=== PATIENT | female | born 1945 | race Caucasian/White ===

== ENCOUNTER → 2016-08-05 | Day surgery (SDC) | payer OTHER ==
[~2016-08-05] MED LIST: IOPAMIDOL (ISOVUE-M 300) 15 ML VIAL IV ONE; TRIAMCINOLONE ACETONIDE 200 MG/5 ML MDV IM ONE
--- NOTE | 2016-08-05 14:57 | IR ---
Lumbar Epidural Steroid Injection History: Back pain, sacral pain, two previous lumbar surgical fusions. Only 3 days of pain relief fro m previous CT-guided injection of sacroiliac joints of June 27, 2016. Consent: Risks and benefits of the procedure were discussed in detail. Informed consent was obtained. Patient accepted risks of lack of therapeutic benefit, internal bleeding, infection, and accidental dural puncture. Medications: Local anesthetic, only, at the preference of the patient. Technique: With the patient prone, the back was prepped and draped in sterile fashion. 1% Xylocaine w as used for local anesthetic. Using multiplanar fluoroscopic guidance, a long 18-gauge Tuohy needle w as inserted into the interlaminar space at L2-L3. Epidural position of the tip of the needle was conf irmed with 2.5 mL of Isovue-M 300. Spot images were obtained before and following injection of 2 mL o f Kenalog (80 mg) and 3 mL of preservative-free 1% Xylocaine. The patient tolerated the procedure wel l and was allowed to leave the hospital after brief observation. Epidurogram: Epidural contrast extends from T12 through L3. Segmental instrumentation and fusion incl udes interbody fusion grafts at L3-L4, L4-L5, and L5-S1, and bipedicular screws at L3, L4, and L5. Mu ltiple coils overlying the lumbar spine are compatible with surgical treatment of hernia. Surgical cl ips in the right upper quadrant suggest cholecystectomy. Impression: 1. Lumbar epidural injection of long-acting steroid and rapid-acting anesthetic via L2-L3. 2. Fusions of L3 through sacrum. - - - - - - - - - - - - - - - - - - - - - - - - - - - - - - - - - - - - - - - - - - - - (PQRS Measures: Current medications were listed in the medical record, including all known prescript ions, [id number] medications, herbal medications, and nutritional supplements. Tobacco Use: Non e. Prophylactic antibiotic: Unnecessary. VTE prophylaxis: Unnecessary.)
== END | disposition home or self-care (01) ==
LOC: FIMAGING 12:58
PROVIDERS: ATTEND Radiology Diagnostic Radiology
DX: M54.5 Low back pain (principal); M51.37 Other intervertebral disc degeneration, lumbosacral region; Z98.1 Arthrodesis status
CPT/HCPCS: J3301; Q9967

== ENCOUNTER 2016-09-11 14:04 | Emergency (ER) | payer OTHER ==
[~2016-09-11 14:04] MED LIST changes: +ACETAMINOPHEN/CODEINE 300/30MG TAB PO SCH; -IOPAMIDOL (ISOVUE-M 300) 15 ML VIAL IV ONE; -TRIAMCINOLONE ACETONIDE 200 MG/5 ML MDV IM ONE
[2016-09-11 14:14] VITALS: TEMP 98.1
[2016-09-11] MEDS ORDERED: ACETAMINOPHEN 325 MG TAB PO ONE (14:33)
[2016-09-11] MEDS ORDERED: KETOROLAC 30 MG/1 ML SDV IVP ONE (15:09)
[2016-09-11] MEDS ORDERED: DIAZEPAM 10 MG/2 ML SYR IVP ONE (15:10)
--- NOTE | 2016-09-11 15:24 | EDPHY ---
H & P Stated Complaint: R hip/back pain radiating down leg Time Seen by Provider: 09/11/16 14:19 HPI/ROS: CHIEF COMPLAINT: Back and leg pain HISTORY OF PRESENT ILLNESS: This is a 71-year-old female with multiple medical problems including severe coronary artery disease and insulin-dependent diabetes who is status post lumbar fusion x2. Her 1st fusion was at L4-5 L5-S1 in 2011. The 2nd fusion involved the level above and was performed by Dr. Sánchez in July of 2015. She had been relatively well since then but developed acute gout this past fall and ended up in a wheelchair for a few months as result. Following that she began physical therapy, which she has continued. Over the past 5 days she has had right buttock pain that extends around into her right anterolateral thigh to the knee. Initially this was thought dora piriformis syndrome by her physical therapist. The patient now says that this feels like sciatica to her. She is not aware of any new weakness but has been in so much pain that she has not been up and about much. She is not aware of new numbness. She did have 1 episode of urinary leakage, a very small amount, 3 days ago. This has not recurred. She has been able to control her bowels and her bladder. She is intolerant of opiate pain medications. She has been taking ibuprofen 600 mg twice daily without relief. REVIEW OF SYSTEMS: A ten point review of systems was performed and is negative with the exception of the items mentioned in the HPI. Source: Patient, Family Exam Limitations: No limitations - Personal History Current Tetanus/Diphtheria Vaccine: Yes Current Tetanus Diphtheria and Acellular Pertussis (TDAP): Yes Tetanus Vaccine Date: unknown - Medical/Surgical History Hx Asthma: No Hx Chronic Respiratory Disease: No Hx Diabetes: Yes Hx Cardiac Disease: Yes Hx Renal Disease: No Hx Cirrhosis: No Hx Alcoholism: No Hx HIV/AIDS: No Hx Splenectomy or Spleen Trauma: No Other PMH: 1. Sleep apnea, O2 at night. 2. CAD. 3. s/p CABG. 4. Obesity, morbid. 5. HTN. 6. CABG. 7.Stents. 8.CA, 2009. 9.Hyperlipidemia. 10. Hernia repair and 2012 11.laminectomy 2004, renetta 2004, lumbar fusion 2011, R TKA 2009. 11. CHF - Social History Smoking Status: Never smoked Alcohol Use: None Additional Social History: She lives with her . - Physical Exam Exam: General Appearance: Alert. Vital signs reviewed. Lying on her side with her right leg pulled up toward her chest. She appears uncomfortable. Eyes: Pupils equal and round, no conjunctival injection, no discharge. Anicteric. ENT, Mouth: Mucous membranes are moist, no oropharyngeal erythema or edema. Neck: Nontender over the cervical spine. Respiratory: Lungs are clear to auscultation; no wheezes, rales, or rhonchi. Cardiovascular: Regular rate and rhythm; no murmur, rub, or gallop. Gastrointestinal: Abdomen is obese, soft and nontender. Skin: Warm and dry, no rashes on exposed skin, normal color. Back: Nontender to palpation over the thoracolumbar spine. Well-healed surgical incisions. Extremities: No lower extremity edema, no calf tenderness or swelling. Neurological: Alert and oriented. Moving all four extremities spontaneously. Sensation is intact to light touch over her lower extremities. Motor testing is difficult due to her pain. She appears to have equal 4+ over 5 strength in both lower extremities with testing of hip flexors, hip extensors, knee flexion , knee extension, plantar flexion, dorsiflexion and EHL. Psychiatric: Normal affect. Constitutional: Initial Vital Signs Temperature (C) 36.7 C 09/11/16 14:12 Heart Rate 71 09/11/16 14:12 Respiratory Rate 15 09/11/16 14:12 Blood Pressure 109/74 09/11/16 14:12 O2 Sat (%) 96 09/11/16 14:12 O2 Delivery Mode Room Air O2 (L/minute) 2 Allergies/Adverse Reactions: lorazepam [Lorazepam] Allergy (Intermediate, Verified 09/11/16 14:10) Other-Enter Comments metoprolol Allergy (Intermediate, Verified 09/11/16 14:10) Other-Enter Comments Opioids - Morphine Analogues [Opioids-Morphine & Related] Allergy (Intermediate , Verified 09/11/16 14:10) Other-Enter Comments Sulfa (Sulfonamide Antibiotics) Allergy (Intermediate, Verified 09/11/16 14:10) Hives Home Medications: Medication Instructions Recorded Insulin Aspart [Novolog Flexpen] 40 - 60 unit SQ TIDMEAL PRN 12/01/14 Insulin Glargine [Lantus 100 70 unit SC BID 05/04/15 UNITS/ML (*)] Albuterol Sulfate [Albuterol 2 puffs IH DAILY PRN 01/06/15 Inhaler Hfa] Cholecalciferol Vit D3 [Vitamin D3 5,000 units PO DAILY@08 01/06/15 (*)] Nitroglycerin [Nitrostat 0.4 mg 0.4 mg SL AD PRN 01/06/15 (*)] Docusate Sodium [Colace 100 MG (*)] 100 mg PO DAILY 07/30/15 Losartan Potassium [Cozaar 50 mg 50 mg PO HS 04/14/16 (*)] hydrALAZINE [Apresoline 50 mg (*)] 100 mg PO BID 04/14/16 Calcium Carbonate [Tums 500MG (*)] 500 mg PO DAILY PRN 04/26/16 Isosorbide Mononitrate [Isosorbide 120 mg PO BID 04/26/16 Mononitrate ER] Ondansetron Odt [Zofran Odt 4 mg 4 mg PO DAILY PRN 04/26/16 (*)] Pantoprazole Sodium [Protonix 40mg 40 mg PO BID 04/26/16 (*)] clonIDINE [Catapres (*)] 0.1 mg PO DAILY PRN 04/26/16 Allopurinol [Allopurinol 100 MG 100 mg PO BID 06/15/16 (*)] Torsemide [Demadex] 20 mg PO DAILY10 06/15/16 Acetaminophen/Codeine 300/30Mg 1 - 2 each PO Q6 #14 tab 09/11/16 [Tylenol #3 (*)] Medical Decision Making ED Course/Re-evaluation: She is unable to take opiate pain medication. She has received epidural steroid injections by Dr. Alexander of Interventional Radiology. Her last such injection was 08/05/2016. She was given Tylenol on arrival to the emergency department. An IV was placed and she was given Toradol 15 mg and Valium 2.5 mg IV. She had some relief with the above medications but continued to be in significant discomfort. She feels that Toradol irritates her stomach. She has multiple medication allergies and adverse reactions. After some discussion it was determined that she has not had an adverse reaction of fentanyl. She was given fentanyl 100 mcg with significant pain relief. She recalls that she has taken Tylenol with codeine successfully in the past. She is not interested in hospitalization and is hoping to return home. I am providing a prescription for Tylenol with codeine. She plans to contact her neurosurgeon in the morning and discuss the advisability of an MRI scan. She understands the danger signs that should prompt her to return and be re- evaluated in the emergency department. Differential Diagnosis: Back pain including but not limited to muscular pain, herniated disc, spine fracture, intra-abdominal causes and urinary tract infection. She has not had recent trauma and I do not think that fractures likely. Her pain seems radicular. There is nothing to suggest infection such as pyelonephritis, urinary tract infection, or epidural abscess. - Data Points Medications Given: Discontinued Medications Acetaminophen (Tylenol) 650 mg PO EDNOW ONE Stop: 09/11/16 14:34 Last Admin: 09/11/16 14:37 Dose: 650 mg Diazepam (Valium Injection) 2.5 mg IVP EDNOW ONE Stop: 09/11/16 15:11 Last Admin: 09/11/16 15:20 Dose: 2.5 mg Fentanyl (Sublimaze) 100 mcg IVP EDNOW ONE Stop: 09/11/16 16:05 Last Admin: 09/11/16 16:16 Dose: 100 mcg Ketorolac Tromethamine (Toradol) 15 mg IVP EDNOW ONE Stop: 09/11/16 15:10 Last Admin: 09/11/16 15:20 Dose: 15 mg Ondansetron HCl (Zofran) 4 mg IVP EDNOW ONE Stop: 09/11/16 16:06 Last Admin: 09/11/16 16:16 Dose: 4 mg Departure - Departure Disposition: Home, Routine, Self-Care Clinical Impression: Back pain of lumbar region with sciatica Condition: Good Instructions: Lumbar Radiculopathy (ED) Additional Instructions: Call Dr. Sánchez's office in the morning to arrange an appointment and imaging if needed. Use the Tylenol 3 as prescribed if needed for pain. If you have intractable severe pain or if anything changes for the worse--new numbness or trouble controlling your bowels or your bladder--you should return to the emergency department immediately. Referrals: Raheem Seth MD [Primary Care Provider] - As per Instructions Lucia Sánchez MD [Medical Doctor] - As per Instructions Prescriptions: Acetaminophen/Codeine 300/30Mg [Tylenol #3 (*)] 1 - 2 each PO Q6 #14 tab
[2016-09-11] MEDS ORDERED: fentaNYL 100 MCG/2 ML INJ IVP ONE (16:04)
[2016-09-11] MEDS ORDERED: ONDANSETRON 4 MG/2 ML VIAL IVP ONE (16:05)
[2016-09-11 18:17] VITALS: BP 118/78; PULSE 72; RESP 16; O2SAT 96
== END 2016-09-11 18:16 | disposition home or self-care (01) ==
DX: M54.40 Lumbago with sciatica, unspecified side (principal); E11.9 Type 2 diabetes mellitus without complications; I25.810 Atherosclerosis of coronary artery bypass graft(s) without angina pectoris; I10 Essential (primary) hypertension; I50.9 Heart failure, unspecified; I25.2 Old myocardial infarction; Z95.5 Presence of coronary angioplasty implant and graft; Z79.4 Long term (current) use of insulin
CPT/HCPCS: 96374; 96375; 99284; J1885; J2405; J3010

== ENCOUNTER 2016-09-16 10:05 | Inpatient (IN) | payer OTHER ==
[2016-09-16] MEDS ORDERED: ONDANSETRON 4 MG/2 ML VIAL IVP ONE (11:26)
[2016-09-16] MEDS ORDERED: HYDROmorphONE/DILAUDID 1 MG/ML SYR IVP ONE (11:26)
--- NOTE | 2016-09-16 11:34 | EDPHY ---
H & P Smoking Status: Never smoked Time Seen by Provider: 09/16/16 10:41 HPI/ROS: CHIEF COMPLAINT: Back pain HISTORY OF PRESENT ILLNESS: 71-year-old female presents to the emergency department by private vehicle with her complaining of severe low back pain. Patient has a history of lumbar fusion from L3-S1. The patient had an injection in her back 2 months ago and then had an injection in her SI joint 1 month ago. She states 10 days ago she was using a pilates reformer and injured her low back. She is complaining of severe pain in her lower back. She is unable to sleep. She denies feeling weakness in her lower legs. Denies bowel or bladder incontinence. Denies foot drop. She uses a cane for assistance with walking. She denies chest pain or difficulty breathing. Denies any other reported trauma. Denies numbness or tingling in her lower legs. REVIEW OF SYSTEMS: Constitutional: No fever, no chills. Eyes: No double or blurry vision. ENT: No sore throat. Respiratory: No cough, no shortness of breath. Cardiac: No chest pain. Gastrointestinal: No abdominal pain, vomiting or diarrhea. Genitourinary: No dysuria. Musculoskeletal: Back pain as above. No neck pain. Skin: No rashes. Neurological: No headache. (Amina Acuna) Past Medical/Surgical History: Type 2 diabetic on insulin, myocardial infarction with stents, CABG, hypertension, coronary artery disease, dyslipidemia, hernia repair in 2004 and 2012, cholecystectomy, congestive heart failure, lumbar fusion (Amina Acuna) Social History: (Amina Acuna) Physical Exam: General Appearance: Alert, obvious distress. Patient is lying in her left lateral decubitus position for comfort. She is morbidly obese. Eyes: Pupils equal and round. Extraocular motions are all intact. ENT: Mouth: Mucous membranes moist. Respiratory: No wheezing, rhonchi, or rales, lungs are clear to auscultation. Cardiovascular: Regular rate and rhythm. Gastrointestinal: Abdomen is soft and nontender, no masses, no rebound or guarding, bowel sounds normal. Neurological: Alert and oriented x 3, cranial nerves II through XII grossly intact Skin: Warm and dry, no rashes. Rectal exam: Deferred Musculoskeletal: Nontender to palpate along the cervical, thoracic or lumbar spine. Neck is supple. Extremities: Full range of motion and no peripheral edema. Normal and equal strength for the lower extremities bilaterally. Unable to lift her left or right leg secondary sit to severe pain. Psychiatric: Patient is oriented X 3, there is no agitation. (Amina Acuna) Constitutional: Initial Vital Signs Temperature (C) 36.7 C 09/16/16 10:09 Heart Rate 94 09/16/16 10:09 Respiratory Rate 18 09/16/16 10:09 Blood Pressure 149/78 H 09/16/16 10:09 O2 Sat (%) 91 L 09/16/16 10:09 O2 Delivery Mode Room Air Allergies/Adverse Reactions: lorazepam [Lorazepam] Allergy (Intermediate, Verified 09/11/16 14:10) Other-Enter Comments metoprolol Allergy (Intermediate, Verified 09/11/16 14:10) Other-Enter Comments Opioids - Morphine Analogues [Opioids-Morphine & Related] Allergy (Intermediate , Verified 09/11/16 14:10) Other-Enter Comments Sulfa (Sulfonamide Antibiotics) Allergy (Intermediate, Verified 09/11/16 14:10) Hives Home Medications: Medication Instructions Recorded Insulin Aspart [Novolog Flexpen] 10 - 20 unit SQ TIDMEAL PRN 12/01/14 Insulin Glargine [Lantus 100 40 - 70 unit SC BID 12/01/14 UNITS/ML (*)] Albuterol Sulfate [Albuterol 2 puffs IH DAILY PRN 01/06/15 Inhaler Hfa] Cholecalciferol Vit D3 [Vitamin D3 5,000 units PO DAILY@08 01/06/15 (*)] Nitroglycerin [Nitrostat 0.4 mg 0.4 mg SL AD PRN 01/06/15 (*)] Docusate Sodium [Colace 100 MG (*)] 100 mg PO HS 07/30/15 Losartan Potassium [Cozaar 50 mg 50 mg PO HS 04/14/16 (*)] hydrALAZINE [Apresoline 50 mg (*)] 100 mg PO BID 04/14/16 Calcium Carbonate [Tums 500MG (*)] 500 mg PO DAILY PRN 04/26/16 Isosorbide Mononitrate [Isosorbide 120 mg PO BID 04/26/16 Mononitrate ER] Ondansetron Odt [Zofran Odt 4 mg 4 mg PO DAILY PRN 04/26/16 (*)] Pantoprazole Sodium [Protonix 40mg 40 mg PO BID 04/26/16 (*)] clonIDINE [Catapres (*)] 0.1 mg PO DAILY PRN 04/26/16 Allopurinol [Allopurinol 100 MG 100 mg PO BID 06/15/16 (*)] Torsemide [Demadex] 20 mg PO DAILY10 06/15/16 Empagliflozin [Jardiance] 10 mg PO DAILY 09/16/16 Medical Decision Making ED Course/Re-evaluation: 71-year-old female presents to the emergency department by private vehicle complaining of severe low back pain. Patient had an outpatient MRI 2 days ago which revealed nerve impingement at L2, just above her fusion site. I spoke with Dr. Bebeto Sánchez performed fusion on the patient previously. He did agree with admitting the patient to the hospitalist for pain control and then when she is cleared medically by Cardiology, they will consider surgical intervention for her back pain. No history of bowel or bladder incontinence or foot drop. I do not think repeat emergent MRI is necessary or lumbar spine. Patient was given 0.5 mg of IV Dilaudid and 4 mg of IV Zofran with relief. ( Amina Acuna) I did not see this patient while she was in the emergency department. However her care was discussed with the PA and with Dr. Sánchez while the patient was in the department. I agree with treatment plan and management (Walter Amaya) Differential Diagnosis: Back pain including but not limited to muscular pain, herniated disc, spine fracture, intra-abdominal causes and urinary tract infection. (Amina Acuna) - Data Points Medications Given: Discontinued Medications Hydromorphone HCl (Dilaudid) 0.5 mg IVP EDNOW ONE Stop: 09/16/16 11:27 Last Admin: 09/16/16 11:45 Dose: 0.5 mg Ondansetron HCl (Zofran) 4 mg IVP EDNOW ONE Stop: 09/16/16 11:27 Last Admin: 09/16/16 11:45 Dose: 4 mg Departure - Departure Disposition: [facility] Inpatient Acute Clinical Impression: Lumbar stenosis Back pain Qualifiers: Back pain location: low back pain Chronicity: chronic Back pain laterality: midline Sciatica presence: without sciatica Qualified Code(s): M54.5 - Low back pain Condition: Good
[2016-09-16 12:03] LABS: % IMMATURE GRANULYOCYTES 0.5 % (0.0-1.1); ABSOLUTE IMMATURE GRANULOCYTES 0.02 10^3/uL (0.00-0.10); ADD DIFF? NO; ADD MORPH? NO; ADD SCAN? NO; ATYPICAL LYMPHOCYTE FLAG 20 (0-99); FRAGMENT RBC FLAG 0 (0-99); HEMATOCRIT 35.9 % (38.0-47.0); HEMOGLOBIN 12.1 g/dL (12.6-16.3); LEFT SHIFT FLG 10 (0-99); LIPEMIA HEMOLYSIS FLAG 80 (0-99); MEAN CELL HEMOGLOBIN 31.8 pg (27.9-34.1); MEAN CELL HEMOGLOBIN CONCENTR. 33.7 g/dL (32.4-36.7); MEAN CELL VOLUME 94.5 fL (81.5-99.8); MEAN PLATELET VOLUME 9.3 fL (8.7-11.7); PLATELET CLUMPS FLAG 0 (0-99); PLATELET COUNT 228 10^3/uL (150-400); RED CELL DISTRIBUTION WIDTH 14.5 % (11.5-15.2)
[2016-09-16 12:13] LABS: ANION GAP 6 mEq/L (8-16); CALCIUM 9.9 mg/dL (8.5-10.4); CARBON DIOXIDE 28 mEq/l (22-31); CHLORIDE 105 mEq/L (97-110); CREATININE 0.9 mg/dL (0.6-1.0); GLOMERULAR FILTRATION RATE > 60; GLUCOSE 141 mg/dL (70-100); POTASSIUM 4.6 mEq/L (3.5-5.2); SODIUM 139 mEq/L (134-144)
--- NOTE | 2016-09-16 13:50 | PDGENHP ---
History and Physical - Chief Complaint back pain - History of Present Illness 71 y/o female with history chronic low back pain with 2 previous lumbar fusions and CAD who presents to the ED today with severe uncontrolled low back pain. The pain began 10 days ago after doing Pilates. She awoke the next day with severe pain that is described as constant 4-5/10 dull and sometimes sharp pain that begins in the right buttock and radiated to the anterior right knee. She denies any alleviating factors. She denies any new problems with urination or bowel incontinence. She denies any saddle anesthesia. She was seen in the ED on 09/12 for the back pain where she was seen by Dr. Sánchez and was found to have "pinched nerve" at L2-L3 on MRI that will require surgery. She was hospitalized in May of 2016 after an episode of chest discomfort and was seen by Dr. Gauthier who recommended out patient stress testing that was not ever done. She denies any exertional chest pain. History Information - Allergies/Home Medication List Allergies/Adverse Reactions: lorazepam [Lorazepam] Allergy (Intermediate, Verified 09/11/16 14:10) Other-Enter Comments metoprolol Allergy (Intermediate, Verified 09/11/16 14:10) Other-Enter Comments Opioids - Morphine Analogues [Opioids-Morphine & Related] Allergy (Intermediate , Verified 09/11/16 14:10) Other-Enter Comments Sulfa (Sulfonamide Antibiotics) Allergy (Intermediate, Verified 09/11/16 14:10) Hives Home Medications: Insulin Aspart [Novolog Flexpen] 10 - 20 unit SQ TIDMEAL PRN 12/01/14 [Last Taken 09/15/16] Insulin Glargine [Lantus 100 UNITS/ML (*)] 40 - 70 unit SC BID 12/01/14 [Last Taken 09/16/16 60 UNITS] Albuterol Sulfate [Albuterol Inhaler Hfa] 2 puffs IH DAILY PRN 01/06/15 [Last Taken 06/15/16] Cholecalciferol Vit D3 [Vitamin D3 (*)] 5,000 units PO DAILY@08 01/06/15 [Last Taken 09/16/16] Nitroglycerin [Nitrostat 0.4 mg (*)] 0.4 mg SL AD PRN 01/06/15 [Last Taken 09/16] Docusate Sodium [Colace 100 MG (*)] 100 mg PO HS 07/30/15 [Last Taken 09/15/16] Losartan Potassium [Cozaar 50 mg (*)] 50 mg PO HS 04/14/16 [Last Taken 09/15/16] hydrALAZINE [Apresoline 50 mg (*)] 100 mg PO BID 04/14/16 [Last Taken 09/16/16] Calcium Carbonate [Tums 500MG (*)] 500 mg PO DAILY PRN 04/26/16 [Last Taken Unknown] Isosorbide Mononitrate [Isosorbide Mononitrate ER] 120 mg PO BID 04/26/16 [Last Taken 09/16/16] Ondansetron Odt [Zofran Odt 4 mg (*)] 4 mg PO DAILY PRN 04/26/16 [Last Taken ] Pantoprazole Sodium [Protonix 40mg (*)] 40 mg PO BID 04/26/16 [Last Taken ] clonIDINE [Catapres (*)] 0.1 mg PO DAILY PRN 04/26/16 [Last Taken 09/15/16] Allopurinol [Allopurinol 100 MG (*)] 100 mg PO BID 06/15/16 [Last Taken 09/16/16 ] Torsemide [Demadex] 20 mg PO DAILY10 06/15/16 [Last Taken 09/15/16] Empagliflozin [Jardiance] 10 mg PO DAILY 09/16/16 [Last Taken 09/16/16] I have personally reviewed and updated: family history, medical history, social history, surgical history - Past Medical History atrial fibrillation (questionable (not on anticoagulation)), coronary artery disease, CHF (ef of 55%, DD, mod ), degenerative disc disease, diabetes type 2, GERD, glaucoma, hypertension, hyperlipidemia Additional medical history: spinal stenosis. obesity. juan. hypothyroid. gout - Surgical History Reports: bronchoscopy, coronary bypass surgery (x4 in 1998), cholecystectomy, hernia repair, spinal surgery (multiple), coronary stent (1998) Additional surgical history: RTKA, lumbar fusion x 2 - Family History Positive for: CAD - Social History Smoking Status: Never smoked Review of Systems ROS: 10pt was reviewed & negative except for what was stated in HPI & below Cardiac: Reports: no symptoms. Denies: chest pain, palpitations, syncope Respiratory: Reports: no symptoms. Denies: shortness of breath Physical Exam Temp Pulse Resp BP Pulse Ox 36.7 C 52 L 14 149/78 H 99 09/16/16 10:09 09/16/16 12:00 09/16/16 12:00 09/16/16 10:09 09/16/16 12:00 O2 (L/minute) 2 Constitutional: no apparent distress, appears nourished, not in pain Eyes: PERRL, anicteric sclera, EOMI Ears, Nose, Mouth, Throat: moist mucous membranes, hearing normal, ears appear normal, no oral mucosal ulcers Cardiovascular: regular rate and rhythym, no murmur, rub, or gallop, No edema Respiratory: no respiratory distress, no rales or rhonchi, clear to auscultation , No expiratory wheeze, No inspiratory crackles Gastrointestinal: normoactive bowel sounds, soft, non-tender abdomen, no palpable masses, No guarding, No rebound Genitourinary: no bladder fullness, no bladder tenderness Skin: warm, normal color, no rashes or abrasions, no fluctuance, no induration, No mottled Musculoskeletal: full muscle strength, no muscle tenderness, normal joint ROM, no joint effusions, other (tenderness to palpation right buttock) Neurologic: AAOx3, CN II-XII Intact, other (no saddle anesthesia), No facial droop Psychiatric: interacting appropriately, not anxious, not encephalopathic, thought process linear Lymph, Heme, Immunologic: no cervical LAD, no supraclavicular LAD Lab Data & Imaging Review 09/16/16 11:53 09/16/16 11:53 WBC 4.35 10^3/uL (3.80-9.50) 09/16/16 11:53 RBC 3.80 10^6/uL (4.18-5.33) L 09/16/16 11:53 Hgb 12.1 g/dL (12.6-16.3) L 09/16/16 11:53 Hct 35.9 % (38.0-47.0) L 09/16/16 11:53 MCV 94.5 fL (81.5-99.8) 09/16/16 11:53 MCH 31.8 pg (27.9-34.1) 09/16/16 11:53 MCHC 33.7 g/dL (32.4-36.7) 09/16/16 11:53 RDW 14.5 % (11.5-15.2) 09/16/16 11:53 Plt Count 228 10^3/uL (150-400) 09/16/16 11:53 MPV 9.3 fL (8.7-11.7) 09/16/16 11:53 Neut % (Auto) 53.1 % (39.3-74.2) 09/16/16 11:53 Lymph % (Auto) 33.3 % (15.0-45.0) 09/16/16 11:53 [place] % (Auto) 12.2 % (4.5-13.0) 09/16/16 11:53 Eos % (Auto) 0.7 % (0.6-7.6) 09/16/16 11:53 Baso % (Auto) 0.2 % (0.3-1.7) L 09/16/16 11:53 Nucleat RBC Rel Count 0.0 % (0.0-0.2) 09/16/16 11:53 Absolute Neuts (auto) 2.31 10^3/uL (1.70-6.50) 09/16/16 11:53 Absolute Lymphs (auto) 1.45 10^3/uL (1.00-3.00) 09/16/16 11:53 Absolute Monos (auto) 0.53 10^3/uL (0.30-0.80) 09/16/16 11:53 Absolute Eos (auto) 0.03 10^3/uL (0.03-0.40) 09/16/16 11:53 Absolute Basos (auto) 0.01 10^3/uL (0.02-0.10) L 09/16/16 11:53 Absolute Nucleated RBC 0.00 10^3/uL (0-0.01) 09/16/16 11:53 Immature Gran % 0.5 % (0.0-1.1) 09/16/16 11:53 Immature Gran # 0.02 10^3/uL (0.00-0.10) 09/16/16 11:53 Sodium 139 mEq/L (134-144) 09/16/16 11:53 Potassium 4.6 mEq/L (3.5-5.2) 09/16/16 11:53 Chloride 105 mEq/L (97-110) 09/16/16 11:53 Carbon Dioxide 28 mEq/l (22-31) 09/16/16 11:53 Anion Gap 6 mEq/L (8-16) L 09/16/16 11:53 BUN 18 mg/dL (7-23) 09/16/16 11:53 Creatinine 0.9 mg/dL (0.6-1.0) 09/16/16 11:53 Estimated GFR > 60 09/16/16 11:53 Glucose 141 mg/dL (70-100) H 09/16/16 11:53 Calcium 9.9 mg/dL (8.5-10.4) 09/16/16 11:53 Assessment & Plan Assessment: 71 y/o female with history CAD s/p CABG x 4 presents with # Acute chronic low back pain with 2 previous lumbar fusions and reported nerve impingement at L2-L3 by recent MRI -I discussed the case with Dr. Sánchez. Will start neurontin, oral dilaudid, and medrol dose pack -consider ALPHONSE vs fusion pending medical management # H/O CAD with recent admission for chest discomfort in the setting of heart failure and elevated troponin -echo and caridac cath from 12/2014 was reviewed. Will proceed with Lexiscan given recent hospitalization for chest discomfort in the setting of possible upcoming moderate risk surgery. #DM t2 -Continue home insulin regime and monitor for steroid induced hyperglycemia which will be treated accordingly with correctional insulin
--- NOTE | 2016-09-16 13:56 | GCON ---
[f rep st] CONSULTATION NEUROSURGICAL CONSULTATION DATE OF CONSULTATION: 09/16/2016 REASON FOR CONSULTATION: Back and right leg pain. HISTORY OF PRESENT ILLNESS: The patient is a 71-year-old who suffers from extreme morbid obesity as well as coronary artery disease. She has undergone instrumented fusion at L3-4, L4-5, and L5-S1 wi th 3 separate surgeries. She has always improved her lower extremity pain and back pain with the schrader bsequent surgeries and has developed recurrent symptoms. She did have an injection in her back abou t 2 months ago and an injection into her SI joint about 1 month ago, but over the last several days has developed incapacitating low back pain that keeps her from sleeping, as well as radiating pain d own the right more so than the left leg. She denies any significant weakness, but she is really hav ing trouble ambulating. PAST MEDICAL HISTORY: Significant for type 2 diabetes, requiring insulin, and myocardial infarction with stents. She also small vessel coronary disease, previous CABG, hypertension, dyslipidemia, he rnia repairs in 2004 and 2012. She has undergone 3 previous instrumented spine surgeries, and she i s fused from L3-S1. She has had a cholecystectomy. She has congestive heart failure. SOCIAL HISTORY: She is and does not smoke. PHYSICAL EXAM: She is lying supine on a hospital stretcher and cannot sit up because of terrible pa in in her back. She does have weakness limited by pain in the right lower extremity that is about 4 /5 in the tibialis anterior, plantar flexors, and extensor hallucis longus. The left leg has good s trength. The right leg limitations mostly are with pain. IMAGING: MRI of the lumbar spine is reviewed and demonstrates severe adjacent segment disease and s tenosis at L2-3, above her prior fusion. There is nothing critical; however, this is the likely erika rce of her discomfort. ASSESSMENT: The patient has developed severe adjacent segment disease and will need to undergo yet another spinal fusion, carrying the fusion up to the L2-3 level. This process almost certainly will continue as long as she continues to suffer from terrible obesity. She is being admitted for pain control by the medicine service this weekend and we would favor interventional treatments, including an epidural steroid injection at L2-3 if the patient chooses to go that route. If there is no way to medically control her pain or alleviate her symptoms, then surgery would be considered, even surg christiana as early as next week. We will kluti kaah back on Monday to check her progress over the weekend. /[id number]/MODL
[2016-09-16] MEDS ORDERED: BISACODYL 10 MG SUPP PR PRN (14:37)
[2016-09-16] MEDS ORDERED: MAGNESIUM HYDROXIDE 30 ML UDCUP PO PRN (14:37)
[2016-09-16] MEDS ORDERED: LACTULOSE 20 GM/30 ML UDCUP PO PRN (14:37)
[2016-09-16] MEDS ORDERED: D50W 25 GM/50 ML SYR IVP PRN (14:38)
[2016-09-16] MEDS ORDERED: NITROGLYCERIN 0.4 MG BTL SL PRN (14:39)
[2016-09-16] MEDS ORDERED: ALBUTEROL 3 ML DEYVIAL IH PRN (14:42)
[2016-09-16] MEDS: HYDROmorphONE/DILAUDID 4 MG TAB PO PRN ×3 (14:53→16:19)
[2016-09-16] MEDS: GABAPENTIN 300 MG CAP PO SCH ×2 (14:57→21:17)
[2016-09-16] MEDS ORDERED: ISOSORBIDE MONONITRATE 30 MG TAB.SR PO SCH (15:00)
[2016-09-16] MEDS: SENNOSIDES/DOCUSATE SODIUM TAB PO SCH ×3 (16:06→21:16)
[2016-09-16] MEDS: POLYETHYLENE GLYCOL 3350 17 GM PKT PO PRN (16:06)
[2016-09-16] MEDS: ONDANSETRON 4 MG/2 ML VIAL IVP PRN (16:18)
[2016-09-16] MEDS: INSULIN LISPRO 100 UNIT/ML SC SCH (18:26)
[2016-09-16] MEDS: methylPREDNISolone 4 MG TAB PO SCH ×2 (18:26→21:16)
[2016-09-16] MEDS ORDERED: INSULIN GLARGINE 100 UNITS/ML SYRINGE SC SCH (21:00)
[2016-09-16] MEDS: DOCUSATE SODIUM 100 MG CAP PO SCH (21:16)
[2016-09-16] MEDS: ALLOPURINOL 100 MG TAB PO SCH (21:17)
[2016-09-16] MEDS: PANTOPRAZOLE SODIUM 40 MG TAB PO SCH (21:17)
[2016-09-16] MEDS: LOSARTAN POTASSIUM 50 MG TAB PO SCH (21:18)
[2016-09-16] MEDS: ISOSORBIDE MONONITRATE 30 MG TAB.SR PO SCH (21:18)
[2016-09-16] MEDS: LANTUS SOLOSTAR SC SCH (21:52)
[2016-09-17] MEDS: ENOXAPARIN 40 MG/0.4 ML SYR SC SCH (08:33)
[2016-09-17] MEDS: POLYETHYLENE GLYCOL 3350 17 GM PKT PO PRN (08:34)
[2016-09-17] MEDS: HYDROmorphONE/DILAUDID 4 MG TAB PO PRN (08:34)
[2016-09-17] MEDS: SENNOSIDES/DOCUSATE SODIUM TAB PO SCH ×2 (08:34→21:46)
[2016-09-17] MEDS: PANTOPRAZOLE SODIUM 40 MG TAB PO SCH ×2 (08:35→21:46)
[2016-09-17] MEDS: ALLOPURINOL 100 MG TAB PO SCH ×2 (08:35→21:46)
[2016-09-17] MEDS: methylPREDNISolone 4 MG TAB PO SCH ×5 (08:35→18:36)
[2016-09-17] MEDS: GABAPENTIN 300 MG CAP PO SCH (08:35)
[2016-09-17] MEDS: TORSEMIDE 20 MG TAB PO SCH (08:35)
[2016-09-17] MEDS: INSULIN LISPRO 100 UNIT/ML SC SCH ×3 (08:44→17:48)
[2016-09-17] MEDS: Empagliflozin [Jardiance] 10 MG PO SCH (08:44)
[2016-09-17] MEDS: LANTUS SOLOSTAR SC SCH ×2 (08:46→21:44)
[2016-09-17] MEDS ORDERED: REGADENOSON 0.4 MG/5 ML SYR IVP ONE (09:51)
[2016-09-17] MEDS: ISOSORBIDE MONONITRATE 30 MG TAB.SR PO SCH ×2 (11:11→21:45)
[2016-09-17] MEDS: Insulin Aspart [Novolog Flexpen] SQ PRN (11:30)
--- NOTE | 2016-09-17 14:30 | GCON ---
[f rep st] CONSULTATION A 71-year-old woman admitted with pain. The patient is cared for by Dr. Seth. She has come into the hospital at this point in time cam use of severe back pain. She cannot live the life she is living. She is taking pain medications an d is still suffering a great and cannot get around. She is not mobile any longer. She is very weak . She is very discouraged about the whole thing. She has had pain for weeks and weeks, but the acute problem started approximately 10 days ago or so. We know her well in that she has had angina and coronary artery disease. She is followed by my part ner, Dr. Gauthier. She was in the hospital back in May. She has seen him in clinic multiple t imes. She gets anterior chest discomfort that is heavy, does not radiate, and occurs with exertion. This is her usual angina. It happens several times a week. It goes up to 5/10. It comes on with exerti on. Nitroglycerin always helps and she stops what she is doing. This angina has improved since she started taking Cozaar, but it continues to be 2 times a week. She uses the nitroglycerin multiple times a week. She has chronic peripheral edema. She sleeps on an elevated bed with the head of the bed up multiple inches and then she uses a pillow on top of that. She does not wake up at night sh ort of breath. She has not had an increase in her peripheral edema. She does not have early satiet y. She is not getting any rest angina. She takes her medication and just lives with this degree of ang brynn. She does not have nausea or vomiting. She is not lightheaded or dizzy right now. She is not having palpitations. She does not have rashes. She has major ongoing orthopedic issues with an accident years ago to her right foot, severe trauma, and that is misshapen and contains fractures. She has bilateral knee pr oblems and now she has the back problems as well. Cardiac risk factors are positive for known coron jaime artery disease with a history of coronary artery bypass grafting. She has preserved ejection fr action. She is markedly obese. She has hypertension and hyperlipidemia. She has a major family hi story of premature coronary artery disease. She is diabetic. She has had gout in the past. CARDIAC RISK FACTORS: Negative for smoking history. Cardiac history is also positive for history o f intermittent atrial fibrillation. FAMILY HISTORY: She has had multiple male members of her family in their 50s from coronary mary ry disease and many other people with significant coronary artery disease below the age of 60. ALLERGIES: Lorazepam, metoprolol, opioids, and sulfur. MEDICATIONS AT HOME: Insulin multiple sorts, albuterol, cholecalciferol nitroglycerin p.r.n., [place] e, Cozaar, Apresoline, Tums, isosorbide, Zofran, Protonix, Catapres, allopurinol, Demadex, Jardiance . PAST SURGICAL HISTORY: Includes bypass surgery in 1998. She has had lumbar fusion several times. She has had hernia repair. She has had stenting in 1998 as well. She has had bronchoscopies in the past. REVIEW OF SYSTEMS: There is a question of atrial fibrillation in the past. She has glaucoma. She has all the problems listed above. She has severe osteoarthritis. She has very severe degenerative back disease as well. She is massively obese. SOCIAL HISTORY: She was born in [place], [place]. 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 She lives here with her . They have 2 children and they are both health y. She does not smoke. She does not drink significant amounts of alcohol. She is retired because of her disabilities. Her major disabilities that limit her are the fact that she has these major ar thritic complaints. She now has ongoing back problems. She does not smoke. She does not drink sig nificant amounts of alcohol. She has been talking to her doctors about losing weight and is dedicat ed to doing this, but has not been able to succeed. She also has been seeing Dietary. She is committed to this and I believe she can have great success over time, but it is not going to be easy for her. PHYSICAL EXAMINATION: VITAL SIGNS: Her blood pressure is 160/90. Her oxygen saturation is 95, res piratory rate is 12. GENERAL: She is resting comfortably in bed. She is afebrile at 36.7. HEENT EXAM: She has a neck that is supple. CARDIOVASCULAR: S1, S2. Very distant. HEART: Sounds. No S3-S4, no rubs. PULMONARY EXAM: Reveals decreased breath sounds bilaterally. Dullness at the base s and rhonchi. No significant wheezing. ABDOMEN: Soft, nontender, without masses. Quite large. Bowel sounds are present. EXTREMITIES. She has chronic changes in her right leg from her trauma. She has swelling of her lower extremities that is not massive by any means. She has no calf tendern ess today. SKIN: She is somewhat pale and has some bruises present. ADENOPATHY: There is no adenopathy appreciated. NEURO: 2 through 12 seem to be grossly normal. M otor and sensory are intact, however, she is profoundly weak and she is not getting up much and she is not walking around. Motor is not completely intact, obviously. Weakness is profound. PSYCH: N o obvious anxiety or depression. LABORATORY DATA: Her white count 4.35, hematocrit of 35.9, platelet count 228. Sodium 139, potassi um 4.6, chloride 105, BUN 18, creatinine 0.9. Her blood pressure today is 114/60 with a heart rate of 60 and she is 95% oxygen saturation with 1 L of nasal O2. ASSESSMENT AND PLAN: 1. Coronary artery disease. 2. Hyperlipidemia. 3. Hypertension. 4. Diabetes mellitus. 5. Massive obesity. 6. Family history of premature coronary disease. 7. Profound weakness. 8. Back degenerative .. 9. Lumbar disk disease. 10. Weakness. 11. Unstable angina. 12. Chest pain. PLAN: This patient from a cardiovascular point of view could go through a surgical procedure on her spine. She is at high risk of myocardial infarction, possible stroke, and certainly has a much hig her risk than normal of sudden or from surgery. She understands all these complications and problems and if she needs surgery and surgery would benefit her she would like to still go thro ugh with surgery. We had a very bharath point discussion about , myocardial infarction, stroke, and the risk of these things, and she is aware of this. She has been getting her cardiovascular car e from Gonzalo Gauthier and it is her understanding that there is nothing that he can offer her from an intervention point of view with stenting that would benefit her, so at this point in time, she do es not really want to consider an interventional procedure. She would prefer to get on maximal medi philly therapy for coronary disease. I would go ahead with surgery. We have talked about this extensi vely and I will talk to her about it more tomorrow. She gets angina only with significant exertion. We could take her through surgery with IV beta blockers, keep very careful blood pressure control, and hopefully get her through surgery. I think the chances over 50% that she can get through surge ry without a mortality issue. The morbidity could be somewhat significant, however. I think that s aid, if she really wants to continue to do this surgery and she understands all the risks, we should allow are to try to proceed and get a better life. One of her huge problems, and psychologically t his is a big issue for her, is that she cannot do any exercising with this degree of pain so she can not do anything to lose her weight. She understands she needs to lose weight for blood sugar contro l, for blood pressure control, for vascular tree, and also to help musculoskeletal problems she has due to massive obesity and profound weakness. That said, we have a nuclear imaging study that is abnormal which we would expect it to be and we wi ll see what the results come out tomorrow on that study. We do not have those results today and diane l not have them until the study is completed tomorrow. What we do know is that on echocardiographic study she had normal LV systolic function. She had moderate mitral regurgitation. She has had inc omplete revascularization. She has a patent mammary to left anterior descending artery and then she has severe right coronary and OM disease, [place] disease, and it was felt that there was no specifi c intervention that could be done to help that. We can re-examine all this over the next few days a nd especially once we get her nuclear study back. There has been a question about whether she actually has a history of atrial fibrillation and it has never been elected to put her on full anticoagulation. Doctors who know her well have been watching this and that has been their choice and I think it makes sense to at least for now defer to what th mani have been recommending. She does need prophylaxis for deep venous thrombosis because she is lite rally lying in bed and not doing much of anything. Obviously, a pulmonary embolism in her could be fatal. Her prognosis is guarded anyway and that wou ld really impact on prognosis should she have an acute pulmonary embolic event. She and I have talk ed about weight extensively. She is willing to try a 1600 calorie a day diet. I think that would b e a start. I think it is something that she would like to try to do and I think we need to support her very carefully. I think she can do excellent with this over time with enough support. However, it is going to be very hard for her to be successful if she is living in chronic pain that is unabated. She also has severe pain from her leg and the major injury she has there from her knee s and now the back so it is a very difficult combination for anyone to live with and she is doing an amazingly good job of holding up and trying to have good spirits. Depression can certainly be a pa rt of this and that has been discussed in the past and can be evaluated appropriately. We will foll ow her closely with you, perhaps increasing her medical therapy if we get close to doing surgery. R ight now she is happy with the medicine she is on and she is also happy with the degree of angina sh mayela has, so we will follow this very closely over the course of the next several days. Thank you very much for asking us to see her. We will follow her closely with you. /[id number]/MODL
--- NOTE | 2016-09-17 15:02 | HOSPPROG ---
Hospitalist Progress Note Assessment/Plan: 71 y/o female with history CAD s/p CABG x 4 presents with complaints of back pain. This is my 1st encounter with the patient, chart reviewed. Patient reviewed with Dr. Lucien Mccracken as well as Dr. Paxton Hess. # Acute chronic low back pain with 2 previous lumbar fusions and reported nerve impingement at L2-L3 by recent MRI -was started on neurontin, oral dilaudid, and medrol dose pack -consider ALPHONSE vs fusion pending medical management # H/O CAD with recent admission for chest discomfort in the setting of heart failure and elevated troponin - Lexiscan with significant abnormalities -reviewed with Dr. Hess of Cardiology -please see note defer to Cardiology for further recommendations #DM t2 -Continue home insulin regime and monitor for steroid induced hyperglycemia which will be treated accordingly with correctional insulin # morbid obesity -chronic ongoing problem for the patient - activity limited secondary to back pain # disposition -unclear is patient requires further intervention during this hospitalization -plan for continued cardiac evaluation -PT OT eval and treat Subjective: Feeling well currently no specific pain while lying in bed. Concerned about ongoing chronic back pain. Objective: Vital Signs Temp Pulse Resp BP Pulse Ox 35.9 C L 60 18 114/60 95 09/17/16 11:24 09/17/16 11:24 09/17/16 11:24 09/17/16 11:24 09/17/16 11:24 09/16/16 09/17/16 09/18/16 05:59 05:59 05:59 Intake Total 700 Balance 700 - Physical Exam Constitutional: not in pain, chronically ill appearing, obese Eyes: PERRL, anicteric sclera, EOMI Ears, Nose, Mouth, Throat: moist mucous membranes, hearing normal, ears appear normal Cardiovascular: No JVD, No tachycardia, No edema Respiratory: no respiratory distress, no rales or rhonchi, reduced air movement Gastrointestinal: No tenderness, No ascites, No guarding Skin: warm, normal color, No erythema Musculoskeletal: no joint effusions, muscular tenderness, generalized weakness Neurologic: AAOx3 Psychiatric: not anxious, not encephalopathic, thought process linear ICD10 Worksheet Patient Problems: Problems Problem Status Onset Chest pain Acute Chronic Disease Mgmt/Transitional Care Acute Lumbar radiculitis Acute Lumbar stenosis Acute NSTEMI (non-ST elevated myocardial infarction) Acute CHF (congestive heart failure) Acute Back pain Acute
[2016-09-17] MEDS ORDERED: methylPREDNISolone 4 MG TAB PO SCH (21:00)
[2016-09-17] MEDS: DOCUSATE SODIUM 100 MG CAP PO SCH (21:46)
[2016-09-17] MEDS: LOSARTAN POTASSIUM 50 MG TAB PO SCH (21:46)
[2016-09-18] MEDS: POLYETHYLENE GLYCOL 3350 17 GM PKT PO PRN (08:01)
[2016-09-18] MEDS: SENNOSIDES/DOCUSATE SODIUM TAB PO SCH ×2 (08:04→21:43)
[2016-09-18] MEDS: PANTOPRAZOLE SODIUM 40 MG TAB PO SCH ×2 (08:05→21:44)
[2016-09-18] MEDS: ALLOPURINOL 100 MG TAB PO SCH ×2 (08:06→21:43)
[2016-09-18] MEDS: ISOSORBIDE MONONITRATE 30 MG TAB.SR PO SCH ×2 (08:07→21:45)
[2016-09-18] MEDS: ENOXAPARIN 40 MG/0.4 ML SYR SC SCH (08:07)
[2016-09-18] MEDS: Empagliflozin [Jardiance] 10 MG PO SCH (08:07)
[2016-09-18] MEDS: INSULIN LISPRO 100 UNIT/ML SC SCH ×3 (08:07→16:48)
[2016-09-18] MEDS: LANTUS SOLOSTAR SC SCH ×2 (08:08→21:45)
[2016-09-18] MEDS: TORSEMIDE 20 MG TAB PO SCH (08:18)
[2016-09-18] MEDS: methylPREDNISolone 4 MG TAB PO SCH ×4 (08:20→21:43)
[2016-09-18] MEDS ORDERED: GABAPENTIN 100 MG CAP PO SCH (09:00)
--- NOTE | 2016-09-18 10:06 | SOAPPROG ---
SOAP Progress Note Assessment/Plan: Assessment: 1. Coronary artery disease 2. Status post coronary bypass grafting 3. Obesity 4. Diabetes 5. Hypertension Hyperlipidemia 6. Degenerative joint disease 7. Lumbar disc disease 8. weakness. She is very unstable on many Lenore. She has no new rest angina today but she does get rest angina often. She has incomplete revascularization. She has a nuclear imaging study pending and she is going down right now for the 2nd part of the test. We need to have a conference and all figure out the pluses and minuses of surgical options and cardiovascular risk. If she is not going to have surgery I would not do any further invasive evaluation of her but just continue her current medications. I would add bisoprolol and let us do a very low dose of 2.5 mg daily and see if she can tolerate that. If she starts having asthma will have to stop it right away. She and I have talked extensively about prevention further. All her questions have been answered. Again we talked about the fact that surgery could lead to myocardial infarction stroke or and she understands that. She is at a point where she thinks that if anything can help her she would like to try it because she does not want to live her life the way is going now. We will follow with you. Before the life of me I cannot figure out how to order bisoprolol at a dose of 2.5 mg. I think that would be a good thing to try for her and see if she tolerates it. Her 1st dose I would not give at bedtime which is what we usually give it because if she is going to have reactive airways disease to the bisoprolol I would like to have it happened during the morning so we can have respiratory help us manage any complications we run into. She is off for testing maybe tomorrow morning's a better time to try that. Plan: 09/18/16 10:03 09/18/16 10:07 Subjective: She has ongoing musculoskeletal pain. Her right leg is bothering her today. The discomfort moved down her leg. It is in the lateral aspect of the right leg. She also has back pain. She does not have chest pain today. She is not doing anything today. She is just resting. She had no more shortness of breath last night. She does not have fevers or chills She does not have nausea or vomiting She does not have new sputum production. Objective: Vital Signs Temp Pulse Resp BP Pulse Ox 37.1 C 59 L 15 172/82 H 92 09/18/16 08:00 09/18/16 08:00 09/18/16 08:00 09/18/16 08:00 09/18/16 08:00 09/17/16 09/18/16 09/19/16 05:59 05:59 05:59 Intake Total 700 Balance 700 Physical Exam - Physical Exam General Appearance: alert, no apparent distress Respiratory: rhonchi, prolonged expiration Cardiac/Chest: systolic murmur, No JVD, No friction rub Abdomen: normal bowel sounds, non-tender, soft Skin: warm/dry Neuro/Psych: alert, normal mood/affect ICD10 Worksheet Patient Problems: Problems Problem Status Onset Back pain Acute Lumbar stenosis Acute CHF (congestive heart failure) Acute Chest pain Acute Chronic Disease Mgmt/Transitional Care Acute Lumbar radiculitis Acute NSTEMI (non-ST elevated myocardial infarction) Acute
[2016-09-18] MEDS: HYDROmorphONE/DILAUDID 4 MG TAB PO PRN ×2 (11:15→15:21)
--- NOTE | 2016-09-18 12:21 | HOSPPROG ---
Hospitalist Progress Note Assessment/Plan: 71 y/o female with history CAD s/p CABG x 4 presents with complaints of back pain. # Acute chronic low back pain with 2 previous lumbar fusions and reported nerve impingement at L2-L3 by recent MRI -was started on neurontin, oral dilaudid, and medrol dose pack -consider ALPHONSE vs fusion pending medical management -Patient states steroid injection has helped her in the past # H/O CAD with recent admission for chest discomfort in the setting of heart failure and elevated troponin - Lexiscan with significant abnormalities - await results of the 2nd half of study -reviewed with Dr. Hess of Cardiology -please see note defer to Cardiology for further recommendations #DM t2 -Continue home insulin regime and monitor for steroid induced hyperglycemia which will be treated accordingly with correctional insulin # morbid obesity -chronic ongoing problem for the patient - activity limited secondary to back pain # disposition -unclear if patient requires further intervention during this hospitalization -plan for continued cardiac evaluation -PT OT eval and treat - would recommend conservative treatment of back pain if possible Subjective: feeling okay today. Stating pain started to come back. Asking for pain medication at this time. Reviewed plan of care and questions answered Objective: Vital Signs Temp Pulse Resp BP Pulse Ox 37.1 C 59 L 15 172/82 H 92 09/18/16 08:00 09/18/16 08:00 09/18/16 08:00 09/18/16 08:00 09/18/16 08:00 09/17/16 09/18/16 09/19/16 05:59 05:59 05:59 Intake Total 700 Balance 700 - Physical Exam Constitutional: chronically ill appearing, obese, uncomfortable Eyes: PERRL, anicteric sclera, EOMI Ears, Nose, Mouth, Throat: moist mucous membranes, hearing normal, ears appear normal Cardiovascular: tachycardia, No JVD, No edema Respiratory: no respiratory distress, no rales or rhonchi, reduced air movement Gastrointestinal: No tenderness, No ascites, No guarding Skin: warm, normal color, No erythema Musculoskeletal: normal joint ROM, no joint effusions, generalized weakness Neurologic: AAOx3 Psychiatric: not anxious, not encephalopathic, poor insight ICD10 Worksheet Patient Problems: Problems Problem Status Onset Chest pain Acute Chronic Disease Mgmt/Transitional Care Acute Lumbar radiculitis Acute Lumbar stenosis Acute NSTEMI (non-ST elevated myocardial infarction) Acute CHF (congestive heart failure) Acute Back pain Acute
[2016-09-18] MEDS: ONDANSETRON 4 MG/2 ML VIAL IVP PRN ×2 (15:17→21:43)
[2016-09-18] MEDS: Insulin Aspart [Novolog Flexpen] SQ PRN (16:44)
[2016-09-18] MEDS: LOSARTAN POTASSIUM 50 MG TAB PO SCH (21:43)
[2016-09-18] MEDS: DOCUSATE SODIUM 100 MG CAP PO SCH (21:44)
--- NOTE | 2016-09-19 07:24 | NEUSURGPN ---
Assessment/Plan: Assessment: 71 yo female that has ASD above prior fusion with recurrent back and leg pain Plan: -pt with recurrent back and leg pain with adjacent segment disease in her lumbar spine -pt has IM and cardiology on board -cardiology is reluctant to approve for surgery due to CAD that she has -pt seen by Dr Sánchez as well -cardiology to have meeting regarding clearance -PT/OT -will trial Lyrica this am -warning signs given -call NS if pt is able to have surgery -pt understands the plan and agrees Subjective: Awake and alert. NAD. Eating/drinking and voiding. Pt with continued back and mainly RLE pain. No f/c/n/v/d. No desai/neck/gu or abd complaints this am. Objective: AAO x 3, PERRLA/EOMI no droop CN 2-12 grossly intact +lt touch 5/5 BUE/BLE = Neuro Check Frequency: per routine Urinary Catheter in Place: No - Physician Discussed Patient with : Gonzalo Patient Seen by : Gonzalo Neurosurgery Physical Exam - Vitals, I&O, Labs I and O 09/18/16 09/19/16 09/20/16 05:59 05:59 05:59 Intake Total 1590 Balance 1590 Intake: Oral (ml) 1590 Other: Intake Quantity Yes Yes Sufficient Number of Voids Toilet 6 2 Number of Stools Toilet 0 Vital Signs Temp Pulse Resp BP Pulse Ox 36.6 C 60 16 149/76 H 88 L 09/19/16 07:16 09/19/16 07:16 09/19/16 07:16 09/19/16 07:16 09/19/16 07:16 ICD10 Worksheet Patient Problems: Problems Problem Status Onset Back pain Acute Lumbar stenosis Acute CHF (congestive heart failure) Acute Chest pain Acute Chronic Disease [facility]/Transitional Care Acute Lumbar radiculitis Acute NSTEMI (non-ST elevated myocardial infarction) Acute
[2016-09-19] MEDS: ENOXAPARIN 40 MG/0.4 ML SYR SC SCH (09:15)
[2016-09-19] MEDS: PREGABALIN 75 MG CAP PO SCH ×2 (09:15→21:08)
[2016-09-19] MEDS: ISOSORBIDE MONONITRATE 30 MG TAB.SR PO SCH ×2 (09:16→21:05)
[2016-09-19] MEDS: SENNOSIDES/DOCUSATE SODIUM TAB PO SCH ×2 (09:16→21:09)
[2016-09-19] MEDS: ALLOPURINOL 100 MG TAB PO SCH ×2 (09:16→21:04)
[2016-09-19] MEDS: PANTOPRAZOLE SODIUM 40 MG TAB PO SCH ×2 (09:16→21:07)
[2016-09-19] MEDS: TORSEMIDE 20 MG TAB PO SCH (09:17)
[2016-09-19] MEDS: Empagliflozin [Jardiance] 10 MG PO SCH (09:18)
[2016-09-19] MEDS: methylPREDNISolone 4 MG TAB PO SCH ×3 (09:24→21:07)
[2016-09-19] MEDS: Insulin Aspart [Novolog Flexpen] SQ PRN ×2 (09:24→20:50)
[2016-09-19] MEDS: LANTUS SOLOSTAR SC SCH ×2 (09:26→20:48)
[2016-09-19] MEDS: INSULIN LISPRO 100 UNIT/ML SC SCH ×3 (09:33→18:10)
--- NOTE | 2016-09-19 14:35 | HOSPPROG ---
Hospitalist Progress Note Assessment/Plan: 71 y/o female with history CAD s/p CABG x 4 presents with complaints of back pain. She has a history of 2 previous lumbar fusions. The pain began days prior to admission after doing Pilates. Today is my 1st encounter with the patient /chart reviewed. *Acute chronic low back pain with 2 previous lumbar fusions -reported nerve impingement at L2-L3 by recent MRI - Patient is not getting much relief with Neurontin ,Dilaudid and Medrol Dosepak - Dr. Sánchez to discuss with Cardiology about cardiac clearance for possible surgery * coronary artery disease history - history of a CABG x4 in 1998 - history of coronary stent in 1998 - myocardial cardial perfusion scan shows stress-induced ischemia involving the left ventricular apex / EF of 48% - will defer to Cardiology in regards to treatment - her cardiac risk index according to the Bebeto criteria is moderate * right knee pain - she has a history of a right knee replacement - this pain is most likely related to her back but she would like further evaluation - a knee x-ray has been ordered * morbid obesity - she is aware that this is impacting her health. Has difficulty exercising due to the pain - encouraged her to try weight watchers or some other program because of difficulty with exercising * diabetes type 2 - continue her home insulin regimen # disposition - pending. Patient is aiming to have surgery. will follow up with knee x-ray Subjective: pat is complaining of right knee pain and right upper thigh pain. Objective: Vital Signs Temp Pulse Resp BP Pulse Ox 36.7 C 47 L 17 96/44 L 93 09/19/16 11:43 09/19/16 11:43 09/19/16 11:43 09/19/16 11:43 09/19/16 11:43 09/18/16 09/19/16 09/20/16 05:59 05:59 05:59 Intake Total 1590 Balance 1590 - Physical Exam Constitutional: obese, uncomfortable Eyes: PERRL Ears, Nose, Mouth, Throat: hearing normal Cardiovascular: regular rate and rhythym Respiratory: no respiratory distress Gastrointestinal: normoactive bowel sounds Skin: warm Musculoskeletal: generalized weakness Neurologic: AAOx3 Psychiatric: interacting appropriately, not anxious ICD10 Worksheet Patient Problems: Problems Problem Status Onset Back pain Acute Lumbar stenosis Acute CHF (congestive heart failure) Acute Chest pain Acute Chronic Disease [facility]/Transitional Care Acute Lumbar radiculitis Acute NSTEMI (non-ST elevated myocardial infarction) Acute
[2016-09-19] MEDS: LOSARTAN POTASSIUM 50 MG TAB PO SCH (21:05)
[2016-09-19] MEDS: DOCUSATE SODIUM 100 MG CAP PO SCH (21:08)
[2016-09-20] MEDS: ISOSORBIDE MONONITRATE 30 MG TAB.SR PO SCH ×2 (07:44→21:58)
[2016-09-20] MEDS: ENOXAPARIN 40 MG/0.4 ML SYR SC SCH (07:44)
--- NOTE | 2016-09-20 07:44 | NEUSURGPN ---
Assessment/Plan: Assessment: 71 yo female that has ASD above prior fusion with recurrent back and leg pain Plan: -pt with recurrent back and leg pain with adjacent segment disease in her lumbar spine -pt has IM and cardiology on board -cardiology is reluctant to approve for surgery due to CAD that she has-reports that she is cleared for surgery now but unable to confirm from any cardiology notes -pt seen by Dr Sánchez as well -PT/OT -trialed Lyrica yesterday am and was pt states unable to tolerate the side effects-will go back to a higher dose of gabapentin -warning signs given -call NS if any problems arise -pt understands the plan and agrees Subjective: No new complaints or concerns. No f/c/n/v/d. No desai/neck/chest/abd or gu complaints. Objective: AAO x 3, PERRLA/EOMI no droop CN 2-12 grossly intact +lt touch 5/5 BUE/BLE = Neuro Check Frequency: per routine Urinary Catheter in Place: No - Physician Discussed Patient with : Gonzalo Patient Seen by : Gonzalo Neurosurgery Physical Exam - Vitals, I&O, Labs I and O 09/19/16 09/20/16 09/21/16 05:59 05:59 05:59 Intake Total 1590 900 Balance 1590 900 Intake: Oral (ml) 1590 900 Other: Intake Quantity Yes Yes Sufficient Number of Voids Toilet 2 Vital Signs Temp Pulse Resp BP Pulse Ox 36.3 C 55 L 19 171/79 H 97 09/20/16 04:00 09/20/16 04:00 09/20/16 04:00 09/20/16 04:00 09/20/16 04:00 ICD10 Worksheet Patient Problems: Problems Problem Status Onset Back pain Acute Lumbar stenosis Acute CHF (congestive heart failure) Acute Chest pain Acute Chronic Disease [facility]/Transitional Care Acute Lumbar radiculitis Acute NSTEMI (non-ST elevated myocardial infarction) Acute
[2016-09-20] MEDS: methylPREDNISolone 4 MG TAB PO SCH ×2 (07:45→22:00)
[2016-09-20] MEDS: PANTOPRAZOLE SODIUM 40 MG TAB PO SCH ×2 (07:45→22:00)
[2016-09-20] MEDS: SENNOSIDES/DOCUSATE SODIUM TAB PO SCH ×2 (07:45→21:59)
[2016-09-20] MEDS: ALLOPURINOL 100 MG TAB PO SCH ×2 (07:45→21:59)
[2016-09-20] MEDS: Empagliflozin [Jardiance] 10 MG PO SCH (07:59)
[2016-09-20] MEDS: LANTUS SOLOSTAR SC SCH ×2 (08:00→22:00)
[2016-09-20] MEDS: INSULIN LISPRO 100 UNIT/ML SC SCH ×3 (08:03→18:35)
[2016-09-20] MEDS: POLYETHYLENE GLYCOL 3350 17 GM PKT PO PRN (09:20)
[2016-09-20] MEDS: GABAPENTIN 100 MG CAP PO SCH ×3 (09:20→22:00)
[2016-09-20] MEDS: TORSEMIDE 20 MG TAB PO SCH (09:20)
--- NOTE | 2016-09-20 11:50 | HOSPPROG ---
Hospitalist Progress Note Assessment/Plan: 71 y/o female with history CAD s/p CABG x 4 presents with complaints of back pain. She has a history of 2 previous lumbar fusions. The pain began days prior to admission after doing Pilates. *Acute chronic low back pain with 2 previous lumbar fusions - reported nerve impingement at L2-L3 by recent MRI - Patient is not getting much relief with Neurontin ,Dilaudid and Medrol Dosepak - asking if a steroid injection may help - surgery likely next week * coronary artery disease history - history of a CABG x4 in 1998 - history of coronary stent in 1998 - myocardial cardial perfusion scan shows stress-induced ischemia involving the left ventricular apex / EF of 48% - spoke w Dr Matt Hess/ he is ok with surgery/ he will talk w neurosurgery * right knee pain - she has a history of a right knee replacement - xray shows nothing acute * morbid obesity - she is aware that this is impacting her health. Has difficulty exercising due to the pain - encouraged her to try weight watchers * diabetes type 2 - continue her home insulin regimen -had hypoglycemia earlier *HTN -bp elevated but suspect this may correlate to pain and wanting to get the surgery done # disposition; pending/ Hussain RAYO to come discuss steroid injection and get consents signed for future surgery. Patient states she wants surgery/ even with the risks. - Subjective: Pat said pain came on quickly today in her right thigh area extending into her knee/ but then resolved. Objective: Vital Signs Temp Pulse Resp BP Pulse Ox 37.1 C 78 15 168/77 H 94 09/20/16 11:17 09/20/16 09:22 09/20/16 11:17 09/20/16 11:17 09/20/16 09:22 09/19/16 09/20/16 09/21/16 05:59 05:59 05:59 Intake Total 1590 900 Balance 1590 900 - Physical Exam Constitutional: no apparent distress, obese, uncomfortable Eyes: PERRL Ears, Nose, Mouth, Throat: hearing normal Respiratory: no respiratory distress Gastrointestinal: normoactive bowel sounds Skin: warm Musculoskeletal: generalized weakness Neurologic: AAOx3 Psychiatric: interacting appropriately, not anxious ICD10 Worksheet Patient Problems: Problems Problem Status Onset Back pain Acute Lumbar stenosis Acute CHF (congestive heart failure) Acute Chest pain Acute Chronic Disease [facility]/Transitional Care Acute Lumbar radiculitis Acute NSTEMI (non-ST elevated myocardial infarction) Acute
--- NOTE | 2016-09-20 12:00 | SOAPPROG ---
ALIYA Progress Note Assessment/Plan: Assessment: 1. Coronary artery disease 2. Status post coronary bypass grafting 3. Obesity 4. Diabetes 5. Hypertension Hyperlipidemia 6. Degenerative joint disease 7. Lumbar disc disease 8. weakness. Plan: 09/18/16 10:03 09/18/16 10:07 09/20/16 11:53 I have spent over 40 minutes yesterday reviewing the risks of surgery with her to include cva, , CA . she is aware of the risks and her coronary status , abnormal nuc and prior cath results. she wants to proceed w surgery and accepts the risks. she is cleared CV zavala to proceed. I have had this discussion on the 2 preceeding days as well and she is consisitant in her desire and totally knows she is at very high risk given her cad , obesity , aodm , poor glucose control , weekness and multiple other co morbid conditions. Through surgery if possible she may well benifit from iv esmolol rx if tolerated and in the post op first 24 hrs. she was fully examined and all results reviewed. Objective: Vital Signs Temp Pulse Resp BP Pulse Ox 37.1 C 78 15 168/77 H 94 09/20/16 11:17 09/20/16 09:22 09/20/16 11:17 09/20/16 11:17 09/20/16 09:22 09/19/16 09/20/16 09/21/16 05:59 05:59 05:59 Intake Total 1590 900 Balance 1590 900 ICD10 Worksheet Patient Problems: Problems Problem Status Onset Back pain Acute Lumbar stenosis Acute CHF (congestive heart failure) Acute Chest pain Acute Chronic Disease [facility]/Transitional Care Acute Lumbar radiculitis Acute NSTEMI (non-ST elevated myocardial infarction) Acute
--- NOTE | 2016-09-20 16:14 | CPIP ---
[f rep st] INVASIVE CARDIAC PROCEDURE DATE OF PROCEDURE: 09/17/2016 PROCEDURE PERFORMED: Nuclear stress test with Lexiscan. INDICATION: 1. Ongoing chest pain. 2. Not known coronary artery disease. 3. Known insufficient revascularization from last coronary angiogram. 4. Preop clearance. DETAILS: The patient received the pharmacologic agent and had an imaging study done. She had no ch est pain with the agent. Her vital signs are attached and documented. She had no EKG changes with receiving agent. There were no complications. Nuclear images pending. /[id number]/MODL
[2016-09-20] MEDS: Insulin Aspart [Novolog Flexpen] SQ PRN (18:36)
[2016-09-20] MEDS: DOCUSATE SODIUM 100 MG CAP PO SCH (21:59)
[2016-09-20] MEDS: LOSARTAN POTASSIUM 50 MG TAB PO SCH (21:59)
[2016-09-20] MEDS: HYDROmorphONE/DILAUDID 4 MG TAB PO PRN (23:50)
--- NOTE | 2016-09-21 06:52 | NEUSURGPN ---
Assessment/Plan: Assessment: 71 yo female that has ASD above prior fusion with recurrent back and leg pain Plan: -pt with recurrent back and leg pain with adjacent segment disease in her lumbar spine -pt has IM and cardiology on board -cardiology has approved her for surgery. Pt to get an injection today and then plan for dc with follow up next week for surgery at L2/3 with removal of hardware. -pt seen by Dr Sánchez as well -PT/OT -trialed Lyrica and was pt states unable to tolerate the side effects-back to a higher dose of gabapentin -warning signs given -call NS if any problems arise -pt understands the plan and agrees Subjective: Awake and alert. Pt with continued back and LE pain. No desai/neck/chest/abd or gu complaints. No f/c/n/v/d. Objective: AAO x 3, PERRLA/EOMI no droop CN 2-12 grossly intact +lt touch 5/5 BUE/BLE = Neuro Check Frequency: per routine Urinary Catheter in Place: No - Physician Discussed Patient with : Gonzalo Patient Seen by : Gonzalo Neurosurgery Physical Exam - Vitals, I&O, Labs I and O 09/20/16 09/21/16 09/22/16 05:59 05:59 05:59 Intake Total 900 1400 Balance 900 1400 Intake: Oral (ml) 900 1400 Other: Intake Quantity Yes Yes Sufficient Vital Signs Temp Pulse Resp BP Pulse Ox 36.4 C 75 18 140/72 H 94 09/21/16 04:56 09/21/16 04:56 09/21/16 04:56 09/21/16 04:56 09/21/16 04:56 ICD10 Worksheet Patient Problems: Problems Problem Status Onset Back pain Acute Lumbar stenosis Acute CHF (congestive heart failure) Acute Chest pain Acute Chronic Disease [facility]/Transitional Care Acute Lumbar radiculitis Acute NSTEMI (non-ST elevated myocardial infarction) Acute
[2016-09-21] MEDS ORDERED: methylPREDNISolone 4 MG TAB PO SCH (07:30)
[2016-09-21] MEDS: ISOSORBIDE MONONITRATE 30 MG TAB.SR PO SCH (08:35)
[2016-09-21] MEDS: ALLOPURINOL 100 MG TAB PO SCH (08:36)
[2016-09-21] MEDS: GABAPENTIN 100 MG CAP PO SCH (08:36)
[2016-09-21] MEDS: PANTOPRAZOLE SODIUM 40 MG TAB PO SCH (08:36)
[2016-09-21] MEDS: Empagliflozin [Jardiance] 10 MG PO SCH (08:37)
[2016-09-21] MEDS: INSULIN LISPRO 100 UNIT/ML SC SCH ×2 (08:37→14:40)
[2016-09-21] MEDS: SENNOSIDES/DOCUSATE SODIUM TAB PO SCH (08:41)
[2016-09-21] MEDS ORDERED: HYDROmorphONE/DILAUDID 1 MG/ML SYR IVP PRN (08:59)
[2016-09-21] MEDS: TORSEMIDE 20 MG TAB PO SCH (11:20)
--- NOTE | 2016-09-21 12:35 | HOSPPROG ---
Hospitalist Progress Note Assessment/Plan: 71 y/o female with history CAD s/p CABG x 4 presents with complaints of back pain. She has a history of 2 previous lumbar fusions. The pain began days prior to admission after doing Pilates. *Acute chronic low back pain with 2 previous lumbar fusions - reported nerve impingement at L2-L3 by recent MRI - Patient is not getting much relief with Neurontin ,Dilaudid and Medrol Dosepak - s/p steroid injection/ up in chair doing well * coronary artery disease history - history of a CABG x4 in 1998 - history of coronary stent in 1998 - myocardial cardial perfusion scan shows stress-induced ischemia involving the left ventricular apex / EF of 48% - spoke w Dr Matt Hess/ he is ok with surgery/ he will talk w neurosurgery * right knee pain - she has a history of a right knee replacement - xray shows nothing acute * morbid obesity - encouraged her to try weight watchers * diabetes type 2 - continue her home insulin regimen -had hypoglycemia earlier *HTN -bp stable # disposition: dc this afternoon Subjective: Pat is up eating/ dressed/ feeling well. Objective: Vital Signs Temp Pulse Resp BP Pulse Ox 36.3 C 56 L 15 122/73 H 91 L 09/21/16 07:29 09/21/16 07:29 09/21/16 07:29 09/21/16 08:36 09/21/16 07:29 09/20/16 09/21/16 09/22/16 05:59 05:59 05:59 Intake Total 900 1400 Balance 900 1400 - Physical Exam Constitutional: no apparent distress, appears nourished, not in pain, obese Eyes: PERRL Ears, Nose, Mouth, Throat: hearing normal Respiratory: no respiratory distress Gastrointestinal: normoactive bowel sounds Skin: warm Musculoskeletal: no muscle tenderness Neurologic: AAOx3 Psychiatric: interacting appropriately ICD10 Worksheet Patient Problems: Problems Problem Status Onset Back pain Acute Lumbar stenosis Acute CHF (congestive heart failure) Acute Chest pain Acute Chronic Disease [facility]/Transitional Care Acute Lumbar radiculitis Acute NSTEMI (non-ST elevated myocardial infarction) Acute
[2016-09-21 13:10] VITALS: BP 169/68; PULSE 68; RESP 14; TEMP 97.7; O2SAT 90
--- NOTE | 2016-09-21 18:08 | GDS ---
DISCHARGE DIAGNOSES: 1. Acute chronic low back pain with 2 previous lumbar fusions. 2. Coronary artery disease history. 3. Right knee pain. 4. Morbid obesity. 5. Diabetes type 2. 6. Hypertension. CONSULTATIONS DURING HER STAY: 1. Dr. Bebeto Sánchez. 2. Dr. Paxton Hess. BRIEF HISTORY: Briefly, the patient is a 71-year-old female with a history of chronic back pain who has had 2 previous lumbar fusions. She presented to the emergency room with severe uncontrolled low back pain. It began 10 days prior after doing a Pilates class. She awoke the next day with severe pain that was described as constant and began in the right buttocks and radiated to the anterior right knee pain. She was seen in the emergency room on September 12 for back pain where she was seen by Dr. Sánchez and found to have a pinched nerve at L2-L3 on the MRI. Because of her cardiac history and coronary artery disease, she was seen by Dr. Matt Hess. She had a myocardial perfusion scan performed which showed stress-induced reversible ischemia involving the left ventricular apex. She also had EF estimated at 48%. At this time, surgery will likely take place next week if her pain persists. Today prior to being discharged, she had an epidural injection to the L2-L3 area with Dr. Alexander. During my evaluation today, she was able to ambulate in the room and was eating and drinking well. She will be discharged home and have further followup with Dr. Sánchez in the outpatient setting. HOSPITAL COURSE: By problem: 1. Acute chronic low back pain with 2 previous lumbar fusions. There is reported nerve impingement at L2-L3 by recent MRI. She is not getting much relief with Neurontin, Dilaudid, and a Medrol Dosepak. Today on discharge, she wanted a script for Tylenol No. 3. This has helped her the most in the past. She is status post a steroid injection. She is doing better today. 2. Coronary artery disease. She has a history of coronary artery bypass grafting x4 in 1998. She also has a stent in 1998. The myocardial perfusion scan shows stress-induced ischemia involving the left ventricle apex. 3. Right knee pain. She has a history of right knee replacement. X-ray performed showed nothing acute. 4. Morbid obesity. She is aware this is affecting her health and her back. I have encouraged her to try Weight Watchers since she cannot exercise at this time. 5. Diabetes type 2. Resume her home regimen. 6. Hypertension. Blood pressure stable. PENDING LABS AND TESTS: None. CONDITION AT DISCHARGE: Stable. Blood pressure is 169/68, heart rate is 68, respiratory rate is 14, O2 sats on room air are 90%, temperature is 36.5 Celsius. MEDICATIONS AT DISCHARGE: Please see the EMR. DISCHARGE INSTRUCTIONS: 1. Take it easy today. 2. Do not drink or drive while she is taking the narcotics. 3. Follow up with Dr. Seth. 4. Follow up with Dr. Bebeto Sánchez. 5. If she develops any incontinence of urine or stool, to return to the emergency room immediately. Greater than 30 minutes discharging and coordinating care. /[id number]/MODL MTDD
== END 2016-09-21 15:47 | disposition home or self-care (01) | DRG 74 ==
LOC: F3N 14:32 → OBSVTOIN 14:34 → F3N 09-18 13:46
PROVIDERS: ADMIT Family Medicine; ATTEND Family Medicine
DX: G54.4 Lumbosacral root disorders, not elsewhere classified (principal); I11.0 Hypertensive heart disease with heart failure; I50.9 Heart failure, unspecified; I25.10 Atherosclerotic heart disease of native coronary artery without angina pectoris; E11.9 Type 2 diabetes mellitus without complications; E78.5 Hyperlipidemia, unspecified; E66.01 Morbid (severe) obesity due to excess calories; Z68.41 Body mass index [BMI] 40.0-44.9, adult; Z95.5 Presence of coronary angioplasty implant and graft; Z95.1 Presence of aortocoronary bypass graft; Z98.1 Arthrodesis status
CPT/HCPCS: 96374; A9500; J1170; J1650; J2405; J2785

== ENCOUNTER → 2016-10-19 | Outpatient (CLI) | payer OTHER | LOC: FLAB 10:15 | PROVIDERS: ATTEND Neurological Surgery | DX: M54.5 Low back pain (principal); Z98.1 Arthrodesis status ==

== ENCOUNTER 2016-11-09 11:50 | Inpatient (IN) | payer OTHER ==
[~2016-11-09 11:50] MED LIST changes: -ACETAMINOPHEN/CODEINE 300/30MG TAB PO SCH; +BACITRACIN 50,000 UNITS/10 ML SYR IRR ONE; +BUPIVACAINE/EPI 0.25% 30 ML SDV ONE; +CHLORHEXIDINE GLUC HIBICLENS 118 ML BTL TP ONE; +THROMBIN (BOVINE) 5,000 UNIT VIAL TP ONE; +ceFAZolin 2 GM/DEXTROSE 100 ML IV ONE
[2016-11-09] MEDS ORDERED: POLYETHYLENE GLYCOL 3350 17 GM PKT PO PRN (12:42)
[2016-11-09] MEDS ORDERED: NON-FORMULARY NEW DRUG (Insulin Aspart [Novolog Flexpen] 0 UNIT) SQ PRN (12:42)
[2016-11-09] MEDS ORDERED: NITROGLYCERIN 0.4 MG BTL SL PRN (12:42)
[2016-11-09] MEDS ORDERED: ONDANSETRON DISINTEGRATING 4 MG TAB PO PRN (12:42)
[2016-11-09 12:44] LABS: % IMMATURE GRANULYOCYTES 0.8 % (0.0-1.1); ABSOLUTE IMMATURE GRANULOCYTES 0.05 10^3/uL (0.00-0.10); ADD DIFF? NO; ADD MORPH? NO; ADD SCAN? NO; ATYPICAL LYMPHOCYTE FLAG 10 (0-99); FRAGMENT RBC FLAG 0 (0-99); HEMOGLOBIN 14.2 g/dL (12.6-16.3); LEFT SHIFT FLG 0 (0-99); LIPEMIA HEMOLYSIS FLAG 90 (0-99); MEAN CELL HEMOGLOBIN 30.8 pg (27.9-34.1); MEAN CELL HEMOGLOBIN CONCENTR. 33.8 g/dL (32.4-36.7); MEAN CELL VOLUME 91.1 fL (81.5-99.8); MEAN PLATELET VOLUME 10.1 fL (8.7-11.7); PLATELET CLUMPS FLAG 0 (0-99); PLATELET COUNT 253 10^3/uL (150-400); RED BLOOD CELL COUNT 4.61 10^6/uL (4.18-5.33); RED CELL DISTRIBUTION WIDTH 13.2 % (11.5-15.2)
[2016-11-09] MEDS ORDERED: CEFAZOLIN 2 GM/DEXTROSE/100 ML BAG IV ONE (12:45)
[2016-11-09] MEDS ORDERED: NALOXONE HCL 0.4 MG/ML INJ IVP PRN (12:48)
[2016-11-09] MEDS ORDERED: diphenhydrAMINE 25 MG CAP PO PRN (12:48)
[2016-11-09] MEDS ORDERED: ACETAMINOPHEN 325 MG TAB PO PRN (12:48)
[2016-11-09 12:56] LABS: ANION GAP 11 mEq/L (8-16); CALCIUM 10.7 mg/dL (8.5-10.4); CARBON DIOXIDE 25 mEq/l (22-31); CHLORIDE 107 mEq/L (97-110); CREATININE 0.8 mg/dL (0.6-1.0); GLOMERULAR FILTRATION RATE > 60; GLUCOSE 164 mg/dL (70-100); POTASSIUM 4.7 mEq/L (3.5-5.2); SODIUM 143 mEq/L (134-144)
[2016-11-09] MEDS ORDERED: DEXMEDETOMIDINE HCL 400 MCG in NS 100 ML IV SCH (13:00)
[2016-11-09] MEDS ORDERED: MIDAZOLAM 2 MG/2 ML VIAL ONE (13:09)
[2016-11-09] MEDS ORDERED: REMIFENTANIL HCL 1 MG VIAL ONE (13:22)
[2016-11-09] MEDS ORDERED: PROPOFOL/EMULSION 500 MG/50 ML BOTTLE IV ONE ×2 (13:22→15:02)
[2016-11-09] MEDS ORDERED: METOCLOPRAMIDE 10 MG/2 ML VIAL ONE (13:24)
[2016-11-09] MEDS ORDERED: ROCURONIUM 50 MG/5 ML VIAL ONE (13:24)
[2016-11-09] MEDS ORDERED: ESMOLOL HCL 100 MG/10 ML VIAL IV ONE (17:17)
[2016-11-09] MEDS ORDERED: LABETALOL HCL 5 MG/ML 20 ML MDV ONE (17:19)
[2016-11-09] MEDS ORDERED: fentaNYL/NACL 100 ML IV SCH (17:46)
[2016-11-09] MEDS ORDERED: hydrALAZINE 20 MG/ML VIAL ONE (17:57)
[2016-11-09] MEDS ORDERED: fentaNYL 100 MCG/2 ML INJ ONE ×2 (17:58→20:15)
[2016-11-09] MEDS ORDERED: ONDANSETRON 4 MG/2 ML VIAL ONE (18:12)
[2016-11-09 18:17] LABS: % IMMATURE GRANULYOCYTES 1.6 % (0.0-1.1); ABSOLUTE IMMATURE GRANULOCYTES 0.18 10^3/uL (0.00-0.10); ADD DIFF? NO; ADD MORPH? NO; ADD SCAN? NO; ATYPICAL LYMPHOCYTE FLAG 10 (0-99); FRAGMENT RBC FLAG 0 (0-99); HEMATOCRIT 36.7 % (38.0-47.0); HEMOGLOBIN 12.1 g/dL (12.6-16.3); LEFT SHIFT FLG 10 (0-99); LIPEMIA HEMOLYSIS FLAG 80 (0-99); MEAN CELL HEMOGLOBIN 30.6 pg (27.9-34.1); MEAN CELL VOLUME 92.7 fL (81.5-99.8); MEAN PLATELET VOLUME 10.1 fL (8.7-11.7); PLATELET CLUMPS FLAG 0 (0-99); PLATELET COUNT 216 10^3/uL (150-400); RED BLOOD CELL COUNT 3.96 10^6/uL (4.18-5.33); RED CELL DISTRIBUTION WIDTH 13.2 % (11.5-15.2)
[2016-11-09 18:35] LABS: ANION GAP 5 mEq/L (8-16); CALCIUM 9.5 mg/dL (8.5-10.4); CARBON DIOXIDE 26 mEq/l (22-31); CHLORIDE 107 mEq/L (97-110); CREATININE 0.8 mg/dL (0.6-1.0); GLOMERULAR FILTRATION RATE > 60; GLUCOSE 203 mg/dL (70-100); SODIUM 138 mEq/L (134-144)
--- NOTE | 2016-11-09 18:58 | GOP ---
[f rep st] OPERATIVE REPORT DATE OF OPERATION: 11/09/2016 SURGEON: José Miguel Sánchez MD EMERGENCY MEDICAL SERVICE COORDINATOR: Tuan Hartley P.A.-C. PREOPERATIVE DIAGNOSIS: 1. 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 2. Bilateral lumbosacral radiculopathy. 3. Neurogenic claudication. 4. Inability to ambulate due to spinal stenosis. 5. Adjacent segment disease, prior L3 to S1 fusion with hardware from L3 to L5. POSTOPERATIVE DIAGNOSIS: 1. 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 2. Bilateral lumbosacral radiculopathy. 3. Neurogenic claudication. 4. Inability to ambulate due to spinal stenosis. 5. Adjacent segment disease, prior L3 to S1 fusion with hardware from L3 to L5. PROCEDURE PERFORMED: 1. Removal of posterior segmental instrumentation at L3, L4 and L5. 2. Placement of new segmental instrumentation at L2, L3, L4 and L5 with a lj extending from L2 to L5 (51736, [id number]). 3. Placement of expandable biomechanical intervertebral device at L2-L3. 4. Posterior lateral and intervertebral arthrodesis with bilateral decompressions at L2-L3 and a le ft-sided approach to the interspace ([id number]). 5. Placement of expandable biomechanical intervertebral device, spinal stereotactic, microscope, sa me incision bone graft harvest. FINDINGS: ESTIMATED BLOOD LOSS: 250 cc. INDICATIONS: The patient is a 71-year-old with numerous medical comorbidities, including extreme mo rbid obesity, diabetes and severe coronary artery disease, who has a history of spinal fusion as wel l as the propensity to develop adjacent segment disease, and she developed severe bilateral leg pain rendering her really unable to walk. She says the pain is excruciating and we tried conservative m easures. This required epidural steroid injections and included a hospital admission to get her abigail n under control. Despite all these efforts, a nonoperative approach was failing and she wanted to h ave surgery. She was at substantial risk of a perioperative cardiac event. She understood this. C ardiology gave their risk assessment for surgery and the patient understood that she was at risk of a perioperative event, but she did want to proceed. Risks of screw and hardware malposition, spinal fluid leak, pseudoarthrosis, adjacent segment disease and the probability that she would need addit ional surgery in the future was discussed. She knew that there was a chance surgery would fail to g jason her benefit and there is a risk of infection. She wanted to proceed. DESCRIPTION OF PROCEDURE: The patient was taken to the operating room and placed in the supine posi tion. General anesthesia was begun. A central line was placed. An arterial line was placed. She was flipped prone onto the [place] table. Care was taken to pad all points of contact. Her back wa s sterilely prepped and draped in the usual fashion. A localizing x-ray was taken. The O arm had b een introduced sterilely onto the field. We shot a localizing x-ray, and made an incision about 8 cm in length extending from the L1 spinous process all way down to the L5 spinous process. The subcutaneous tissue was dissected using the leslie sma blade down through the fascia, and a subperiosteal dissection was made down to the lamina of L2, the inferior lamina of L1. The prior hardware at L3, L4 and L5 was exposed. We dissected the scar off the hardware. We did not approach the midline. We were able to stay away from the dura and th e previous laminectomies that she had done. We exposed the prior hardware. Removed cap screws at L 3 L4 and L5, and then removed the rods at L3, L4 and L5. We then decorticated posterior laterally t he transverse processes of L2 as well as the visible bone present at L3. We performed an O arm spin and using frameless Stealth stereotaxy, we placed pedicle screws bilaterally at L2. We then took 1 00 mm rods extending from L2 to L5. We had increased the bend on the rods to capture all the screws . We distracted somewhat at L2-L3 and got reduction and good spinal alignment at that level. We then harvested the rostral L3 spinous process and the inferior L2 spinous process. We removed al l soft tissue from this bone, introduced operating microscope and performed a laminectomy bilaterall y. There was a significant amount of epidural fat and really incredibly remarkable stenosis on both sides. The left was somewhat worse than the right, but there was really terrible stenosis on both sides. We removed the medial aspect of the facet joint on the right and the complete facet joint on the left. We removed the rostral arch of L3 and then decompressed all the way to the inferior L2 p edicle. There was a large epidural vein on the left, which was coagulated. We mobilized the thecal sac, swept it medially and incised L2-L3 disk. We removed the L2-L3 disk and the cartilaginous end plates. We roughed the subchondral bone to create an arthrodesis. We chose an expandable 11 x 28 m m device, packed it into the disk space and expanded under fluoroscopic guidance. Bony autograft an d BMP had been placed in the disk space, 1 mg was used. We then decorticated all the remaining post erolateral bone at L2 and L3 to create arthrodesis at that level. There was solid arthrodesis and f usion at the L3-L4 and L4-L5 level from our visible inspection as well as our O arm assessment of th ose levels. There appeared to be solid bony union. Also, the prior hardware was completely tied. There had been no loosening. We then placed a subfascial drain. We placed bone autograft and BMP posterolaterally bilaterally. The total milligram dose of BMP for the entire case was 2.0 mg. We then placed a subfascial drain a nd closed the incision in multiple layers using Vicryl sutures. COMPLICATIONS: None. /[id number]/MODL
[2016-11-09] MEDS ORDERED: FUROSEMIDE 20 MG/2 ML VIAL IVP ONE (19:33)
--- NOTE | 2016-11-09 19:50 | SOAPPROG ---
SOAP Progress Note Assessment/Plan: Time of Post op 1814 Post Op Visit: S: Awake and alert. Pt with weakness in BLE/sensation loss T2/3 level down O: AFVSS/PERRLA/EOMI no droop CN 2-12 grossly intact +lt touch to UE T2/3 paraparetic sensory loss BLE weakness with able to DF left with ability to internally rotate hips/ activate quads bilat-improved from immediate post op exam CDI CARLOS A in place A/P 71 yo female that is s/p TLIF L2/3 with replacement of rods to existing fusion L3-S1 -orders in place -pt weak in BLE-Dr Sánchez notified and saw/examined pt as well -will push MAPS above 85 -MRI of the C/T spine STAT ordered for tonight -call placed to IM to see as well as notified RN in ICU -call NS with any changes or issues 11/09/16 19:44 Objective: Vital Signs Temp Pulse Resp BP Pulse Ox 37 C 70 20 241/97 H 94 11/09/16 18:07 11/09/16 18:07 11/09/16 18:07 11/09/16 18:18 11/09/16 18:55 Laboratory Results 11/09/16 18:08 11/09/16 18:08 11/08/16 11/09/16 11/10/16 05:59 05:59 05:59 Output Total 1050 Balance -1050 ICD10 Worksheet Patient Problems: Problems Problem Status Onset Bilateral leg weakness Acute Sensory abnormality of thoracic dermatome distribution Acute Back pain Acute CHF (congestive heart failure) Acute Chest pain Acute Chronic Disease Mgmt/Transitional Care Acute Lumbar radiculitis Acute Lumbar stenosis Acute NSTEMI (non-ST elevated myocardial infarction) Acute - ICD10 Problem Qualifiers (1) Bilateral leg weakness (2) Sensory abnormality of thoracic dermatome distribution
[2016-11-09] MEDS: GABAPENTIN 100 MG CAP PO SCH (20:25)
--- NOTE | 2016-11-09 20:26 | CPEKG ---
Heart Rate: 76 RR Interval: 789 P-R Interval: 176 QRSD Interval: 86 QT Interval: 428 QTC Interval: 482 P [place]: 0 QRS [place]: -15 T Wave [place]: 131 EKG Severity - ABNORMAL ECG - EKG Impression: SINUS RHYTHM WITH SINUS ARRHYTHMIA EKG Impression: PROBABLE LVH WITH SECONDARY REPOL ABNRM EKG Impression: ANTERIOR Q WAVES, POSSIBLY DUE TO LVH Electronically Signed By: Maico Myers 10-Nov-2016 17:21:31
[2016-11-09] MEDS ORDERED: fentaNYL 100 MCG/2 ML INJ IV ONE (20:30)
[2016-11-09] MEDS ORDERED: DIAZEPAM 10 MG/2 ML SYR IVP ONE (20:30)
[2016-11-09] MEDS ORDERED: FAMOTIDINE 20 MG/NACL 50 ML IV SCH (21:00)
[2016-11-09] MEDS ORDERED: ISOSORBIDE MONONITRATE 120 MG PO SCH (21:00)
[2016-11-09] MEDS ORDERED: DIAZEPAM 10 MG/2 ML SYR ONE (21:50)
[2016-11-09] MEDS: NS W/ 20 KCl/L 1,000 ML IV SCH (23:30)
[2016-11-10] MEDS: ALLOPURINOL 100 MG TAB PO SCH ×4 (00:14→21:19)
[2016-11-10] MEDS: DOCUSATE SODIUM 100 MG CAP PO SCH ×2 (00:14→21:20)
[2016-11-10] MEDS: PANTOPRAZOLE SODIUM 40 MG TAB PO SCH ×3 (00:16→21:20)
[2016-11-10] MEDS: LOSARTAN POTASSIUM 50 MG TAB PO SCH ×2 (00:16→21:27)
[2016-11-10] MEDS: ISOSORBIDE MONONITRATE 30 MG TAB.SR PO SCH ×3 (00:16→21:27)
[2016-11-10] MEDS: SENNOSIDES/DOCUSATE SODIUM TAB PO SCH ×3 (00:17→21:19)
[2016-11-10] MEDS: GABAPENTIN 100 MG CAP PO SCH ×4 (00:18→21:19)
[2016-11-10] MEDS ORDERED: FUROSEMIDE 20 MG/2 ML VIAL IVP ONE (00:30)
[2016-11-10] MEDS: INSULIN GLARGINE 100 UNITS/ML SYRINGE SC SCH ×3 (00:34→21:21)
[2016-11-10] MEDS: fentaNYL 100 MCG/2 ML INJ IVP PRN ×3 (02:19→06:48)
[2016-11-10 05:16] LABS: % IMMATURE GRANULYOCYTES 0.5 % (0.0-1.1); ABSOLUTE IMMATURE GRANULOCYTES 0.05 10^3/uL (0.00-0.10); ADD DIFF? NO; ADD MORPH? NO; ADD SCAN? NO; ATYPICAL LYMPHOCYTE FLAG 10 (0-99); FRAGMENT RBC FLAG 0 (0-99); HEMATOCRIT 34.5 % (38.0-47.0); HEMOGLOBIN 11.5 g/dL (12.6-16.3); LEFT SHIFT FLG 10 (0-99); LIPEMIA HEMOLYSIS FLAG 80 (0-99); MEAN CELL HEMOGLOBIN 30.8 pg (27.9-34.1); MEAN CELL HEMOGLOBIN CONCENTR. 33.3 g/dL (32.4-36.7); MEAN CELL VOLUME 92.5 fL (81.5-99.8); PLATELET CLUMPS FLAG 10 (0-99); PLATELET COUNT 209 10^3/uL (150-400); RED BLOOD CELL COUNT 3.73 10^6/uL (4.18-5.33); RED CELL DISTRIBUTION WIDTH 13.2 % (11.5-15.2)
[2016-11-10 05:50] LABS: ANION GAP 5 mEq/L (8-16); CALCIUM 9.3 mg/dL (8.5-10.4); CARBON DIOXIDE 26 mEq/l (22-31); CHLORIDE 104 mEq/L (97-110); CREATININE 0.8 mg/dL (0.6-1.0); GLOMERULAR FILTRATION RATE > 60; GLUCOSE 309 mg/dL (70-100); SODIUM 135 mEq/L (134-144)
--- NOTE | 2016-11-10 07:45 | NEUSURGPN ---
Date of Surgery: 11/09/16 Post Op Day: 1 Assessment/Plan: Assessment: 71 yo female that is s/p TLIF L2/3 with replacement of rods to existing fusion L3-S1 POD #1 Plan: -s/p TLIF L2/3: Pt with expected lower back pain -pt with now at a T6/7 sensory level deficit which is better than before, she can now move better to the LLE and slightly better to the right -continue with ICU and keeping MAPs above [address] Sánchez-likely for 5-7 days -PT/OT ordered -brace when out of bed -orders in place -pt with continued weakness in BLE-Dr Sánchez saw and examined pt as well -IM and critical care on board as well -pt understands and agrees -call NS with any changes or issues 11/09/16 19:44 Subjective: Awake and alert. No new complaints or events per Pt and RN. No desai/neck/chest/ abd or gu complaints. Objective: AFVSS/PERRLA/EOMI no droop CN 2-12 grossly intact +lt touch to UE T6/7 sensory loss BLE weakness with able to DF left with ability to internally rotate hips/ activate quads bilat-improved from immediate post op exam CDI CARLOS A in place Neuro Check Frequency: per routine Urinary Catheter in Place: Yes Urinary Catheter Indication: Surgical Requirement - Physician Discussed Patient with : Gonzalo Patient Seen by : Gonzalo Neurosurgery Physical Exam - Vitals, I&O, Labs I and O 11/09/16 11/10/16 11/11/16 05:59 05:59 05:59 Intake Total 1225 Output Total 2780 Balance -1555 Weight 113.852 kg 117 kg Intake: Oral (ml) 500 IV Infused (ml) 725 Dexmedetomidine HCl 400 58 mcg In Ns 100 ml @ Titrate IV CONT SHAY Rx#: [id number] NS W/ 20 KCl/L 1,000 ml @ 498 75 mls/hr IV CONT SHAY Rx #:[id number] Norepinephrine/Ns 500 ml 169 @ Per Protocol IV CONT SHAY Rx#:[id number] Output: Urine (ml) 2350 Catheter 2350 Estimated Blood Loss (ml) 200 Wound Drainage (ml) 200 #1 Back Sarwat James 200 Wound Drainage (ml) 30 #1 Left Back Sarwat 30 James Other: Intake Quantity Yes Sufficient Vital Signs Temp Pulse Resp BP Pulse Ox 37.4 C 55 L 18 153/68 H 99 11/10/16 05:47 11/10/16 05:47 11/10/16 05:47 11/10/16 05:47 11/10/16 05:47 Laboratory Results 11/10/16 05:03 11/10/16 05:03 ICD10 Worksheet Patient Problems: Problems Problem Status Onset Bilateral leg weakness Acute Sensory abnormality of thoracic dermatome distribution Acute Back pain Acute CHF (congestive heart failure) Acute Chest pain Acute Chronic Disease Mgmt/Transitional Care Acute Lumbar radiculitis Acute Lumbar stenosis Acute NSTEMI (non-ST elevated myocardial infarction) Acute - ICD10 Problem Qualifiers (1) Bilateral leg weakness (2) Sensory abnormality of thoracic dermatome distribution
[2016-11-10] MEDS ORDERED: INSULIN GLARGINE 100 UNITS/ML SYRINGE SC ONE (08:00)
--- NOTE | 2016-11-10 08:40 | SOAPPROG ---
Downtime Inpatient MD Late Entry SOAP Note: Azra had an uncomplicated L23 TLIF for severe stenosis above a prior fusion from L3 to S1 with hardware that was present at L3 to L5. Intraoperatively she had terrible SSEPs but was considered monitorable and she did not change during surgery. The surgery at L23 was routine with severe stenosis at that level. We TLIFed from the left side. In recovery immediately after surgery she could internally rotate her legs and had profound weakness througout. Her hip flexor on the left was 1-2/5 and there was not any hip flexion on the right. She had a Cervicothoracic sensory level at that point. We reassessed her as she rolled into ICU and there was some trace improvement with some slight movement in her left foot now but she could not golf professional her toes at all in either foot. Her sensation had improved somewhat and she was less numb but still had bilateral numbness extending up to just above her nipples and MRIs of the C and T spine were ordered. These were completed somewhat after 10pm and we viewed them as they were done. 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 We saw the sag images prior to the PACs system going doing for maintenance and there was no evidence of compressive hematoma at the surgery site. She did have some stenosis at L12 and even T12/L1 but this was present before her surgery and would not explain her deficits. Radiology called me to discuss the right sided disk at L34 below the surgery site after reviewing the axials that were available to them but there was no completely occlusive pathology in the lumbar spine to explain her deficits. This morning she has a reproducible symmetric bilateral sensory level in the mid thoracic spine to pin prick when tested on her back side. She does have improved sensation in the legs this am compared to last night and can discriminate sharp from dull and painful sensations in the legs now whereas last pm she could not. Her motor score has also improved with some movement in her toes on the left and left foot is 1-2/5. right foot is 1/5 and i did not see her toes move in the right foot. It appears she has an insult of some kind to the thoracic cord based upon exam and MRI and she has improved a bit this am. We will continue to support her MAPS up to 85 for the next 7 days and will mobilize her. I expect her to improve with time but i do not think she would tolerate additional surgery at this point given her medical status. It is my feeling that this medical status has contributed to this perioperative difficulty.
--- NOTE | 2016-11-10 08:41 | HOSPPROG ---
Hospitalist Progress Note Assessment/Plan: Patient is new to my care today. I have reviewed prior records, notes and imaging. #T6/7 sensory deficit: mild movement of LEs today; improved per NSGY exams -cont to keeps MAP >85 #CAD: no chest pain. EKG with sinus arrhythmia (personally reviewed by me): not on BB due to allergy. Cont losartan, nitrate #Uncontrolled DM: spoke to her in length about home dose of insulin. She does a range of Lantus 40-70 BID. I explained that we should be consistent with Lantus dose and can adjust based on SSI needs. She is not eating much, so will decrease dose to 55 units BID for now. Cont Jardiana once family brings med in #Volume overload: due to fluid overload with surgery. IV lasix last night. Cont daily Torsemide #Acute blood loss anemia: blood loss with surgery. Monitor H/H #HTN: cont home meds #Diet: diabetic #DVT ppx: SCDs #Disp: we will cont to follow along with you. Please call if questions Subjective: some feeling in legs. very anxious Objective: Vital Signs Temp Pulse Resp BP Pulse Ox 37.4 C 55 L 18 153/68 H 99 11/10/16 05:47 11/10/16 05:47 11/10/16 05:47 11/10/16 05:47 11/10/16 05:47 Laboratory Results 11/10/16 05:03 11/10/16 05:03 11/09/16 11/10/16 11/11/16 05:59 05:59 05:59 Intake Total 1225 Output Total 2780 Balance -1555 - Physical Exam Constitutional: obese Eyes: PERRL Ears, Nose, Mouth, Throat: moist mucous membranes Cardiovascular: regular rate and rhythym Respiratory: no respiratory distress Gastrointestinal: normoactive bowel sounds, soft, non-tender abdomen Skin: warm Musculoskeletal: full muscle strength (5/5 UE. bilateral LE weakness) Neurologic: AAOx3 Psychiatric: interacting appropriately ICD10 Worksheet Patient Problems: Problems Problem Status Onset Chest pain Acute Chronic Disease Mgmt/Transitional Care Acute Lumbar radiculitis Acute Lumbar stenosis Acute NSTEMI (non-ST elevated myocardial infarction) Acute CHF (congestive heart failure) Acute Back pain Acute Bilateral leg weakness Acute Sensory abnormality of thoracic dermatome distribution Acute
[2016-11-10] MEDS: INSULIN LISPRO 100 UNIT/ML SC SCH ×3 (08:52→18:23)
[2016-11-10] MEDS ORDERED: Empagliflozin [Jardiance] 10 MG PO SCH (09:00)
[2016-11-10] MEDS ORDERED: EMPAGLIFLOZIN 10 MG PO SCH (09:00)
--- NOTE | 2016-11-10 09:09 | CPEKG ---
Heart Rate: 70 RR Interval: 857 P-R Interval: 164 QRSD Interval: 88 QT Interval: 420 QTC Interval: 454 P [place]: 26 QRS [place]: -19 T Wave [place]: 126 EKG Severity - ABNORMAL ECG - EKG Impression: SINUS ARRHYTHMIA, RATE 51-88 EKG Impression: BORDERLINE LEFT AXIS DEVIATION EKG Impression: CONSIDER ANTEROSEPTAL INFARCT EKG Impression: NONSPECIFIC T ABNORMALITIES, LATERAL LEADS Electronically Signed By: Maico Myers 11-Nov-2016 12:51:15
[2016-11-10] MEDS: DIAZEPAM 5 MG TAB PO PRN ×2 (09:58→19:18)
[2016-11-10] MEDS: TORSEMIDE 20 MG TAB PO SCH (09:58)
--- NOTE | 2016-11-10 10:44 | GCON ---
[f rep st] CONSULTATION DATE OF CONSULTATION: 11/09/2016 REASON FOR CONSULTATION: I was asked by Tuan Hartley PA-C, to see this patient in regard to he r medical issues. HISTORY OF PRESENT ILLNESS: This is a 71-year-old female, with significant cardiac history, who is now immediately postop from an L-spine fusion. Cardiac history includes CABG, which was distant. She had a workup about 8 weeks ago when she was admitted for back pain. This included a nuclear stress test, which showed apical ischemia. At that point, previous catheterizations were reviewed, and it w as felt that there were no additional interventions to be undertaken, thus she did not receive [facility] catheterization. She was seen by Dr. Hess, who counseled her on how high risk the surgery was, though given [id number] issues, he felt that it was reasonable for her to have surgery. I note that she is not on a beta gera, I believe due to bradycardia. She also has labile blood pressures . She has persistent angina. Intraoperatively, her blood pressures were quite elevated. Her anesthes iologist kept them elevated because, as they dropped, she had ST depressions. She ran about 220/100 intraoperatively. Her I's and O's were 2300 in and 800 out. When I am seeing her, she is awake, conv ersant. She is not having any chest pain. She does still have some decreased sensation in her feet, as well as no motor function in her feet. PAST MEDICAL/SURGICAL HISTORY: 1. Questionable atrial fibrillation. 2. Coronary artery disease, status post CABG, as above. 3. Diastolic dysfunction. 4. Severe MR. 5. Degenerative disc disease. 6. Diabetes mellitus, type 2. 7. GERD. 8. Glaucoma. 9. Hypertension. 10. Hyperlipidemia. MEDICATIONS: Please see medication reconciliation. ALLERGIES: Ativan, metoprolol, opioids, sulfa. FAMILY HISTORY: There is coronary artery disease in her family. SOCIAL HISTORY: She never smoked. REVIEW OF SYSTEMS: Ten-point review of systems is conducted and is negative, except per HPI. PHYSICAL EXAMINATION: VITAL SIGNS: Initial blood positive pressure postoperatively was 241/97. When I am seeing her on Precedex, it is about 157/80, heart rate 70, respiration rate 20, saturating at 98% on 6 L simple mask, temperature 37. GENERAL: The patient is a pleasant female, who is somnolent, but easily aroused, appropriately answering questions. HEENT: Shows her to be normocephalic, atraum atic. CARDIOVASCULAR: Regular rate and rhythm. No murmurs, rubs, or gallops. PULMONARY: Lungs clear to auscultation bilaterally. ABDOMEN: Soft, nontender, nondistended. SKIN: No rash. : Shows a Fole y. NEUROLOGIC: Shows her to have decreased movement in her bilateral lower extremities. PSYCHIATRIC: Shows normal mood and affect. LABORATORY DATA: White count is 10.9, hemoglobin is 12. Basic metabolic panel is normal. DATA: 1. I discussed this with Tuan Hartley PA-C. 2. I discussed this with Dr. Woods. 3. I personally viewed and interpreted her chest x-ray. This shows cardiomegaly. She has appropriat e central line position, with mild CHF. IMPRESSION AND PLAN: 1. Coronary artery disease: Currently, does not seem to be having an acute event. I have ordered an EKG; however, this has not been done yet. Discussed with Dr. Woods, who does not feel that any IV b eta blockers are indicated. I have placed her back on her home medications. We will keep her on Prec edex overnight to control her blood pressure and heart rate. I note that she is not on a beta blocke r, will not start any at this point. If EKG is ischemic appearing, will discuss with Cardiology. We will hold her aspirin perioperatively. 2. Volume overload: Likely due to fluids from surgery, she was 1500 positive. I have ordered 1 dose of IV Lasix. She has a Hernandez in place. 3. Diabetes mellitus, type 2: We will continue her Jardiance, as well as glargine and aspart. 4. Severe mitral regurgitation: Will watch her fluid status closely. 5. Hypertension: We will continue all of her cardiac medications. She is quite labile. 6. Hyperlipidemia: Continue statin. 7. Questionable history of atrial fibrillation: We will monitor on telemetry for now. Thank you for involving Hospital Medicine in the care of this patient. We will continue to follow [facility] you. /[id number]/MODL
[2016-11-10] MEDS: NOREPINEPHRINE/NS 500 ML IV SCH ×2 (11:44→21:43)
[2016-11-10] MEDS: NS W/ 20 KCl/L 1,000 ML IV SCH (12:27)
--- NOTE | 2016-11-10 13:20 | GCON ---
[f rep st] CONSULTATION CULTURE MANAGER CONSULTATION HISTORY OF PRESENT ILLNESS: The patient examined postoperatively. The patient is a 71-year-old white female with extensive past medical history including atrial fibri llation, diastolic dysfunction, degenerative disc disease, gastroesophageal reflux disease, hyperten yasmani, hyperlipidemia, glaucoma, diabetes, mitral regurgitation, coronary artery disease with a histo ry of coronary artery bypass graft. She underwent removal of posterior instrumentation, placement o f new segmental instrumentation with lj, expandable biomechanical intervertebral device, posterior and lateral intervertebral arthrodesis with bilateral decompressions. This occurred on 11/09/2016. This was complicated postoperatively by insult to her thoracic cord with lower extremity weakness. Currently, she is resting comfortably. Pain is well controlled. She denies any chest pain, pleuri tic-type chest pain, or angina equivalent. No fever or night sweats. She is concerned about her we akness. PAST MEDICAL HISTORY: Again, significant for atrial fibrillation, diastolic dysfunction, diabetes m ellitus, hypertension, glaucoma, hyperlipidemia, gastroesophageal reflux disease, mitral regurgitati on, coronary artery disease. PAST SURGICAL HISTORY: Coronary artery bypass graft. ALLERGIES: Ativan, metoprolol, opioids, and sulfa. SOCIAL HISTORY: No history of tobacco use. No history of alcohol use. She has good, excellent [facility] support. PHYSICAL EXAMINATION: VITAL SIGNS: Blood pressure is 158/63, pulse is 65, respirations 20, tempera ture 36.8, oxygen saturation 97% on 3 L. GENERAL: She is a moderately overweight elderly female wh o is resting comfortably in no acute distress. HEENT: Eyes are KOBY, EOMI. Throat shows no erythe ma or tonsillar hypertrophy. NECK: Supple. There is no cervical adenopathy. HEART: Regular rate and rhythm with a 2/6 systolic murmur at left sternal border without radiation. LUNGS: Diminished breath sounds, but no wheeze. ABDOMEN: Soft, nontender. Bowel sounds are present. EXTREMITIES: No clubbing, cyanosis, or edema. LABORATORIES: White count is 9.91, hemoglobin of 11, hematocrit 34, platelet count is 209. Sodium 135, potassium 5.0, chloride 104, CO2 is 26, BUN 15, creatinine of 0.8, glucose is 309. IMPRESSION: 1. Extensive back surgery. 2. Thoracic spine insult with lower extremity weakness. 3. Diabetes. 4. Coronary artery disease with history of coronary bypass graft. 5. Mitral regurgitation. 6. Gastroesophageal reflux disease. 7. Hypertension. 8. Hyperlipidemia. RECOMMENDATIONS: 1. Aggressive blood sugar control. 2. DVT and PE prophylaxis. 3. Stress ulcer prophylaxis. 4. Adequate pain control. 5. PT and OT when appropriate. 6. Adequate nutrition. /[id number]/MODL
[2016-11-10] MEDS ORDERED: BIOTENE DRY MOUTH MOUTHWASH 237 ML BTL MM PRN (14:18)
[2016-11-10] MEDS ORDERED: D50W 25 GM/50 ML SYR IVP PRN (15:44)
[2016-11-10] MEDS: Empagliflozin [Jardiance] 10 MG PO SCH (21:04)
[2016-11-11] MEDS: NS W/ 20 KCl/L 1,000 ML IV SCH ×2 (01:37→15:25)
[2016-11-11] MEDS: ONDANSETRON 4 MG/2 ML VIAL IVP PRN ×2 (03:00→15:22)
[2016-11-11] MEDS: NOREPINEPHRINE/NS 500 ML IV SCH ×2 (03:15→11:04)
[2016-11-11 04:35] LABS: HEMATOCRIT 34.3 % (38.0-47.0); HEMOGLOBIN 11.3 g/dL (12.6-16.3); MEAN CELL HEMOGLOBIN 30.5 pg (27.9-34.1); MEAN CELL HEMOGLOBIN CONCENTR. 32.9 g/dL (32.4-36.7); MEAN CELL VOLUME 92.5 fL (81.5-99.8); RED BLOOD CELL COUNT 3.71 10^6/uL (4.18-5.33); RED CELL DISTRIBUTION WIDTH 13.2 % (11.5-15.2)
[2016-11-11 04:51] LABS: ANION GAP 8 mEq/L (8-16); CALCIUM 9.6 mg/dL (8.5-10.4); CARBON DIOXIDE 26 mEq/l (22-31); CHLORIDE 104 mEq/L (97-110); CREATININE 0.7 mg/dL (0.6-1.0); GLOMERULAR FILTRATION RATE > 60; GLUCOSE 187 mg/dL (70-100); SODIUM 138 mEq/L (134-144)
--- NOTE | 2016-11-11 08:37 | NEUSURGPN ---
Assessment/Plan: Assessment: 71 yo female that is s/p TLIF L2/3 with replacement of rods to existing fusion L3-S1 POD #2 Plan: -s/p TLIF L2/3: Pt with expected lower back pain -pt at about T6/7 sensory level deficit which is better than before, she can now move quads 4/5 bilaterally -continue with ICU and keeping MAPs above [address] Sánchez-likely for 5-7 days -PT/OT ordered -brace when out of bed -orders in place -pt with continued weakness in BLE-Dr Sánchez will see and examine later today -IM and critical care on board as well -pt understands and agrees -call NS with any changes or issues Subjective: Pt resting in bed, states she thinks she is slightly improved this AM Objective: AAOx3 NAD VSS MAEx4 Motor BLE: bilat quad 4/5, able to move feet by june quads +LT Incision dressed Urinary Catheter in Place: Yes Urinary Catheter Indication: Surgical Requirement - Physician Discussed Patient with : Gonzalo Neurosurgery Physical Exam - Vitals, I&O, Labs I and O 11/10/16 11/11/16 11/12/16 05:59 05:59 05:59 Intake Total 1225 5115.0 Output Total 2780 5095 Balance -1555 20.0 Weight 117 kg 117 kg Intake: Oral (ml) 500 1960 IV Intake (ml) 941 IV Infused (ml) 725 2214.0 Dexmedetomidine HCl 400 58 106.0 mcg In Ns 100 ml @ Titrate IV CONT SHAY Rx#: [id number] NS W/ 20 KCl/L 1,000 ml @ 498 848 75 mls/hr IV CONT SHAY Rx #:[id number] Norepinephrine/Ns 500 ml 169 1260 @ Per Protocol IV CONT SHAY Rx#:[id number] Output: Urine (ml) 2350 5000 Catheter 2350 5000 Estimated Blood Loss (ml) 200 Wound Drainage (ml) 200 #1 Back Sarwat James 200 Wound Drainage (ml) 30 95 #1 Left Back Sarwat 30 95 James Other: Intake Quantity Yes Yes Sufficient Vital Signs Temp Pulse Resp BP Pulse Ox 37.9 C 85 24 H 191/66 H 97 11/11/16 05:00 11/11/16 07:00 11/11/16 07:00 11/11/16 07:00 11/11/16 07:00 Laboratory Results 11/11/16 04:20 11/11/16 04:20 ICD10 Worksheet Patient Problems: Problems Problem Status Onset Bilateral leg weakness Acute Sensory abnormality of thoracic dermatome distribution Acute Back pain Acute CHF (congestive heart failure) Acute Chest pain Acute Chronic Disease Mgmt/Transitional Care Acute Lumbar radiculitis Acute Lumbar stenosis Acute NSTEMI (non-ST elevated myocardial infarction) Acute
--- NOTE | 2016-11-11 09:07 | PDINTPN ---
Toolroom Machinist Progress Note Assessment/Plan: Assessment: * Status post extensive lower back surgery * Thoracic spine insult with lower extremity weakness-patient states some improvement * Diabetes-blood sugars are well controlled * Pain-+/- control. Patient states narcotics did not help. * PT/OT * Coronary artery disease with history of CABG * Morbid obesity * Mitral regurg * Hypertension * Gastroesophageal reflux disease Plan: [facility] PT/OT Subjective: Patient lying supine in bed, complains of back pain, that is poorly controlled. There is no shortness of breath cough or production of sputum. She wishes for more movement Objective: Vital Signs Temp Pulse Resp BP Pulse Ox 36.6 C 78 25 H 181/59 H 95 11/11/16 08:00 11/11/16 08:00 11/11/16 08:00 11/11/16 08:00 11/11/16 08:00 Laboratory Results 11/11/16 04:20 11/11/16 04:20 11/10/16 11/11/16 11/12/16 05:59 05:59 05:59 Intake Total 1225 5115.0 Output Total 2780 5095 Balance -1555 20.0 Physical Exam - Physical Exam General Appearance: alert, mild distress EENT: PERRL/EOMI, normal ENT inspection Neck: non-tender, full range of motion, supple, normal inspection Respiratory: chest non-tender, lungs clear, normal breath sounds Cardiac/Chest: normal peripheral pulses, regular rate, rhythm, systolic murmur Peripheral Pulses: 2+: carotid (R), carotid (L), femoral (R), femoral (L), dorsalis-pedis (R), dorsalis-pedis (L) Abdomen: normal bowel sounds, non-tender, soft Pelvic Exam: deferred Rectal: deferred Skin: normal color, warm/dry Neuro/Psych: alert, normal mood/affect, oriented x 3 ICD10 Worksheet Patient Problems: Problems Problem Status Onset Bilateral leg weakness Acute Sensory abnormality of thoracic dermatome distribution Acute Back pain Acute CHF (congestive heart failure) Acute Chest pain Acute Chronic Disease Mgmt/Transitional Care Acute Lumbar radiculitis Acute Lumbar stenosis Acute NSTEMI (non-ST elevated myocardial infarction) Acute
[2016-11-11] MEDS: TORSEMIDE 20 MG TAB PO SCH (09:17)
[2016-11-11] MEDS: INSULIN LISPRO 100 UNIT/ML SC SCH ×3 (09:17→17:48)
[2016-11-11] MEDS: Empagliflozin [Jardiance] 10 MG PO SCH (09:17)
[2016-11-11] MEDS: GABAPENTIN 100 MG CAP PO SCH ×3 (09:17→20:54)
[2016-11-11] MEDS: PANTOPRAZOLE SODIUM 40 MG TAB PO SCH ×2 (09:17→20:54)
[2016-11-11] MEDS: SENNOSIDES/DOCUSATE SODIUM TAB PO SCH ×2 (09:17→20:54)
[2016-11-11] MEDS: INSULIN GLARGINE 100 UNITS/ML SYRINGE SC SCH ×2 (09:18→20:55)
[2016-11-11] MEDS: ISOSORBIDE MONONITRATE 30 MG TAB.SR PO SCH ×2 (09:21→20:54)
[2016-11-11] MEDS: ALLOPURINOL 100 MG TAB PO SCH ×2 (09:24→20:52)
[2016-11-11] MEDS: DIAZEPAM 5 MG TAB PO PRN (09:45)
--- NOTE | 2016-11-11 16:03 | HOSPPROG ---
Hospitalist Progress Note Assessment/Plan: #s/p TLIF L2/3 with replacement of rods to existing fusion POD #2 #T6/7 sensory deficit: moving quads more today -cont to keeps MAP >85 #Back pain: wrote a Rx for accupuncture visit if ok by NSGY #Anxiety: did not like Precedex, so will cont with Valium. Adverse reactions to Ativan in past #CAD: no chest pain. EKG with sinus arrhythmia (personally reviewed by me): not on BB due to allergy. Cont losartan, nitrate #Uncontrolled DM: Cont Jardiana.Glucose well-controlled on Lantus 55 BID ( reduced from home 70U BID) since min PO intake #Volume overload: improved. Cont home Torsemide #Acute blood loss anemia: blood loss with surgery. Monitor H/H #HTN: cont home meds #Diet: diabetic #DVT ppx: SCDs #Disp: we will cont to follow along with you. Please call if questions Subjective: still feeling anxious Objective: Vital Signs Temp Pulse Resp BP Pulse Ox 36.6 C 85 18 164/60 H 92 11/11/16 08:00 11/11/16 15:00 11/11/16 15:00 11/11/16 15:00 11/11/16 15:00 Laboratory Results 11/11/16 04:20 11/11/16 04:20 11/10/16 11/11/16 11/12/16 05:59 05:59 05:59 Intake Total 1225 5115.0 1000 Output Total 2780 5095 2600 Balance -1555 20.0 -1600 - Physical Exam Constitutional: other (mildly anxious) Eyes: PERRL Ears, Nose, Mouth, Throat: moist mucous membranes Cardiovascular: regular rate and rhythym, irregularly irregular, edema (trace pedal edema) Respiratory: no respiratory distress Gastrointestinal: normoactive bowel sounds Genitourinary: no bladder fullness Musculoskeletal: other (increased quad strength, moving LEs more) Neurologic: AAOx3, CN II-XII Intact Psychiatric: anxious ICD10 Worksheet Patient Problems: Problems Problem Status Onset Bilateral leg weakness Acute Sensory abnormality of thoracic dermatome distribution Acute Back pain Acute CHF (congestive heart failure) Acute Chest pain Acute Chronic Disease Mgmt/Transitional Care Acute Lumbar radiculitis Acute Lumbar stenosis Acute NSTEMI (non-ST elevated myocardial infarction) Acute
--- NOTE | 2016-11-11 20:23 | SOAPPROG ---
SOAP Progress Note Assessment/Plan: Assessment: Acupuncture consult approved by Dr. Bebeto Sánchez. Patient had multi-level lumbar spinal fusion and is experiencing numbness from her waist down with spinal cord swelling. With the loss of sensation, Mrs. Cooper is experiencing moderate anxiety. Patient is also experiencing periodic episodes of angina. Occipital neck feels stiff and tight. Treatment: Titanium ASP (Acupuncture Semi-Permanent) needles inserted. Bilateral auricular [place] Acupuncture Protocol (BFA): Cingular gyrate Point Zero John Men Thalamus [place] 2 Also added: lumbar x 2 bilateral Scalp: DU 20-24 x 5: Decrease cord swelling (midline of scalp is a microsystem of the spine) Bilateral susie to midline of DU meridian - reduce cord swelling, encourage healing of fusion Left: PC 6-7 x 3 susie angina, open the chest, balance ST meridian DARIO 7-9 relax occiput, reduce neck pain, balance BL meridian, improve flexion and extension HT 4, 5, 7 reduce anxiety, open the hip and trochanter area, decrease pain in sidebending of neck and hips, balance GB and SP DARIO 1-5 relax erector spinae, reduce back pain and swelling, balance BL meridianj LI [address] meridian, reduce pain in rotation SJ 10-14 reduce lateral LB pain, balance GB and SP meridians These points were chosen using the principles of Dr. Kenny's Balance Method. During treatment, patient expressed more feeling medial calves, bilaterally. She also had sensation when her feet were palpated and expressed tenderness and pain when firm pressure was applied. Titanium semi-permanent needles were inserted. Nurses and family were advised these will stay in anywhere from three days to three weeks and will fall out on their own. If there is any irritation or sign of local infection, they can be removed with tweezers. A recommendation for treatment with Mrs. Cooper's acute condition is daily acupuncture until symptoms subside. Plan: 11/11/16 19:42 Objective: Vital Signs Temp Pulse Resp BP Pulse Ox 37.4 C 87 18 110/72 99 11/11/16 17:00 11/11/16 19:00 11/11/16 19:00 11/11/16 19:00 11/11/16 19:00 Laboratory Results 11/11/16 04:20 11/11/16 04:20 11/10/16 11/11/16 11/12/16 05:59 05:59 05:59 Intake Total 1225 5115.0 2993 Output Total 2780 5095 4550 Balance -1555 20.0 -1557 ICD10 Worksheet Patient Problems: Problems Problem Status Onset Bilateral leg weakness Acute Sensory abnormality of thoracic dermatome distribution Acute Back pain Acute CHF (congestive heart failure) Acute Chest pain Acute Chronic Disease Mgmt/Transitional Care Acute Lumbar radiculitis Acute Lumbar stenosis Acute NSTEMI (non-ST elevated myocardial infarction) Acute
[2016-11-11] MEDS: DOCUSATE SODIUM 100 MG CAP PO SCH (20:54)
[2016-11-11] MEDS: LOSARTAN POTASSIUM 50 MG TAB PO SCH (20:57)
[2016-11-12] MEDS: NOREPINEPHRINE/NS 500 ML IV SCH (02:23)
[2016-11-12] MEDS: fentaNYL 100 MCG/2 ML INJ IVP PRN (02:41)
[2016-11-12] MEDS: NS W/ 20 KCl/L 1,000 ML IV SCH (04:15)
[2016-11-12] MEDS: DIAZEPAM 5 MG TAB PO PRN ×4 (06:14→22:04)
[2016-11-12] MEDS: BISACODYL 10 MG SUPP PR PRN (08:45)
--- NOTE | 2016-11-12 08:46 | PDINTPN ---
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 * Constipation-will start patient on bowel protocol * Diabetes-blood sugars are well controlled * Pain-+/- control. Patient states narcotics did not help. * PT/OT * Coronary artery disease with history of CABG * Morbid obesity * Mitral regurg * Hypertension * Gastroesophageal reflux disease Subjective: Patient has multiple somatic complaints. She feels generally uncomfortable, and wishes to move more. She complains of constipation Objective: Vital Signs Temp Pulse Resp BP Pulse Ox 37.2 C 97 20 170/52 H 96 11/11/16 20:00 11/12/16 06:00 11/12/16 06:00 11/12/16 06:00 11/12/16 06:00 Laboratory Results 11/11/16 04:20 11/11/16 04:20 11/11/16 11/12/16 11/13/16 05:59 05:59 05:59 Intake Total 5115.0 4105 Output Total 5095 6250 Balance 20.0 -2145 Physical Exam - Physical Exam General Appearance: alert, mild distress EENT: PERRL/EOMI, normal ENT inspection Neck: non-tender Respiratory: chest non-tender, lungs clear, normal breath sounds Cardiac/Chest: normal peripheral pulses, regular rate, rhythm, systolic murmur Peripheral Pulses: 2+: carotid (R), carotid (L), femoral (R), femoral (L), dorsalis-pedis (R), dorsalis-pedis (L) Abdomen: normal bowel sounds, non-tender, soft Pelvic Exam: deferred Rectal: deferred Skin: normal color, warm/dry Neuro/Psych: alert, normal mood/affect, oriented x 3 ICD10 Worksheet Patient Problems: Problems Problem Status Onset Bilateral leg weakness Acute Sensory abnormality of thoracic dermatome distribution Acute Back pain Acute CHF (congestive heart failure) Acute Chest pain Acute Chronic Disease Mgmt/Transitional Care Acute Lumbar radiculitis Acute Lumbar stenosis Acute NSTEMI (non-ST elevated myocardial infarction) Acute
[2016-11-12] MEDS: GABAPENTIN 100 MG CAP PO SCH ×3 (08:47→20:20)
[2016-11-12] MEDS: SENNOSIDES/DOCUSATE SODIUM TAB PO SCH ×2 (08:47→20:20)
[2016-11-12] MEDS: PANTOPRAZOLE SODIUM 40 MG TAB PO SCH ×2 (08:47→20:20)
[2016-11-12] MEDS: METHOCARBAMOL 750 MG TAB PO PRN (09:18)
[2016-11-12] MEDS: MAGNESIUM HYDROXIDE 30 ML UDCUP PO PRN (09:18)
[2016-11-12] MEDS: INSULIN LISPRO 100 UNIT/ML SC SCH ×3 (09:24→18:35)
[2016-11-12] MEDS: ALLOPURINOL 100 MG TAB PO SCH ×2 (10:13→20:20)
[2016-11-12] MEDS: ENOXAPARIN 40 MG/0.4 ML SYR SC SCH (11:16)
[2016-11-12] MEDS: Empagliflozin [Jardiance] 10 MG PO SCH (11:16)
[2016-11-12] MEDS: INSULIN GLARGINE 100 UNITS/ML SYRINGE SC SCH ×2 (11:16→21:05)
[2016-11-12] MEDS: TORSEMIDE 20 MG TAB PO SCH (11:16)
[2016-11-12] MEDS: ISOSORBIDE MONONITRATE 30 MG TAB.SR PO SCH ×2 (11:20→20:22)
[2016-11-12] MEDS ORDERED: ACETAMINOPHEN 325 MG TAB PO SCH (12:00)
--- NOTE | 2016-11-12 12:08 | NEUSURGPN ---
Date of Surgery: 11/09/16 Post Op Day: 3 Assessment/Plan: Assessment: 71 yo female that is s/p TLIF L2/3 with replacement of rods to existing fusion L3-S1, now with T6/7 sensory level deficit and BLE weakness R> L. Plan: -s/p TLIF L2/3: Pt with expected lower back pain -pt at about T6/7 sensory level deficit which appears to be slowly improving, particularly on the right -continue with ICU and keeping MAPs above 85 for 7 days, does not need butch if high without -lovenox SCD's OK -PT/OT ordered -brace when out of bed -IM and critical care on board as well -call NS with any changes or issues dw Dr. Sánchez Subjective: Pt is very discouraged as she has significant deficits after surgery and is very anxious. Objective: NAD, VSS, MAP's above goal EOMI, No facial droop BUE 5/5, LLE 2/5 HF,HE, KF,KE. 3/5 DF,PF, EHL RLE 1/5 EHL, no other movement noted +LT throughout - Physician Discussed Patient with : Gonzalo Neurosurgery Physical Exam - Vitals, I&O, Labs I and O 11/11/16 11/12/16 11/13/16 05:59 05:59 05:59 Intake Total 5115.0 4105 Output Total 5095 6250 Balance 20.0 -2145 Weight 117 kg Intake: Oral (ml) 1960 1500 IV Intake (ml) 941 898 IV Infused (ml) 2214.0 1707 Dexmedetomidine HCl 400 106.0 mcg In Ns 100 ml @ Titrate IV CONT SHAY Rx#: [id number] NS W/ 20 KCl/L 1,000 ml @ 848 835 75 mls/hr IV CONT SHAY Rx #:[id number] Norepinephrine/Ns 500 ml 1260 872 @ Per Protocol IV CONT SHAY Rx#:[id number] Output: Urine (ml) 5000 6250 Catheter 5000 6250 Wound Drainage (ml) 95 #1 Left Back [place] 95 James Other: Intake Quantity Yes Yes Sufficient Vital Signs Temp Pulse Resp BP Pulse Ox 36.9 C 100 19 166/86 H 97 11/12/16 07:00 11/12/16 11:00 11/12/16 11:00 11/12/16 11:20 11/12/16 11:00 Laboratory Results 11/11/16 04:20 11/11/16 04:20 ICD10 Worksheet Patient Problems: Problems Problem Status Onset Bilateral leg weakness Acute Sensory abnormality of thoracic dermatome distribution Acute Back pain Acute CHF (congestive heart failure) Acute Chest pain Acute Chronic Disease Mgmt/Transitional Care Acute Lumbar radiculitis Acute Lumbar stenosis Acute NSTEMI (non-ST elevated myocardial infarction) Acute
[2016-11-12] MEDS: ACETAMINOPHEN 500 MG TAB PO SCH ×2 (12:59→18:16)
--- NOTE | 2016-11-12 13:20 | HOSPPROG ---
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 Cont losartan, nitrate #Uncontrolled DM: Cont Jardiana. * Glucose well-controlled on Lantus 55 BID (reduced from home 70U BID) since min PO intake #Volume overload: improved. Cont home Torsemide #Acute blood loss anemia: blood loss with surgery. Monitor H/H #HTN * hold home medications #Diet: diabetic #DVT ppx: SCDs Subjective: continued anxiety. constipated Objective: Vital Signs Temp Pulse Resp BP Pulse Ox 36.9 C 92 20 159/66 H 95 11/12/16 07:00 11/12/16 13:00 11/12/16 13:00 11/12/16 13:00 11/12/16 13:00 Laboratory Results 11/11/16 04:20 11/11/16 04:20 11/11/16 11/12/16 11/13/16 05:59 05:59 05:59 Intake Total 5115.0 4105 Output Total 5095 6250 Balance 20.0 -2145 discussed with pulmonology tele personally viewed interpreted normal sinus rhythm - Physical Exam Constitutional: no apparent distress, appears nourished, not in pain Eyes: anicteric sclera, EOMI Ears, Nose, Mouth, Throat: moist mucous membranes, hearing normal Cardiovascular: regular rate and rhythym, no murmur, rub, or gallop Respiratory: no respiratory distress, no rales or rhonchi, clear to auscultation Gastrointestinal: normoactive bowel sounds, soft, non-tender abdomen, no palpable masses Skin: warm Neurologic: AAOx3, weakness ( weakness lower extremities. Is able to move left foot better than right) Psychiatric: interacting appropriately, not anxious, not encephalopathic, thought process linear ICD10 Worksheet Patient Problems: Problems Problem Status Onset Bilateral leg weakness Acute Sensory abnormality of thoracic dermatome distribution Acute Back pain Acute CHF (congestive heart failure) Acute Chest pain Acute Chronic Disease Mgmt/Transitional Care Acute Lumbar radiculitis Acute Lumbar stenosis Acute NSTEMI (non-ST elevated myocardial infarction) Acute
[2016-11-12] MEDS ORDERED: ALTEPLASE 2 MG VIAL IVP PRN (14:37)
[2016-11-12] MEDS: ONDANSETRON 4 MG/2 ML VIAL IVP PRN (15:14)
[2016-11-12] MEDS: DOCUSATE SODIUM 100 MG CAP PO SCH (20:19)
[2016-11-12] MEDS: LOSARTAN POTASSIUM 50 MG TAB PO SCH (20:23)
[2016-11-13] MEDS: ACETAMINOPHEN 500 MG TAB PO SCH ×4 (00:07→18:34)
[2016-11-13 05:34] LABS: % IMMATURE GRANULYOCYTES 0.8 % (0.0-1.1); ABSOLUTE IMMATURE GRANULOCYTES 0.06 10^3/uL (0.00-0.10); ADD DIFF? NO; ADD MORPH? NO; ADD SCAN? NO; ATYPICAL LYMPHOCYTE FLAG 0 (0-99); FRAGMENT RBC FLAG 0 (0-99); HEMATOCRIT 29.6 % (38.0-47.0); LEFT SHIFT FLG 40 (0-99); LIPEMIA HEMOLYSIS FLAG 90 (0-99); MEAN CELL HEMOGLOBIN 31.4 pg (27.9-34.1); MEAN CELL HEMOGLOBIN CONCENTR. 33.8 g/dL (32.4-36.7); MEAN CELL VOLUME 93.1 fL (81.5-99.8); MEAN PLATELET VOLUME 9.9 fL (8.7-11.7); PLATELET CLUMPS FLAG 0 (0-99); PLATELET COUNT 166 10^3/uL (150-400); RED BLOOD CELL COUNT 3.18 10^6/uL (4.18-5.33); RED CELL DISTRIBUTION WIDTH 13.2 % (11.5-15.2)
[2016-11-13 05:49] LABS: ANION GAP 5 mEq/L (8-16); CARBON DIOXIDE 32 mEq/l (22-31); CHLORIDE 101 mEq/L (97-110); CREATININE 0.7 mg/dL (0.6-1.0); GLOMERULAR FILTRATION RATE > 60; GLUCOSE 85 mg/dL (70-100); POTASSIUM 3.4 mEq/L (3.5-5.2); SODIUM 138 mEq/L (134-144)
[2016-11-13] MEDS: INSULIN LISPRO 100 UNIT/ML SC SCH ×3 (08:21→18:40)
--- NOTE | 2016-11-13 08:50 | PDINTPN ---
Manufacturing Machine Operator Progress Note Assessment/Plan: Assessment/Plan: * Status post extensive lower back surgery * Thoracic spine insult with lower extremity weakness-patient states some improvement -continue with elevated blood pressure. * Hypertension-her blood pressures periodically high. We will watch closely * Constipation-will start patient on bowel protocol * Diabetes-blood sugars are well controlled * Pain-+/- control. Patient states narcotics did not help. * PT/OT * Coronary artery disease with history of CABG * Morbid obesity * Mitral regurg * Hypertension * Gastroesophageal reflux disease Subjective: Rachel Cooper states she feels somewhat weaker today and more fatigued. Pain is unchanged. Objective: Vital Signs Temp Pulse Resp BP Pulse Ox 37.0 C 89 22 H 174/126 H 97 11/12/16 22:00 11/13/16 08:00 11/13/16 08:00 11/13/16 08:00 11/13/16 08:00 Laboratory Results 11/13/16 05:18 11/13/16 05:18 11/12/16 11/13/16 11/14/16 05:59 05:59 05:59 Intake Total 4105 875 Output Total 6250 3600 Balance -2145 -9765 Chest x-ray reviewed by myself. PICC line is in good position, lungs are clear Physical Exam - Physical Exam General Appearance: alert, mild distress EENT: PERRL/EOMI, normal ENT inspection Neck: non-tender, full range of motion, supple, normal inspection Respiratory: chest non-tender, lungs clear, normal breath sounds Cardiac/Chest: normal peripheral pulses, regular rate, rhythm, systolic murmur Peripheral Pulses: 2+: carotid (R), carotid (L), femoral (R), femoral (L), dorsalis-pedis (R), dorsalis-pedis (L) Abdomen: normal bowel sounds, non-tender, soft Pelvic Exam: deferred Rectal: deferred Skin: normal color, warm/dry Neuro/Psych: alert, normal mood/affect, oriented x 3 ICD10 Worksheet Patient Problems: Problems Problem Status Onset Bilateral leg weakness Acute Sensory abnormality of thoracic dermatome distribution Acute Back pain Acute CHF (congestive heart failure) Acute Chest pain Acute Chronic Disease Mgmt/Transitional Care Acute Lumbar radiculitis Acute Lumbar stenosis Acute NSTEMI (non-ST elevated myocardial infarction) Acute
[2016-11-13] MEDS: GABAPENTIN 100 MG CAP PO SCH ×3 (09:01→21:15)
[2016-11-13] MEDS: PANTOPRAZOLE SODIUM 40 MG TAB PO SCH ×2 (09:01→21:15)
[2016-11-13] MEDS: ENOXAPARIN 40 MG/0.4 ML SYR SC SCH (09:01)
[2016-11-13] MEDS: TORSEMIDE 20 MG TAB PO SCH (09:01)
[2016-11-13] MEDS: INSULIN GLARGINE 100 UNITS/ML SYRINGE SC SCH ×2 (09:04→21:15)
[2016-11-13] MEDS: ISOSORBIDE MONONITRATE 30 MG TAB.SR PO SCH ×2 (09:22→21:16)
[2016-11-13] MEDS: Empagliflozin [Jardiance] 10 MG PO SCH (09:22)
[2016-11-13] MEDS: ALLOPURINOL 100 MG TAB PO SCH ×2 (09:22→21:15)
[2016-11-13] MEDS: POLYETHYLENE GLYCOL 3350 17 GM PKT PO SCH (09:23)
[2016-11-13] MEDS: SENNOSIDES/DOCUSATE SODIUM TAB PO SCH ×2 (09:23→21:16)
--- NOTE | 2016-11-13 09:27 | NEUSURGPN ---
Assessment/Plan: Assessment: 71 yo female that is s/p TLIF L2/3 with replacement of rods to existing fusion L3-S1, now with T6/7 sensory level deficit and BLE weakness R> L. Plan: -s/p TLIF L2/3: Pt with expected lower back pain -pt at about T6/7 sensory level deficit which appears to be slowly improving, particularly on the right -continue with ICU and keeping MAPs above 85 for 7 days, does not need butch if high without -lovenox SCD's OK -PT/OT ordered -brace when out of bed -IM and critical care on board as well -call NS with any changes or issues dw Dr. Sánchez Subjective: very concerned about her prognosis, complaint of incontinent of bowels, and some involuntary twitching in her arms. Objective: NAD, VSS, MAP's above goal EOMI, No facial droop BUE 5/5, LLE 3/5 HF,HE, KF,KE. 3+/5 DF,PF, EHL RLE 1/5 EHL,PF,DF, 2/5HF,HE,KF,KE +LT throughout Urinary Catheter in Place: Yes Urinary Catheter Indication: Surgical Requirement - Physician Discussed Patient with : Gonzalo Neurosurgery Physical Exam - Vitals, I&O, Labs I and O 11/12/16 11/13/16 11/14/16 05:59 05:59 05:59 Intake Total 4105 875 Output Total 6250 3600 Balance -9325 -4969 Intake: Oral (ml) 1500 800 IV Intake (ml) 898 IV Infused (ml) 1707 75 NS W/ 20 KCl/L 1,000 ml @ 835 75 mls/hr IV CONT SHAY Rx #:[id number] Norepinephrine/Ns 500 ml 872 75 @ Per Protocol IV CONT SHAY Rx#:[id number] Output: Urine (ml) 6250 3600 Catheter 6250 3600 Other: Intake Quantity Yes Yes Sufficient Number of Stools Catheter 1 Vital Signs Temp Pulse Resp BP Pulse Ox 37.0 C 89 22 H 174/126 H 97 11/12/16 22:00 11/13/16 08:00 11/13/16 08:00 11/13/16 08:00 11/13/16 08:00 Laboratory Results 11/13/16 05:18 04/16/17 05:18 ICD10 Worksheet Patient Problems: Problems Problem Status Onset Bilateral leg weakness Acute Sensory abnormality of thoracic dermatome distribution Acute Back pain Acute CHF (congestive heart failure) Acute Chest pain Acute Chronic Disease Mgmt/Transitional Care Acute Lumbar radiculitis Acute Lumbar stenosis Acute NSTEMI (non-ST elevated myocardial infarction) Acute
[2016-11-13] MEDS: fentaNYL 100 MCG/2 ML INJ IVP PRN ×2 (10:20→22:02)
[2016-11-13] MEDS: DIAZEPAM 5 MG TAB PO PRN ×2 (10:24→21:22)
[2016-11-13] MEDS: METHOCARBAMOL 750 MG TAB PO PRN ×2 (13:31→21:15)
--- NOTE | 2016-11-13 13:56 | HOSPPROG ---
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 Cont losartan, nitrate #Uncontrolled DM: Cont Jardiana. * Glucose well-controlled on Lantus 55 BID (reduced from home 70U BID) since min PO intake #Volume overload: improved. Cont home Torsemide #Acute blood loss anemia: blood loss with surgery. Monitor H/H #HTN * hold home medications #Diet: diabetic #DVT ppx: SCDs Subjective: anxious about her recovery Objective: Vital Signs Temp Pulse Resp BP Pulse Ox 37.0 C 89 22 H 174/126 H 97 11/12/16 22:00 11/13/16 08:00 11/13/16 08:00 11/13/16 08:00 11/13/16 08:00 Laboratory Results 11/13/16 05:18 11/13/16 05:18 11/12/16 11/13/16 11/14/16 05:59 05:59 05:59 Intake Total 4105 875 Output Total 6250 3600 Balance -6625 -3451 discussed with pulmonology - Physical Exam Constitutional: no apparent distress, appears nourished, not in pain Eyes: anicteric sclera, EOMI Ears, Nose, Mouth, Throat: moist mucous membranes, hearing normal Cardiovascular: regular rate and rhythym, no murmur, rub, or gallop Respiratory: no respiratory distress, no rales or rhonchi, clear to auscultation Gastrointestinal: normoactive bowel sounds, soft, non-tender abdomen, no palpable masses Skin: warm Neurologic: AAOx3 Psychiatric: interacting appropriately, not anxious, not encephalopathic, thought process linear ICD10 Worksheet Patient Problems: Problems Problem Status Onset Bilateral leg weakness Acute Sensory abnormality of thoracic dermatome distribution Acute Back pain Acute CHF (congestive heart failure) Acute Chest pain Acute Chronic Disease Mgmt/Transitional Care Acute Lumbar radiculitis Acute Lumbar stenosis Acute NSTEMI (non-ST elevated myocardial infarction) Acute
--- NOTE | 2016-11-13 14:19 | SOAPPROG ---
SOAP Progress Note Assessment/Plan: Assessment: Acupuncture consult approved by Dr. Bebeto Sánchez. Patient had multi-level lumbar spinal fusion and is experiencing numbness from her waist down with spinal cord swelling. With the loss of sensation, Mrs. Cooper is experiencing moderate anxiety. Patient is also experiencing periodic episodes of angina. Occipital neck feels stiff and tight. Treatment: Titanium ASP (Acupuncture Semi-Permanent) needles inserted. Bilateral auricular [place] Acupuncture Protocol (BFA): Cingular gyrate Point Zero John Men Thalamus [place] 2 Also added: lumbar x 2 bilateral Scalp: DU 20-24 x 5: Decrease cord swelling (midline of scalp is a microsystem of the spine) Bilateral susie to midline of DU meridian - reduce cord swelling, encourage healing of fusion Left: PC 6-7 x 3 susie angina, open the chest, balance ST meridian DARIO 7-9 relax occiput, reduce neck pain, balance BL meridian, improve flexion and extension HT 4, 5, 7 reduce anxiety, open the hip and trochanter area, decrease pain in sidebending of neck and hips, balance GB and SP DARIO 1-5 relax erector spinae, reduce back pain and swelling, balance BL meridianj LI [address] meridian, reduce pain in rotation SJ 10-14 reduce lateral LB pain, balance GB and SP meridians These points were chosen using the principles of Dr. Kenny's Balance Method. During treatment, patient expressed more feeling medial calves, bilaterally. She also had sensation when her feet were palpated and expressed tenderness and pain when firm pressure was applied. Titanium semi-permanent needles were inserted. Nurses and family were advised these will stay in anywhere from three days to three weeks and will fall out on their own. If there is any irritation or sign of local infection, they can be removed with tweezers. A recommendation for treatment with Mrs. Cooper's acute condition is daily acupuncture until symptoms subside. Plan: 11/11/16 19:42 11/13/16 14:06 Patient is despondent today and is worried about her future outcome. She is concerned about her lack of movement and current bowel incontinence. She was glad to hear she will go to in-patient rehab and plans to work hard on her recovery. She tried to sit up today and was unable to do so. Strained her L hip and was icing it when I arrived. Patient has some movement in her feet, L greater than R. She has had severe anxiety and "has been unable to control it. " The patient frequently uses techniques such as meditation, visualization, and deep breathing and feels, "this time, it is not helping." We discussed breaking recovery into "small wins" instead of looking at a terminal operations manager recovery plan. She continues to have periodic angina. Treatment: Titanium ASP needles continue to be in bilateral ears. Auricular added for today's treatment: Sympathetic - Fight or flight, reduce anxiety Heart - reduce angina, reduce anxiety Scalp: DU 20-24 x 5: Decrease cord swelling (midline of scalp is a microsystem of the spine) Bilateral susie to midline of DU meridian - reduce cord swelling, encourage healing of fusion DU 26 (located on upper lip) - activate anal sphincter, decrease low back swelling. Left: PC 6-7 x 3 susie angina, open the chest, balance ST meridian DARIO 7-9 relax occiput, reduce neck pain, balance BL meridian, improve flexion and extension HT 4, 5, 7 reduce anxiety, open the hip and trochanter area, decrease pain in sidebending of neck and hips, balance GB and SP DARIO 1-6 relax erector spinae, reduce back pain and swelling, balance BL meridianj LI [address] meridian, reduce pain in rotation, decrease angina SJ 10-14 reduce lateral LB and hip pain, balance GB and SP meridians Mehta Gina relax the hips SI 3, 4 Reduce spinal pain, inflammation, and tension These points were chosen using the principles of Dr. Kenny's Balance Method. Objective: Vital Signs Temp Pulse Resp BP Pulse Ox 37.0 C 89 22 H 174/126 H 97 11/12/16 22:00 11/13/16 08:00 11/13/16 08:00 11/13/16 08:00 11/13/16 08:00 Laboratory Results 11/13/16 05:18 11/13/16 05:18 11/12/16 11/13/16 11/14/16 05:59 05:59 05:59 Intake Total 1458 977 Output Total 1503 5614 Balance -2145 -7869 ICD10 Worksheet Patient Problems: Problems Problem Status Onset Bilateral leg weakness Acute Sensory abnormality of thoracic dermatome distribution Acute Back pain Acute CHF (congestive heart failure) Acute Chest pain Acute Chronic Disease Mgmt/Transitional Care Acute Lumbar radiculitis Acute Lumbar stenosis Acute NSTEMI (non-ST elevated myocardial infarction) Acute
[2016-11-13] MEDS: LOSARTAN POTASSIUM 50 MG TAB PO SCH (21:15)
[2016-11-13] MEDS: DOCUSATE SODIUM 100 MG CAP PO SCH (21:16)
[2016-11-14] MEDS: NOREPINEPHRINE/NS 500 ML IV SCH (01:00)
[2016-11-14] MEDS: ACETAMINOPHEN 500 MG TAB PO SCH ×4 (02:32→16:01)
[2016-11-14] MEDS: DIAZEPAM 5 MG TAB PO PRN ×2 (02:32→19:19)
[2016-11-14] MEDS: METHOCARBAMOL 750 MG TAB PO PRN ×2 (02:32→21:07)
--- NOTE | 2016-11-14 07:15 | NEUSURGPN ---
Assessment/Plan: Assessment: 71 yo female that is s/p TLIF L2/3 with replacement of rods to existing fusion L3-S1, with post op T6/7 sensory level deficit and BLE weakness R>L. Plan: -s/p TLIF L2/3: Pt with expected lower back pain that is better overall -pt was at about a T6/7 sensory level deficit which appears to be slowly improving, particularly on the right-pt stated that she could feel some sharp to thighs -continue with ICU and keeping MAPs above 85 for 7 days, does not need butch if high without -lovenox SCD's OK -PT/OT ordered -brace when out of bed -IM and critical care on board as well -call NS with any changes or issues -seen by Dr. Sánchez Subjective: Awake and alert. NAD. Eating/drinking. No desai/neck/chest/abd or gu complaints. No f/c/n/v/d. Objective: NAD, VSS, MAP's above goal EOMI, No facial droop BUE 5/5, LLE 3/5 HF,HE, KF,KE. 3+/5 DF,PF, EHL RLE 1/5 EHL,PF,DF, 2/5HF,HE,KF,KE +LT throughout Neuro Check Frequency: per routine Urinary Catheter in Place: No - Physician Discussed Patient with Dr.: Gonzalo Patient Seen by .: Gonzalo Neurosurgery Physical Exam - Vitals, I&O, Labs I and O 11/13/16 11/14/16 11/15/16 05:59 05:59 05:59 Intake Total 875 1215.8 Output Total 3600 2580 Balance -2725 -1364.2 Weight 119.1 kg Intake: Oral (ml) 800 1150 IV Infused (ml) 75 65.8 Norepinephrine/Ns 500 ml 75 65.8 @ Per Protocol IV CONT SHAY Rx#:[id number] Output: Urine (ml) 3600 2580 Catheter 3600 2580 Other: Intake Quantity Yes Sufficient Number of Stools Catheter 1 1 Vital Signs Temp Pulse Resp BP Pulse Ox 36.6 C 65 18 170/62 H 98 11/13/16 20:00 11/14/16 05:00 11/14/16 05:00 11/14/16 05:30 11/14/16 05:00 Laboratory Results 11/13/16 05:18 11/13/16 05:18 ICD10 Worksheet Patient Problems: Problems Problem Status Onset Bilateral leg weakness Acute Sensory abnormality of thoracic dermatome distribution Acute Back pain Acute CHF (congestive heart failure) Acute Chest pain Acute Chronic Disease Mgmt/Transitional Care Acute Lumbar radiculitis Acute Lumbar stenosis Acute NSTEMI (non-ST elevated myocardial infarction) Acute - ICD10 Problem Qualifiers (1) Bilateral leg weakness (2) Sensory abnormality of thoracic dermatome distribution
[2016-11-14] MEDS: fentaNYL 100 MCG/2 ML INJ IVP PRN ×2 (08:13→22:55)
[2016-11-14] MEDS: ALLOPURINOL 100 MG TAB PO SCH ×2 (08:18→19:21)
[2016-11-14] MEDS: Empagliflozin [Jardiance] 10 MG PO SCH (08:20)
[2016-11-14] MEDS: ENOXAPARIN 40 MG/0.4 ML SYR SC SCH (08:25)
[2016-11-14] MEDS: GABAPENTIN 100 MG CAP PO SCH ×3 (08:25→21:07)
[2016-11-14] MEDS: PANTOPRAZOLE SODIUM 40 MG TAB PO SCH ×2 (08:25→19:19)
[2016-11-14] MEDS: ISOSORBIDE MONONITRATE 30 MG TAB.SR PO SCH ×2 (08:27→19:21)
[2016-11-14] MEDS: SENNOSIDES/DOCUSATE SODIUM TAB PO SCH ×2 (08:28→19:19)
[2016-11-14] MEDS: POLYETHYLENE GLYCOL 3350 17 GM PKT PO SCH (08:28)
[2016-11-14] MEDS: INSULIN GLARGINE 100 UNITS/ML SYRINGE SC SCH ×2 (08:30→21:07)
[2016-11-14] MEDS: INSULIN LISPRO 100 UNIT/ML SC SCH ×3 (08:46→18:36)
--- NOTE | 2016-11-14 09:14 | PDINTPN ---
Traffic Incident Management Manager Progress Note Assessment/Plan: Assessment/Plan: * Status post extensive lower back surgery * Thoracic spine insult with lower extremity weakness-patient states minimal improvement -continue with elevated blood pressure. * Hypertension-her blood pressures periodically high. We will watch closely * Constipation-will start patient on bowel protocol * Diabetes-blood sugars are well controlled * Pain-+/- control. Patient states narcotics did not help. * PT/OT * Coronary artery disease with history of CABG * Morbid obesity * Mitral regurg * Hypertension * Gastroesophageal reflux disease Overall, minimal change Subjective: Sitting up in chair. Complaining of pain. Objective: Vital Signs Temp Pulse Resp BP Pulse Ox 36.6 C 67 14 162/85 H 99 11/13/16 20:00 11/14/16 07:00 11/14/16 07:00 11/14/16 08:47 11/14/16 07:00 Laboratory Results 11/13/16 05:18 11/13/16 05:18 11/13/16 11/14/16 11/15/16 05:59 05:59 05:59 Intake Total 875 1215.8 Output Total 3600 2580 Balance -2725 -1364.2 Physical Exam - Physical Exam General Appearance: alert, mild distress EENT: PERRL/EOMI Neck: non-tender, full range of motion, supple, normal inspection Respiratory: chest non-tender, lungs clear, normal breath sounds Cardiac/Chest: normal peripheral pulses, regular rate, rhythm, systolic murmur Peripheral Pulses: 2+: carotid (R), carotid (L), femoral (R), femoral (L), dorsalis-pedis (R), dorsalis-pedis (L) Abdomen: normal bowel sounds, non-tender, soft Pelvic Exam: deferred Rectal: deferred Skin: normal color, warm/dry Neuro/Psych: alert ICD10 Worksheet Patient Problems: Problems Problem Status Onset Bilateral leg weakness Acute Sensory abnormality of thoracic dermatome distribution Acute Back pain Acute CHF (congestive heart failure) Acute Chest pain Acute Chronic Disease Mgmt/Transitional Care Acute Lumbar radiculitis Acute Lumbar stenosis Acute NSTEMI (non-ST elevated myocardial infarction) Acute
[2016-11-14] MEDS ORDERED: POTASSIUM CL 20 MEQ TAB PO ONE (10:45)
[2016-11-14] MEDS: SIMETHICONE 80 MG TAB CHEW PO PRN (10:50)
[2016-11-14] MEDS: TORSEMIDE 20 MG TAB PO SCH (10:51)
--- NOTE | 2016-11-14 14:18 | HOSPPROG ---
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 Cont losartan, nitrate #Uncontrolled DM: Cont Jardiana. * Glucose well-controlled on Lantus 55 BID (reduced from home 70U BID) since min PO intake #Volume overload: improved. Cont home Torsemide #Acute blood loss anemia: blood loss with surgery. Monitor H/H #HTN * hold home medications #Diet: diabetic #DVT ppx: SCDs Subjective: not much change Objective: Vital Signs Temp Pulse Resp BP Pulse Ox 36.6 C 57 L 16 169/66 H 94 11/13/16 20:00 11/14/16 14:00 11/14/16 14:00 11/14/16 14:00 11/14/16 14:00 Laboratory Results 11/13/16 05:18 11/13/16 05:18 11/13/16 11/14/16 11/15/16 05:59 05:59 05:59 Intake Total 875 1215.8 Output Total 3600 2580 Balance -5595 -9754.2 discussed with pulmonology tele personally viewed interpreted - Physical Exam Constitutional: no apparent distress, appears nourished, not in pain Eyes: anicteric sclera, EOMI Ears, Nose, Mouth, Throat: moist mucous membranes, hearing normal Cardiovascular: regular rate and rhythym, no murmur, rub, or gallop Respiratory: no respiratory distress, no rales or rhonchi, clear to auscultation Gastrointestinal: normoactive bowel sounds, soft, non-tender abdomen, no palpable masses Skin: warm Neurologic: AAOx3 Psychiatric: interacting appropriately, not anxious, not encephalopathic, thought process linear ICD10 Worksheet Patient Problems: Problems Problem Status Onset Bilateral leg weakness Acute Sensory abnormality of thoracic dermatome distribution Acute Back pain Acute CHF (congestive heart failure) Acute Chest pain Acute Chronic Disease Mgmt/Transitional Care Acute Lumbar radiculitis Acute Lumbar stenosis Acute NSTEMI (non-ST elevated myocardial infarction) Acute
--- NOTE | 2016-11-14 14:32 | GCON ---
[f rep st] CONSULTATION INPATIENT REHABILITATION MEDICINE CONSULTATION DATE OF CONSULTATION: 11/14/2016 TIME OF EVALUATION: 11:30 a.m. VISIT INFORMATION: Rehabilitation medicine consultation was requested by Dr. Glaser' team to provide an opinion regarding rehabilitation needs for this patient with acute nontraumatic spinal cord injury. 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 The patient is now status post a TLIF of L2 and 3 with replacement of rods from an existing fusion, operated on for severe stenosis on 11/09/[address] Sánchez. The patient was acutely noted to have bilateral lower extremity weakness and loss of sensation changes postoperatively that were described to be approximately the level of T6 and below. On review of Dr. Sánchez's notes, it also noted that she had poor SSEPs intraoperatively, both early and late in surgery. Postoperatively, she was noted to have strength of 1-2/5 in hip flexion on the left and 0/5 on the right. Thoracic spine imaging showed mild thoracic disk and moderate severe stenosis, and Dr. Sánchez noted a cord lesion on sagittal imaging, and there was no note of a surgical hematoma. The patient has been slowly improving, particularly in sensation and also strength as well, been treated for a fluid overload and monitored for acute blood loss anemia. She remains in the ICU for additional blood pressure treatment, keeping her MAP above 85 for 7 days for spinal cord injury protocol. She has tried acupuncture for some pain issues, has not noted that to be particularly helpful, and is currently also on Lovenox for DVT prophylaxis. Overall improvement in strength and sensation was noted over time. When I spoke with the patient and family today, she notes that her strength is worse on the right than on the left, and sensory changes below the level of her waist. She notes no upper limb changes, including no sensory changes. She also describes fecal incontinence and lack of sensation about the need to defecate. She notes that she had occasional constipation premorbidly, usually treated with senna, Colace, and MiraLAX, and usually had twice-a-day stools before the surgery. She notes her first bowel movement was 4 days post surgery and continues to have some constipation and also some issues with diarrhea. This was also discussed with the nurse, who also confirmed that the patient still has a Hernandez in. The patient also notes that she has a history of some short-term memory issues after a prior surgery about a year ago. She describes these as some word- finding issues, some word-retrieval issues, and this is also noted by her who is a psychologist. No change in these symptoms recently. Otherwise, her hospital course has been relatively unremarkable so far. FUNCTIONAL HISTORY: Prior function: She was previously independent with her ADLs, also independent with cognition and communication issues, swallow, bowel and bladder as noted above, and she was driving. She has been using a walker for approximately 2 weeks prior to surgery and a cane for the 2 years leading up to that because of weakness-related issues. She has been receiving help with heavy housework for quite some time, and she stopped cooking about 1 week before surgery, again, because of difficulty standing and other issues. The memory issues described in the HPI were not functionally limiting in any way, and she still managed medications, etc. CURRENT FUNCTION: She currently is not on any precautions, except for a brace out of bed. There was some note of nonweightbearing precautions, but that was because of her inability to bear weight as opposed to a strict precaution. She is min assist with bed mobility and total assist for transfers. She, additionally, is requiring assistance with dressing, min assist for upper body, and moderate assist at least for lower body. She uses a lift to transfer to the wheelchair and moderate assistance for her supine to sit. Not ambulatory. She is incontinent of bowel and currently has a Hernandez catheter. No issues in cognition or communication and no swallow issues, other than those described premorbidly, mild short-term memory and word-finding difficulties. REVIEW OF SYSTEMS: All other systems are negative, except for as described above. She has no shortness of breath. PAST MEDICAL/SURGICAL HISTORY: Includes hypertension, coronary artery disease with history of CABG, morbid obesity, mitral regurgitation, GERD, diabetes type 2, acute blood loss anemia with this hospitalization, right knee total arthroplasty, old right foot fracture that caused pain but is not functionally impairing, left knee arthritis with prior history of scope, also not functionally limiting, and hip arthritis that is also painful, but not particularly functionally limiting. ALLERGIES: Please see the medical record for full details, but is allergic to lorazepam, metoprolol, opioids. MEDICATIONS: Full medications in the electronic medical record. Notable meds, however, include allopurinol 100 mg p.o. b.i.d. scheduled, as well as bisacodyl suppository 10 mg daily p.r.n. for constipation. She is also on antihypertensives, including clonidine, (being held) and she is also on diazepam , docusate, enoxaparin, gabapentin, hydralazine, insulin, losartan, Imdur, nitroglycerin p.r.n., norepinephrine drip, as well as senna docusate, simethicone, and potassium. Please see medical record for full list. SOCIAL HISTORY: Patient currently lives in [place] in her single family home with a spouse. She has 1 stair to enter and is okay to live on the main level as it is a ranch home. She is Catholic. Denies any alcohol, drugs, or tobacco , and she notes that she has help at home after discharge from her family, including her and son. FAMILY HISTORY: She endorses stroke in her father. No other relevant history. PHYSICAL EXAM: VITAL SIGNS: Blood pressure is 187/66. Pulse is 64. Respirations 100% on 2 L nasal cannula, on pressors. Her MAP was 99. GENERAL: She is in no apparent distress, obese, resting in the cardiac chair with a back brace on and on monitors. PSYCH: She is appropriate, pleasant, and cooperative. She endorses a normal mood. She notes that she is somewhat anxious and has a slightly congruent affect with that and normal thought content. HEENT: Eyes are anicteric. Ears, nose, mouth, and throat: Moist mucous membranes, normal dentition. CARDIOVASCULAR: Regular rate and rhythm. Normal S1, S2. No murmurs are appreciated. She had no lower extremity edema but was obese. Extremities were warm. No bruising. RESPIRATORY: She was breathing comfortably on room air. Lungs are clear to auscultation bilaterally. No wheezes, rhonchi or rales. ABDOMEN: Soft, nondistended, but obese. Positive bowel sounds. No tenderness. : A Hernandez was in place. It was draining clear yellow urine. EXTREMITIES: Otherwise no edema, no deformities noted. SKIN: No rashes or skin breakdown. NEUROLOGIC: Overall, she is alert and oriented to self, hospital, and situation. Remainder of the cognitive exam was deferred. Cranial nerves 2-12 are intact and symmetric bilaterally, including no diplopia. Strength was 5/5 in the upper limbs, including elbow flexors, elbow extensors, wrist extensors, finger flexors, and finger abductors. In the lower limbs, her hip flexors were 1/5 bilaterally. Knee extensors were 1/5 on the right, 3/5 on the left. Ankle dorsiflexors, plantar flexor, and great toe extensor were all 0/5 on the right, but on the left were 1/5 for the ankle dorsiflexor, 1/5 ankle plantar flexor, and 0/5 great toe extensor. Reflexes were 1+ in the bilateral biceps, triceps, and brachioradialis, and absent in the bilateral Achilles and patellae. She had equivocal Babinski and absent Des's bilaterally. She had absent clonus at the ankles. Light touch was intact to exposed skin around the knees, but I was unable to fully complete the sensory exam as planned. Pinprick was also intact around the knees as well. She endorses intact sensation grossly, but this could not be verified, nor could a rectal exam be done given positioning. Regarding cerebellar function, her [id number] was within normal limits. Rapid alternating movements were equal and symmetric bilaterally. She was not ambulated or otherwise tested for trunk strength. RESULTS REVIEW: She had, on 11/09, also a T-spine MR, and the radiology read showed a T7-8 severe central canal stenosis, no cord edema; however, Dr. Sánchez mentioned cord edema on the sagittal study. I could not appreciate cord changes on the PC images, however, and I was not able to evaluate it on a PACS system. MR L-spine showed a disk fragment at approximately L3 with a mass effect on the anterior right thecal sac, clumping of the nerve roots, and a disk osteophyte complex at T11-12 with mild to moderate central canal stenosis, and C-spine MR showed C4-5 and C5-6 disk disease and moderate central canal stenosis with moderate to severe bilateral neural foraminal stenosis as well. Recent hemoglobin and hematocrit were 10 and 29.6, relatively stable. Calcium was 10. ASSESSMENT/PLAN: This is a very pleasant 71-year-old female, now with incomplete paraplegia affecting the at least the L2 level or higher, following a nontraumatic spinal cord injury noticed after a transforaminal lumbar interbody fusion of L2-3 and replacement of rods for severe canal stenosis on , who also is experiencing complications of neurogenic bowel and bladder , impairments in mobility and self care. She had relatively good premorbid function leading up to her surgery, with the exception of the immediate presurgical period where she was using a walker and having greater impairments in mobility. She continued to function relatively well with some assistance at home leading up to this, however. She also has complicating osteoarthritis, particularly in the left knee and hip, and has a history of joint replacement on the right knee. Also, her body habitus will complicate mobility and self care tasks. She has a supportive home situation and would plan to discharge home with family assistance. She has been getting assistance leading up to the surgery, and so I think that is a realistic goal. She also has an accessible home, at least for ambulation, unclear how accessible it may be for a wheelchair. She is currently still in the ICU on a blood pressure protocol after an acute spinal cord injury, which we will continue for another couple of days, 7 days total. Her rehab course may be complicated also by additional spinal pathology in both the cervical, lumbar, and thoracic spine, some mild premorbid memory issues, as well as the arthritis and comorbidities also discussed below. SPECIFIC MEDICAL ISSUES: 1. At least L1 PRECIOUS class C spinal cord injury (may be higher depending on sensory level) on exam today, nontraumatic (functionally incomplete paraplegia) : Agree with plan to maintain MAP of greater than 85 for 7 days to maintain spinal cord perfusion, using pressors if required. Plan to evaluate further to assess the sensory level when patient is better positioned to do so. 2. Neurogenic bowel: Recommend daily scheduled suppository for regular bowel movements, bisacodyl suppositories. Also can continue oral Colace and senna. Patient will be likely unable to have BM voluntarily, and daily bowel program prevents impaction. 3. Neurogenic bladder. Agree with Hernandez for now and would recommend keeping Hernandez in place until inpatient rehab. 4. Neurogenic skin: The patient is at very high risk for pressure ulcers. Recommend continuing the q.2 hour turns and floating heels. She may require a specialty mattress as well given her body habitus. Recommend continue mobilizing to chair, but also perform pressure releases every 15-20 minutes to prevent any skin breakdown in pressure areas. Plan to further evaluate sensory function. 5. Difficulty with coping: The patient does endorse some anxiety and sadness related to this, and it would be helpful if she could talk with a hand molder meat or psychologist. We will continue to address this in rehab setting as well. She does not appear to have premorbid psychiatric illness that would complicate recovery. 6. Deep vein thrombosis prophylaxis: Agree with Lovenox for chemoprophylaxis, and SCDs. 7. Musculoskeletal: Maintain range of motion and working with PT/OT as you are doing. DISPOSITION: It seems that she would be a good candidate for inpatient rehabilitation. We will continue to follow closely and work with her insurance company for preauthorization as necessary. She expressed preference for [facility]. SUPPLEMENTAL REHAB DOCUMENTATION: PRIMARY DIAGNOSIS: - paraplegia, incomplete, nontraumatic spinal cord dysfunction. Impairments in mobility, self care, neurogenic bowel, neurogenic bladder, neurogenic skin. COMORBIDITIES: 1. Morbid obesity. 2. Osteoarthritis. 3. Comorbid spinal stenosis. 4. Acute blood loss anemia. 5. Hypertension. 6. Coronary artery disease with history of coronary artery bypass grafting. 7. Mitral regurgitation. 8. Gastroesophageal reflux disease. 9. Diabetes type 2. Once the patient can tolerate 3 hours of therapy per day and demonstrates appropriate carryover, she will be considered for inpatient rehabilitation admission. The patient needs to be medically stable, with no further medical/ surgical interventions planned, but has complex rehab needs requiring intensive therapy intervention. I anticipate that the patient will meet the following criteria: 1. Able to make a meaningful amount of functional progress in a reasonable amount of time. 2. The patient is willing and able to participate in rehabilitation therapies based on progress during acute care. 3. The patient will require 24-hour supervision from rehabilitation physicians and nursing. 4. Rehabilitation goals cannot be achieved at a lower level of care. 5. Patient requires a minimum of 3 hours of intensive therapy per day, which would be an hour and a half of physical therapy and an hour and a half of occupational therapy. Estimated length of stay is 21 days, and the patient is planning to discharge home with family assistance. Current barriers to inpatient rehabilitation include management of blood pressure to maintain MAPs above 85 for acute spinal cord injury. Goals and expected level of improvement include modified independence with mobility that may include a manual wheelchair and likely will need some assistance with ambulation. She is continuing to make good improvements, and ambulation is a possibility and could potentially extend her rehab stay if she becomes a functional ambulator. I anticipate that she will be also modified independence with her basic ADLs and will likely still require assistance with her higher level IADLs, including care at home. She will likely not have any cognitive issues given her overall good function with her prior noted short-term memory problems and word-finding difficulties. Potential clinical complications include skin breakdown, development of deep vein thromboses, and falls, and the acute care team is managing these risks well. Thank you for the opportunity to be involved in the care of Mrs Cooper. Please feel free to contact me or the rehab admissions team with questions or concerns, and we will continue to follow. /[id number]/MODL MTDD
--- NOTE | 2016-11-14 18:22 | SOAPPROG ---
SOAP Progress Note Assessment/Plan: Assessment: Acupuncture consult approved by Dr. Bebeto Sánchez. Patient had multi-level lumbar spinal fusion and is experiencing numbness from her waist down with spinal cord swelling. With the loss of sensation, Mrs. Cooper is experiencing moderate anxiety. Patient is also experiencing periodic episodes of angina. Occipital neck feels stiff and tight. Treatment: Titanium ASP (Acupuncture Semi-Permanent) needles inserted. Bilateral auricular [place] Acupuncture Protocol (BFA): Cingular gyrate Point Zero John Men Thalamus [place] 2 Also added: lumbar x 2 bilateral Scalp: DU 20-24 x 5: Decrease cord swelling (midline of scalp is a microsystem of the spine) Bilateral susie to midline of DU meridian - reduce cord swelling, encourage healing of fusion Left: PC 6-7 x 3 susie angina, open the chest, balance ST meridian DARIO 7-9 relax occiput, reduce neck pain, balance BL meridian, improve flexion and extension HT 4, 5, 7 reduce anxiety, open the hip and trochanter area, decrease pain in sidebending of neck and hips, balance GB and SP DARIO 1-5 relax erector spinae, reduce back pain and swelling, balance BL meridianj LI [address] meridian, reduce pain in rotation SJ 10-14 reduce lateral LB pain, balance GB and SP meridians These points were chosen using the principles of Dr. Kenny's Balance Method. During treatment, patient expressed more feeling medial calves, bilaterally. She also had sensation when her feet were palpated and expressed tenderness and pain when firm pressure was applied. Titanium semi-permanent needles were inserted. Nurses and family were advised these will stay in anywhere from three days to three weeks and will fall out on their own. If there is any irritation or sign of local infection, they can be removed with tweezers. A recommendation for treatment with Mrs. Cooper's acute condition is daily acupuncture until symptoms subside. Plan: 11/11/16 19:42 11/13/16 14:06 Patient is despondent today and is worried about her future outcome. She is concerned about her lack of movement and current bowel incontinence. She was glad to hear she will go to in-patient rehab and plans to work hard on her recovery. She tried to sit up today and was unable to do so. Strained her L hip and was icing it when I arrived. Patient has some movement in her feet, L greater than R. She has had severe anxiety and "has been unable to control it. " The patient frequently uses techniques such as meditation, visualization, and deep breathing and feels, "this time, it is not helping." We discussed breaking recovery into "small wins" instead of looking at a tank terminal gauger recovery plan. She continues to have periodic angina. Treatment: Titanium ASP needles continue to be in bilateral ears. Auricular added for today's treatment: Sympathetic - Fight or flight, reduce anxiety Heart - reduce angina, reduce anxiety Scalp: DU 20-24 x 5: Decrease cord swelling (midline of scalp is a microsystem of the spine) Bilateral susie to midline of DU meridian - reduce cord swelling, encourage healing of fusion DU 26 (located on upper lip) - activate anal sphincter, decrease low back swelling. Left: PC 6-7 x 3 susie angina, open the chest, balance ST meridian DARIO 7-9 relax occiput, reduce neck pain, balance BL meridian, improve flexion and extension HT 4, 5, 7 reduce anxiety, open the hip and trochanter area, decrease pain in sidebending of neck and hips, balance GB and SP DARIO 1-6 relax erector spinae, reduce back pain and swelling, balance BL meridianj LI [address] meridian, reduce pain in rotation, decrease angina SJ 10-14 reduce lateral LB and hip pain, balance GB and SP meridians Mehta Gina relax the hips SI 3, 4 Reduce spinal pain, inflammation, and tension These points were chosen using the principles of Dr. Kenny's Balance Method. 11/14/16 17:56 Patient continues to have bowel incontinence. Movement in legs is limited, but it has mildly improved, L greater than R. She met with in-patient rehab and is hopeful this will improve her recovery. She complains of L hip pain. Her anxiety has decreased. She is still having periodic angina and, at this time, is not able to start medical management of symptoms. She can now feel her surgical incision. Treatment: Titanium ASP needles continue to be in ears, bilaterally. Scalp: DU 20-24 x 5: Decrease cord swelling (midline of scalp is a microsystem of the spine) Bilateral susie to midline of DU meridian - reduce cord swelling, encourage healing of fusion DU 26 (located on upper lip) - activate anal sphincter, decrease low back swelling. Left: Ger [place]al[place] Nani - treat low back pain, improve blood flow and circulation HT 4, 5, 7 reduce anxiety, open the hip and trochanter area, decrease pain in sidebending of neck and hips, balance GB and SP DARIO 1-6 relax erector spinae, reduce back pain and swelling, balance BL meridian LI 11-[address] meridian, reduce pain in rotation, decrease angina SJ 10-14 reduce lateral LB and hip pain, balance GB and SP meridians SI 3, 4 Reduce spinal pain, inflammation, and tension Right Side: Mehta Gina relax the hips These points were chosen using the principles of Dr. Kenny's Balance Method. Objective: Vital Signs Temp Pulse Resp BP Pulse Ox 36.6 C 75 23 H 123/77 H 94 11/13/16 20:00 11/14/16 17:00 11/14/16 17:00 11/14/16 17:00 11/14/16 17:00 Laboratory Results 11/13/16 05:18 11/13/16 05:18 11/13/16 11/14/16 11/15/16 05:59 05:59 05:59 Intake Total 875 1215.8 146 Output Total 3600 2580 1600 Balance -2725 -1364.2 -1454 ICD10 Worksheet Patient Problems: Problems Problem Status Onset Bilateral leg weakness Acute Sensory abnormality of thoracic dermatome distribution Acute Back pain Acute CHF (congestive heart failure) Acute Chest pain Acute Chronic Disease Mgmt/Transitional Care Acute Lumbar radiculitis Acute Lumbar stenosis Acute NSTEMI (non-ST elevated myocardial infarction) Acute
[2016-11-14] MEDS: DOCUSATE SODIUM 100 MG CAP PO SCH (19:19)
[2016-11-14] MEDS: LOSARTAN POTASSIUM 50 MG TAB PO SCH (19:21)
--- NOTE | 2016-11-14 21:25 | CPEKG ---
Heart Rate: 94 RR Interval: 638 P-R Interval: 156 QRSD Interval: 82 QT Interval: 344 QTC Interval: 431 P [place]: 2 QRS [place]: 8 T Wave [place]: 150 EKG Severity - ABNORMAL ECG - EKG Impression: SINUS ARRHYTHMIA, RATE 80-112 EKG Impression: CONSIDER ANTEROSEPTAL INFARCT EKG Impression: REPOL ABNRM SUGGESTS ISCHEMIA, DIFFUSE LEADS EKG Impression: HIGH LATERAL ST/T WAVE CHANGES ARE MORE PRONOUNCED Electronically Signed By: Maico Myers 15-Nov-2016 11:44:11
[2016-11-15] MEDS ORDERED: MBX SOLN 30 ML BOTTLE PO PRN (00:23)
[2016-11-15] MEDS: DIAZEPAM 5 MG TAB PO PRN ×2 (04:09→21:57)
[2016-11-15] MEDS: ACETAMINOPHEN 500 MG TAB PO SCH ×5 (05:48→21:57)
--- NOTE | 2016-11-15 07:16 | NEUSURGPN ---
Date of Surgery: 11/09/16 Post Op Day: 6 Assessment/Plan: Assessment: 71 yo female that is s/p TLIF L2/3 with replacement of rods to existing fusion L3-S1, with post op T6/7 sensory level deficit and BLE weakness R>L. Plan: -s/p TLIF L2/3: Pt with expected lower back pain that is better overall -pt was at about a T6/7 sensory level deficit which appears to be slowly improving, particularly on the right-pt stated that she could feel some sharp to thighs -continue with ICU and keeping MAPs above 85 for 7 days-til tomorrow, does not need butch if high without -lovenox SCD's OK -pt had abd pain and ST changes last night-EKG ordered and trops done. IM on board -PT/OT ordered -brace when out of bed-per [facility] -IM and critical care on board as well -call NS with any changes or issues -seen by Dr. Sánchez Subjective: Pt with abd pain last night and ST changes per RN-IM consulted. No desai/neck/ chest/abd or gu complaints this am. Objective: NAD, VSS, MAP's above goal EOMI, No facial droop BUE 5/5 LLE 3/5 HF,HE, KF,KE. 3+/5 DF,PF, EHL RLE 1/5 EHL,PF,DF, 2/5HF,HE,KF,KE +LT throughout Neuro Check Frequency: per routine Urinary Catheter in Place: No - Physician Discussed Patient with : Gonzalo Patient Seen by : Gonzalo Neurosurgery Physical Exam - Vitals, I&O, Labs I and O 11/14/16 11/15/16 11/16/16 05:59 05:59 05:59 Intake Total 1215.8 883.7 Output Total 2580 3225 Balance -1364.2 -2341.3 Weight 119.1 kg 121 kg Intake: Oral (ml) 1150 650 IV Infused (ml) 65.8 233.7 Norepinephrine/Ns 500 ml 65.8 233.7 @ Per Protocol IV CONT SHAY Rx#:[id number] Output: Urine (ml) 2580 3225 Catheter 2580 3225 Other: Number of Stools Catheter 1 Vital Signs Temp Pulse Resp BP Pulse Ox 36.6 C 58 L 18 173/63 H 96 11/14/16 19:00 11/15/16 06:00 11/15/16 06:00 11/15/16 06:00 11/15/16 06:00 Laboratory Results 11/13/16 05:18 11/13/16 05:18 ICD10 Worksheet Patient Problems: Problems Problem Status Onset Bilateral leg weakness Acute Sensory abnormality of thoracic dermatome distribution Acute Back pain Acute CHF (congestive heart failure) Acute Chest pain Acute Chronic Disease Mgmt/Transitional Care Acute Lumbar radiculitis Acute Lumbar stenosis Acute NSTEMI (non-ST elevated myocardial infarction) Acute - ICD10 Problem Qualifiers (1) Bilateral leg weakness (2) Sensory abnormality of thoracic dermatome distribution
[2016-11-15] MEDS: BISACODYL 10 MG SUPP PR PRN (07:52)
[2016-11-15] MEDS: MAGNESIUM HYDROXIDE 30 ML UDCUP PO PRN (08:49)
[2016-11-15] MEDS: GABAPENTIN 100 MG CAP PO SCH ×3 (08:50→20:17)
[2016-11-15] MEDS: PANTOPRAZOLE SODIUM 40 MG TAB PO SCH ×2 (08:50→20:17)
[2016-11-15] MEDS: ISOSORBIDE MONONITRATE 30 MG TAB.SR PO SCH ×3 (08:51→20:17)
[2016-11-15] MEDS: INSULIN LISPRO 100 UNIT/ML SC SCH ×3 (08:51→18:12)
[2016-11-15] MEDS: ENOXAPARIN 40 MG/0.4 ML SYR SC SCH (08:52)
[2016-11-15] MEDS: SENNOSIDES/DOCUSATE SODIUM TAB PO SCH ×2 (08:52→20:17)
[2016-11-15] MEDS: POLYETHYLENE GLYCOL 3350 17 GM PKT PO SCH (08:55)
[2016-11-15] MEDS: Empagliflozin [Jardiance] 10 MG PO SCH (08:55)
[2016-11-15] MEDS: ALLOPURINOL 100 MG TAB PO SCH ×2 (08:55→20:23)
[2016-11-15] MEDS: TORSEMIDE 20 MG TAB PO SCH (09:09)
[2016-11-15] MEDS: INSULIN GLARGINE 100 UNITS/ML SYRINGE SC SCH ×2 (11:10→20:21)
[2016-11-15] MEDS ORDERED: POTASSIUM CL 20 MEQ TAB PO ONE (15:20)
--- NOTE | 2016-11-15 15:20 | HOSPPROG ---
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 * Glucose well-controlled on Lantus 55 BID (reduced from home 70U BID) since min PO intake #Volume overload: improved. Cont home Torsemide #Acute blood loss anemia: blood loss with surgery. Monitor H/H #HTN * hold home medications #Diet: diabetic #DVT ppx: SCDs Subjective: had chest pain last night. This is resolved Objective: Vital Signs Temp Pulse Resp BP Pulse Ox 36.6 C 73 14 206/66 H 95 11/14/16 19:00 11/15/16 14:00 11/15/16 14:00 11/15/16 14:00 11/15/16 14:00 Laboratory Results 11/13/16 05:18 11/13/16 05:18 11/14/16 11/15/16 11/16/16 05:59 05:59 05:59 Intake Total 1215.8 883.7 Output Total 2580 3225 1700 Balance -1364.2 -2341.3 -1700 EKG personally viewed interpreted discussed with pulmonology - Physical Exam Constitutional: no apparent distress, appears nourished, not in pain Eyes: anicteric sclera, EOMI Ears, Nose, Mouth, Throat: moist mucous membranes, hearing normal, ears appear normal Cardiovascular: regular rate and rhythym, no murmur, rub, or gallop Respiratory: no respiratory distress, no rales or rhonchi, clear to auscultation Gastrointestinal: normoactive bowel sounds, soft, non-tender abdomen, no palpable masses Skin: warm Neurologic: AAOx3 Psychiatric: interacting appropriately, not anxious, not encephalopathic, thought process linear ICD10 Worksheet Patient Problems: Problems Problem Status Onset Bilateral leg weakness Acute Sensory abnormality of thoracic dermatome distribution Acute Back pain Acute CHF (congestive heart failure) Acute Chest pain Acute Chronic Disease Mgmt/Transitional Care Acute Lumbar radiculitis Acute Lumbar stenosis Acute NSTEMI (non-ST elevated myocardial infarction) Acute
--- NOTE | 2016-11-15 16:29 | PDINTPN ---
Heel Padder Progress Note Assessment/Plan: Assessment/plan: 71 F with spinal stenosis and weakness, s/p extensive spine surgery with planned elevated MAP for 7 days. * S/p surgery appears to be improving per NS team. Will cpomplete her 7 days tomorrow, then resume her outpatient meds * HTN- as above * Chest pain- minimal troponin changes. Doubt ACS * DM- currently controlled Objective: Vital Signs Temp Pulse Resp BP Pulse Ox 36.6 C 73 14 206/66 H 95 11/14/16 19:00 11/15/16 14:00 11/15/16 14:00 11/15/16 14:00 11/15/16 14:00 Laboratory Results 11/13/16 05:18 11/13/16 05:18 11/14/16 11/15/16 11/16/16 05:59 05:59 05:59 Intake Total 1215.8 883.7 Output Total 2580 3225 1700 Balance -1364.2 -2341.3 -1700 Physical Exam - Physical Exam General Appearance: alert, no apparent distress, obese EENT: PERRL/EOMI Neck: supple Respiratory: lungs clear, normal breath sounds, No respiratory distress, No rales, No rhonchi Cardiac/Chest: normal peripheral pulses, regular rate, rhythm, No edema Abdomen: normal bowel sounds, non-tender, soft, No distended, No guarding Skin: normal color, warm/dry Extremities: non-tender, No pedal edema Neuro/Psych: alert, normal mood/affect, oriented x 3 ICD10 Worksheet Patient Problems: Problems Problem Status Onset Bilateral leg weakness Acute Sensory abnormality of thoracic dermatome distribution Acute Back pain Acute CHF (congestive heart failure) Acute Chest pain Acute Chronic Disease Mgmt/Transitional Care Acute Lumbar radiculitis Acute Lumbar stenosis Acute NSTEMI (non-ST elevated myocardial infarction) Acute
--- NOTE | 2016-11-15 16:43 | CPEKG ---
Heart Rate: 63 RR Interval: 952 P-R Interval: 144 QRSD Interval: 90 QT Interval: 412 QTC Interval: 422 P [place]: 48 QRS [place]: 2 T Wave [place]: 9 EKG Severity - BORDERLINE ECG - EKG Impression: SINUS RHYTHM EKG Impression: BORDERLINE R WAVE PROGRESSION, ANTERIOR LEADS Electronically Signed By: Maico Martins 16-Nov-2016 08:31:55
[2016-11-15] MEDS: LOSARTAN POTASSIUM 50 MG TAB PO SCH (20:17)
[2016-11-15] MEDS: DOCUSATE SODIUM 100 MG CAP PO SCH (20:18)
[2016-11-16 00:05] VITALS: TEMP 98.2
[2016-11-16] MEDS: ACETAMINOPHEN 500 MG TAB PO SCH ×2 (06:05→11:54)
[2016-11-16 06:43] LABS: POTASSIUM 3.9 mEq/L (3.5-5.2)
[2016-11-16 06:44] LABS: ALANINE AMINOTRANSFERASE 32 IU/L (9-52); ALBUMIN 2.7 g/dL (3.5-5.0); ALKALINE PHOSPHATASE 137 IU/L (38-126); ANION GAP 5 mEq/L (8-16); ASPARTATE AMINOTRANSFERASE 38 IU/L (14-46); BILIRUBIN,TOTAL 0.7 mg/dL (0.1-1.4); CALCIUM 10.1 mg/dL (8.5-10.4); CARBON DIOXIDE 34 mEq/l (22-31); CHLORIDE 100 mEq/L (97-110); CREATININE 0.8 mg/dL (0.6-1.0); GLOMERULAR FILTRATION RATE > 60; GLUCOSE 86 mg/dL (70-100); SODIUM 139 mEq/L (134-144); TOTAL PROTEIN 5.5 g/dL (6.3-8.2)
--- NOTE | 2016-11-16 07:32 | NEUSURGPN ---
Date of Surgery: 11/09/16 Post Op Day: 7 Assessment/Plan: Assessment: 71 yo female that is s/p TLIF L2/3 with replacement of rods to existing fusion L3-S1, with post op T6/7 sensory level deficit and BLE weakness R>L. Plan: -s/p TLIF L2/3: Pt with expected lower back pain that is better overall -pt was at about a T6/7 sensory level deficit which appears to be slowly improving, particularly on the right-pt stated that she could feel some sharp to thighs -continue with ICU and keeping MAPs above 85 for 7 days-to end today, does not need butch if high without -lovenox SCD's OK -pt had abd pain and ST changes 2 nights ago-IM on board -PT/OT ordered -brace when out of bed-per [facility] -IM and critical care on board as well -plan for dispo to rehab -call NS with any changes or issues -seen by Dr. Sánchez Subjective: Awake and alert. NAD. Eating/drinking and voiding. No f/c/n/v/d. No desai/neck/ chest/abd or gu complaints. Objective: NAD, VSS, MAP's above goal EOMI, No facial droop BUE 5/5 LLE 3/5 HF,HE, KF,KE. 3+/5 DF,PF, EHL RLE 1/5 EHL,PF,DF, 2/5HF,HE,KF,KE +LT throughout Neuro Check Frequency: per routine - Physician Discussed Patient with : Gonzalo Patient Seen by : Gonzalo Neurosurgery Physical Exam - Vitals, I&O, Labs I and O 11/15/16 11/16/16 11/17/16 05:59 05:59 05:59 Intake Total 883.7 600 Output Total 3225 2900 Balance -2341.3 -2300 Weight 121 kg Intake: Oral (ml) 650 600 IV Infused (ml) 233.7 Norepinephrine/Ns 500 ml 233.7 @ Per Protocol IV CONT SHAY Rx#:[id number] Output: Urine (ml) 3225 2900 Catheter 3225 2900 Other: Intake Quantity Yes Sufficient Vital Signs Temp Pulse Resp BP Pulse Ox 36.8 C 71 15 132/75 H 95 11/16/16 00:00 11/16/16 06:00 11/16/16 06:00 11/16/16 06:00 11/16/16 06:00 Laboratory Results 11/13/16 05:18 11/16/16 06:05 ICD10 Worksheet Patient Problems: Problems Problem Status Onset Bilateral leg weakness Acute Sensory abnormality of thoracic dermatome distribution Acute Back pain Acute CHF (congestive heart failure) Acute Chest pain Acute Chronic Disease Mgmt/Transitional Care Acute Lumbar radiculitis Acute Lumbar stenosis Acute NSTEMI (non-ST elevated myocardial infarction) Acute - ICD10 Problem Qualifiers (1) Bilateral leg weakness (2) Sensory abnormality of thoracic dermatome distribution
[2016-11-16] MEDS: INSULIN LISPRO 100 UNIT/ML SC SCH ×2 (08:00→12:05)
[2016-11-16] MEDS: ENOXAPARIN 40 MG/0.4 ML SYR SC SCH (08:21)
[2016-11-16] MEDS: ALLOPURINOL 100 MG TAB PO SCH (08:21)
[2016-11-16] MEDS: INSULIN GLARGINE 100 UNITS/ML SYRINGE SC SCH (08:21)
[2016-11-16] MEDS: GABAPENTIN 100 MG CAP PO SCH (08:21)
[2016-11-16] MEDS: PANTOPRAZOLE SODIUM 40 MG TAB PO SCH (08:21)
[2016-11-16] MEDS: POLYETHYLENE GLYCOL 3350 17 GM PKT PO SCH (08:22)
[2016-11-16] MEDS: TORSEMIDE 20 MG TAB PO SCH (08:22)
[2016-11-16] MEDS: SENNOSIDES/DOCUSATE SODIUM TAB PO SCH (08:22)
[2016-11-16] MEDS: ISOSORBIDE MONONITRATE 30 MG TAB.SR PO SCH (08:22)
[2016-11-16] MEDS: Empagliflozin [Jardiance] 10 MG PO SCH (08:23)
--- NOTE | 2016-11-16 08:39 | CPEKG ---
Heart Rate: 76 RR Interval: 789 P-R Interval: 152 QRSD Interval: 88 QT Interval: 392 QTC Interval: 441 P [place]: 28 QRS [place]: 11 T Wave [place]: 151 EKG Severity - ABNORMAL ECG - EKG Impression: SINUS RHYTHM EKG Impression: ATRIAL PREMATURE COMPLEX EKG Impression: NONSPECIFIC T ABNORMALITIES, LATERAL LEADS Electronically Signed By: Maico Myers 17-Nov-2016 10:17:40
[2016-11-16] MEDS: SIMETHICONE 80 MG TAB CHEW PO PRN (10:32)
[2016-11-16 13:00] VITALS: BP 166/63; PULSE 85; RESP 18; O2SAT 95
--- NOTE | 2016-11-16 13:20 | PDIAF ---
- Diagnosis Diagnosis: s/p TLIF with post op BLE weakness Code Status: Full Code - Medication Management Discharge Medications: Medications to Continue on Transfer Insulin Aspart [Novolog Flexpen] 10 - 20 unit SQ TIDMEAL PRN 12/01/14 [Last Taken 11/09/16] Insulin Glargine [Lantus 100 UNITS/ML (*)] 40 - 70 unit SC BID 12/01/14 [Last Taken 11/09/16] Cholecalciferol Vit D3 [Vitamin D3 (*)] 5,000 units PO DAILY@08 01/06/15 [Last Taken 1 Week Ago] Nitroglycerin [Nitrostat 0.4 mg (*)] 0.4 mg SL AD PRN 01/06/15 [Last Taken 11/07] Docusate Sodium [Colace 100 MG (*)] 100 mg PO HS 07/30/15 [Last Taken 1 Week Ago ] hydrALAZINE [Apresoline 50 mg (*)] 100 mg PO BID 04/14/16 [Last Taken 11/09/16] Isosorbide Mononitrate [Isosorbide Mononitrate ER] 120 mg PO BID 04/26/16 [Last Taken 11/09/16] Ondansetron Odt [Zofran Odt 4 mg (*)] 4 mg PO DAILY PRN 04/26/16 [Last Taken 3 Weeks Ago] Pantoprazole Sodium [Protonix 40mg (*)] 40 mg PO BID 04/26/16 [Last Taken ] clonIDINE [Catapres (*)] 0.1 mg PO DAILY PRN 04/26/16 [Last Taken 09/15/16] Allopurinol [Allopurinol 100 MG (*)] 100 mg PO BID 06/15/16 [Last Taken 1 Month Ago] Torsemide [Demadex] 20 mg PO DAILY10 06/15/16 [Last Taken 1 Week Ago] Empagliflozin [Jardiance] 10 mg PO DAILY 09/16/16 [Last Taken 11/08/16] Gabapentin [Neurontin 100 MG (*)] 100 mg PO TID #30 cap 09/21/16 [Last Taken 07/16] Polyethylene Glycol 3350 [Miralax 17 gm (*)] 17 gm PO DAILY PRN #0 pkt 09/21/16 [Last Taken 11/07/16] Sennosides/Docusate Sodium [Senokot-S] 1 - 2 tab PO BID #0 tab 09/21/16 [Last Taken 2 Months Ago] Acetaminophen [Tylenol ES 500 mg (*)] 1,000 mg PO Q6 #0 tab 11/16/16 [Last Taken Unknown] Diazepam [Valium 5 MG (*)] 5 mg PO Q4 PRN #0 tab 11/16/16 [Last Taken Unknown] Enoxaparin [Lovenox 40 MG (*)] 40 mg SC DAILY #0 syr 11/16/16 [Last Taken Unknown] Gluc Oxid/l-Peroxid/Muramidase [Biotene Mouthwash (*)] 30 ml MM Q4H PRN #0 bottle 11/16/16 [Last Taken Unknown] Insulin Glargine [Lantus 100 UNITS/ML (*)] 55 units SC BID #0 ml 11/16/16 [Last Taken Unknown] Insulin Lispro [humALOG LISPRO 100 units/ml (*)] 0 unit SC TIDMEAL #0 unit 11/16 [Last Taken Unknown] Methocarbamol [Robaxin 750 mg (*)] 750 mg PO QID PRN #0 tab 11/16/16 [Last Taken Unknown] Naloxone HCl [Narcan] 0 mg IVP PRN PRN #0 inj 11/16/16 [Last Taken Unknown] Ondansetron HCl Pf [Zofran 4 mg Inj (*)] 4 mg IVP Q4HRS PRN #0 vial 11/16/16 [ Last Taken Unknown] Simethicone [Mylicon] 80 - 160 mg PO Q6 PRN #0 tab.chew 11/16/16 [Last Taken Unknown] diphenhydrAMINE [Benadryl 25 MG (*)] 25 - 50 mg PO Q6HRS PRN #0 cap 11/16/16 [ Last Taken Unknown] oxyCODONE CR [Oxycontin] 10 mg PO Q12HRS #0 tab 11/16/16 [Last Taken Unknown] Fund Accounting Manager Antibiotics: none Discharge Medications: Refer to the Discharge Home Medication list for PRN reason. - Orders Services needed: Registered Nurse, Certified Pediatrics Teacher, Master Corn Detasseler , Physical Therapy, Occupational Therapy Oxygen: to keep O2 sat greater than 90% Diet Recommendation: no restrictions on diet Diet Texture: Regular Texture Diet Hernandez: Yes Sulaiman Stockings Discontinue Date: continue Wound Care Instructions: recheck at [address] Sánchez for wound check, leave steri strips in place for 14 days post op Activity/Weight Bearing Restrictions: as tolerated - Follow Up Care Current Providers and Referrals: Raheem Seth MD [Primary Care Provider] - Lucia Sánchez MD [Medical Doctor] - (follow up in 2-3 weeks for a recheck)
== END 2016-11-16 14:00 | DRG 460 ==
LOC: F3N 11:50 → F2N 19:27
PROVIDERS: ADMIT Neurological Surgery; ATTEND Neurological Surgery
PROC: 0SG0071 Fusion of Lumbar Vertebral Joint with Autologous Tissue Substitute, Posterior Approach, Posterior Column, Open Approach (ICD-10-PCS; principal; 2016-11-09 13:30)
PROC: 01NB0ZZ Release Lumbar Nerve, Open Approach (ICD-10-PCS; principal; 2016-11-09 13:30)
PROC: 4A1004G Monitoring of Central Nervous Electrical Activity, Intraoperative, Open Approach (ICD-10-PCS; principal; 2016-11-09 13:30)
PROC: 0ST20ZZ Resection of Lumbar Vertebral Disc, Open Approach (ICD-10-PCS; principal; 2016-11-09 13:30)
PROC: 0SG00AJ Fusion of Lumbar Vertebral Joint with Interbody Fusion Device, Posterior Approach, Anterior Column, Open Approach (ICD-10-PCS; principal; 2016-11-09 13:30)
PROC: 0QP004Z Removal of Internal Fixation Device from Lumbar Vertebra, Open Approach (ICD-10-PCS; principal; 2016-11-09 13:30)
PROC: 8E0WXBF Computer Assisted Procedure of Trunk Region, With Fluoroscopy (ICD-10-PCS; principal; 2016-11-09 13:30)
PROC: 8E0H30Z Acupuncture (ICD-10-PCS; 2016-11-11)
DX: M48.06 Spinal stenosis, lumbar region (principal); M54.17 Radiculopathy, lumbosacral region; D62 Acute posthemorrhagic anemia; E66.01 Morbid (severe) obesity due to excess calories; Z68.41 Body mass index [BMI] 40.0-44.9, adult; R29.818 Other symptoms and signs involving the nervous system; R29.898 Other symptoms and signs involving the musculoskeletal system; E11.65 Type 2 diabetes mellitus with hyperglycemia; I25.10 Atherosclerotic heart disease of native coronary artery without angina pectoris; E78.5 Hyperlipidemia, unspecified; I10 Essential (primary) hypertension; I48.91 Unspecified atrial fibrillation; I34.0 Nonrheumatic mitral (valve) insufficiency; K21.9 Gastro-esophageal reflux disease without esophagitis; F41.9 Anxiety disorder, unspecified; K59.00 Constipation, unspecified; Z95.1 Presence of aortocoronary bypass graft; Z95.5 Presence of coronary angioplasty implant and graft; Z79.82 Long term (current) use of aspirin
CPT/HCPCS: 97110-GO; 97110-GP; 97163-GP; 97167-GO; 97530-GO; 97530-GP; 97535-GO; C1713; C1751; G8978-GP-CL; G8979-GP-CJ; G8980-GP-CK; G8987-GO-CK; G8987-GO-CM; G8988-GO-CI; J0360; J0690; J1650; J1815; J2250; J2405; J2704; J2765; J2997; J3010; J3490

== ENCOUNTER 2016-11-15 14:39 | Inpatient (IN) | payer OTHER ==
[2016-11-16] MEDS ORDERED: D50W 25 GM/50 ML SYR IVP PRN (16:31)
[2016-11-16] MEDS ORDERED: BIOTENE DRY MOUTH MOUTHWASH 237 ML BTL MM PRN (17:05)
[2016-11-16] MEDS: POLYETHYLENE GLYCOL 3350 17 GM PKT PO PRN (18:08)
[2016-11-16] MEDS: ACETAMINOPHEN 500 MG TAB PO SCH ×2 (18:08→23:41)
[2016-11-16] MEDS: BISACODYL 10 MG SUPP PR PRN (18:09)
--- NOTE | 2016-11-16 18:39 | GHP ---
[f rep st] HISTORY AND PHYSICAL POST ADMISSION PHYSICIAN EVALUATION AND REHABILITATION TREATMENT PLAN. DATE OF ADMISSION: 11/16/2016 REFERRING FACILITY: [facility]. IMPAIRMENT GROUP: [id number]. DATE OF ONSET: 11/09/2016. REFERRING PHYSICIAN: Dr. Sánchez. CONSULTING PHYSICIANS: There was consultation with the hospitalist, medicine group, initially Dr. Spann, and with the critical care pulmonology group, initially Dr. Neri. REHABILITATION DIAGNOSIS: Debility status post lumbar surgery with T7 spinal cord infarction. ETIOLOGIC DIAGNOSIS: Other nontraumatic spinal cord dysfunction. DATE OF SURGERY: 11/09/2016. HISTORY OF PRESENT ILLNESS: Mrs. Cooper is a 71-year-old female who was admitted to [facility] on 11/09/2016 for spinal fusion due to failed conservative management, including epidural steroid injections and hospitalization for pain management. She had adjacent segment spinal disease and spinal stenosis. She underwent a total lumbar interbody fusion of L2 and L3. Her postoperative course was complicated by acute bilateral lower extremity weakness and loss of sensation at the T6 level and below. She was noted to have a mid-thoracic disc bulge and moderate stenosis. 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 She was on an elevated blood pressure protocol for 7 days to improve perfusion of the injured part of her spinal cord. She subsequently had fluid overload and required IV diuretics. She was suspected to have neurogenic bowel and neurogenic bladder, and she comes from the hospital with a Hernandez catheter. LABS AND STUDIES: In the hospital, she had anemia with her last CBC being on . Her hemoglobin was 10 and her hematocrit was 29.6. This had declined from 11/11/2016 when hemoglobin was 11.3 and hematocrit was 34.3. Serum chemistries showed overall near normal renal function and electrolytes, though she had an elevated carbon dioxide at 34 this morning. She had a mildly elevated alkaline phosphatase at 137. Her albumin was mildly low at 2.7. She had an episode of chest pain in the hospital with a minor troponin excursion as high as 0.027. Electrocardiogram was done which showed normal sinus rhythm and borderline R- wave progression in the anterior leads. Preoperatively, cervical spine MRI showed moderate degenerative disc disease at C4-C5 and C5-C6 with moderate accompanying central canal stenosis and moderate to severe bilateral neural foraminal stenosis. Thoracic spine MRI showed progression of degenerative changes compared 2012, most notably progressive disease and dorsal disc osteophyte complex at T7-T8 resulting in severe central canal stenosis and mild bilateral neural foraminal stenosis. PRECAUTIONS: She is a fall risk. She has orthopedic spine precautions with no bending, lifting or twisting. ACTIVE COMORBIDITIES: She has the tier 3 comorbidities of morbid obesity and diabetes mellitus with manifestations. PAST MEDICAL HISTORY: 1. Morbid obesity. 2. Coronary artery disease status post coronary artery bypass graft. 3. Diastolic dysfunction. 4. Mitral regurgitation. 5. Degenerative disc disease. 6. Diabetes mellitus type 2. 7. Gastroesophageal reflux disorder. 8. Glaucoma. 9. Hypertension. 10. Dyslipidemia. PAST SURGICAL HISTORY: She has had a coronary artery bypass. She has had a previous lumbar fusion. She has had a right knee replacement and a left knee open meniscectomy. PRE-HOSPITAL MEDICATIONS: I do not have a complete list. She was taking Colace , hydralazine, isosorbide mononitrate, ondansetron, pantoprazole, clonidine p.r.n. blood pressure systolic greater than 175, allopurinol, torsemide, empagliflozin, gabapentin, polyethylene glycol, Senna/docusate, insulin glargine 70 mg at bedtime, insulin lispro with meals and simethicone. ADMISSION MEDICATIONS: 1. Acetaminophen 1000 mg p.o. q.6 hours. 2. Allopurinol 100 mg p.o. twice daily. 3. Cholecalciferol 5000 units p.o. daily. 4. Clonidine 0.1 mg p.o. daily p.r.n. 5. Diazepam 5 mg p.o. q.4 hours p.r.n. 6. Empagliflozin 10 mg p.o. daily. 7. Enoxaparin 40 mg subcutaneous daily. 8. Gabapentin 100 mg p.o. three times daily. 9. Biotene mouthwash q.4 hours. 10. Hydralazine 100 mg p.o. twice daily. 11. Insulin glargine 55 units subcutaneous twice daily. 12. Insulin lispro with meals. 13. Isosorbide mononitrate 120 mg p.o. twice daily. 14. Methocarbamol 750 mg p.o. four times daily p.r.n. 15. Nitroglycerin 0.4 mg sublingual q.5 minutes x3 p.r.n. chest pain. 16. Ondansetron 4 mg p.o. daily p.r.n. 17. Pantoprazole 40 mg p.o. twice daily. 18. Polyethylene glycol 17 g p.o. daily. 19. Senna/docusate 1-2 tabs p.o. twice daily. 20. Simethicone 80-160 mg p.o. q.6 hours p.r.n. 21. Torsemide 20 mg p.o. daily. 22. Diphenhydramine 25-50 mg p.o. q.6 hours p.r.n. 23. Docusate 100 mg p.o. at bedtime. 24. Naloxone 0.4 ng/mL injection IV p.r.n. 25. Oxycodone 10 mg p.o. q.12 hours. ALLERGIES: Listed to lorazepam, metoprolol, opioids and sulfa antibiotics. Sulfa antibiotics cause hives. FAMILY HISTORY: There is family history of coronary artery disease. PSYCHOSOCIAL HISTORY: She is . She lives with her . There is 1 step to enter the house and then it is on 1 level. She has a local daughter who is available to help. She is a nonsmoker and does not use alcohol. REVIEW OF SYSTEMS: She reports pain in her left gluteal region approximately 3/ 10. She is not sure that she has sensation at her anal sphincter and she does not know whether she will be able to sense a full bladder or bladder emptying. She has itchiness to her skin around her back incision. She has constipation with her last bowel movement being reported 11/14/2016. She denies any symptoms of gout and wonders if she still needs to take allopurinol. She has not had any lightheadedness with sitting up. She denies fevers, chills, weight gain, weight loss, cough or dyspnea. She has had no recurrence of chest pain, which she had while she was on an elevated blood pressure protocol for spinal cord perfusion. She has no cough or dyspnea. She has weakness in the legs. Otherwise, a 10-point review of systems is negative. PHYSICAL EXAMINATION: VITAL SIGNS: Blood pressure is 173/99, heart rate is 78 , respiratory rate is 20 and oxygen saturation is 98% on 2 L. Temperature is 36.7 degrees centigrade. Her weight is 125 kg for a body mass index of 47.3. GENERAL: This is an obese woman, lying in bed, cooperative, and in no acute distress. HEENT: Extraocular movements are intact. Pupils are equal, round, reactive to light. Mucous membranes are moist. Dentition is in good condition. Airway is not crowded and is Mallampati class 2. There is no posterior oropharyngeal mucus. There are no oropharyngeal mucosal lesions. Dentition is in good condition. NECK: Supple. HEART: There is a regular rate and rhythm with no murmurs, rubs, or gallops. LUNGS: Clear to auscultation bilaterally. ABDOMEN: Soft, nontender, nondistended with normoactive bowel sounds and no hepatosplenomegaly. EXTREMITIES: There is no cyanosis, clubbing, or edema. Radial pulses are 2+ bilaterally. Dorsalis pedis pulses are 2+ on the right and trace to 1+ on the left. NEUROLOGIC: She is alert and oriented x3. Cranial nerves 2-12 are grossly intact. Sensation is intact to light touch in the upper and lower extremities. There is no weakness in the upper extremities. In the lower extremities, she is weaker on the right than on the left. In the left leg, hip flexor is approximately 3/5. Quadriceps are 2/5. Hamstrings are 2/5 and foot dorsiflexion and plantar flexion are 2/5. On the right lower extremity she has no movement against gravity and minimal voluntary movement at the hip flexor, quadriceps, hamstrings and foot dorsally and plantar flexion. Deep tendon reflexes are globally hypoactive. Skin: The incision has minimal eschar, no drainage, Steri -Strips are in place and there is a healing wound in the right lower neck where she had an internal jugular line. Thee is erythema around the incision possibly in the distribution of adhesive from her bandage. There are no decubitus ulcers noted. CURRENT LEVEL OF FUNCTION: Per the preadmission screen: Regarding diet, feeding, and swallowing, she was on a regular diet with no texture modifications. Regarding grooming, she was able to accomplish this with standby assistance while sitting at the edge of the bed. For bathing, she required assistance. For dressing, she required maximal assistance to don the lumbar corset. For toileting, she required total assistance. For bladder, she was noted to have a Hernandez catheter. Bowel was incontinent. For bed mobility, she required moderate to maximal assistance with log rolling. Transfers required total assistance with a lift. Balance, seated, was accomplished for 20 minutes at the edge of the bed with standby assist to minimal assist. Endurance was fair. Gait was not tested nor was she tried in a wheelchair. Communication was within normal limits. Regarding cognition, she was noted to have mild short-term memory and word-finding difficulties. IMPRESSION: Mrs. Azra Cooper is a 71-year-old woman who had a total lumbar interbody fusion at L2 and L3 and a revision of hardware from L3-S1. She came through surgery well but she experienced a likely thoracic spine infarction with a sensory level approximately T6 to T7. Sensation has improved considerably but she continues to have significant weakness at the bilateral lower extremities. Other hospital complications included anemia and angina when she was placed on an elevated blood pressure to optimize perfusion of her thoracic spine. She had increased anxiety having to do with her new deficits from the thoracic spine infarction and has been treated with diazepam. She had fluid overload. She had IV furosemide and then was continued on her home oral torsemide dose. She was stable in the hospital regarding the above issues and was appropriate to transfer to inpatient rehabilitation. Her goal is to return home with her family and supportive services for a safe discharge. It is expected that she will achieve modified independence for grooming, dressing, transfers and ambulation for household distances with the least restrictive device. It is hoped she will achieve independence with bed mobility and use of the wheelchair. She may continue to require assistance for toileting. She will require assistance for household management and shopping. She will receive therapy with physical therapy and occupational therapy for 90 minutes per day for each discipline on 5-7 days of the week. Her expected duration of stay is 18-21 days. It is expected that upon discharge, she will continue to benefit from home health services, including nursing, a nurse's aide, social sciences chair, occupational therapy, physical therapy and a spinal cord injury support group. ASSESSMENT AND PLAN: 1. Debility status post L2-L3 total lumbar interbody fusion, L3-S1 fusion revision and T6-7 spinal cord infarction. Physical therapy and occupational therapy to optimize her mobility and functional status. Her legs are very weak right now and it is doubtful that ambulation will be an option until motor innervation returns to her legs and with obesity transfers will be a challenge. 2. Pain management. She is remarkably pain-free. She says that her left gluteal pain occurred after being transferred with a Chris lift. She is adamant about not using opiates and reports she has been declining the oxycodone sustained release that she was prescribed. Will schedule acetaminophen and observe for adequate pain control during therapy and for sleep. If pain control is inadequate, further options will be discussed with her. 3. Hypertension. Blood pressure is markedly elevated upon transfer to the inpatient rehabilitation unit. She will be continued on her outpatient blood pressure medications, including clonidine p.r.n. systolic greater than 175. Her blood pressure will be monitored and medications adjusted as needed. 4. Diastolic dysfunction and mitral regurgitation with fluid overload in the hospital. Will continue torsemide. Monitor I's and O's at least as long as she continues to use the Hernandez catheter and optimize her fluid status. 5. Coronary artery disease status post coronary artery bypass graft with angina. She will be monitored for any further symptoms and nitroglycerin will be available on a p.r.n. basis. 6. History of gout. She wonders if she needs to continue taking allopurinol. Uric acid has been added to the labs drawn this morning at the hospital. 7. Diabetes mellitus type 2. Continue insulin glargine twice daily, insulin lispro before meals on a sliding scale and empagliflozin orally. Insulin will be adjusted as her appetite returns to ensure continued adequate glycemic control. 8. History of sciatica. She reports this responded dramatically to gabapentin at a very low dose and this will be continued. 9. Constipation and neurogenic bowel. The rehabilitation neurogenic bowel protocol will be initiated. 10. Possible neurogenic bladder. Hernandez catheter will be left in until mobility improves and until the constipation is relieved and then she will be assessed for neurogenic bladder. It is encouraging that she has sensation to light touch throughout her lower extremities. 11. Anxiety. Diazepam will be continued for the short term. It would be in her best interest not to continue using benzodiazepines for the extermination inspector and this will be discussed further. 12. Gastroesophageal reflux disorder. Continue pantoprazole. 13. Vitamin D deficiency. Continue vitamin D supplementation. 14. Constipation. Continue bowel program with senna and polyethylene glycol. Bisacodyl suppository will be available as needed as well as Fleets enema. 15. A MOST form is in her chart from 2014 in which she requests do not resuscitate status and this was verified with the patient. /[id number]/MODL MTDD
[2016-11-16] MEDS: PANTOPRAZOLE SODIUM 40 MG TAB PO SCH (20:26)
[2016-11-16] MEDS: SENNOSIDES 1 TAB PO SCH (20:26)
[2016-11-16] MEDS: ISOSORBIDE MONONITRATE 30 MG TAB.SR PO SCH (20:27)
[2016-11-16] MEDS: SIMETHICONE 80 MG TAB CHEW PO PRN (20:40)
[2016-11-16] MEDS: DIAZEPAM 5 MG TAB PO PRN (20:40)
[2016-11-16] MEDS: INSULIN GLARGINE 100 UNITS/ML SYRINGE SC SCH (20:45)
[2016-11-16] MEDS: GABAPENTIN 100 MG CAP PO SCH (22:09)
[2016-11-16] MEDS: METHOCARBAMOL 750 MG TAB PO PRN (23:41)
[2016-11-17] MEDS: ACETAMINOPHEN 500 MG TAB PO SCH ×3 (06:30→16:46)
[2016-11-17 07:58] LABS: % IMMATURE GRANULYOCYTES 1.4 % (0.0-1.1); ABSOLUTE IMMATURE GRANULOCYTES 0.08 10^3/uL (0.00-0.10); ADD DIFF? NO; ADD MORPH? NO; ADD SCAN? NO; ATYPICAL LYMPHOCYTE FLAG 20 (0-99); FRAGMENT RBC FLAG 0 (0-99); HEMATOCRIT 31.1 % (38.0-47.0); HEMOGLOBIN 10.4 g/dL (12.6-16.3); LEFT SHIFT FLG 20 (0-99); LIPEMIA HEMOLYSIS FLAG 80 (0-99); MEAN CELL HEMOGLOBIN 30.3 pg (27.9-34.1); MEAN CELL HEMOGLOBIN CONCENTR. 33.4 g/dL (32.4-36.7); MEAN CELL VOLUME 90.7 fL (81.5-99.8); MEAN PLATELET VOLUME 9.9 fL (8.7-11.7); PLATELET CLUMPS FLAG 0 (0-99); PLATELET COUNT 290 10^3/uL (150-400); RED BLOOD CELL COUNT 3.43 10^6/uL (4.18-5.33); RED CELL DISTRIBUTION WIDTH 13.2 % (11.5-15.2)
--- NOTE | 2016-11-17 08:44 | SOAPPROG ---
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 Physical therapy and occupational therapy to optimize her mobility and functional status. Her legs are very weak right now and it is doubtful that ambulation will be an option until motor innervation returns to her legs. Initial goal is transfers to wheelchair. * Pain management. Declines opiates or tramadol. NSAIDs contraindicated for 6 mo after spinal fusion. Continue acetaminophen and methocarbamol. Ice and heat are available. * Hypertension. Elevated on hydralazine, isosorbide. torsemide and PRN clonidine. Was on losartan at bedtime previously; will restart. * Diastolic dysfunction and mitral regurgitation with fluid overload in the hospital. Will continue torsemide. Monitor I's and O's at least as long as she continues to use the Hernandez catheter and optimize her fluid status. * Coronary artery disease status post coronary artery bypass graft with angina. She will be monitored for any further symptoms and nitroglycerin will be available on a p.r.n. basis. Isosorbide for angina. Will contact crime investigator special agent re indications for ASA and B-gera (h/o bradycardia on metoprolol noted). * Diabetes mellitus type 2. Continue insulin glargine twice daily, insulin lispro before meals on a sliding scale and empagliflozin orally. Insulin will be adjusted as her appetite returns to ensure continued adequate glycemic control. Add metformin, starting at low dose. * Constipation and neurogenic bowel. The rehabilitation neurogenic bowel protocol will be initiated. Continue bowel program with senna and polyethylene glycol. Bisacodyl suppository will be available as needed as well as Fleets enema. * Possible neurogenic bladder. Hernandez catheter will be left in until mobility improves and until the constipation is relieved and then she will be assessed for neurogenic bladder. It is encouraging that she has sensation to light touch throughout her lower extremities. * Anxiety. Diazepam will be continued. CHILD ADVOCATE to address. She will consider other medication options such as SSRI if her debility islikely to be prolonged. Chronic stable conditions: * History of gout. Uric acid 6.8 (added on to hosptal labs from 11/16/16), just below target for prevention of recurrence. Continue allopurinol. * History of sciatica. She reports this responded dramatically to gabapentin at a very low dose and this will be continued. * Gastroesophageal reflux disorder. Continue pantoprazole. * Vitamin D deficiency. Continue vitamin D supplementation. * Anemia, post-surgical, improving. Chart review with further past medical history: ventral hernia repair, cholecystectomy, esophageal spasm. Follow-up: wound check with Gonzalo Martinez 2 weeks ((12/01/16); will discuss with Neurosurgery whether this is necessary if she's still at Inpatient Rehabilitation at that time. Steristrips to be left in place until 2 weeks post -op. Sutures are absorbably Vicryl. 11/17/16 09:19 Subjective: Had anxiety overnight related to lack of mobility. Had L hip pain to 9/10 and was unable to reposition due to softness of air bed. Has reduced appetite and does not want to eat much until constipation is relieved. Took diazepam and methocarbamol at bedtime and slept well, but felt grogy in the morning. Thinks the methocarbamol may have helped with pain. Does not want antidepressant/antianxiety meds at present; does notwant opiate pain medications or tramadol. Objective: Vital Signs Temp Pulse Resp BP Pulse Ox 36.4 C 60 17 193/90 H 95 11/17/16 06:45 11/17/16 06:45 11/17/16 06:45 11/17/16 06:45 11/17/16 06:45 Laboratory Results 11/17/16 06:30 11/16/16 11/17/16 11/18/16 05:59 05:59 05:59 Intake Total 720 Output Total 6810 Balance -1730 Physical Exam - Physical Exam General Appearance: WD/WN, alert, no apparent distress, obese Respiratory: normal breath sounds, No crackles, No rhonchi, No wheezing Cardiac/Chest: regular rate, rhythm, edema (trace), systolic murmur (very quiet systolic murmur) Neuro/Psych: alert, normal mood/affect, oriented x 3, motor weakness (B LE) ICD10 Worksheet Patient Problems: Problems Problem Status Onset Chest pain Acute Chronic Disease Mgmt/Transitional Care Acute Lumbar radiculitis Acute Lumbar stenosis Acute NSTEMI (non-ST elevated myocardial infarction) Acute CHF (congestive heart failure) Acute Back pain Acute Bilateral leg weakness Acute Sensory abnormality of thoracic dermatome distribution Acute
--- NOTE | 2016-11-17 08:44 | PDOREHIP ---
Admission [facility] - Admission - 3 Day Assessment Period Admission Date/Day 1: 11/16/16 Day 2: 11/17/16 Day 3: 11/18/16 - Active Diagnoses Comorbidities and Co-existing Conditions at Admission: 07126. DM (e.g. diabetic retinopathy, nephropathy, and neuropathy) - Skin Conditions Unhealed Pressure Ulcer (1 or more/Stage 1 or >)-Admission: 0. No
[2016-11-17] MEDS: CHOLECALCIFEROL VIT D3 2,000 UNITS TAB/CAP PO SCH (09:22)
[2016-11-17] MEDS: Empagliflozin [Jardiance] 10 MG PO SCH (09:24)
[2016-11-17] MEDS: GABAPENTIN 100 MG CAP PO SCH ×3 (09:25→21:34)
[2016-11-17] MEDS: ENOXAPARIN 40 MG/0.4 ML SYR SC SCH (09:25)
[2016-11-17] MEDS: INSULIN GLARGINE 100 UNITS/ML SYRINGE SC SCH ×2 (09:27→21:28)
[2016-11-17] MEDS: ISOSORBIDE MONONITRATE 30 MG TAB.SR PO SCH ×2 (09:28→21:29)
[2016-11-17] MEDS: SENNOSIDES 1 TAB PO SCH ×2 (09:29→21:28)
[2016-11-17] MEDS: PANTOPRAZOLE SODIUM 40 MG TAB PO SCH ×2 (09:29→21:33)
[2016-11-17] MEDS: TORSEMIDE 20 MG TAB PO SCH (11:38)
[2016-11-17] MEDS: METHOCARBAMOL 750 MG TAB PO PRN ×2 (12:42→16:46)
[2016-11-17] MEDS: BISACODYL 10 MG SUPP PR PRN (16:46)
[2016-11-17] MEDS: metFORMIN HCL 500 MG TAB PO SCH (17:19)
[2016-11-17] MEDS ORDERED: MAGNESIUM CITRATE 300 ML BOTTLE PO ONE (19:45)
[2016-11-17] MEDS: SIMETHICONE 80 MG TAB CHEW PO PRN (20:19)
[2016-11-17] MEDS ORDERED: LOSARTAN POTASSIUM 50 MG TAB PO SCH (21:00)
[2016-11-17] MEDS: LOSARTAN POTASSIUM 25 MG TAB PO SCH (21:32)
[2016-11-18] MEDS: ACETAMINOPHEN 500 MG TAB PO SCH ×4 (00:05→18:38)
[2016-11-18] MEDS: ENOXAPARIN 40 MG/0.4 ML SYR SC SCH (09:53)
[2016-11-18] MEDS: INSULIN GLARGINE 100 UNITS/ML SYRINGE SC SCH ×3 (09:53→22:06)
[2016-11-18] MEDS: TORSEMIDE 20 MG TAB PO SCH (10:05)
[2016-11-18] MEDS: SENNOSIDES 1 TAB PO SCH ×2 (10:05→21:20)
[2016-11-18] MEDS: metFORMIN HCL 500 MG TAB PO SCH ×2 (10:05→18:38)
[2016-11-18] MEDS: METHOCARBAMOL 750 MG TAB PO PRN (10:06)
[2016-11-18] MEDS: CHOLECALCIFEROL VIT D3 2,000 UNITS TAB/CAP PO SCH (10:07)
[2016-11-18] MEDS: PANTOPRAZOLE SODIUM 40 MG TAB PO SCH ×2 (10:08→21:21)
[2016-11-18] MEDS: ISOSORBIDE MONONITRATE 30 MG TAB.SR PO SCH ×2 (10:08→21:21)
[2016-11-18] MEDS: GABAPENTIN 100 MG CAP PO SCH ×3 (10:09→21:21)
[2016-11-18] MEDS: Empagliflozin [Jardiance] 10 MG PO SCH (10:31)
--- NOTE | 2016-11-18 11:39 | SOAPPROG ---
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 Initial FIM 63 on 11/18/16. Leg strength "subantigravity" per PT. Decreased LE propriocetion. decreased sensation in feet. 2-person assist for log roll, slide -board transfer. Good upper extremity strength; does well with wheelchair mobility. UB dressing set-up/SBA, sponge bath sitting EOB min A. LB dressing max A. Physical therapy and occupational therapy to optimize her mobility and functional status. Initial goal is transfers to wheelchair. * Pain management. Declines opiates or tramadol. NSAIDs contraindicated for 6 mo after spinal fusion. Continue acetaminophen and methocarbamol. Ice and heat are available. * Constipation and neurogenic bowel. Now with diarrhea s/p mag citrate 11/17/16 evening, and senna + polyethylene glycol for days. Continue neurogenic bowel protocol. Change senna and polyethylene glycol to PRN. Observe for return of normal bowel function; at home had BM 2x/day. Bisacodyl suppository will be available as needed as well as Fleets enema. * Hypertension. Elevated on hydralazine, isosorbide. torsemide and PRN clonidine. Was on losartan at bedtime previously; restarted 11/17/16. * Diastolic dysfunction and mitral regurgitation with fluid overload in the hospital. Will continue torsemide. Monitor I's and O's at least as long as she continues to use the Hernandez catheter and optimize her fluid status. * Coronary artery disease status post coronary artery bypass graft with angina. She will be monitored for any further symptoms and nitroglycerin will be available on a p.r.n. basis. Isosorbide for angina. D/W cork insulation setter Dr. Gauthier. Incomplete revascularization; LV fn recovered; mitral regurgitation. OK for afterload reduction with ARB. B-gera contraindicated due to depression. ASA d/w Neurosurgery 10/2116: OK to start. * Diabetes mellitus type 2. Continue insulin glargine twice daily, insulin lispro before meals on a sliding scale and empagliflozin orally. Insulin will be adjusted as her appetite returns to ensure continued adequate glycemic control. Add metformin, starting at low dose. * Possible neurogenic bladder. Hernandez catheter will be left in until mobility improves and until the constipation is relieved and then she will be assessed for neurogenic bladder. It is encouraging that she has sensation to light touch throughout her lower extremities. * Anxiety. Diazepam will be continued. LIQUEFACTION SUPERVISOR to address. She will consider other medication options such as SSRI if her debility is likely to be prolonged. Chronic stable conditions: * History of gout. Uric acid 6.8 (added on to hosptal labs from 11/16/16), just below target for prevention of recurrence. Continue allopurinol. * History of sciatica. She reports this responded dramatically to gabapentin at a very low dose and this will be continued. * Gastroesophageal reflux disorder. Continue pantoprazole. * Vitamin D deficiency. Continue vitamin D supplementation. * Anemia, post-surgical, improving. Chart review with further past medical history: ventral hernia repair, cholecystectomy, esophageal spasm. Attended staffing, 15 min. D/W case mgmt, nursing, pile driver, pharmacist, PT, OT. Hope for recovery of motor function in legs. Otherwise goal is to optimize independence in transfer and self care. Expect 4 week LOS with tentative discharge 12/16/16. Follow-up: wound check with Gonzalo Martinez 2 weeks ((12/01/16); will discuss with Neurosurgery whether this is necessary if [facility]. Steristrips to be left in place until 2 weeks post -op. Sutures are absorbably Vicryl. 11/18/16 11:40 Subjective: C/O diarrhea after mag citrate yesterday evening. Had poor sleep with frequent liquid stool and need to be cleaned.. Has back pain from repositioning. Nurse reports that CPAP seems to be missing parts; she's using 2.5 L O2 at night. Objective: Vital Signs Temp Pulse Resp BP Pulse Ox 36.7 C 75 16 133/67 H 91 L 11/18/16 08:00 11/18/16 08:00 11/18/16 08:40 11/18/16 08:00 11/18/16 08:40 Laboratory Results 11/17/16 06:30 11/17/16 11/18/16 11/19/16 05:59 05:59 05:59 Intake Total 720 600 Output Total 2450 3800 450 Balance -1730 -3200 -450 - Time Spent With Patient Time Spent With Patient: Greater than 35 minutes floor time today, including more than 50% or time in coordination of care during staffing,and counseling patient. Physical Exam - Physical Exam General Appearance: WD/WN, alert, no apparent distress, obese Respiratory: No respiratory distress, No accessory muscle use Abdomen: normal bowel sounds, soft, other (TTP LLQ & RLQ. No guarding or rigidity.), No distended Neuro/Psych: alert, normal mood/affect, oriented x 3, motor weakness (B LE) ICD10 Worksheet Patient Problems: Problems Problem Status Onset Back pain Acute Bilateral leg weakness Acute CHF (congestive heart failure) Acute Chest pain Acute Chronic Disease Mgmt/Transitional Care Acute Lumbar radiculitis Acute Lumbar stenosis Acute NSTEMI (non-ST elevated myocardial infarction) Acute Sensory abnormality of thoracic dermatome distribution Acute
[2016-11-18] MEDS: PREPARATION H 51 GM CRTUBE PR PRN (15:30)
[2016-11-18] MEDS ORDERED: INSULIN GLARGINE 100 UNITS/ML SYRINGE SC ONE (21:00)
[2016-11-18] MEDS: LOSARTAN POTASSIUM 25 MG TAB PO SCH (21:21)
[2016-11-18] MEDS: ALLOPURINOL 100 MG TAB PO SCH (22:05)
[2016-11-19] MEDS: ACETAMINOPHEN 500 MG TAB PO SCH ×5 (00:04→22:56)
[2016-11-19] MEDS: BISACODYL 10 MG SUPP PR SCH ×2 (06:15→15:56)
[2016-11-19] MEDS: CHOLECALCIFEROL VIT D3 2,000 UNITS TAB/CAP PO SCH (08:03)
[2016-11-19] MEDS: SENNOSIDES 1 TAB PO SCH ×2 (08:03→21:46)
[2016-11-19] MEDS: ISOSORBIDE MONONITRATE 30 MG TAB.SR PO SCH ×2 (08:03→21:46)
[2016-11-19] MEDS: PANTOPRAZOLE SODIUM 40 MG TAB PO SCH ×2 (08:04→21:46)
[2016-11-19] MEDS: metFORMIN HCL 500 MG TAB PO SCH ×2 (08:04→17:46)
[2016-11-19] MEDS: GABAPENTIN 100 MG CAP PO SCH ×3 (08:04→22:56)
[2016-11-19] MEDS: ENOXAPARIN 40 MG/0.4 ML SYR SC SCH (08:05)
[2016-11-19] MEDS: ALLOPURINOL 100 MG TAB PO SCH ×3 (08:05→21:51)
[2016-11-19] MEDS: Empagliflozin [Jardiance] 10 MG PO SCH (08:06)
[2016-11-19] MEDS: oxyCODONE IR 5 MG TAB PO PRN ×2 (11:07→11:49)
[2016-11-19] MEDS: METHOCARBAMOL 750 MG TAB PO PRN ×2 (11:08→22:05)
[2016-11-19] MEDS: INSULIN GLARGINE 100 UNITS/ML SYRINGE SC SCH ×2 (11:08→21:43)
[2016-11-19] MEDS: TORSEMIDE 20 MG TAB PO SCH (11:08)
[2016-11-19] MEDS ORDERED: oxyCODONE IR 5 MG TAB PO PRN ×2 (13:23)
--- NOTE | 2016-11-19 14:23 | SOAPPROG ---
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 She is on an unusual regimen, following closely. Goal for a voiding trial tomorrow morning, establish regularity with bowel program. Increasing opioids for acute pain control in setting of IPR. Very medically complicated. 45 minutes were spent on the floor on care of patient, the majority in the counseling and coordination of care of neurogenic bowel and bladder, HTN and DM. 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 Initial FIM 63 on 11/18/16. Leg strength "subantigravity" per PT. Decreased LE propriocetion. decreased sensation in feet. 2-person assist for log roll, slide -board transfer. Good upper extremity strength; does well with wheelchair mobility. UB dressing set-up/SBA, sponge bath sitting EOB min A. LB dressing max A. Physical therapy and occupational therapy to optimize her mobility and functional status. Initial goal is transfers to wheelchair. * Pain management. NSAIDs contraindicated for 6 mo after spinal fusion. Continue acetaminophen and methocarbamol. Ice and heat are available. Increasing oxycodone on 11/19 for hip and leg pain. * Constipation and neurogenic bowel. Goal for daily bowel program with suppository. * Hypertension. Elevated on hydralazine, isosorbide. torsemide and PRN clonidine. Was on losartan at bedtime previously; restarted 11/17/16. Monitor closely. * Diastolic dysfunction and mitral regurgitation with fluid overload in the hospital. Will continue torsemide. Monitor I's and O's at least as long as she continues to use the Richards catheter and optimize her fluid status. * Coronary artery disease status post coronary artery bypass graft with angina. She will be monitored for any further symptoms and nitroglycerin will be available on a p.r.n. basis. Isosorbide for angina. D/W cloth opener hand Dr. Gauthier. Incomplete revascularization; LV fn recovered; mitral regurgitation. OK for afterload reduction with ARB. B-gera contraindicated due to depression. ASA d/w Neurosurgery 10/2116: OK to start. * Diabetes mellitus type 2. On empagliflozin and metformin orally. Was hypoglycemic with addition of metformin to glargine and empagliflozin, cut glargine to 25 units BID from 55 units BID. Will monitor, institute SSI if needed. Working with dietary on weight management strategy as well. * Possible neurogenic bladder. Voiding trial starting evening of 11/19. Highly likely that she will need richards reinserted due to neurogenic bladder. * Anxiety. Diazepam will be continued. METALSMITH to address. She will consider other medication options such as SSRI if her debility is likely to be prolonged. * Access: Continue PICC for now given labile blood pressures and glucose levels. Chronic stable conditions: * History of gout. Uric acid 6.8 (added on to hosptal labs from 11/16/16), just below target for prevention of recurrence. Continue allopurinol. * History of sciatica. She reports this responded dramatically to gabapentin at a very low dose and this will be continued. * Gastroesophageal reflux disorder. Continue pantoprazole. * Vitamin D deficiency. Continue vitamin D supplementation. * Anemia, post-surgical, improving. * History of fatigue: Newly recognized 11/19, she describes a history of thorough workup (notes unavailable). May complicate rehab course. Chart review with further past medical history: ventral hernia repair, cholecystectomy, esophageal spasm. goal is to optimize independence in transfer and self care, ambulation if appropriate. Expect 4 week LOS with tentative discharge 12/16/16. Follow-up: wound check with Gonzalo Martinez 2 weeks ((12/01/16); will discuss with Neurosurgery whether this is necessary if she's still at [facility] at that time. Steristrips to be left in place until 2 weeks post -op. Sutures are absorbably Vicryl. 11/19/16 14:11 11/19/16 14:14 11/19/16 14:25 Subjective: CC: glucose control, HTN, neurogenic bladder and bowel Episode of low glucose overnight in the 60's (received call from Maame (nursing ) but it was not recorded in the EMR), given glucose and glargine cut. Pt recognized symptoms. ALso with pain helped by opioid medications, would like to increase to be able to increase participation and function. Notes a history of "chronic" fatigue with workup, no clear etiology. Tires quickly. Hypertensive last night without symptoms, given dose of clonidine, which improved her pressures. Objective: Vital Signs Temp Pulse Resp BP Pulse Ox 36.6 C 69 18 148/67 H 94 11/19/16 05:44 11/19/16 05:44 11/19/16 05:44 11/19/16 08:03 11/19/16 05:44 Laboratory Results 11/17/16 06:30 11/18/16 11/19/16 11/20/16 05:59 05:59 05:59 Intake Total 600 1418 950 Output Total 3800 1750 650 Balance -3200 -332 300 Physical Exam - Physical Exam General Appearance: alert, no apparent distress, obese EENT: No scleral icterus (R), No scleral icterus (L) Respiratory: No respiratory distress, No accessory muscle use Cardiac/Chest: regular rate, rhythm, No edema Abdomen: soft Skin: normal color, warm/dry Extremities: No pedal edema, No swelling Neuro/Psych: alert, normal mood/affect, motor weakness (paraplegia) ICD10 Worksheet Patient Problems: Problems Problem Status Onset Back pain Acute Bilateral leg weakness Acute CHF (congestive heart failure) Acute Chest pain Acute Chronic Disease Mgmt/Transitional Care Acute Lumbar radiculitis Acute Lumbar stenosis Acute NSTEMI (non-ST elevated myocardial infarction) Acute Sensory abnormality of thoracic dermatome distribution Acute
[2016-11-19] MEDS: ONDANSETRON DISINTEGRATING 4 MG TAB PO PRN (19:36)
[2016-11-19] MEDS ORDERED: INSULIN LISPRO 100 UNIT/ML SC ONE (21:23)
[2016-11-19] MEDS: LOSARTAN POTASSIUM 25 MG TAB PO SCH (21:46)
[2016-11-19] MEDS: POLYETHYLENE GLYCOL 3350 17 GM PKT PO PRN (21:57)
[2016-11-20] MEDS: ACETAMINOPHEN 500 MG TAB PO SCH ×3 (05:00→17:32)
[2016-11-20] MEDS: GABAPENTIN 100 MG CAP PO SCH ×3 (08:14→21:16)
[2016-11-20] MEDS: CHOLECALCIFEROL VIT D3 2,000 UNITS TAB/CAP PO SCH (08:14)
[2016-11-20] MEDS: PANTOPRAZOLE SODIUM 40 MG TAB PO SCH ×2 (08:14→21:16)
[2016-11-20] MEDS: metFORMIN HCL 500 MG TAB PO SCH ×2 (08:15→17:32)
[2016-11-20] MEDS: ISOSORBIDE MONONITRATE 30 MG TAB.SR PO SCH ×2 (08:15→21:11)
[2016-11-20] MEDS: ALLOPURINOL 100 MG TAB PO SCH ×2 (08:15→21:09)
[2016-11-20] MEDS: SENNOSIDES 1 TAB PO SCH (08:15)
[2016-11-20] MEDS: ENOXAPARIN 40 MG/0.4 ML SYR SC SCH (08:16)
[2016-11-20] MEDS: INSULIN GLARGINE 100 UNITS/ML SYRINGE SC SCH ×2 (08:16→21:15)
[2016-11-20] MEDS: BISACODYL 10 MG SUPP PR SCH (08:17)
[2016-11-20] MEDS: Empagliflozin [Jardiance] 10 MG PO SCH (08:18)
[2016-11-20] MEDS: INSULIN LISPRO 100 UNIT/ML SC SCH ×3 (08:18→17:16)
[2016-11-20] MEDS: TORSEMIDE 20 MG TAB PO SCH (10:07)
[2016-11-20] MEDS ORDERED: oxyCODONE IR 5 MG TAB PO PRN (13:09)
--- NOTE | 2016-11-20 13:15 | SOAPPROG ---
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 Changes to bowel meds to mirror home regimen for existing gastroparesis, continuing suppository. Void trial was not initiated last night. Decreased oxycodone due to nausea. Blood pressure much lower this morning, she noted a bit of lightheadedness. Monitor. 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 Initial FIM 63 on 11/18/16. Leg strength "subantigravity" per PT. Decreased LE propriocetion. decreased sensation in feet. 2-person assist for log roll, slide -board transfer. Good upper extremity strength; does well with wheelchair mobility. UB dressing set-up/SBA, sponge bath sitting EOB min A. LB dressing max A. Physical therapy and occupational therapy to optimize her mobility and functional status. Initial goal is transfers to wheelchair. * Pain management. NSAIDs contraindicated for 6 mo after spinal fusion. Continue acetaminophen and methocarbamol. Ice and heat are available. Increasing oxycodone on 11/19 for hip and leg pain. * Constipation and neurogenic bowel. Goal for daily bowel program with suppository. * Hypertension. Elevated on hydralazine, isosorbide. torsemide and PRN clonidine. Was on losartan at bedtime previously; restarted 11/17/16. Monitor closely. * Diastolic dysfunction and mitral regurgitation with fluid overload in the hospital. Will continue torsemide. Monitor I's and O's at least as long as she continues to use the Richards catheter and optimize her fluid status. * Coronary artery disease status post coronary artery bypass graft with angina. She will be monitored for any further symptoms and nitroglycerin will be available on a p.r.n. basis. Isosorbide for angina. D/W certified alcohol drug counselor Dr. Gauthier. Incomplete revascularization; LV fn recovered; mitral regurgitation. OK for afterload reduction with ARB. B-gera contraindicated due to depression. ASA d/w Neurosurgery 10/2116: OK to start. * Diabetes mellitus type 2. On empagliflozin and metformin orally. Was hypoglycemic with addition of metformin to glargine and empagliflozin, cut glargine to 25 units BID from 55 units BID. Will monitor, institute SSI if needed. Working with dietary on weight management strategy as well. * Possible neurogenic bladder. Voiding trial starting evening of 11/19. Highly likely that she will need richards reinserted due to neurogenic bladder. * Anxiety. Diazepam will be continued. SPECIAL MACHINE STITCHER to address. She will consider other medication options such as SSRI if her debility is likely to be prolonged. * Access: Continue PICC for now given labile blood pressures and glucose levels. * Gastroparesis: on home colace and 2 senna qhs, and miralax qam. Chronic stable conditions: * History of gout. Uric acid 6.8 (added on to hosptal labs from 11/16/16), just below target for prevention of recurrence. Continue allopurinol. * History of sciatica. She reports this responded dramatically to gabapentin at a very low dose and this will be continued. * Gastroesophageal reflux disorder. Continue pantoprazole. * Vitamin D deficiency. Continue vitamin D supplementation. * Anemia, post-surgical, improving. * History of fatigue: Newly recognized 11/19, she describes a history of thorough workup (notes unavailable). May complicate rehab course. Chart review with further past medical history: ventral hernia repair, cholecystectomy, esophageal spasm. goal is to optimize independence in transfer and self care, ambulation if appropriate. Expect 4 week LOS with tentative discharge 12/16/16. Follow-up: wound check with Gonzalo Martinez 2 weeks ((12/01/16); will discuss with Neurosurgery whether this is necessary if she's still at [facility] at that time. Steristrips to be left in place until 2 weeks post -op. Sutures are absorbably Vicryl. 11/19/16 14:11 11/19/16 14:14 11/19/16 14:25 11/20/16 13:10 Subjective: cc: hyperglycemia, hypotension, pain, neurogenic bowel Last night notified by nursing of a high glucose in the 300's, onetime lispro given and SSI initiated. Glucose not captured in the EMR. Pain somewhat similar , but oxycodone caused nausea, requesting dose to be lowered. Notes that she has gastroparesis at baseline and a home regimen (see plan for details). Blood pressure lower today than prior days, some mild lightheadedness, passed. 1 incontinent episode of bowel today. Objective: Vital Signs Temp Pulse Resp BP Pulse Ox 36.7 C 67 18 105/43 L 95 11/20/16 06:20 11/20/16 06:20 11/20/16 06:20 11/20/16 06:20 11/20/16 06:20 Laboratory Results 11/17/16 06:30 11/19/16 11/20/16 11/21/16 05:59 05:59 05:59 Intake Total 1418 2390 790 Output Total 1750 2175 Balance -332 215 790 Physical Exam - Physical Exam General Appearance: alert, no apparent distress, obese, other (in wc) EENT: No scleral icterus (R), No scleral icterus (L) Respiratory: normal breath sounds, No respiratory distress, No accessory muscle use Cardiac/Chest: regular rate, rhythm, No edema Skin: normal color, warm/dry Extremities: No pedal edema, No swelling Neuro/Psych: alert, normal mood/affect, motor weakness (paraplegia) ICD10 Worksheet Patient Problems: Problems Problem Status Onset Back pain Acute Bilateral leg weakness Acute CHF (congestive heart failure) Acute Chest pain Acute Chronic Disease Mgmt/Transitional Care Acute Lumbar radiculitis Acute Lumbar stenosis Acute NSTEMI (non-ST elevated myocardial infarction) Acute Sensory abnormality of thoracic dermatome distribution Acute
[2016-11-20] MEDS: DIAZEPAM 5 MG TAB PO PRN (20:34)
[2016-11-20] MEDS: METHOCARBAMOL 750 MG TAB PO PRN (20:34)
[2016-11-20] MEDS ORDERED: SENNOSIDES 1 TAB PO SCH (21:00)
[2016-11-20] MEDS: LOSARTAN POTASSIUM 25 MG TAB PO SCH (21:16)
[2016-11-20] MEDS: DOCUSATE SODIUM 100 MG CAP PO SCH (21:25)
[2016-11-21] MEDS: ACETAMINOPHEN 500 MG TAB PO SCH ×5 (00:23→22:56)
[2016-11-21] MEDS: CHOLECALCIFEROL VIT D3 2,000 UNITS TAB/CAP PO SCH (09:35)
[2016-11-21] MEDS: BISACODYL 10 MG SUPP PR SCH (09:36)
[2016-11-21] MEDS: INSULIN LISPRO 100 UNIT/ML SC SCH ×3 (09:38→17:03)
[2016-11-21] MEDS: ALLOPURINOL 100 MG TAB PO SCH ×2 (09:39→21:17)
[2016-11-21] MEDS: metFORMIN HCL 500 MG TAB PO SCH ×2 (09:39→16:59)
[2016-11-21] MEDS: ENOXAPARIN 40 MG/0.4 ML SYR SC SCH (09:40)
[2016-11-21] MEDS: Empagliflozin [Jardiance] 10 MG PO SCH (09:40)
[2016-11-21] MEDS: INSULIN GLARGINE 100 UNITS/ML SYRINGE SC SCH ×2 (09:41→21:17)
[2016-11-21] MEDS: GABAPENTIN 100 MG CAP PO SCH ×3 (09:41→21:14)
[2016-11-21] MEDS: ISOSORBIDE MONONITRATE 30 MG TAB.SR PO SCH ×2 (09:41→21:15)
[2016-11-21] MEDS: PANTOPRAZOLE SODIUM 40 MG TAB PO SCH ×2 (09:45→21:17)
[2016-11-21] MEDS: TORSEMIDE 20 MG TAB PO SCH (09:46)
[2016-11-21] MEDS: POLYETHYLENE GLYCOL 3350 17 GM PKT PO SCH (09:49)
[2016-11-21] MEDS ORDERED: SENNOSIDES 1 TAB PO PRN (10:06)
[2016-11-21] MEDS: BENEFIBER/NUTRISOURCE FIBER PKT 1 EACH PO SCH ×2 (12:35→21:14)
[2016-11-21] MEDS: METHOCARBAMOL 750 MG TAB PO PRN (12:35)
--- NOTE | 2016-11-21 14:19 | SOAPPROG ---
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 Initial FIM 63 on 11/18/16. Leg strength "subantigravity" per PT. Decreased LE proprioception. decreased sensation in feet. 2-person assist for log roll, slide-board transfer. Good upper extremity strength; does well with wheelchair mobility. UB dressing set-up/SBA, sponge bath sitting EOB min A. LB dressing max A. Physical therapy and occupational therapy to optimize her mobility and functional status. Initial goal is transfers to wheelchair. * Pain management. Pain in L gluteus; feels deep to her. NSAIDs contraindicated for 6 mo after spinal fusion. Continue acetaminophen and methocarbamol. Oxycodone available PRN; has not used. Ice and heat are available. Stretching and other modalities per PT. * Possible neurogenic bowel. Continue neurogenic bowel protocol. Liquid stool 11/21/16: check for C. difficile; start fiber supplement. Changed senna to PRN on 11/18/16. Observe for return of normal bowel function; at home had BM 2x/ day. Bisacodyl suppository will be available as needed as well as Fleets enema. * Hypertension. Elevated on hydralazine, isosorbide. torsemide and PRN clonidine. Was on losartan at bedtime previously; restarted 11/17/16; increase to 50 mg QHS on 11/21/16. * Diastolic dysfunction and mitral regurgitation with fluid overload in the hospital. Will continue torsemide. Monitor I's and O's at least as long as she continues to use the Hernandez catheter and optimize her fluid status. * Coronary artery disease status post coronary artery bypass graft with angina. She will be monitored for any further symptoms and nitroglycerin will be available on a p.r.n. basis. Isosorbide for angina. D/W incinerator plant laborer Dr. Gauthier. Incomplete revascularization; LV fn recovered; mitral regurgitation. OK for afterload reduction with ARB. B-gera contraindicated due to depression. ASA d/w Neurosurgery 10/2116: OK to start. * Diabetes mellitus type 2. Continue insulin glargine twice daily, insulin lispro before meals on a sliding scale and empagliflozin orally. Insulin will be adjusted as her appetite returns to ensure continued adequate glycemic control. Add metformin, starting at low dose. * Possible neurogenic bladder. D/C Hernandez catheter 11/22/16 Neurogenic bladder protocol. It is encouraging that she has sensation to light touch throughout her lower extremities. * Anxiety. Diazepam will be continued. ELECTROCARDIOGRAM TECHNICIAN to address. She will consider other medication options such as SSRI if her debility is likely to be prolonged. Chronic stable conditions: * History of gout. Uric acid 6.8 (added on to hosptal labs from 11/16/16), just below target for prevention of recurrence. Continue allopurinol. * History of sciatica. She reports this responded dramatically to gabapentin at a very low dose and this will be continued. * Gastroesophageal reflux disorder. Continue pantoprazole. * Vitamin D deficiency. Continue vitamin D supplementation. * Anemia, post-surgical, improving. Chart review with further past medical history: ventral hernia repair, cholecystectomy, esophageal spasm. Hope for recovery of motor function in legs. Otherwise goal is to optimize independence in transfer and self care. Expect 4 week LOS with tentative discharge 12/16/16. Follow-up: wound check with Gonzalo Martinez 2 weeks ((12/01/16); will discuss with Neurosurgery whether this is necessary if she's still at [facility] at that time. Steristrips to be left in place until 2 weeks post -op. Sutures are absorbably Vicryl. 11/21/16 14:19 Subjective: Nurse noted hypoxia on room air today, improved with O2. She denies cough or dyspnea. No f/c. Still with fecal incontinence, and liquid stool today. No abd pain. Reduced appetite. Objective: Vital Signs Temp Pulse Resp BP Pulse Ox 36.9 C 71 16 146/65 H 95 11/21/16 06:31 11/21/16 06:31 11/21/16 12:51 11/21/16 09:41 11/21/16 12:51 Laboratory Results 11/17/16 06:30 11/20/16 11/21/16 11/22/16 05:59 05:59 05:59 Intake Total 2390 1940 990 Output Total 2175 2350 900 Balance 215 -410 90 Physical Exam - Physical Exam General Appearance: WD/WN, alert, no apparent distress, obese Respiratory: normal breath sounds, No crackles, No rhonchi, No wheezing Cardiac/Chest: systolic murmur, irregularly irregular, No edema Skin: normal color, warm/dry ICD10 Worksheet Patient Problems: Problems Problem Status Onset Back pain Acute Bilateral leg weakness Acute CHF (congestive heart failure) Acute Chest pain Acute Chronic Disease Mgmt/Transitional Care Acute Lumbar radiculitis Acute Lumbar stenosis Acute NSTEMI (non-ST elevated myocardial infarction) Acute Sensory abnormality of thoracic dermatome distribution Acute
[2016-11-21] MEDS: DIAZEPAM 5 MG TAB PO PRN ×2 (18:53→21:20)
[2016-11-21] MEDS: LOSARTAN POTASSIUM 25 MG TAB PO SCH (21:16)
[2016-11-21] MEDS: DOCUSATE SODIUM 100 MG CAP PO SCH (21:17)
[2016-11-22] MEDS: ACETAMINOPHEN 500 MG TAB PO SCH ×3 (05:38→18:41)
[2016-11-22] MEDS ORDERED: INSULIN LISPRO 100 UNIT/ML SC ONE (09:02)
[2016-11-22] MEDS: metFORMIN HCL 500 MG TAB PO SCH ×2 (09:23→18:42)
[2016-11-22] MEDS: CHOLECALCIFEROL VIT D3 2,000 UNITS TAB/CAP PO SCH (09:23)
[2016-11-22] MEDS: POLYETHYLENE GLYCOL 3350 17 GM PKT PO SCH (09:23)
[2016-11-22] MEDS: GABAPENTIN 100 MG CAP PO SCH ×3 (09:23→21:33)
[2016-11-22] MEDS: TORSEMIDE 20 MG TAB PO SCH (09:23)
[2016-11-22] MEDS: PANTOPRAZOLE SODIUM 40 MG TAB PO SCH ×2 (09:25→20:21)
[2016-11-22] MEDS: INSULIN LISPRO 100 UNIT/ML SC SCH ×3 (09:25→18:42)
[2016-11-22] MEDS: ISOSORBIDE MONONITRATE 30 MG TAB.SR PO SCH ×2 (09:26→20:12)
[2016-11-22] MEDS: ENOXAPARIN 40 MG/0.4 ML SYR SC SCH (09:26)
[2016-11-22] MEDS: Empagliflozin [Jardiance] 10 MG PO SCH (09:27)
[2016-11-22] MEDS ORDERED: BENEFIBER/NUTRISOURCE FIBER PKT 1 EACH ONE (09:29)
[2016-11-22] MEDS: BENEFIBER/NUTRISOURCE FIBER PKT 1 EACH PO SCH (09:29)
[2016-11-22] MEDS: ALLOPURINOL 100 MG TAB PO SCH ×2 (09:29→20:11)
[2016-11-22] MEDS: INSULIN GLARGINE 100 UNITS/ML SYRINGE SC SCH (09:30)
[2016-11-22] MEDS: ONDANSETRON DISINTEGRATING 4 MG TAB PO PRN (10:52)
[2016-11-22] MEDS: METHOCARBAMOL 750 MG TAB PO PRN (10:54)
[2016-11-22] MEDS: BISACODYL 10 MG SUPP PR SCH (12:26)
[2016-11-22] MEDS ORDERED: TORSEMIDE 20 MG TAB PO SCH (14:47)
--- NOTE | 2016-11-22 14:55 | SOAPPROG ---
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 Initial FIM 63 on 11/18/16. Leg strength "subantigravity" per PT. Decreased LE proprioception. decreased sensation in feet. 2-person assist for log roll, slide-board transfer. Good upper extremity strength; does well with wheelchair mobility. UB dressing set-up/SBA, sponge bath sitting EOB min A. LB dressing max A. Physical therapy and occupational therapy to optimize her mobility and functional status. Initial goal is transfers to wheelchair. * Pain management. Pain in L gluteus; feels deep to her. NSAIDs contraindicated for 6 mo after spinal fusion. Continue acetaminophen and methocarbamol. Oxycodone available PRN; has not used. Ice and heat are available. Stretching and other modalities per PT. Massage and acupuncture per her request ordered 11/22/16. * Possible neurogenic bowel. Continue neurogenic bowel protocol. Liquid stool 11/21/16: check for C. difficile; start fiber supplement. Changed senna to PRN on 11/18/16. Observe for return of normal bowel function; at home had BM 2x/ day. Bisacodyl suppository will be available as needed as well as Fleets enema. * Hypertension. BP was elevated on hydralazine, isosorbide. torsemide and PRN clonidine. Was on losartan at bedtime previously; restarted 11/17/16; increased to 50 mg QHS on 11/21/16. Decrease torsemide from 20 mg QD to 10 mg QD. * Diastolic dysfunction and mitral regurgitation with fluid overload in the hospital. Will continue torsemide, reduced dose. Does not appear fluid- overloaded. * Voiding normally s/p Hernandez d/c 11/21/16. Reduce torsemide to reduce urinary frequency. * Coronary artery disease status post coronary artery bypass graft with angina. She will be monitored for any further symptoms and nitroglycerin will be available on a p.r.n. basis. Isosorbide for angina. D/W presentation team member Dr. Gauthier. Incomplete revascularization; LV fn recovered; mitral regurgitation. OK for afterload reduction with ARB. B-gera contraindicated due to depression. ASA d/w Neurosurgery 10/2116: OK to start. * Diabetes mellitus type 2. Continue insulin glargine twice daily; reduce dose to 20 U QPM and 15 U QAM as she's eating less and on metformin. Continue insulin lispro before meals on a sliding scale and empagliflozin orally. Added metformin, starting at 250 mg BID; titrate as appetite improves or if higher BS with insulin taper. * Anxiety. Diazepam will be continued. MANUAL QA TESTER to address. She will consider other medication options such as SSRI if her debility is likely to be prolonged. Chronic stable conditions: * History of gout. Uric acid 6.8 (added on to hosptal labs from 11/16/16), just below target for prevention of recurrence. Continue allopurinol. * History of sciatica. She reports this responded dramatically to gabapentin at a very low dose and this will be continued. * Gastroesophageal reflux disorder. Continue pantoprazole. * Vitamin D deficiency. Continue vitamin D supplementation. * Anemia, post-surgical, improving. Chart review with further past medical history: ventral hernia repair, cholecystectomy, esophageal spasm. Hope for recovery of motor function in legs. Otherwise goal is to optimize independence in transfer and self care. Expect 4 week LOS with tentative discharge 12/16/16. Follow-up: wound check with Gonzalo Martinez 2 weeks ((12/01/16); will discuss with Neurosurgery whether this is necessary if [facility] at that time. Steristrips to be left in place until 2 weeks post -op. Sutures are absorbably Vicryl. 11/22/16 14:50 Subjective: Able to urinate without catheter. Says she voided 7 times overnight with bed hooper and had no incontinence; voided once so far today and ready to void again. PT worked on her R hip and she has pain now; asks for massage therapy and acupuncture. No cough or dyspnea. Met with cupola operator and eating less; only had broth for lunch. No more diarrhea; no BM today. Had nausea after Benefiber today. Objective: Vital Signs Temp Pulse Resp BP Pulse Ox 36.6 C 72 24 H 117/68 91 L 11/22/16 08:00 11/22/16 10:45 11/22/16 10:45 11/22/16 10:45 11/22/16 08:00 Laboratory Results 11/17/16 06:30 11/21/16 11/22/16 11/23/16 05:59 05:59 05:59 Intake Total 8230 2310 Output Total 0837 9162 700 Balance -410 -618 -700 Physical Exam - Physical Exam General Appearance: WD/WN, alert, no apparent distress Respiratory: normal breath sounds, No crackles, No rhonchi, No wheezing Cardiac/Chest: regular rate, rhythm, No edema Abdomen: non-tender, soft, other (hypoactive BS), No distended Skin: normal color, warm/dry ICD10 Worksheet Patient Problems: Problems Problem Status Onset Back pain Acute Bilateral leg weakness Acute CHF (congestive heart failure) Acute Chest pain Acute Chronic Disease Mgmt/Transitional Care Acute Lumbar radiculitis Acute Lumbar stenosis Acute NSTEMI (non-ST elevated myocardial infarction) Acute Sensory abnormality of thoracic dermatome distribution Acute
[2016-11-22] MEDS: DIAZEPAM 5 MG TAB PO PRN (20:10)
[2016-11-22] MEDS: LOSARTAN POTASSIUM 25 MG TAB PO SCH (20:11)
[2016-11-22] MEDS: DOCUSATE SODIUM 100 MG CAP PO SCH (20:11)
[2016-11-22] MEDS ORDERED: INSULIN GLARGINE 100 UNITS/ML SYRINGE SC SCH (21:00)
[2016-11-22] MEDS ORDERED: ALTEPLASE 2 MG VIAL IVP PRN (21:33)
[2016-11-23] MEDS: ACETAMINOPHEN 500 MG TAB PO SCH ×4 (00:06→17:28)
[2016-11-23 04:12] LABS: COLOR YELLOW; LEUKOCYTE ESTERASE,URINE 3+ (NEGATIVE); NITRITE,URINE NEGATIVE (NEGATIVE)
[2016-11-23 04:19] LABS: BACTERIA 4+ /hpf (NONE SEEN); WBC,URINE 50-182 /hpf (0-3)
[2016-11-23] MEDS: CHOLECALCIFEROL VIT D3 2,000 UNITS TAB/CAP PO SCH (07:52)
[2016-11-23] MEDS: BISACODYL 10 MG SUPP PR SCH (07:52)
[2016-11-23] MEDS: metFORMIN HCL 500 MG TAB PO SCH ×2 (07:52→17:27)
[2016-11-23] MEDS: POLYETHYLENE GLYCOL 3350 17 GM PKT PO SCH (07:59)
[2016-11-23] MEDS: ALLOPURINOL 100 MG TAB PO SCH ×2 (08:00→21:48)
[2016-11-23] MEDS: INSULIN LISPRO 100 UNIT/ML SC SCH ×3 (08:03→17:28)
[2016-11-23] MEDS: GABAPENTIN 100 MG CAP PO SCH ×3 (08:04→21:48)
[2016-11-23] MEDS: ISOSORBIDE MONONITRATE 30 MG TAB.SR PO SCH ×2 (08:06→21:47)
[2016-11-23] MEDS: ENOXAPARIN 40 MG/0.4 ML SYR SC SCH (08:07)
[2016-11-23] MEDS: PANTOPRAZOLE SODIUM 40 MG TAB PO SCH ×2 (08:07→21:48)
[2016-11-23] MEDS: Empagliflozin [Jardiance] 10 MG PO SCH (08:07)
[2016-11-23] MEDS: INSULIN GLARGINE 100 UNITS/ML SYRINGE SC SCH ×2 (08:10→21:52)
[2016-11-23] MEDS: METHOCARBAMOL 750 MG TAB PO PRN (08:28)
[2016-11-23] MEDS: TORSEMIDE 20 MG TAB PO SCH (10:42)
[2016-11-23] MEDS: ONDANSETRON DISINTEGRATING 4 MG TAB PO PRN (10:42)
--- NOTE | 2016-11-23 15:35 | NEUSURGPN ---
Date of Surgery: 11/09/16 Post Op Day: 14 Assessment/Plan: Assessment: 71 yo female that is s/p adjacent segment fusion at L2/[address] Sánchez on 11/09/16 Plan: -s/p adjacent segment fusion: pt with no leg pain but has back pain that persists -incision CDI-no s/s of infection -PT/OT CPM -pt spoke with me about further pain control for her back pain-defer to Dr Luis -recommend recheck in [address] Sánchez with xrays -pt can call office for xray rx in 2 weeks -continue with [facility] -call with any questions or concerns Subjective: Awake and alert. NAD. Pt with continued lower back pain. Objective: AAO x 3 PERRLA/EOMI no droop CN 2-12 grossly intact +lt touch 5/5 BUE LLE 3/5 HF/HE/KF/KE, 3+->4-/5 to DF/PF/EHL RLE 1/5 to EHL/PF/DF, 3/5 to HF/HE/KF/KE Neuro Check Frequency: per routine - Physician Discussed Patient with : Gonz[facility] Neurosurgery Physical Exam - Vitals, I&O, Labs I and O 11/22/16 11/23/16 11/24/16 05:59 05:59 05:59 Intake Total 2310 870 118 Output Total 3000 2300 351 Balance -690 -1430 -233 Intake: Oral (ml) 2310 870 118 Output: Urine (ml) 3000 2300 350 Bedpan 550 800 Bedside Commode 1500 350 Catheter 2400 Incontinence 50 Liquid Stool (ml) 1 Bedside Commode 1 Other: Intake Quantity Yes Sufficient Output Comment Bedside Commode unmeasured- commode bucket spilled Catheter straight cathed Number of Voids Bedpan 1 1 Bedside Commode 1 1 Catheter 1 Incontinence 1 Number of Stools Bedpan 1 Bedside Commode 1 1 1 Bladder Scan Volume (ml) Catheter 653 Post Void Residual Scan Volume (ml) Bedpan 653 148 Bedside Commode 50 52 Catheter 0 Vital Signs Temp Pulse Resp BP Pulse Ox 36.7 C 63 18 152/68 H 93 11/23/16 05:35 11/23/16 05:35 11/23/16 05:35 11/23/16 08:06 11/23/16 05:35 Laboratory Results 11/17/16 06:30 ICD10 Worksheet Patient Problems: Problems Problem Status Onset Back pain Acute Bilateral leg weakness Acute CHF (congestive heart failure) Acute Chest pain Acute Chronic Disease Mgmt/Transitional Care Acute Lumbar radiculitis Acute Lumbar stenosis Acute NSTEMI (non-ST elevated myocardial infarction) Acute Sensory abnormality of thoracic dermatome distribution Acute
[2016-11-23] MEDS ORDERED: HYDROmorphONE/DILAUDID 2 MG TAB PO PRN (15:55)
--- NOTE | 2016-11-23 16:09 | SOAPPROG ---
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 Initial FIM 63 on 11/18/16. Leg strength "subantigravity" per PT. Decreased LE proprioception. decreased sensation in feet. 2-person assist for log roll, slide-board transfer. Good upper extremity strength; does well with wheelchair mobility. UB dressing set-up/SBA, sponge bath sitting EOB min A. LB dressing max A. Physical therapy and occupational therapy to optimize her mobility and functional status. Initial goal is transfers to wheelchair. * Pain management. Pain in L gluteus; feels deep to her, improved; now with low back pain. NSAIDs contraindicated for 6 mo after spinal fusion. Continue acetaminophen and methocarbamol. Not tolerating oxycodone due to nausea; trial of hydromorphone. Ice and heat are available. Stretching and other modalities per PT. Massage and acupuncture per her request ordered 11/22/16. * Doubt neurogenic bowel. Liquid stool 11/21/16, now normalizing; D/C check for C. difficile. Changed senna to PRN on 11/18/16. * Hypertension. BP was elevated on hydralazine, isosorbide. torsemide and PRN clonidine. Was on losartan at bedtime previously; restarted 11/17/16; increased to 50 mg QHS on 11/21/16. Decrease torsemide from 20 mg QD to 10 mg QD. Continue to monitor. * UTI: initiate nitrofurantoin. Await C & S. * Diastolic dysfunction and mitral regurgitation with fluid overload in the hospital. Will continue torsemide, reduced dose. Does not appear fluid- overloaded. * Voiding normally s/p Hernandez d/c 11/21/16. Reduce torsemide to reduce urinary frequency. * Diabetes mellitus type 2. Continue insulin glargine twice daily; reduced dose 11/22/16 to 20 U QPM and 15 U QAM as she's eating less and on metformin. BS high 11/23/16: increase HS Lantus to 23 U. Continue insulin lispro before meals on a sliding scale and empagliflozin orally. Added metformin, starting at 250 mg BID; titrate as appetite improves or if higher BS with insulin taper. * Anxiety. Diazepam will be continued. FLOORING SALESPERSON to address. She will consider other medication options such as SSRI if her debility is likely to be prolonged. Chronic stable conditions: * Coronary artery disease status post coronary artery bypass graft with angina. She will be monitored for any further symptoms and nitroglycerin will be available on a p.r.n. basis. Isosorbide for angina. D/W family services specialist Dr. Gauthier. Incomplete revascularization; LV fn recovered; mitral regurgitation. OK for afterload reduction with ARB. B-gera contraindicated due to depression. ASA d/w Neurosurgery 10/2116: OK to start. * History of gout. Uric acid 6.8 (added on to hosptal labs from 11/16/16), just below target for prevention of recurrence. Continue allopurinol. * History of sciatica. She reports this responded dramatically to gabapentin at a very low dose and this will be continued. * Gastroesophageal reflux disorder. Continue pantoprazole. * Vitamin D deficiency. Continue vitamin D supplementation. * Anemia, post-surgical, improving. Chart review with further past medical history: ventral hernia repair, cholecystectomy, esophageal spasm. Hope for recovery of motor function in legs. Otherwise goal is to optimize independence in transfer and self care. Expect 4 week LOS with tentative discharge 12/16/16. Follow-up: Seen by Hussain Hartley, Neurosurgery PA, 11/13/16 and steristrips removed. Follow-up Dr. Sánchez 2 weeks (approx 12/07/16). 11/23/16 16:00 Subjective: C/O back pain. L buttock pain improved. Has had massage and acupuncture. Had malodorous urine this morning, and mild urinary frequency. No f/c, no flank pain. Objective: Vital Signs Temp Pulse Resp BP Pulse Ox 36.7 C 63 18 152/68 H 93 11/23/16 05:35 11/23/16 05:35 11/23/16 05:35 11/23/16 08:06 11/23/16 05:35 Laboratory Results 11/17/16 06:30 11/22/16 11/23/16 11/24/16 05:59 05:59 05:59 Intake Total 2310 870 118 Output Total 3000 2300 351 Balance -690 -1430 -233 Physical Exam - Physical Exam General Appearance: WD/WN, alert, no apparent distress, obese Respiratory: normal breath sounds, No crackles, No rhonchi, No wheezing Cardiac/Chest: regular rate, rhythm, No edema, No diastolic murmur, No systolic murmur Back: No CVA tenderness Skin: normal color, warm/dry, other (Low back incision C/D/I) Neuro/Psych: alert, normal mood/affect, oriented x 3, motor weakness (B LE) ICD10 Worksheet Patient Problems: Problems Problem Status Onset Back pain Acute Bilateral leg weakness Acute CHF (congestive heart failure) Acute Chest pain Acute Chronic Disease Mgmt/Transitional Care Acute Lumbar radiculitis Acute Lumbar stenosis Acute NSTEMI (non-ST elevated myocardial infarction) Acute Sensory abnormality of thoracic dermatome distribution Acute
[2016-11-23] MEDS: NITROFURANTOIN MACROBID 100 MG CAP PO SCH ×2 (16:25→21:48)
[2016-11-23] MEDS: DIAZEPAM 5 MG TAB PO PRN (18:30)
[2016-11-23] MEDS ORDERED: NITROFURANTOIN MACROBID 100 MG CAP PO SCH (21:00)
[2016-11-23] MEDS: DOCUSATE SODIUM 100 MG CAP PO SCH (21:48)
[2016-11-23] MEDS: LOSARTAN POTASSIUM 25 MG TAB PO SCH (21:48)
[2016-11-24] MEDS: ACETAMINOPHEN 500 MG TAB PO SCH ×5 (06:24→23:52)
[2016-11-24] MEDS: INSULIN GLARGINE 100 UNITS/ML SYRINGE SC SCH ×2 (08:08→23:53)
[2016-11-24] MEDS: ISOSORBIDE MONONITRATE 30 MG TAB.SR PO SCH ×2 (08:09→23:53)
[2016-11-24] MEDS: INSULIN LISPRO 100 UNIT/ML SC SCH ×3 (08:09→17:04)
[2016-11-24] MEDS: CHOLECALCIFEROL VIT D3 2,000 UNITS TAB/CAP PO SCH (08:10)
[2016-11-24] MEDS: ENOXAPARIN 40 MG/0.4 ML SYR SC SCH (08:10)
[2016-11-24] MEDS: metFORMIN HCL 500 MG TAB PO SCH ×2 (08:11→17:05)
[2016-11-24] MEDS: BISACODYL 10 MG SUPP PR SCH (08:11)
[2016-11-24] MEDS: GABAPENTIN 100 MG CAP PO SCH ×3 (08:12→23:53)
[2016-11-24] MEDS: Empagliflozin [Jardiance] 10 MG PO SCH (08:20)
[2016-11-24] MEDS: ONDANSETRON DISINTEGRATING 4 MG TAB PO PRN (09:05)
[2016-11-24] MEDS: ALLOPURINOL 100 MG TAB PO SCH ×2 (09:43→23:54)
[2016-11-24] MEDS: NITROFURANTOIN MACROBID 100 MG CAP PO SCH ×2 (09:43→23:54)
[2016-11-24] MEDS: POLYETHYLENE GLYCOL 3350 17 GM PKT PO SCH (09:46)
[2016-11-24] MEDS: PANTOPRAZOLE SODIUM 40 MG TAB PO SCH ×2 (09:53→23:54)
[2016-11-24] MEDS: TORSEMIDE 20 MG TAB PO SCH (09:56)
--- NOTE | 2016-11-24 10:28 | SOAPPROG ---
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 Initial FIM 63 on 11/18/16. Leg strength "subantigravity" per PT. Decreased LE proprioception. decreased sensation in feet. 2-person assist for log roll, slide-board transfer. Good upper extremity strength; does well with wheelchair mobility. UB dressing set-up/SBA, sponge bath sitting EOB min A. LB dressing max A. Physical therapy and occupational therapy to optimize her mobility and functional status. Initial goal is transfers to wheelchair. * Pain management. Pain in L gluteus; feels deep to her, improved; now with low back pain. NSAIDs contraindicated for 6 mo after spinal fusion. Continue acetaminophen and methocarbamol. Not tolerating oxycodone due to nausea; refusing hydromorphone due to prior experience. Ice and heat are available. Stretching and other modalities per PT. Massage and acupuncture per her request ordered 11/22/16; pain seems to respond to acupuncture. * Doubt neurogenic bowel. Liquid stool 11/21/16, now normalizing; D/C check for C. difficile. Changed senna to PRN on 11/18/16. Per her request, changing bowelprotocol with bisacodyl suppository to Monday, , Monday. * Hypertension. BP was elevated on hydralazine, isosorbide. torsemide and PRN clonidine. Was on losartan at bedtime previously; restarted 11/17/16; increased to 50 mg QHS on 11/21/16. Decrease torsemide from 20 mg QD to 10 mg QD. Continue to monitor. * Irregular heart rhythm: get EKG today 11/24/16. * UTI: initiate nitrofurantoin. Await C & S. * Diastolic dysfunction and mitral regurgitation with fluid overload in the hospital. Will continue torsemide, reduced dose. Does not appear fluid- overloaded. * Voiding normally s/p Hernandez d/c 11/21/16. Reduce torsemide to reduce urinary frequency. * Diabetes mellitus type 2. Continue insulin glargine twice daily; reduced dose 11/22/16 to 20 U QPM and 15 U QAM as she's eating less and on metformin. BS high 11/23/16: increase HS Lantus to 23 U. Continue insulin lispro before meals on a sliding scale and empagliflozin orally. Added metformin, starting at 250 mg BID; titrate as appetite improves or if higher BS with insulin taper. * Anxiety. Diazepam will be continued. SALES SUPPORT ADMINISTRATOR to address. She will consider other medication options such as SSRI if her debility is likely to be prolonged. Chronic stable conditions: * Coronary artery disease status post coronary artery bypass graft with angina. She will be monitored for any further symptoms and nitroglycerin will be available on a p.r.n. basis. Isosorbide for angina. D/W geodetic engineer Dr. Gauthier. Incomplete revascularization; LV fn recovered; mitral regurgitation. OK for afterload reduction with ARB. B-gera contraindicated due to depression. ASA d/w Neurosurgery 10/2116: OK to start. * History of gout. Uric acid 6.8 (added on to hosptal labs from 11/16/16), just below target for prevention of recurrence. Continue allopurinol. * History of sciatica. She reports this responded dramatically to gabapentin at a very low dose and this will be continued. * Gastroesophageal reflux disorder. Continue pantoprazole. * Vitamin D deficiency. Continue vitamin D supplementation. * Anemia, post-surgical, improving. Chart review with further past medical history: ventral hernia repair, cholecystectomy, esophageal spasm. Hope for recovery of motor function in legs. Otherwise goal is to optimize independence in transfer and self care. Expect 4 week LOS with tentative discharge 12/16/16. Follow-up: Seen by Hussain Hartley, Neurosurgery PA, 11/13/16 and steristrips removed. Follow-up Dr. Sánchez 2 weeks (approx 12/07/16). 11/24/16 10:28 Subjective: Feeling fatigued and discouraged today. Was up to urinate at 0300, then nurse gave suppository in AM and has had diarrhea. Fatigued from multiplke transfers. Notes that she's unable to urinate in bed with bedpan; has to be transferred to commode. Finds commode to be uncomfortable. Back pain improved with acupuncture yesterday. No cough/dyspnea, F/C. Has B lower abd pain. Objective: Vital Signs Temp Pulse Resp BP Pulse Ox 36.5 C 76 18 125/61 H 93 11/24/16 07:57 11/24/16 09:41 11/24/16 09:41 11/24/16 09:41 11/24/16 09:41 Laboratory Results 11/17/16 06:30 11/23/16 11/24/16 11/25/16 05:59 05:59 05:59 Intake Total 870 854 Output Total 2300 2802 450 Balance -5110 -5070 -740 Physical Exam - Physical Exam General Appearance: WD/WN, alert, no apparent distress, obese Respiratory: No respiratory distress, No accessory muscle use Cardiac/Chest: systolic murmur, irregularly irregular, No edema Abdomen: normal bowel sounds, non-tender, soft, No distended Neuro/Psych: alert, oriented x 3, depressed affect ICD10 Worksheet Patient Problems: Problems Problem Status Onset Back pain Acute Bilateral leg weakness Acute CHF (congestive heart failure) Acute Chest pain Acute Chronic Disease Mgmt/Transitional Care Acute Lumbar radiculitis Acute Lumbar stenosis Acute NSTEMI (non-ST elevated myocardial infarction) Acute Sensory abnormality of thoracic dermatome distribution Acute
--- NOTE | 2016-11-24 13:30 | SOAPPROG ---
SOAP Progress Note Assessment/Plan: Assessment: PARTIAL PARALYSIS BOTH LEGS - MORE PRONOUNCED ON RIGHT SIDE - POST OP FOR LUMBAR FUSION PAIN IN LOW BACK Plan: TREAT PAIN; ASSIST SENSORIMOTOR RECOVERY 11/24/16 13:25 Objective: [place] POINTS LEFT EAR; T6 & L2 A HELADIO - ASP GOLD AND TITANIUM SCALP POINTS - DU20 THREADED TO DU19 FOR SPINE T6 LEVEL SCALP: RIGHT SENSORIMOTOR LINE A HELADIO FROM DU21 TO GB6 [place], LOW BACK POINTS BILAT LU6 A HELADIO LEFT SI3 - SPINE YIN [place] - RELAX NERVOUS SYSTEM SP10 - MOVE BLOOD STASIS SP9, MUSCLES / LEG ST36 GB41 - HIP PAIN LR3 - MOVE STAGNATION - TO K1 FOR NERVOUS SYSTEM UPRIGHT TENDON L FOR SPINE Vital Signs Temp Pulse Resp BP Pulse Ox 36.5 C 76 18 125/61 H 93 11/24/16 07:57 11/24/16 09:41 11/24/16 09:41 11/24/16 09:41 11/24/16 09:41 Laboratory Results 11/17/16 06:30 11/23/16 11/24/16 11/25/16 05:59 05:59 05:59 Intake Total 870 854 120 Output Total 2300 2804 450 Balance -8465 -5057 -442 - Time Spent With Patient Time Spent With Patient: POST-TX: SOME BLEEDING FROM SCALP POINTS DT BLOOD THINNERS AND TYPICAL TENDENCY FOR THAT AREA TO BLEED ICD10 Worksheet Patient Problems: Problems Problem Status Onset Back pain Acute Bilateral leg weakness Acute CHF (congestive heart failure) Acute Chest pain Acute Chronic Disease Mgmt/Transitional Care Acute Lumbar radiculitis Acute Lumbar stenosis Acute NSTEMI (non-ST elevated myocardial infarction) Acute Sensory abnormality of thoracic dermatome distribution Acute
[2016-11-24] MEDS: NITROGLYCERIN 0.4 MG BTL SL PRN (17:45)
[2016-11-24] MEDS ORDERED: ASPIRIN 81 MG CHEWABLE TAB ONE (17:46)
[2016-11-24] MEDS ORDERED: NITROGLYCERIN 0.4 MG BTL SL PRN (18:02)
[2016-11-24] MEDS ORDERED: ASPIRIN 325 MG TAB PO ONE (18:30)
[2016-11-24 18:59] LABS: % IMMATURE GRANULYOCYTES 1.5 % (0.0-1.1); ABSOLUTE IMMATURE GRANULOCYTES 0.14 10^3/uL (0.00-0.10); ADD DIFF? NO; ADD MORPH? NO; ADD SCAN? NO; ATYPICAL LYMPHOCYTE FLAG 20 (0-99); FRAGMENT RBC FLAG 0 (0-99); HEMATOCRIT 35.5 % (38.0-47.0); HEMOGLOBIN 11.6 g/dL (12.6-16.3); LEFT SHIFT FLG 20 (0-99); LIPEMIA HEMOLYSIS FLAG 80 (0-99); MEAN CELL HEMOGLOBIN 30.4 pg (27.9-34.1); MEAN CELL HEMOGLOBIN CONCENTR. 32.7 g/dL (32.4-36.7); MEAN CELL VOLUME 92.9 fL (81.5-99.8); MEAN PLATELET VOLUME 9.5 fL (8.7-11.7); PLATELET CLUMPS FLAG 0 (0-99); PLATELET COUNT 525 10^3/uL (150-400); RED BLOOD CELL COUNT 3.82 10^6/uL (4.18-5.33); RED CELL DISTRIBUTION WIDTH 13.4 % (11.5-15.2)
[2016-11-24 19:23] LABS: ANION GAP 8 mEq/L (8-16); CARBON DIOXIDE 30 mEq/l (22-31); CHLORIDE 96 mEq/L (97-110); CREATININE 1.1 mg/dL (0.6-1.0); GLOMERULAR FILTRATION RATE 49; GLUCOSE 159 mg/dL (70-100); POTASSIUM 4.7 mEq/L (3.5-5.2); SODIUM 134 mEq/L (134-144)
[2016-11-24 19:35] LABS: TROPONIN I 0.018 ng/mL (0-0.034)
[2016-11-24] MEDS: DOCUSATE SODIUM 100 MG CAP PO SCH (23:53)
[2016-11-24] MEDS: LOSARTAN POTASSIUM 25 MG TAB PO SCH (23:54)
[2016-11-25] MEDS: DIAZEPAM 5 MG TAB PO PRN (02:44)
--- NOTE | 2016-11-25 07:33 | CPEKG ---
Heart Rate: 66 RR Interval: 909 P-R Interval: 152 QRSD Interval: 92 QT Interval: 396 QTC Interval: 415 P Purchase: -9 QRS Purchase: -19 T Wave Purchase: 147 EKG Severity - ABNORMAL ECG - EKG Impression: SINUS RHYTHM EKG Impression: MULTIPLE VENTRICULAR PREMATURE COMPLEXES EKG Impression: POOR R WAVE PROGRESSION, CONSIDER OLD ANTERIOR INFARCTION EKG Impression: ABNORMAL T, CONSIDER ISCHEMIA, LATERAL LEADS Electronically Signed By: Dick Newman 25-Nov-2016 12:15:48
[2016-11-25] MEDS: ONDANSETRON DISINTEGRATING 4 MG TAB PO PRN (08:25)
[2016-11-25] MEDS ORDERED: POLYETHYLENE GLYCOL 3350 17 GM PKT PO PRN (09:02)
[2016-11-25] MEDS ORDERED: DIAZEPAM 5 MG TAB PO PRN ×2 (09:02→10:04)
[2016-11-25] MEDS: CHOLECALCIFEROL VIT D3 2,000 UNITS TAB/CAP PO SCH (09:35)
[2016-11-25] MEDS: metFORMIN HCL 500 MG TAB PO SCH ×2 (09:36→17:10)
[2016-11-25] MEDS: INSULIN LISPRO 100 UNIT/ML SC SCH ×3 (09:36→17:09)
[2016-11-25] MEDS: ENOXAPARIN 40 MG/0.4 ML SYR SC SCH (09:37)
[2016-11-25] MEDS: Empagliflozin [Jardiance] 10 MG PO SCH (09:37)
[2016-11-25] MEDS: ALLOPURINOL 100 MG TAB PO SCH ×2 (09:37→20:17)
[2016-11-25] MEDS: INSULIN GLARGINE 100 UNITS/ML SYRINGE SC SCH ×2 (09:38→20:58)
[2016-11-25] MEDS: GABAPENTIN 100 MG CAP PO SCH ×3 (09:38→20:16)
[2016-11-25] MEDS: PANTOPRAZOLE SODIUM 40 MG TAB PO SCH ×2 (09:39→20:16)
[2016-11-25] MEDS: NITROFURANTOIN MACROBID 100 MG CAP PO SCH ×2 (09:39→20:16)
[2016-11-25] MEDS: TORSEMIDE 20 MG TAB PO SCH (09:39)
[2016-11-25] MEDS: ISOSORBIDE MONONITRATE 30 MG TAB.SR PO SCH ×2 (09:39→20:16)
[2016-11-25] MEDS: ACETAMINOPHEN 500 MG TAB PO SCH ×3 (09:40→17:09)
[2016-11-25] MEDS: POLYETHYLENE GLYCOL 3350 17 GM PKT PO SCH (09:48)
--- NOTE | 2016-11-25 09:52 | SOAPPROG ---
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 Initial FIM 63 on 11/18/16; improved to 68 on 11/25/16. Has improved L leg strength but not able to bear weight. Decreased LE proprioception. decreased sensation in feet. 1-person assist for log roll & bed mobility, 2 person mod A for slide-board transfer. Good upper extremity strength; does well with wheelchair mobility. UB dressing set-up/SBA, sponge bath sitting EOB min A. LB dressing mod A. Physical therapy and occupational therapy to optimize her mobility and functional status. Initial goal is transfers to wheelchair. * Pain management. Pain in L gluteus; feels deep to her, improved; now with low back pain. NSAIDs contraindicated for 6 mo after spinal fusion. Continue acetaminophen and methocarbamol. Not tolerating oxycodone due to nausea; refusing hydromorphone due to prior experience. Ice and heat are available. Stretching and other modalities per PT. Massage and acupuncture per her request ordered 11/22/16; pain seems to respond to acupuncture. * Doubt neurogenic bowel. Liquid stool 11/21/16, now normalizing; D/C check for C. difficile. Changed senna to PRN on 11/18/16. Per her request, changing bowel protocol with bisacodyl suppository to Monday, , Monday. * Hypertension. BP was elevated on hydralazine, isosorbide. torsemide and PRN clonidine. Was on losartan at bedtime previously; restarted 11/17/16; increased to 50 mg QHS on 11/21/16. Decrease torsemide from 20 mg QD to 10 mg QD. Continue to monitor. * Irregular heart rhythm: EKG 11/24/16 with PVCs and lateral ischemia. Troponin not elevated. BMP with slight increase creatinine (due to losartan?) and Ca (due to immobility?). She refused transfer to ED yesterday. Continue antianginal meds (isosorbide, NTG). * Anxiety and discouragement. Declines offer of SSRI or other antianxiety agent besides diazepam. Asks for lower dose e.g. 1 mg. Offered sympathy and encouragement. Episode of shaking 11/25/16 likely related to anxiety. Concern re discouragement and ability to participate in therapies. Continue counseling per [employer]. * CHF with MR, TR, diastolic dysfn and mod pulm HTN on echo 12/2014. BNP 11/24/16 not significantly elevated. * UTI: initiate nitrofurantoin. Await C & S. * Voiding normally s/p Hernandez d/c 11/21/16. Reduce torsemide to reduce urinary frequency. * Diabetes mellitus type 2. Continue insulin glargine twice daily; reduced dose 11/22/16 to 20 U QPM and 15 U QAM as she's eating less and on metformin. BS high 11/23/16: increase HS Lantus to 23 U. Continue insulin lispro before meals on a sliding scale and empagliflozin orally. Added metformin, starting at 250 mg BID; d/c 11/25/16 due to nausea; consider restart in 3 days. Chronic stable conditions: * Coronary artery disease status post coronary artery bypass graft with angina. She will be monitored for any further symptoms and nitroglycerin will be available on a p.r.n. basis. Isosorbide for angina. D/W supervisor fleshing Dr. Gauthier. Incomplete revascularization; LV fn recovered; mitral regurgitation. OK for afterload reduction with ARB. B-gera contraindicated due to depression. ASA d/w Neurosurgery 10/2116: OK to start. * History of gout. Uric acid 6.8 (added on to hosptal labs from 11/16/16), just below target for prevention of recurrence. Continue allopurinol. * History of sciatica. She reports this responded dramatically to gabapentin at a very low dose and this will be continued. * Gastroesophageal reflux disorder. Continue pantoprazole. * Vitamin D deficiency. Continue vitamin D supplementation. * Anemia, post-surgical, improving. Chart review with further past medical history: ventral hernia repair, cholecystectomy, esophageal spasm. Attended staffing, 15 min. D/W case mgmt, nursing, mud jack nozzleman, PT, OT, RN LAB. Hope for recovery of motor function in legs. Otherwise goal is to optimize independence in transfer and self care. Expect 4 week LOS with tentative discharge 12/16/16. Follow-up: Seen by Hussain Hartley, Neurosurgery PA, 11/13/16 and steristrips removed. Follow-up Dr. Sánchez 01/26/17. 11/25/16 13:35 Subjective: C/O fatigue this morning, and inability to assist with transfers etc. Had irregular heartbeat and chest pain yesterday, and anxiety overnight; took diazepam 5 mg at 0244. Continue to have nausea; took ondansetron this morning. No cough or dyspnea. Had an episode of bilateral upper extremity shaking, 15 min, no alteration of LOC, no loss of B/B control. Objective: Vital Signs Temp Pulse Resp BP Pulse Ox 36.6 C 68 18 164/80 H 96 11/24/16 20:00 11/24/16 20:00 11/24/16 20:00 11/25/16 09:38 11/24/16 20:00 Laboratory Results 11/24/16 18:00 11/24/16 18:00 11/24/16 11/25/16 11/26/16 05:59 05:59 05:59 Intake Total 854 360 Output Total 2802 5360 Balance -1945 -1090 - Time Spent With Patient Time Spent With Patient: Greater than 25 min floor time today, including more than 50% of time in coordination of care during staffing meeting, and counseling patient. Physical Exam - Physical Exam General Appearance: WD/WN, alert, no apparent distress, obese Respiratory: normal breath sounds, No crackles, No rhonchi, No wheezing Cardiac/Chest: regular rate, rhythm, No edema Skin: normal color, warm/dry Neuro/Psych: alert, normal mood/affect, oriented x 3, motor weakness (B LE) ICD10 Worksheet Patient Problems: Problems Problem Status Onset Back pain Acute Bilateral leg weakness Acute CHF (congestive heart failure) Acute Chest pain Acute Chronic Disease Mgmt/Transitional Care Acute Lumbar radiculitis Acute Lumbar stenosis Acute NSTEMI (non-ST elevated myocardial infarction) Acute Sensory abnormality of thoracic dermatome distribution Acute
[2016-11-25] MEDS: LOSARTAN POTASSIUM 25 MG TAB PO SCH (20:15)
[2016-11-25] MEDS: DOCUSATE SODIUM 100 MG CAP PO SCH (20:16)
[2016-11-26] MEDS: ACETAMINOPHEN 500 MG TAB PO SCH ×5 (06:15→22:50)
[2016-11-26] MEDS ORDERED: BISACODYL 10 MG SUPP PR SCH (07:30)
[2016-11-26] MEDS: ENOXAPARIN 40 MG/0.4 ML SYR SC SCH (09:32)
[2016-11-26] MEDS: INSULIN GLARGINE 100 UNITS/ML SYRINGE SC SCH ×2 (09:32→21:18)
[2016-11-26] MEDS: ISOSORBIDE MONONITRATE 30 MG TAB.SR PO SCH ×2 (09:34→22:50)
[2016-11-26] MEDS: GABAPENTIN 100 MG CAP PO SCH ×3 (09:35→21:17)
[2016-11-26] MEDS: NITROFURANTOIN MACROBID 100 MG CAP PO SCH ×2 (09:35→21:16)
[2016-11-26] MEDS: metFORMIN HCL 500 MG TAB PO SCH ×2 (09:35→18:47)
[2016-11-26] MEDS: TORSEMIDE 20 MG TAB PO SCH (09:36)
[2016-11-26] MEDS: CHOLECALCIFEROL VIT D3 2,000 UNITS TAB/CAP PO SCH (09:36)
[2016-11-26] MEDS: ALLOPURINOL 100 MG TAB PO SCH ×2 (09:36→21:17)
[2016-11-26] MEDS: PANTOPRAZOLE SODIUM 40 MG TAB PO SCH ×2 (09:36→21:16)
[2016-11-26] MEDS: Empagliflozin [Jardiance] 10 MG PO SCH (09:41)
[2016-11-26] MEDS: INSULIN LISPRO 100 UNIT/ML SC SCH ×3 (09:49→18:04)
--- NOTE | 2016-11-26 15:56 | SOAPPROG ---
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 Initial FIM 63 on 11/18/16; improved to 68 on 11/25/16. Has improved L leg strength but not able to bear weight. Decreased LE proprioception. decreased sensation in feet. 1-person assist for log roll & bed mobility, 2 person mod A for slide-board transfer. Good upper extremity strength; does well with wheelchair mobility. UB dressing set-up/SBA, sponge bath sitting EOB min A. LB dressing mod A. Physical therapy and occupational therapy to optimize her mobility and functional status. Initial goal is transfers to wheelchair. * Pain management. Pain in L gluteus; feels deep to her, improved; now with low back pain. NSAIDs contraindicated for 6 mo after spinal fusion. Continue acetaminophen and methocarbamol. Not tolerating oxycodone due to nausea; refusing hydromorphone due to prior experience. Ice and heat are available. Stretching and other modalities per PT. Massage and acupuncture per her request ordered 11/22/16; pain seems to respond to acupuncture. * Doubt neurogenic bowel. Liquid stool 11/21/16, now normalizing; D/C check for C. difficile. Changed senna to PRN on 11/18/16. Per her request, changing bowel protocol with bisacodyl suppository to Monday, , Monday. * Hypertension. BP was elevated on hydralazine, isosorbide. torsemide and PRN clonidine. Was on losartan at bedtime previously; restarted 11/17/16; increased to 50 mg QHS on 11/21/16. Decrease torsemide from 20 mg QD to 10 mg QD. Continue to monitor. * Irregular heart rhythm: EKG 11/24/16 with PVCs and lateral ischemia. Troponin not elevated. BMP with slight increase creatinine (due to losartan?) and Ca (due to immobility?). She refused transfer to ED yesterday. Continue antianginal meds (isosorbide, NTG). * Anxiety and discouragement. Declines offer of SSRI or other antianxiety agent besides diazepam. Asks for lower dose e.g. 1 mg. Offered sympathy and encouragement. Episode of shaking 11/25/16 likely related to anxiety. Concern re discouragement and ability to participate in therapies. Continue counseling per [employer]. * CHF with MR, TR, diastolic dysfn and mod pulm HTN on echo 12/2014. BNP 11/24/16 not significantly elevated. * UTI: initiate nitrofurantoin. Await C & S. * Voiding normally s/p Hernandez d/c 11/21/16. Reduce torsemide to reduce urinary frequency. * Diabetes mellitus type 2. Continue insulin glargine twice daily; reduced dose 11/22/16 to 20 U QPM and 15 U QAM as she's eating less and on metformin. BS high 11/23/16: increase HS Lantus to 23 U. Continue insulin lispro before meals on a sliding scale and empagliflozin orally. Added metformin 250 mg BID. BS cont to be high despite ~8u sliding scale daily, will increase a.m. dosing to 23U Chronic stable conditions: * Coronary artery disease status post coronary artery bypass graft with angina. She will be monitored for any further symptoms and nitroglycerin will be available on a p.r.n. basis. Isosorbide for angina. D/W community health program coordinator Dr. Gauthier. Incomplete revascularization; LV fn recovered; mitral regurgitation. OK for afterload reduction with ARB. B-gera contraindicated due to depression. ASA d/w Neurosurgery 10/2116: OK to start. * History of gout. Uric acid 6.8 (added on to hosptal labs from 11/16/16), just below target for prevention of recurrence. Continue allopurinol. * History of sciatica. She reports this responded dramatically to gabapentin at a very low dose and this will be continued. * Gastroesophageal reflux disorder. Continue pantoprazole. * Vitamin D deficiency. Continue vitamin D supplementation. * Anemia, post-surgical, improving. Chart review with further past medical history: ventral hernia repair, cholecystectomy, esophageal spasm. Attended staffing, 15 min. D/W case mgmt, nursing, rubber trimmer, PT, OT, FABRICATION MANAGER. Hope for recovery of motor function in legs. Otherwise goal is to optimize independence in transfer and self care. Expect 4 week LOS with tentative discharge 12/16/16. Follow-up: Seen by Hussain Odilia, Neurosurgery [place], 11/13/16 and steristrips removed. Follow-up Dr. Sánchez 01/26/17. 11/26/16 15:56 Subjective: No events overnight, no complaints currently. Denies Nausea or pain. BS cont high, better appetite and is eating well. Objective: Vital Signs Temp Pulse Resp BP Pulse Ox 36.4 C 70 18 128/78 H 96 11/26/16 06:47 11/26/16 09:30 11/26/16 13:03 11/26/16 09:35 11/26/16 13:03 Microbiology 11/23/16 04:20 Urine Culture - Final Urine,Clean Catch Escherichia Coli Klebsiella Pneumoniae Ssp Pneu Laboratory Results 11/24/16 18:00 11/24/16 18:00 11/25/16 11/26/16 11/27/16 05:59 05:59 05:59 Intake Total 360 1495 820 Output Total 1450 1000 350 Balance -1090 495 470 - Pending Discharge Pending Discharge Within 24 Hours: No Pending Discharge Within 48 Hours: No Physical Exam - Physical Exam General Appearance: alert, no apparent distress EENT: No scleral icterus (R), No scleral icterus (L) Neck: full range of motion, supple Respiratory: lungs clear, normal breath sounds Cardiac/Chest: regular rate, rhythm Abdomen: normal bowel sounds, non-tender, soft Skin: normal color, warm/dry Extremities: pedal edema Neuro/Psych: alert, normal mood/affect, oriented x 3, No cognition abnormalities , No speech abnormalities ICD10 Worksheet Patient Problems: Problems Problem Status Onset Back pain Acute Bilateral leg weakness Acute CHF (congestive heart failure) Acute Chest pain Acute Chronic Disease [facility]/Transitional Care Acute Lumbar radiculitis Acute Lumbar stenosis Acute NSTEMI (non-ST elevated myocardial infarction) Acute Sensory abnormality of thoracic dermatome distribution Acute
[2016-11-26] MEDS: LOSARTAN POTASSIUM 25 MG TAB PO SCH (21:17)
[2016-11-26] MEDS: SENNOSIDES 1 TAB PO SCH (21:17)
[2016-11-26] MEDS: DOCUSATE SODIUM 100 MG CAP PO SCH (22:50)
[2016-11-27] MEDS: ACETAMINOPHEN 500 MG TAB PO SCH ×4 (06:14→23:15)
[2016-11-27] MEDS: INSULIN LISPRO 100 UNIT/ML SC SCH ×3 (09:00→19:33)
[2016-11-27] MEDS: CHOLECALCIFEROL VIT D3 2,000 UNITS TAB/CAP PO SCH (09:21)
[2016-11-27] MEDS: ALLOPURINOL 100 MG TAB PO SCH ×2 (09:21→20:44)
[2016-11-27] MEDS: Empagliflozin [Jardiance] 10 MG PO SCH (09:22)
[2016-11-27] MEDS: ENOXAPARIN 40 MG/0.4 ML SYR SC SCH (09:23)
[2016-11-27] MEDS: GABAPENTIN 100 MG CAP PO SCH ×3 (09:25→20:53)
[2016-11-27] MEDS: PANTOPRAZOLE SODIUM 40 MG TAB PO SCH ×2 (09:25→20:45)
[2016-11-27] MEDS: metFORMIN HCL 500 MG TAB PO SCH ×2 (09:25→18:20)
[2016-11-27] MEDS: TORSEMIDE 20 MG TAB PO SCH (09:26)
[2016-11-27] MEDS: INSULIN GLARGINE 100 UNITS/ML SYRINGE SC SCH ×2 (09:27→20:47)
[2016-11-27] MEDS: NITROFURANTOIN MACROBID 100 MG CAP PO SCH ×2 (09:28→20:44)
[2016-11-27] MEDS: ISOSORBIDE MONONITRATE 30 MG TAB.SR PO SCH ×2 (09:29→20:47)
[2016-11-27] MEDS: LIDOCAINE 5% 1 EA PATCH TD PRN (18:24)
[2016-11-27] MEDS: LOSARTAN POTASSIUM 25 MG TAB PO SCH (20:44)
[2016-11-27] MEDS: SENNOSIDES 1 TAB PO SCH (20:46)
[2016-11-27] MEDS: DOCUSATE SODIUM 100 MG CAP PO SCH (20:46)
--- NOTE | 2016-11-27 22:42 | SOAPPROG ---
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 Initial FIM 63 on 11/18/16; improved to 68 on 11/25/16. Has improved L leg strength but not able to bear weight. Decreased LE proprioception. decreased sensation in feet. 1-person assist for log roll & bed mobility, 2 person mod A for slide-board transfer. Good upper extremity strength; does well with wheelchair mobility. UB dressing set-up/SBA, sponge bath sitting EOB min A. LB dressing mod A. Physical therapy and occupational therapy to optimize her mobility and functional status. Initial goal is transfers to wheelchair. * Pain management. Pain in L gluteus; feels deep to her, improved; now with low back pain. NSAIDs contraindicated for 6 mo after spinal fusion. Continue acetaminophen and methocarbamol. Not tolerating oxycodone due to nausea; refusing hydromorphone due to prior experience. Ice and heat are available. Stretching and other modalities per PT. Massage and acupuncture per her request ordered 11/22/16; pain seems to respond to acupuncture. Willing to trial lidoderm * Doubt neurogenic bowel. Liquid stool 11/21/16, now normalizing; D/C check for C. difficile. Changed senna to PRN on 11/18/16. Per her request, changing bowel protocol with bisacodyl suppository to Monday, , Monday. * Hypertension. BP was elevated on hydralazine, isosorbide. torsemide and PRN clonidine. Was on losartan at bedtime previously; restarted 11/17/16; increased to 50 mg QHS on 11/21/16. Decrease torsemide from 20 mg QD to 10 mg QD. Continue to monitor. * Irregular heart rhythm: EKG 11/24/16 with PVCs and lateral ischemia. Troponin not elevated. BMP with slight increase creatinine (due to losartan?) and Ca (due to immobility?). She refused transfer to ED yesterday. Continue antianginal meds (isosorbide, NTG). * Anxiety and discouragement. Declines offer of SSRI or other antianxiety agent besides diazepam. Asks for lower dose e.g. 1 mg. Offered sympathy and encouragement. Episode of shaking 11/25/16 likely related to anxiety. Concern re discouragement and ability to participate in therapies. Continue counseling per [employer]UC[employer]. * CHF with MR, TR, diastolic dysfn and mod pulm HTN on echo 12/2014. BNP 11/24/16 not significantly elevated. * UTI: initiate nitrofurantoin. C & S was sensitive, will cont therapy * Voiding normally s/p Hernandez d/c 11/21/16. Reduce torsemide to reduce urinary frequency. * Diabetes mellitus type 2. Continue insulin glargine twice daily; reduced dose 11/22/16 to 20 U QPM and 15 U QAM as she's eating less and on metformin. BS high 11/23/16: increase HS Lantus to 23 U. Continue insulin lispro before meals on a sliding scale and empagliflozin orally. Added metformin 250 mg BID. increased a.m. dosing to 23U 11/27 Chronic stable conditions: * Coronary artery disease status post coronary artery bypass graft with angina. She will be monitored for any further symptoms and nitroglycerin will be available on a p.r.n. basis. Isosorbide for angina. D/W state tested nursing assistant Dr. Gauthier. Incomplete revascularization; LV fn recovered; mitral regurgitation. OK for afterload reduction with ARB. B-gera contraindicated due to depression. ASA d/w Neurosurgery 10/2116: OK to start. * History of gout. Uric acid 6.8 (added on to hosptal labs from 11/16/16), just below target for prevention of recurrence. Continue allopurinol. * History of sciatica. She reports this responded dramatically to gabapentin at a very low dose and this will be continued. * Gastroesophageal reflux disorder. Continue pantoprazole. * Vitamin D deficiency. Continue vitamin D supplementation. * Anemia, post-surgical, improving. Chart review with further past medical history: ventral hernia repair, cholecystectomy, esophageal spasm. Hope for recovery of motor function in legs. Otherwise goal is to optimize independence in transfer and self care. Expect 4 week LOS with tentative discharge 12/16/16. Follow-up: Seen by Hussain Hartley, Neurosurgery PA, 11/13/16 and steristrips removed. Follow-up Dr. Sánchez 01/26/17. Subjective: No events overnight. Ongoing c/o LBP wants to try lidoderm. Denies SOB/chills. Objective: Vital Signs Temp Pulse Resp BP Pulse Ox 36.5 C 72 17 128/45 H 98 11/27/16 20:00 11/27/16 20:00 11/27/16 20:00 11/27/16 20:47 11/27/16 20:00 Laboratory Results 11/24/16 18:00 11/24/16 18:00 11/26/16 11/27/16 11/28/16 05:59 05:59 05:59 Intake Total 1495 1270 712 Output Total 1000 2050 1150 Balance 224 -634 -743 - Pending Discharge Pending Discharge Within 24 Hours: No Pending Discharge Within 48 Hours: No Physical Exam - Physical Exam General Appearance: alert, no apparent distress Neck: supple Respiratory: lungs clear, normal breath sounds Cardiac/Chest: regular rate, rhythm Abdomen: normal bowel sounds, non-tender, soft Skin: normal color, warm/dry Neuro/Psych: alert, normal mood/affect, oriented x 3, No cognition abnormalities , No speech abnormalities ICD10 Worksheet Patient Problems: Problems Problem Status Onset Back pain Acute Bilateral leg weakness Acute CHF (congestive heart failure) Acute Chest pain Acute Chronic Disease Mgmt/Transitional Care Acute Lumbar radiculitis Acute Lumbar stenosis Acute NSTEMI (non-ST elevated myocardial infarction) Acute Sensory abnormality of thoracic dermatome distribution Acute
[2016-11-28] MEDS: ONDANSETRON DISINTEGRATING 4 MG TAB PO PRN (02:02)
[2016-11-28] MEDS: ACETAMINOPHEN 500 MG TAB PO SCH ×3 (07:44→16:43)
[2016-11-28] MEDS: PATCH REMOVAL 1 EA PATCH TD SCH ×2 (08:33→22:19)
[2016-11-28] MEDS: INSULIN GLARGINE 100 UNITS/ML SYRINGE SC SCH ×2 (08:33→22:29)
[2016-11-28] MEDS: INSULIN LISPRO 100 UNIT/ML SC SCH ×3 (08:34→16:49)
[2016-11-28] MEDS: ISOSORBIDE MONONITRATE 30 MG TAB.SR PO SCH ×2 (08:37→22:17)
[2016-11-28] MEDS: metFORMIN HCL 500 MG TAB PO SCH ×2 (08:39→16:43)
[2016-11-28] MEDS: GABAPENTIN 100 MG CAP PO SCH ×3 (08:40→22:18)
[2016-11-28] MEDS: PANTOPRAZOLE SODIUM 40 MG TAB PO SCH ×3 (08:41→22:19)
[2016-11-28] MEDS: Empagliflozin [Jardiance] 10 MG PO SCH (08:41)
[2016-11-28] MEDS: TORSEMIDE 20 MG TAB PO SCH (09:49)
[2016-11-28] MEDS: CHOLECALCIFEROL VIT D3 2,000 UNITS TAB/CAP PO SCH (09:50)
[2016-11-28] MEDS: ALLOPURINOL 100 MG TAB PO SCH ×2 (09:51→22:18)
[2016-11-28] MEDS: ENOXAPARIN 40 MG/0.4 ML SYR SC SCH (09:51)
[2016-11-28] MEDS: NITROFURANTOIN MACROBID 100 MG CAP PO SCH ×2 (09:51→22:18)
[2016-11-28] MEDS: METHOCARBAMOL 750 MG TAB PO PRN (09:54)
--- NOTE | 2016-11-28 11:30 | SOAPPROG ---
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 Initial FIM 63 on 11/18/16; improved to 68 on 11/25/16. Has improved L leg strength but not able to bear weight. Decreased LE proprioception. decreased sensation in feet. 1-person assist for log roll & bed mobility, 2 person mod A for slide-board transfer. Good upper extremity strength; does well with wheelchair mobility. UB dressing set-up/SBA, sponge bath sitting EOB min A. LB dressing mod A. Physical therapy and occupational therapy to optimize her mobility and functional status. Initial goal is transfers to wheelchair. * Pain management. Pain in L gluteus; feels deep to her, improved; now with low back pain. NSAIDs contraindicated for 6 mo after spinal fusion. Continue acetaminophen and methocarbamol. Not tolerating oxycodone due to nausea; refusing hydromorphone due to prior experience. Ice and heat are available. Stretching and other modalities per PT. Massage and acupuncture per her request ordered 11/22/16; pain seems to respond to acupuncture. * Doubt neurogenic bowel. Liquid stool 11/21/16, now normalizing; D/C check for C. difficile. Changed senna to PRN on 11/18/16. Per her request, changing bowel protocol with bisacodyl suppository to Monday, , Monday. * Hypertension. BP was elevated on hydralazine, isosorbide. torsemide and PRN clonidine. Was on losartan at bedtime previously; restarted 11/17/16; increased to 50 mg QHS on 11/21/16. BP still mostly high; iincrease losartan to 75 mg QHS 11/28/16. Decrease torsemide from 20 mg QD to 10 mg QD. Continue to monitor. * Irregular heart rhythm: EKG 11/24/16 with PVCs and lateral ischemia. Troponin not elevated. BMP with slight increase creatinine (due to losartan?) and Ca (due to immobility?). She refused transfer to ED yesterday. Continue antianginal meds (isosorbide, NTG). * Renal insufficiency leukocytosis and anemia 11/24/16: recheck CMP and CBC. * Anxiety and discouragement. Declines offer of SSRI or other antianxiety agent besides diazepam. Asks for lower dose e.g. 1 mg. Offered sympathy and encouragement. Episode of shaking 11/25/16 likely related to anxiety. Concern re discouragement and ability to participate in therapies. Continue counseling per [employer]. * CHF with MR, TR, diastolic dysfn and mod pulm HTN on echo 12/2014. BNP 11/24/16 not significantly elevated. * UTI: U Cx with E. coli and K. pneumoniae, sens to nitrofurantoin. Complete 7 days on 11/29/16. * Voiding normally s/p Hernandez d/c 11/21/16. Reduce torsemide to reduce urinary frequency. * Diabetes mellitus type 2. Continue insulin glargine twice daily; reduced dose 11/22/16 to 20 U QPM and 15 U QAM; PO intake improved and glargine increased to 23 U BID on 11/26/16. Continue insulin lispro before meals on a sliding scale and empagliflozin orally. Added metformin, starting at 250 mg BID. * Prophylaxis: on enoxaparin. Chronic stable conditions: * Coronary artery disease status post coronary artery bypass graft with angina. She will be monitored for any further symptoms and nitroglycerin will be available on a p.r.n. basis. Isosorbide for angina. D/W mannequin molder Dr. Gauthier. Incomplete revascularization; LV fn recovered; mitral regurgitation. OK for afterload reduction with ARB. B-gera contraindicated due to depression. ASA d/w Neurosurgery 10/2116: OK to start. * History of gout. Uric acid 6.8 (added on to hosptal labs from 11/16/16), just below target for prevention of recurrence. Continue allopurinol. * History of sciatica. She reports this responded dramatically to gabapentin at a very low dose and this will be continued. * Gastroesophageal reflux disorder. Continue pantoprazole. * Vitamin D deficiency. Continue vitamin D supplementation. * Anemia, post-surgical, improving. Chart review with further past medical history: ventral hernia repair, cholecystectomy, esophageal spasm. Hope for recovery of motor function in legs. Otherwise goal is to optimize independence in transfer and self care. Expect 4 week LOS with tentative discharge 12/16/16. Follow-up: Seen by Hussain Hartley, Neurosurgery PA, 11/13/16 and steristrips removed. Follow-up Dr. Sánchez 01/26/17. 11/28/16 11:30 Subjective: C/O L buttock pain. Was better; worse today. Unsure of what may have caused it. Also with LBP. Ice, heat and stretching help; not sure if lidocaine patch or methocarbamol are helping. Objective: Vital Signs Temp Pulse Resp BP Pulse Ox 36.6 C 61 16 155/66 H 93 11/28/16 05:11 11/28/16 09:00 11/28/16 09:00 11/28/16 06:49 11/28/16 09:00 Laboratory Results 11/24/16 18:00 11/24/16 18:00 11/27/16 11/28/16 11/29/16 05:59 05:59 05:59 Intake Total 1270 1062 360 Output Total 2050 1850 200 Balance -780 -788 160 Physical Exam - Physical Exam General Appearance: WD/WN, alert, no apparent distress, obese Respiratory: No respiratory distress, No accessory muscle use Cardiac/Chest: regular rate, rhythm, No edema Abdomen: normal bowel sounds, non-tender, soft, No distended Skin: normal color, warm/dry Neuro/Psych: alert, normal mood/affect, oriented x 3 ICD10 Worksheet Patient Problems: Problems Problem Status Onset Back pain Acute Bilateral leg weakness Acute CHF (congestive heart failure) Acute Chest pain Acute Chronic Disease Mgmt/Transitional Care Acute Lumbar radiculitis Acute Lumbar stenosis Acute NSTEMI (non-ST elevated myocardial infarction) Acute Sensory abnormality of thoracic dermatome distribution Acute
[2016-11-28 13:44] LABS: % IMMATURE GRANULYOCYTES 0.8 % (0.0-1.1); ABSOLUTE IMMATURE GRANULOCYTES 0.06 10^3/uL (0.00-0.10); ADD DIFF? NO; ADD MORPH? NO; ADD SCAN? NO; ATYPICAL LYMPHOCYTE FLAG 10 (0-99); FRAGMENT RBC FLAG 0 (0-99); HEMATOCRIT 35.6 % (38.0-47.0); HEMOGLOBIN 11.7 g/dL (12.6-16.3); LEFT SHIFT FLG 10 (0-99); LIPEMIA HEMOLYSIS FLAG 80 (0-99); MEAN CELL HEMOGLOBIN 30.9 pg (27.9-34.1); MEAN CELL HEMOGLOBIN CONCENTR. 32.9 g/dL (32.4-36.7); MEAN CELL VOLUME 93.9 fL (81.5-99.8); MEAN PLATELET VOLUME 9.9 fL (8.7-11.7); PLATELET CLUMPS FLAG 0 (0-99); PLATELET COUNT 432 10^3/uL (150-400); RED BLOOD CELL COUNT 3.79 10^6/uL (4.18-5.33); RED CELL DISTRIBUTION WIDTH 13.5 % (11.5-15.2)
[2016-11-28] MEDS: LIDOCAINE 5% 1 EA PATCH TD PRN (14:06)
[2016-11-28] MEDS ORDERED: BISACODYL 10 MG SUPP PR SCH (16:00)
[2016-11-28 16:18] LABS: ALANINE AMINOTRANSFERASE 31 IU/L (9-52); ALBUMIN 3.4 g/dL (3.5-5.0); ALKALINE PHOSPHATASE 172 IU/L (38-126); ANION GAP 9 mEq/L (8-16); ASPARTATE AMINOTRANSFERASE 22 IU/L (14-46); BILIRUBIN,TOTAL 0.6 mg/dL (0.1-1.4); CALCIUM 10.9 mg/dL (8.5-10.4); CARBON DIOXIDE 27 mEq/l (22-31); CHLORIDE 98 mEq/L (97-110); GLOMERULAR FILTRATION RATE 55; GLUCOSE 207 mg/dL (70-100); POTASSIUM 4.1 mEq/L (3.5-5.2); SODIUM 134 mEq/L (134-144); TOTAL PROTEIN 6.8 g/dL (6.3-8.2)
[2016-11-28] MEDS: LOSARTAN POTASSIUM 25 MG TAB PO SCH (22:17)
[2016-11-28] MEDS: DOCUSATE SODIUM 100 MG CAP PO SCH (22:18)
[2016-11-28] MEDS: SENNOSIDES 1 TAB PO SCH (22:25)
[2016-11-29] MEDS: ACETAMINOPHEN 500 MG TAB PO SCH ×4 (05:11→17:33)
[2016-11-29] MEDS: ISOSORBIDE MONONITRATE 30 MG TAB.SR PO SCH ×2 (07:48→21:55)
[2016-11-29] MEDS: ENOXAPARIN 40 MG/0.4 ML SYR SC SCH (07:48)
[2016-11-29] MEDS: CHOLECALCIFEROL VIT D3 2,000 UNITS TAB/CAP PO SCH (07:52)
[2016-11-29] MEDS: NITROFURANTOIN MACROBID 100 MG CAP PO SCH ×2 (07:54→21:54)
[2016-11-29] MEDS: ALLOPURINOL 100 MG TAB PO SCH ×2 (07:54→21:56)
[2016-11-29] MEDS: GABAPENTIN 100 MG CAP PO SCH ×3 (07:54→21:55)
[2016-11-29] MEDS: PANTOPRAZOLE SODIUM 40 MG TAB PO SCH (07:54)
[2016-11-29] MEDS: metFORMIN HCL 500 MG TAB PO SCH (07:54)
[2016-11-29] MEDS: INSULIN LISPRO 100 UNIT/ML SC SCH ×3 (08:57→17:33)
[2016-11-29] MEDS: Empagliflozin [Jardiance] 10 MG PO SCH (09:31)
[2016-11-29] MEDS: TORSEMIDE 20 MG TAB PO SCH (09:32)
[2016-11-29] MEDS: INSULIN GLARGINE 100 UNITS/ML SYRINGE SC SCH ×2 (09:33→21:56)
[2016-11-29] MEDS ORDERED: FLUCONAZOLE 150 MG TAB PO ONE (13:28)
--- NOTE | 2016-11-29 14:10 | SOAPPROG ---
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 Luis. Plan to slightly increase lantus and continue SSI while stopping metformin (concern that it may be contributing to abdominal upset), monitoring glucose AC and HS, as she has highly variable oral intake. Discussed transfer options and her diet concerns (she is on a ADA diet) . Rx fluconazole oral for vaginal yeast infection symptoms. 25 minutes was spent on the floor in patient care, the majority was spent in the counseling and coordination of care regarding issues above: nursing, diabetes, transferring. 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 Initial FIM 63 on 11/18/16; improved to 68 on 11/25/16. Has improved L leg strength but not able to bear weight. Decreased LE proprioception. decreased sensation in feet. 1-person assist for log roll & bed mobility, 2 person mod A for slide-board transfer. Good upper extremity strength; does well with wheelchair mobility. UB dressing set-up/SBA, sponge bath sitting EOB min A. LB dressing mod A. Physical therapy and occupational therapy to optimize her mobility and functional status. Initial goal is transfers to wheelchair. * Pain management. Pain in L gluteus; feels deep to her, improved; now with low back pain. NSAIDs contraindicated for 6 mo after spinal fusion. Continue acetaminophen and methocarbamol. Not tolerating oxycodone due to nausea; refusing hydromorphone due to prior experience. Ice and heat are available. Stretching and other modalities per PT. Massage and acupuncture per her request ordered 11/22/16; pain seems to respond to acupuncture. * Doubt neurogenic bowel. Liquid stool 11/21/16, now normalizing; D/C check for C. difficile. Changed senna to PRN on 11/18/16. Per her request, changing bowel protocol with bisacodyl suppository to Monday, , Monday. * Hypertension. BP was elevated on hydralazine, isosorbide. torsemide and PRN clonidine. Was on losartan at bedtime previously; restarted 4/20/17; increased to 50 mg QHS on 11/21/16. BP still mostly high; iincrease losartan to 75 mg QHS 11/28/16. Decrease torsemide from 20 mg QD to 10 mg QD. Continue to monitor. * Irregular heart rhythm: EKG 11/24/16 with PVCs and lateral ischemia. Troponin not elevated. BMP with slight increase creatinine (due to losartan?) and Ca (due to immobility?). She refused transfer to ED yesterday. Continue antianginal meds (isosorbide, NTG). * Renal insufficiency leukocytosis and anemia 11/24/16: recheck CMP and CBC. * Anxiety and discouragement. Declines offer of SSRI or other antianxiety agent besides diazepam. Asks for lower dose e.g. 1 mg. Offered sympathy and encouragement. Episode of shaking 11/25/16 likely related to anxiety. Concern re discouragement and ability to participate in therapies. Continue counseling per [employer]. * CHF with MR, TR, diastolic dysfn and mod pulm HTN on echo 12/2014. BNP 11/24/16 not significantly elevated. * UTI: U Cx with E. coli and K. pneumoniae, sens to nitrofurantoin. Complete 7 days on 11/29/16. * Voiding normally s/p Hernandez d/c 11/21/16. Reduce torsemide to reduce urinary frequency. * Diabetes mellitus type 2. Continue insulin glargine twice daily; reduced dose 11/22/16 to 20 U QPM and 15 U QAM; PO intake improved and glargine increased to 23 U BID on 11/26/16, 25 units QAM and 23 QHS on 11/29. Continue insulin lispro before meals on a sliding scale and empagliflozin orally. Metformin trialed with good effect, but stopped 11/29 due to concern for stomach upset. Monitor closely. * Prophylaxis: on enoxaparin. * Vaginal candidal infection: per symptoms, rx fluconazole 150 mg oral x1 on 11/29 as this has been effective in the past for her. Chronic stable conditions: * Coronary artery disease status post coronary artery bypass graft with angina. She will be monitored for any further symptoms and nitroglycerin will be available on a p.r.n. basis. Isosorbide for angina. D/W cena Dr. Gauthier. Incomplete revascularization; LV fn recovered; mitral regurgitation. OK for afterload reduction with ARB. B-gera contraindicated due to depression. ASA d/w Neurosurgery 10/2116: OK to start. * History of gout. Uric acid 6.8 (added on to hosptal labs from 11/16/16), just below target for prevention of recurrence. Continue allopurinol. * History of sciatica. She reports this responded dramatically to gabapentin at a very low dose and this will be continued. * Gastroesophageal reflux disorder. Continue pantoprazole. * Vitamin D deficiency. Continue vitamin D supplementation. * Anemia, post-surgical, improving. Chart review with further past medical history: ventral hernia repair, cholecystectomy, esophageal spasm. Hope for recovery of motor function in legs. Otherwise goal is to optimize independence in transfer and self care. Expect 4 week LOS with tentative discharge 12/16/16. Follow-up: Seen by Hussain Hartley, Neurosurgery PA, 11/13/16 and steristrips removed. Follow-up Dr. Sánchez 01/26/17. 11/29/16 14:04 Subjective: CC: multiple, diabetes, transfers, yeast infection, nursing No acute events overnight. Glucose consistently elevated. She is concerned about transfers and communication of needs among day and night nurses. Relayed to nursing staff, discussed transfer options including slide board (optimal) and lucian (not optimal). She describes symptoms of a yeast infection, she commonly gets them especially when glucose is high. She also would like docs to revisit her diabetes regimen. Objective: Vital Signs Temp Pulse Resp BP Pulse Ox 37.0 C 82 16 151/81 H 93 11/29/16 07:16 11/29/16 08:59 11/29/16 07:16 11/29/16 08:59 11/29/16 07:16 Laboratory Results 11/28/16 12:30 11/28/16 12:30 11/28/16 11/29/16 11/30/16 05:59 05:59 05:59 Intake Total 1062 1130 Output Total 1850 1850 115 Balance -426 -925 -235 Physical Exam - Physical Exam General Appearance: alert, no apparent distress, obese EENT: No scleral icterus (R), No scleral icterus (L) Respiratory: No respiratory distress, No accessory muscle use Cardiac/Chest: No edema Skin: normal color, warm/dry Extremities: No pedal edema, No swelling Neuro/Psych: alert, normal mood/affect (good mood, but was tearful when I entered the room), motor weakness (paraplegia) ICD10 Worksheet Patient Problems: Problems Problem Status Onset Back pain Acute Bilateral leg weakness Acute CHF (congestive heart failure) Acute Chest pain Acute Chronic Disease Mgmt/Transitional Care Acute Lumbar radiculitis Acute Lumbar stenosis Acute NSTEMI (non-ST elevated myocardial infarction) Acute Sensory abnormality of thoracic dermatome distribution Acute
[2016-11-29] MEDS: SIMETHICONE 80 MG TAB CHEW PO PRN (18:27)
[2016-11-29] MEDS: SENNOSIDES 1 TAB PO SCH (21:54)
[2016-11-29] MEDS: LOSARTAN POTASSIUM 25 MG TAB PO SCH (21:55)
[2016-11-29] MEDS: DOCUSATE SODIUM 100 MG CAP PO SCH (21:56)
[2016-11-29] MEDS: PATCH REMOVAL 1 EA PATCH TD SCH (23:33)
[2016-11-30] MEDS: ACETAMINOPHEN 500 MG TAB PO SCH ×4 (03:43→17:07)
[2016-11-30] MEDS: ALLOPURINOL 100 MG TAB PO SCH ×2 (08:57→21:04)
[2016-11-30] MEDS: CHOLECALCIFEROL VIT D3 2,000 UNITS TAB/CAP PO SCH (08:57)
[2016-11-30] MEDS: Empagliflozin [Jardiance] 10 MG PO SCH (08:58)
[2016-11-30] MEDS: ENOXAPARIN 40 MG/0.4 ML SYR SC SCH (08:58)
[2016-11-30] MEDS: GABAPENTIN 100 MG CAP PO SCH ×3 (08:59→21:04)
[2016-11-30] MEDS: INSULIN GLARGINE 100 UNITS/ML SYRINGE SC SCH ×2 (08:59→21:05)
[2016-11-30] MEDS: ISOSORBIDE MONONITRATE 30 MG TAB.SR PO SCH ×2 (09:00→21:03)
[2016-11-30] MEDS: INSULIN LISPRO 100 UNIT/ML SC SCH ×3 (09:00→17:16)
[2016-11-30] MEDS: TORSEMIDE 20 MG TAB PO SCH (09:01)
[2016-11-30] MEDS: PANTOPRAZOLE SODIUM 40 MG TAB PO SCH ×2 (09:01→21:04)
--- NOTE | 2016-11-30 10:24 | SOAPPROG ---
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 Initial FIM 63 on 11/18/16; improved to 68 on 11/25/16. Has improved L leg strength but not able to bear weight. Decreased LE proprioception. decreased sensation in feet. 1-person assist for log roll & bed mobility, 2 person mod A for slide-board transfer. Good upper extremity strength; does well with wheelchair mobility. UB dressing set-up/SBA, sponge bath sitting EOB min A. LB dressing mod A. Physical therapy and occupational therapy to optimize her mobility and functional status. Initial goal is transfers to wheelchair. * Pain management. Pain in L gluteus; improved; now with low back pain. NSAIDs contraindicated for 6 mo after spinal fusion. Continue acetaminophen and methocarbamol. Not tolerating oxycodone due to nausea; refusing hydromorphone due to prior experience. Ice and heat are available. Stretching and other modalities per PT. Massage and acupuncture per her request ordered ; pain seems to respond to acupuncture. Using lidocaine patch for L buttock with some improvement. * Doubt neurogenic bowel. Liquid stool 11/21/16, now normalizing; D/C check for C. difficile. Changed senna to PRN on 11/18/16. Per her request, changing bowel protocol with bisacodyl suppository to Monday, , Monday. * Hypertension. BP was elevated on hydralazine, isosorbide. torsemide and PRN clonidine. Was on losartan at bedtime previously; restarted 11/17/16; increased to 50 mg QHS on 11/21/16. BP still mostly high; increase losartan to 75 mg QHS . Decreased torsemide from 20 mg QD to 10 mg QD. Continue to monitor. * Irregular heart rhythm: EKG 11/24/16 with PVCs and lateral ischemia. Troponin not elevated. BMP with slight increase creatinine (due to losartan?) and Ca (due to immobility?). She refused transfer to ED yesterday. Continue antianginal meds (isosorbide, NTG). * Leukocytosis and anemia 11/24/16: Leukocytosis resolved, anemia improving . * .Renal insufficiency: improved 11/28/16 but still stage 3 CRI with GFR 55. * Anxiety and discouragement. Declines offer of SSRI or other antianxiety agent besides diazepam. Asks for lower dose e.g. 1 mg. Offered sympathy and encouragement. Episode of shaking 11/25/16 likely related to anxiety. Concern re discouragement and ability to participate in therapies. Continue counseling per [employer]. * CHF with MR, TR, diastolic dysfn and mod pulm HTN on echo 12/2014. BNP 11/24/16 not significantly elevated. * UTI: U Cx with E. coli and K. pneumoniae, sens to nitrofurantoin. Completed 7 days on 11/29/16. * Yeast vaginitis, treated with fluconazole single dose 11/29/16. * Voiding normally s/p Hernandez d/c 11/21/16. Reduce torsemide to reduce urinary frequency. * Diabetes mellitus type 2. Continue insulin glargine twice daily 25 U QPM and 23 U QAM. Continue insulin lispro before meals on a sliding scale and empagliflozin orally. Restart metformin 11/30/16, at 500 mg BID. * Prophylaxis: on enoxaparin. Chronic stable conditions: * Coronary artery disease status post coronary artery bypass graft with angina. She will be monitored for any further symptoms and nitroglycerin will be available on a p.r.n. basis. Isosorbide for angina. D/W full stack net developer Dr. Gauthier. Incomplete revascularization; LV fn recovered; mitral regurgitation. OK for afterload reduction with ARB. B-gera contraindicated due to depression. ASA d/w Neurosurgery 10/2116: OK to start. * History of gout. Uric acid 6.8 (added on to hosptal labs from 11/16/16), just below target for prevention of recurrence. Continue allopurinol. * History of sciatica. She reports this responded dramatically to gabapentin at a very low dose and this will be continued. * Gastroesophageal reflux disorder. Continue pantoprazole. * Vitamin D deficiency. Continue vitamin D supplementation. * Anemia, post-surgical, improving. Chart review with further past medical history: ventral hernia repair, cholecystectomy, esophageal spasm. Hope for recovery of motor function in legs. Otherwise goal is to optimize independence in transfer and self care. Expect 4 week LOS with tentative discharge 12/16/16. Follow-up: Seen by Hussain Hartley, Neurosurgery PA, 11/13/16 and steristrips removed. Follow-up Dr. Sánchez 01/26/17. 11/30/16 10:15 Subjective: Nausea and dyspepsia are improved; appetite better. No ondansetron used today or yesterday. Does not note much change with no metformin yesterday evening or this morning. Bowels moving, normal stool, not yet usual regularity. Has improved L leg strength. Objective: Vital Signs Temp Pulse Resp BP Pulse Ox 36.6 C 79 18 148/72 H 93 11/30/16 06:49 11/30/16 06:49 11/30/16 06:49 11/30/16 09:00 11/30/16 06:49 Laboratory Results 11/28/16 12:30 11/28/16 12:30 11/29/16 11/30/16 12/01/16 05:59 05:59 05:59 Intake Total 1130 1170 Output Total 1850 1950 Balance -720 -780 Physical Exam - Physical Exam General Appearance: WD/WN, alert, no apparent distress, obese Respiratory: normal breath sounds, No crackles, No rhonchi, No wheezing Cardiac/Chest: regular rate, rhythm, systolic murmur, No edema Neuro/Psych: alert, normal mood/affect, oriented x 3, motor weakness (RLE with no antigravity movement hip flexors or quads. EHL 3/5. LLE quads, hip flexors 3 - 4 /5.) ICD10 Worksheet Patient Problems: Problems Problem Status Onset Back pain Acute Bilateral leg weakness Acute CHF (congestive heart failure) Acute Chest pain Acute Chronic Disease Mgmt/Transitional Care Acute Lumbar radiculitis Acute Lumbar stenosis Acute NSTEMI (non-ST elevated myocardial infarction) Acute Sensory abnormality of thoracic dermatome distribution Acute
[2016-11-30] MEDS: LIDOCAINE 5% 1 EA PATCH TD PRN (11:10)
[2016-11-30] MEDS: metFORMIN HCL 500 MG TAB PO SCH (17:08)
[2016-11-30] MEDS: LOSARTAN POTASSIUM 25 MG TAB PO SCH (21:03)
[2016-11-30] MEDS: SENNOSIDES 1 TAB PO SCH (21:04)
[2016-11-30] MEDS: DOCUSATE SODIUM 100 MG CAP PO SCH (21:04)
[2016-11-30] MEDS: PATCH REMOVAL 1 EA PATCH TD SCH (21:07)
[2016-12-01] MEDS: ACETAMINOPHEN 500 MG TAB PO SCH ×4 (00:17→17:07)
[2016-12-01] MEDS ORDERED: BISACODYL 10 MG SUPP PR SCH ×2 (08:00→16:00)
[2016-12-01] MEDS: GABAPENTIN 100 MG CAP PO SCH ×3 (08:30→20:36)
[2016-12-01] MEDS: INSULIN GLARGINE 100 UNITS/ML SYRINGE SC SCH ×2 (08:31→20:33)
[2016-12-01] MEDS: PANTOPRAZOLE SODIUM 40 MG TAB PO SCH ×2 (08:34→20:40)
[2016-12-01] MEDS: CHOLECALCIFEROL VIT D3 2,000 UNITS TAB/CAP PO SCH (08:34)
[2016-12-01] MEDS: metFORMIN HCL 500 MG TAB PO SCH ×2 (08:34→17:06)
[2016-12-01] MEDS: ENOXAPARIN 40 MG/0.4 ML SYR SC SCH (08:37)
[2016-12-01] MEDS: ALLOPURINOL 100 MG TAB PO SCH ×2 (08:37→20:27)
[2016-12-01] MEDS: Empagliflozin [Jardiance] 10 MG PO SCH (08:40)
[2016-12-01] MEDS: ISOSORBIDE MONONITRATE 30 MG TAB.SR PO SCH ×2 (08:42→20:25)
[2016-12-01] MEDS: TORSEMIDE 20 MG TAB PO SCH (08:43)
[2016-12-01] MEDS: INSULIN LISPRO 100 UNIT/ML SC SCH ×3 (08:50→17:06)
--- NOTE | 2016-12-01 11:06 | SOAPPROG ---
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 Strength improving, but is not the limiting factor based on discussion with Andrew from PT. Mood improved, declined pharm intervention. Bowel routine improving. I spent 30 min on the floor in the care of the patient, the majority was in the counseling and coordination of care regarding ambulation, assistive devices, and orthotics. 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 Initial FIM 63 on 11/18/16; improved to 68 on 11/25/16. Has improved L leg strength but not able to bear weight. Decreased LE proprioception. decreased sensation in feet. 1-person assist for log roll & bed mobility, 2 person mod A for slide-board transfer. Good upper extremity strength; does well with wheelchair mobility. UB dressing set-up/SBA, sponge bath sitting EOB min A. LB dressing mod A. Physical therapy and occupational therapy to optimize her mobility and functional status. Initial goal is transfers to wheelchair. Functional ambulation will likely be an outpatient goal, rather than IPR. * Pain management. Pain in L gluteus; improved; now with low back pain. NSAIDs contraindicated for 6 mo after spinal fusion. Continue acetaminophen and methocarbamol. Not tolerating oxycodone due to nausea; refusing hydromorphone due to prior experience. Ice and heat are available. Stretching and other modalities per PT. Massage and acupuncture per her request ordered ; pain seems to respond to acupuncture. Using lidocaine patch for L buttock with some improvement. * Doubt neurogenic bowel. Liquid stool 11/21/16, now normalizing; D/C check for C. difficile. Changed senna to PRN on 11/18/16. Per her request, changing bowel protocol with bisacodyl suppository to Monday, , Monday. * Hypertension. BP was elevated on hydralazine, isosorbide. torsemide and PRN clonidine. Was on losartan at bedtime previously; restarted 11/17/16; increased to 50 mg QHS on 11/21/16. BP still mostly high; increase losartan to 75 mg QHS . Decreased torsemide from 20 mg QD to 10 mg QD. Continue to monitor. * Irregular heart rhythm: EKG 11/24/16 with PVCs and lateral ischemia. Troponin not elevated. BMP with slight increase creatinine (due to losartan?) and Ca (due to immobility?). She refused transfer to ED yesterday. Continue antianginal meds (isosorbide, NTG). * Leukocytosis and anemia 11/24/16: Leukocytosis resolved, anemia improving . * .Renal insufficiency: improved 11/28/16 but still stage 3 CRI with GFR 55. * Anxiety and discouragement. Declines offer of SSRI or other antianxiety agent besides diazepam. Asks for lower dose e.g. 1 mg. Offered sympathy and encouragement. Episode of shaking 11/25/16 likely related to anxiety. Concern re discouragement and ability to participate in therapies. Continue counseling per [employer]OCI[employer]. * CHF with MR, TR, diastolic dysfn and mod pulm HTN on echo 12/2014. BNP 11/24/16 not significantly elevated. * UTI: U Cx with E. coli and K. pneumoniae, sens to nitrofurantoin. Completed 7 days on 11/29/16. * Yeast vaginitis, treated with fluconazole single dose 11/29/16. * Voiding normally s/p Richards d/c 11/21/16. Reduce torsemide to reduce urinary frequency. * Diabetes mellitus type 2. Continue insulin glargine twice daily 25 U QPM and 23 U QAM. Continue insulin lispro before meals on a sliding scale and empagliflozin orally. Restart metformin 11/30/16, at 500 mg BID. * Prophylaxis: on enoxaparin. Chronic stable conditions: * Coronary artery disease status post coronary artery bypass graft with angina. She will be monitored for any further symptoms and nitroglycerin will be available on a p.r.n. basis. Isosorbide for angina. D/W radio board operator Dr. Gauthier. Incomplete revascularization; LV fn recovered; mitral regurgitation. OK for afterload reduction with ARB. B-gera contraindicated due to depression. ASA d/w Neurosurgery 10/2116: OK to start. * History of gout. Uric acid 6.8 (added on to hosptal labs from 11/16/16), just below target for prevention of recurrence. Continue allopurinol. * History of sciatica. She reports this responded dramatically to gabapentin at a very low dose and this will be continued. * Gastroesophageal reflux disorder. Continue pantoprazole. * Vitamin D deficiency. Continue vitamin D supplementation. * Anemia, post-surgical, improving. Chart review with further past medical history: ventral hernia repair, cholecystectomy, esophageal spasm. Hope for recovery of motor function in legs. Otherwise goal is to optimize independence in transfer and self care. Expect 4 week LOS with tentative discharge 12/16/16. Follow-up: Seen by Hussain Hartley, Neurosurgery PA, 11/13/16 and steristrips removed. Follow-up Dr. Sánchez 01/26/17. Subjective: CC: neurological recovery No acute events overnight. Pt reports improving strength, but PT notes that while strength is good, proprioception and sensation is bad, and not needing an AFO yet. Mood improved, no SI, does not want pharm intervention, working well with social work. Bowel and bladder routines going well. Objective: Vital Signs Temp Pulse Resp BP Pulse Ox 36.5 C 70 18 148/66 H 95 12/01/16 07:18 12/01/16 07:18 12/01/16 07:18 12/01/16 08:42 12/01/16 07:18 Laboratory Results 11/28/16 12:30 11/28/16 12:30 11/30/16 12/01/16 12/02/16 05:59 05:59 05:59 Intake Total 1170 1118 200 Output Total 2850 1000 200 Balance -1680 118 0 Physical Exam - Physical Exam General Appearance: alert, no apparent distress, obese EENT: No scleral icterus (L) Respiratory: No respiratory distress, No accessory muscle use Pelvic Exam: other (no richards in place) Skin: normal color, warm/dry Neuro/Psych: alert, normal mood/affect, motor weakness (still 1/5 on right, though improving in legs, left is closer to 3/5 though hard to quanitfy exactly given position and body habitus. ) ICD10 Worksheet Patient Problems: Problems Problem Status Onset Back pain Acute Bilateral leg weakness Acute CHF (congestive heart failure) Acute Chest pain Acute Chronic Disease Mgmt/Transitional Care Acute Lumbar radiculitis Acute Lumbar stenosis Acute NSTEMI (non-ST elevated myocardial infarction) Acute Sensory abnormality of thoracic dermatome distribution Acute
[2016-12-01] MEDS: DOCUSATE SODIUM 100 MG CAP PO SCH (16:27)
[2016-12-01] MEDS: BISACODYL 10 MG SUPP PR SCH (17:07)
[2016-12-01] MEDS: LOSARTAN POTASSIUM 25 MG TAB PO SCH (20:26)
[2016-12-01] MEDS: SENNOSIDES 1 TAB PO SCH (20:27)
[2016-12-01] MEDS: PATCH REMOVAL 1 EA PATCH TD SCH (20:40)
[2016-12-01] MEDS: SIMETHICONE 80 MG TAB CHEW PO PRN (21:58)
[2016-12-01] MEDS: PREPARATION H 51 GM CRTUBE PR PRN (21:59)
[2016-12-02] MEDS: ACETAMINOPHEN 500 MG TAB PO SCH ×5 (00:10→23:52)
[2016-12-02] MEDS: SIMETHICONE 80 MG TAB CHEW PO PRN (02:01)
[2016-12-02] MEDS: ENOXAPARIN 40 MG/0.4 ML SYR SC SCH (09:25)
[2016-12-02] MEDS: INSULIN LISPRO 100 UNIT/ML SC SCH ×4 (09:25→17:59)
[2016-12-02] MEDS: INSULIN GLARGINE 100 UNITS/ML SYRINGE SC SCH (09:26)
[2016-12-02] MEDS: ALLOPURINOL 100 MG TAB PO SCH ×2 (10:52→21:05)
[2016-12-02] MEDS: CHOLECALCIFEROL VIT D3 2,000 UNITS TAB/CAP PO SCH (10:53)
[2016-12-02] MEDS: DOCUSATE SODIUM 100 MG CAP PO SCH (10:54)
[2016-12-02] MEDS: Empagliflozin [Jardiance] 10 MG PO SCH (10:55)
[2016-12-02] MEDS ORDERED: INSULIN GLARGINE 100 UNITS/ML SYRINGE SC SCH (10:55)
[2016-12-02] MEDS: GABAPENTIN 100 MG CAP PO SCH ×4 (10:56→21:08)
[2016-12-02] MEDS: ISOSORBIDE MONONITRATE 30 MG TAB.SR PO SCH ×2 (10:59→21:04)
[2016-12-02] MEDS: metFORMIN HCL 500 MG TAB PO SCH ×2 (11:00→17:59)
[2016-12-02] MEDS: PANTOPRAZOLE SODIUM 40 MG TAB PO SCH ×2 (11:00→21:05)
[2016-12-02] MEDS: TORSEMIDE 20 MG TAB PO SCH (11:00)
--- NOTE | 2016-12-02 11:05 | SOAPPROG ---
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 Initial FIM 63 on 11/18/16; improved to 68 on 11/25/16; to 75 as of 12/02/16. Has improved L leg strength but not able to bear weight. Decreased LE proprioception. decreased sensation in feet. mod A of 1 for bed mobility for control of legs; transfer SB mod A 1 - 2 . Dresses in bed, UB set-up/S, LB min A to set-up. Shower T[place]avia 2 person SB. [place] min A. Good upper extremity strength; does well with wheelchair mobility. Continue physical therapy and occupational therapy to optimize her mobility and functional status. Initial goal is to optimize function at wheelchair level with 1 person assist for transfers. * Pain management. Pain in L gluteus; improved; now with low back pain. NSAIDs contraindicated for 6 mo after spinal fusion. Continue acetaminophen and methocarbamol. Not tolerating oxycodone due to nausea; refusing hydromorphone due to prior experience. Ice and heat are available. Stretching and other modalities per PT. Massage and acupuncture per her request ordered ; pain seems to respond to acupuncture. Using lidocaine patch for L buttock with some improvement. * Doubt neurogenic bowel. Having normal bowel movements but inconsistent with bowel protocol. Initiate MOM QD starting 12/02/16. Changed senna to PRN on . Per her request, changed bowel protocol with bisacodyl suppository to Monday, , Monday. * Hypertension. BP was elevated on hydralazine, isosorbide. torsemide and PRN clonidine. Was on losartan at bedtime previously; restarted 11/17/16; increased to 50 mg QHS on 11/21/16. BP still mostly high; increase losartan to 75 mg QHS . Decreased torsemide from 20 mg QD to 10 mg QD. Continue to monitor. * .Renal insufficiency: improved 11/28/16 but still stage 3 CRI with GFR 55. * Anxiety and discouragement, improved. Declined offer of SSRI or other antianxiety agent besides diazepam, which she's not using. Episode of shaking 11/25/16 likely related to anxiety. Concern re discouragement and ability to participate in therapies. Continue counseling per TIME CLERK. * UTI: U Cx with E. coli and K. pneumoniae, sens to nitrofurantoin. Completed 7 days on 11/29/16. * Diabetes mellitus type 2. Fasting elevated; increase insulin glargine to 28U QPM and 23 U QAM on 12/02/16 from 25 U QPM and 23 U QAM. Continue insulin lispro before meals; increase to high-dose regimen starting 12/02/16 per her request; continue empagliflozin orally. Restarted metformin 11/30/16, at 500 mg BID; plan to titrate as tolerated. * Prophylaxis: on enoxaparin. Chronic stable conditions: * Yeast vaginitis, treated with fluconazole single dose 11/29/16. * Voiding normally s/p Hernandez d/c 11/21/16. Reduce torsemide to reduce urinary frequency. * CHF with MR, TR, diastolic dysfn and mod pulm HTN on echo 12/2014. BNP 11/24/16 not significantly elevated. * Irregular heart rhythm: EKG 11/24/16 with PVCs and lateral ischemia. Troponin not elevated. BMP with slight increase creatinine (due to losartan?) and Ca (due to immobility?). She refused transfer to ED 11/28/16. Continue antianginal meds (isosorbide, NTG). * Leukocytosis and anemia 11/24/16: Leukocytosis resolved, anemia improving . * Coronary artery disease status post coronary artery bypass graft with angina. She will be monitored for any further symptoms and nitroglycerin will be available on a p.r.n. basis. Isosorbide for angina. D/W overlock operator Dr. Gauthier. Incomplete revascularization; LV fn recovered; mitral regurgitation. OK for afterload reduction with ARB. B-gera contraindicated due to depression. ASA d/w Neurosurgery 10/2116: OK to start. * History of gout. Uric acid 6.8 (added on to hosptal labs from 11/16/16), just below target for prevention of recurrence. Continue allopurinol. * History of sciatica. She reports this responded dramatically to gabapentin at a very low dose and this will be continued. * Gastroesophageal reflux disorder. Continue pantoprazole. * Vitamin D deficiency. Continue vitamin D supplementation. * Anemia, post-surgical, improving. Chart review with further past medical history: ventral hernia repair, cholecystectomy, esophageal spasm. Attended staffing, 15 min. D/W case mtmg, nursing, PT,m OT. LOS one more week and hope for [id number] extension as she progresses towards goals. Follow-up: Seen by Hussain Hartley, Neurosurgery PA, 11/13/16 and steristrips removed. Follow-up Dr. Sánchez 01/26/17. 12/02/16 12:10 Subjective: C/O abdominal discomfort and gas; interfered with sleep. Had a normal bowel movement yesterday morning and declined scheduled suppository in the afternoon; then felt full in the evening and requested an enema. Has been eating less to reduce bowel movements. Requests increase in supplemental insulin. Objective: Vital Signs Temp Pulse Resp BP Pulse Ox 36.4 C 66 16 179/74 H 96 12/02/16 06:43 12/02/16 06:43 12/02/16 06:43 12/02/16 06:43 12/02/16 06:43 Laboratory Results 11/28/16 12:30 11/28/16 12:30 12/01/16 12/02/16 12/03/16 05:59 05:59 05:59 Intake Total 1118 1940 Output Total 1000 1100 Balance 118 840 - Time Spent With Patient Time Spent With Patient: Greater than 35 minutes floor time today, including more than 50% of time in coordination of care during staffing meeting, and counseling patient. Physical Exam - Physical Exam General Appearance: WD/WN, alert, no apparent distress, obese Respiratory: No respiratory distress, No accessory muscle use Cardiac/Chest: No edema Abdomen: non-tender, soft, other (hypoactive BS), No distended Skin: normal color, warm/dry Neuro/Psych: alert, normal mood/affect, oriented x 3 ICD10 Worksheet Patient Problems: Problems Problem Status Onset Back pain Acute Bilateral leg weakness Acute CHF (congestive heart failure) Acute Chest pain Acute Chronic Disease Mgmt/Transitional Care Acute Lumbar radiculitis Acute Lumbar stenosis Acute NSTEMI (non-ST elevated myocardial infarction) Acute Sensory abnormality of thoracic dermatome distribution Acute
[2016-12-02] MEDS ORDERED: SENNOSIDES 1 TAB PO PRN (11:09)
[2016-12-02] MEDS: LIDOCAINE 5% 1 EA PATCH TD PRN (13:06)
[2016-12-02] MEDS: MAGNESIUM HYDROXIDE 30 ML UDCUP PO SCH (13:44)
[2016-12-02] MEDS: ONDANSETRON DISINTEGRATING 4 MG TAB PO PRN (16:33)
[2016-12-02] MEDS: LOSARTAN POTASSIUM 25 MG TAB PO SCH (21:06)
[2016-12-02] MEDS: PATCH REMOVAL 1 EA PATCH TD SCH (21:31)
[2016-12-03] MEDS: ACETAMINOPHEN 500 MG TAB PO SCH ×4 (05:51→23:08)
[2016-12-03] MEDS: INSULIN LISPRO 100 UNIT/ML SC SCH ×3 (08:23→17:34)
[2016-12-03] MEDS: INSULIN GLARGINE 100 UNITS/ML SYRINGE SC SCH ×2 (08:23→20:30)
[2016-12-03] MEDS: ENOXAPARIN 40 MG/0.4 ML SYR SC SCH (08:24)
[2016-12-03] MEDS: GABAPENTIN 100 MG CAP PO SCH ×3 (08:28→20:29)
[2016-12-03] MEDS: CHOLECALCIFEROL VIT D3 2,000 UNITS TAB/CAP PO SCH (08:28)
[2016-12-03] MEDS: PANTOPRAZOLE SODIUM 40 MG TAB PO SCH ×2 (08:29→20:30)
[2016-12-03] MEDS: MAGNESIUM HYDROXIDE 30 ML UDCUP PO SCH (08:29)
[2016-12-03] MEDS: ALLOPURINOL 100 MG TAB PO SCH ×2 (08:29→20:29)
[2016-12-03] MEDS: DOCUSATE SODIUM 100 MG CAP PO SCH (08:29)
[2016-12-03] MEDS: metFORMIN HCL 500 MG TAB PO SCH ×2 (08:29→17:34)
[2016-12-03] MEDS: Empagliflozin [Jardiance] 10 MG PO SCH (08:31)
[2016-12-03] MEDS: ISOSORBIDE MONONITRATE 30 MG TAB.SR PO SCH ×2 (08:32→20:27)
[2016-12-03] MEDS: LIDOCAINE 5% 1 EA PATCH TD PRN (08:54)
[2016-12-03] MEDS: TORSEMIDE 20 MG TAB PO SCH (10:26)
--- NOTE | 2016-12-03 10:53 | SOAPPROG ---
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 Initial FIM 63 on 11/18/16; improved to 68 on 11/25/16; to 75 as of 12/02/16. Has improved L leg strength but not able to bear weight. Decreased LE proprioception. decreased sensation in feet. mod A of 1 for bed mobility for control of legs; transfer SB mod A 1 - 2 . Dresses in bed, UB set-up/S, LB min A to set-up. Shower T[place]avia 2 person SB. [place] min A. Good upper extremity strength; does well with wheelchair mobility. Continue physical therapy and occupational therapy to optimize her mobility and functional status. Initial goal is to optimize function at wheelchair level with 1 person assist for transfers. * Pain management. Pain in L gluteus; improved; now with low back pain. NSAIDs contraindicated for 6 mo after spinal fusion. Continue acetaminophen and methocarbamol. Not tolerating oxycodone due to nausea; refusing hydromorphone due to prior experience. Ice and heat are available. Stretching and other modalities per PT. Massage and acupuncture per her request ordered ; pain seems to respond to acupuncture. Using lidocaine patch for L buttock with some improvement. * LEFT SACROILIAC JOINT MEDIATED PAIN- PT TO PERFORM SOFT TISSUE MOB AND STRENGTHENING OF MUSCLES THAT CROSS SIJ. IF NO RELIEF THEN MAY BENEFIT FROM FLUORO GUIDED SIJ INJECTION * Doubt neurogenic bowel. 5 BMs LAST 48 HRS. Having normal bowel movements but inconsistent with bowel protocol. Initiate MOM QD starting 12/02/16. Changed senna to PRN on 11/18/16. Per her request, changed bowel protocol with bisacodyl suppository to Monday, , Monday. * Hypertension. BP 128/69 THIS AM. WILL MONITOR FOR NOW W/O ADJUSTMENTS. BP was elevated on hydralazine, isosorbide. torsemide and PRN clonidine. Was on losartan at bedtime previously; restarted 11/17/16; increased to 50 mg QHS on . BP still mostly high; increase losartan to 75 mg QHS 11/30/16. Decreased torsemide from 20 mg QD to 10 mg QD. Continue to monitor. * .Renal insufficiency: improved 11/28/16 but still stage 3 CRI with GFR 55. * Anxiety and discouragement, improved. Declined offer of SSRI or other antianxiety agent besides diazepam, which she's not using. Episode of shaking 11/25/16 likely related to anxiety. Concern re discouragement and ability to participate in therapies. Continue counseling per FLORAL DECORATOR. * UTI: U Cx with E. coli and K. pneumoniae, sens to nitrofurantoin. Completed 7 days on 11/29/16. * Diabetes mellitus type 2. 5/6 AM BS WAS 162. THEREFORE WILL INCREASE HS DOSE OF LANTUS TO 30 UNITS. Fasting elevated; increase insulin glargine to 28U QPM and 23 U QAM on 12/02/16 from 25 U QPM and 23 U QAM. Continue insulin lispro before meals; increase to high-dose regimen starting 12/02/16 per her request; continue empagliflozin orally. Restarted metformin 11/30/16, at 500 mg BID; plan to titrate as tolerated. * Prophylaxis: on enoxaparin. Chronic stable conditions: * Yeast vaginitis, treated with fluconazole single dose 11/29/16. * Voiding normally s/p Hernandez d/c 11/21/16. Reduce torsemide to reduce urinary frequency. * CHF with MR, TR, diastolic dysfn and mod pulm HTN on echo 12/2014. BNP 11/24/16 not significantly elevated. * Irregular heart rhythm: EKG 11/24/16 with PVCs and lateral ischemia. Troponin not elevated. BMP with slight increase creatinine (due to losartan?) and Ca (due to immobility?). She refused transfer to ED 11/28/16. Continue antianginal meds (isosorbide, NTG). * Leukocytosis and anemia 11/24/16: Leukocytosis resolved, anemia improving . * Coronary artery disease status post coronary artery bypass graft with angina. She will be monitored for any further symptoms and nitroglycerin will be available on a p.r.n. basis. Isosorbide for angina. D/W principal technologist Dr. Gauthier. Incomplete revascularization; LV fn recovered; mitral regurgitation. OK for afterload reduction with ARB. B-gera contraindicated due to depression. ASA d/w Neurosurgery 10/2116: OK to start. * History of gout. Uric acid 6.8 (added on to hosptal labs from 11/16/16), just below target for prevention of recurrence. Continue allopurinol. * History of sciatica. She reports this responded dramatically to gabapentin at a very low dose and this will be continued. * Gastroesophageal reflux disorder. Continue pantoprazole. * Vitamin D deficiency. Continue vitamin D supplementation. * Anemia, post-surgical, improving. Plan: 12/03/16 10:53 Subjective: She has had 5 BMs in thepast 24 hours. She denies abdominal pain or swelling. She reports pain in the left SIJ Objective: Vital Signs Temp Pulse Resp BP Pulse Ox 36.4 C 61 16 128/69 H 95 12/03/16 07:18 12/03/16 07:18 12/03/16 07:18 12/03/16 08:32 12/03/16 07:18 Laboratory Results 11/28/16 12:30 11/28/16 12:30 12/02/16 12/03/16 12/04/16 05:59 05:59 05:59 Intake Total 1940 630 700 Output Total 1100 300 600 Balance 840 330 100 Physical Exam - Physical Exam General Appearance: WD/WN, alert, no apparent distress Respiratory: chest non-tender, lungs clear, normal breath sounds Cardiac/Chest: edema Abdomen: normal bowel sounds, non-tender, soft, No rebound, No mass Skin: normal color, warm/dry Extremities: other (POSITIVE FOR TENDERNESS LEFT SIJ), No calf tenderness, No swelling, No Alejandro's sign Neuro/Psych: alert, normal mood/affect, oriented x 3 ICD10 Worksheet Patient Problems: Problems Problem Status Onset Back pain Acute Bilateral leg weakness Acute CHF (congestive heart failure) Acute Chest pain Acute Chronic Disease Mgmt/Transitional Care Acute Lumbar radiculitis Acute Lumbar stenosis Acute NSTEMI (non-ST elevated myocardial infarction) Acute Sensory abnormality of thoracic dermatome distribution Acute
[2016-12-03] MEDS: BISACODYL 10 MG SUPP PR SCH (16:02)
[2016-12-03] MEDS: LOSARTAN POTASSIUM 25 MG TAB PO SCH (20:29)
[2016-12-03] MEDS: PATCH REMOVAL 1 EA PATCH TD SCH (20:36)
[2016-12-04] MEDS: ACETAMINOPHEN 500 MG TAB PO SCH ×3 (06:06→17:18)
[2016-12-04] MEDS: INSULIN LISPRO 100 UNIT/ML SC SCH ×3 (09:32→17:17)
[2016-12-04] MEDS: DOCUSATE SODIUM 100 MG CAP PO SCH (09:33)
[2016-12-04] MEDS: MAGNESIUM HYDROXIDE 30 ML UDCUP PO SCH (09:33)
[2016-12-04] MEDS: ENOXAPARIN 40 MG/0.4 ML SYR SC SCH (09:36)
[2016-12-04] MEDS: Empagliflozin [Jardiance] 10 MG PO SCH (09:36)
[2016-12-04] MEDS: CHOLECALCIFEROL VIT D3 2,000 UNITS TAB/CAP PO SCH (09:37)
[2016-12-04] MEDS: ALLOPURINOL 100 MG TAB PO SCH ×2 (09:38→20:31)
[2016-12-04] MEDS: TORSEMIDE 20 MG TAB PO SCH (09:38)
[2016-12-04] MEDS: GABAPENTIN 100 MG CAP PO SCH ×3 (09:38→20:31)
[2016-12-04] MEDS: PANTOPRAZOLE SODIUM 40 MG TAB PO SCH ×2 (09:38→20:31)
[2016-12-04] MEDS: metFORMIN HCL 500 MG TAB PO SCH ×2 (09:38→17:19)
[2016-12-04] MEDS: INSULIN GLARGINE 100 UNITS/ML SYRINGE SC SCH ×2 (09:47→20:27)
--- NOTE | 2016-12-04 09:52 | SOAPPROG ---
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 INCOMPLETE PARAPLEGIA. Initial FIM 63 on 11/18/16; improved to 68 on 11/25/16; to 75 as of 12/02/16. Has improved L leg strength but not able to bear weight. Decreased LE proprioception. decreased sensation in feet. mod A of 1 for bed mobility for control of legs; transfer SB mod A 1 - 2 . Dresses in bed, UB set- up/S, LB min A to set-up. Shower T[place]avia 2 person SB. [place] min A. Good upper extremity strength; does well with wheelchair mobility. Continue physical therapy and occupational therapy to optimize her mobility and functional status. Initial goal is to optimize function at wheelchair level with 1 person assist for transfers. * Pain management. Pain in L gluteus; improved; now with low back pain. NSAIDs contraindicated for 6 mo after spinal fusion. Continue acetaminophen and methocarbamol. Not tolerating oxycodone due to nausea; refusing hydromorphone due to prior experience. Ice and heat are available. Stretching and other modalities per PT. Massage and acupuncture per her request ordered ; pain seems to respond to acupuncture. Using lidocaine patch for L buttock with some improvement. * LEFT SACROILIAC JOINT MEDIATED PAIN- SHE REPORTS DECREASED PAIN AFTER PHYS THERAPY WORKED ON THIS YESTERDAY, BUT PAIN RETURNED. PATIENT ASKED IF MUSCLE RELAXANTS WOULD HELP AND ADVISED THAT TREATMENT IS EXERCISE BASED WELL INJECTION. PT TO PERFORM SOFT TISSUE MOB AND STRENGTHENING OF MUSCLES THAT CROSS SIJ. IF NO RELIEF THEN MAY BENEFIT FROM FLUORO GUIDED SIJ INJECTION * Doubt neurogenic bowel. 5 BMs LAST 48 HRS. Having normal bowel movements but inconsistent with bowel protocol. Initiate MOM QD starting 12/02/16. Changed senna to PRN on 11/18/16. Per her request, changed bowel protocol with bisacodyl suppository to Monday, , Monday. * Hypertension. BP THIS AM 152/74 AND THEREFORE HAVE ADDED ADDITIONAL 25MG LORSARTAN PER DR. HUIZAR. BP was elevated on hydralazine, isosorbide. torsemide and PRN clonidine. Was on losartan at bedtime previously; restarted ; increased to 50 mg QHS on 11/21/16. BP still mostly high; increase losartan to 75 mg QHS 11/30/16. Decreased torsemide from 20 mg QD to 10 mg QD. Continue to monitor. * .Renal insufficiency: improved 11/28/16 but still stage 3 CRI with GFR 55. * Anxiety and discouragement, improved. Declined offer of SSRI or other antianxiety agent besides diazepam, which she's not using. Episode of shaking 11/25/16 likely related to anxiety. Concern re discouragement and ability to participate in therapies. Continue counseling per TELEPHONE INTERVIEWER. * UTI: U Cx with E. coli and K. pneumoniae, sens to nitrofurantoin. Completed 7 days on 11/29/16. * Diabetes mellitus type 2. 57 AM BS WAS 116. SINCE INCREASING HS DOSE OF LANTUS TO 30 UNITS. Fasting elevated; increase insulin glargine to 28U QPM and 23 U QAM on 12/02/16 from 25 U QPM and 23 U QAM. Continue insulin lispro before meals; increase to high-dose regimen starting 12/02/16 per her request; continue empagliflozin orally. Restarted metformin 11/30/16, at 500 mg BID; plan to titrate as tolerated. * Prophylaxis: on enoxaparin. Chronic stable conditions: * Yeast vaginitis, treated with fluconazole single dose 11/29/16. * Voiding normally s/p Hernandez d/c 11/21/16. Reduce torsemide to reduce urinary frequency. * CHF with MR, TR, diastolic dysfn and mod pulm HTN on echo 12/2014. BNP 11/24/16 not significantly elevated. * Irregular heart rhythm: EKG 11/24/16 with PVCs and lateral ischemia. Troponin not elevated. BMP with slight increase creatinine (due to losartan?) and Ca (due to immobility?). She refused transfer to ED 11/28/16. Continue antianginal meds (isosorbide, NTG). * Leukocytosis and anemia 11/24/16: Leukocytosis resolved, anemia improving . * Coronary artery disease status post coronary artery bypass graft with angina. She will be monitored for any further symptoms and nitroglycerin will be available on a p.r.n. basis. Isosorbide for angina. D/W cogeneration operator Dr. Gauthier. Incomplete revascularization; LV fn recovered; mitral regurgitation. OK for afterload reduction with ARB. B-gera contraindicated due to depression. ASA d/w Neurosurgery 10/2116: OK to start. * History of gout. Uric acid 6.8 (added on to hosptal labs from 11/16/16), just below target for prevention of recurrence. Continue allopurinol. * History of sciatica. She reports this responded dramatically to gabapentin at a very low dose and this will be continued. * Gastroesophageal reflux disorder. Continue pantoprazole. * Vitamin D deficiency. Continue vitamin D supplementation. * Anemia, post-surgical, improving. Plan: 12/03/16 10:53 12/04/16 09:54 Subjective: She reports less left SIJ pain after physical therapy performed some stretching yesterday, but her pain has returned to its baseline. She reports some improvement in LE strength. Objective: Vital Signs Temp Pulse Resp BP Pulse Ox 36.4 C 62 17 152/74 H 93 12/04/16 06:44 12/04/16 06:44 12/04/16 06:44 12/04/16 06:44 12/04/16 06:44 Laboratory Results 11/28/16 12:30 11/28/16 12:30 12/03/16 12/04/16 12/05/16 05:59 05:59 05:59 Intake Total 630 2250 200 Output Total 300 1550 Balance 330 700 200 Physical Exam - Physical Exam General Appearance: WD/WN, alert, no apparent distress Respiratory: lungs clear, normal breath sounds Cardiac/Chest: No edema Abdomen: normal bowel sounds, non-tender, soft, No guarding, No rebound Skin: normal color, warm/dry Neuro/Psych: no motor/sensory deficits, alert, motor weakness (Incomplete paraplegia), depressed affect ICD10 Worksheet Patient Problems: Problems Problem Status Onset Back pain Acute Bilateral leg weakness Acute CHF (congestive heart failure) Acute Chest pain Acute Chronic Disease [facility]/Transitional Care Acute Lumbar radiculitis Acute Lumbar stenosis Acute NSTEMI (non-ST elevated myocardial infarction) Acute Sensory abnormality of thoracic dermatome distribution Acute
[2016-12-04] MEDS: ISOSORBIDE MONONITRATE 30 MG TAB.SR PO SCH ×2 (11:43→20:31)
[2016-12-04] MEDS: LOSARTAN POTASSIUM 25 MG TAB PO SCH ×2 (11:44→20:32)
[2016-12-04] MEDS: METHOCARBAMOL 750 MG TAB PO PRN (20:31)
[2016-12-05] MEDS: ACETAMINOPHEN 500 MG TAB PO SCH ×5 (02:31→23:54)
[2016-12-05] MEDS: PATCH REMOVAL 1 EA PATCH TD SCH ×2 (02:41→21:45)
[2016-12-05] MEDS: INSULIN LISPRO 100 UNIT/ML SC SCH ×3 (07:46→17:47)
[2016-12-05] MEDS: INSULIN GLARGINE 100 UNITS/ML SYRINGE SC SCH ×2 (08:17→21:45)
[2016-12-05] MEDS: ISOSORBIDE MONONITRATE 30 MG TAB.SR PO SCH ×2 (08:18→21:44)
[2016-12-05] MEDS: GABAPENTIN 100 MG CAP PO SCH ×3 (08:18→22:11)
[2016-12-05] MEDS: DOCUSATE SODIUM 100 MG CAP PO SCH (08:18)
[2016-12-05] MEDS: LOSARTAN POTASSIUM 25 MG TAB PO SCH ×2 (08:18→21:44)
[2016-12-05] MEDS: ENOXAPARIN 40 MG/0.4 ML SYR SC SCH (08:19)
[2016-12-05] MEDS: PANTOPRAZOLE SODIUM 40 MG TAB PO SCH ×2 (08:19→21:45)
[2016-12-05] MEDS: metFORMIN HCL 500 MG TAB PO SCH ×2 (08:19→17:52)
[2016-12-05] MEDS: CHOLECALCIFEROL VIT D3 2,000 UNITS TAB/CAP PO SCH (08:19)
[2016-12-05] MEDS: ALLOPURINOL 100 MG TAB PO SCH ×2 (08:19→21:45)
[2016-12-05] MEDS: MAGNESIUM HYDROXIDE 30 ML UDCUP PO SCH (08:20)
[2016-12-05] MEDS: Empagliflozin [Jardiance] 10 MG PO SCH (10:11)
--- NOTE | 2016-12-05 11:46 | SOAPPROG ---
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 INCOMPLETE PARAPLEGIA. Initial FIM 63 on 11/18/16; improved to 68 on 11/25/16; to 75 as of 12/02/16. Has improved L leg strength but not able to bear weight. Decreased LE proprioception. decreased sensation in feet. mod A of 1 for bed mobility for control of legs; transfer SB mod A 1 - 2 . Dresses in bed, UB set- up/S, LB min A to set-up. Shower [place] 2 person SB. [place] min A. Good upper extremity strength; does well with wheelchair mobility. Continue physical therapy and occupational therapy to optimize her mobility and functional status. Initial goal is to optimize function at wheelchair level with 1 person assist for transfers. * LEFT SHOULDER PAIN- ROTATOR CUFF STRAIN. APPLY ICE 20 MINUTES 2-3 TIMES PER DAY. PT TO PROVIDE ROTATOR CUFF STRENGTHENING. * LEFT SACROILIAC JOINT MEDIATED PAIN- SHE REPORTS DECREASED PAIN AFTER PHYS THERAPY WORKED ON THIS YESTERDAY, BUT PAIN RETURNED. PATIENT ASKED IF MUSCLE RELAXANTS WOULD HELP AND ADVISED THAT TREATMENT IS EXERCISE BASED WELL INJECTION. PT TO PERFORM SOFT TISSUE MOB AND STRENGTHENING OF MUSCLES THAT CROSS SIJ. IF NO RELIEF THEN MAY BENEFIT FROM FLUORO GUIDED SIJ INJECTION * Doubt neurogenic bowel. 5 BMs LAST 48 HRS. Having normal bowel movements but inconsistent with bowel protocol. Initiate MOM QD starting 12/02/16. Changed senna to PRN on 11/18/16. Per her request, changed bowel protocol with bisacodyl suppository to Monday, , Monday. * Hypertension. BP THIS AM 156/61. D/W PHARMACY TO SEE IF WE CAN INCREASE ANY OF HER OTHER BP MEDS SINCE LORSARTAN HAS ALREADY BEEN INCREASED TO 100 QDAY. HOWEVER, SINCE SBP IS RAISED, THIS MAY BE DUE TO ANXIETY AND DISCUSSED WITH NURSING TO OFFER PATIENT VALIUM WHICH SHE HAS PRN. BP was elevated on hydralazine, isosorbide. torsemide and PRN clonidine. Was on losartan at bedtime previously; restarted 11/17/16; increased to 50 mg QHS on 11/21/16. BP still mostly high; increase losartan to 75 mg QHS 11/30/16. Decreased torsemide from 20 mg QD to 10 mg QD. Continue to monitor. * .Renal insufficiency: improved 11/28/16 but still stage 3 CRI with GFR 55. * Anxiety and discouragement, improved. Declined offer of SSRI or other antianxiety agent besides diazepam, which she's not using. Episode of shaking 11/25/16 likely related to anxiety. Concern re discouragement and ability to participate in therapies. Continue counseling per HIGH SCHOOL BUSINESS TEACHER. * UTI: U Cx with E. coli and K. pneumoniae, sens to nitrofurantoin. Completed 7 days on 11/29/16. * Diabetes mellitus type 2. 5 AM BS WAS 124. SINCE INCREASING HS DOSE OF LANTUS TO 30 UNITS. Fasting elevated; increase insulin glargine to 28U QPM and 23 U QAM on 12/02/16 from 25 U QPM and 23 U QAM. Continue insulin lispro before meals; increase to high-dose regimen starting 12/02/16 per her request; continue empagliflozin orally. Restarted metformin 11/30/16, at 500 mg BID; plan to titrate as tolerated. * Prophylaxis: on enoxaparin. Chronic stable conditions: * Yeast vaginitis, treated with fluconazole single dose 11/29/16. * Voiding normally s/p Hernandez d/c 11/21/16. Reduce torsemide to reduce urinary frequency. * CHF with MR, TR, diastolic dysfn and mod pulm HTN on echo 12/2014. BNP 11/24/16 not significantly elevated. * Irregular heart rhythm: EKG 11/24/16 with PVCs and lateral ischemia. Troponin not elevated. BMP with slight increase creatinine (due to losartan?) and Ca (due to immobility?). She refused transfer to ED 11/28/16. Continue antianginal meds (isosorbide, NTG). * Leukocytosis and anemia 11/24/16: Leukocytosis resolved, anemia improving . * Coronary artery disease status post coronary artery bypass graft with angina. She will be monitored for any further symptoms and nitroglycerin will be available on a p.r.n. basis. Isosorbide for angina. D/W currency exchange specialist Dr. Gauthier. Incomplete revascularization; LV fn recovered; mitral regurgitation. OK for afterload reduction with ARB. B-gera contraindicated due to depression. ASA d/w Neurosurgery 10/2116: OK to start. * History of gout. Uric acid 6.8 (added on to hosptal labs from 11/16/16), just below target for prevention of recurrence. Continue allopurinol. * History of sciatica. She reports this responded dramatically to gabapentin at a very low dose and this will be continued. * Gastroesophageal reflux disorder. Continue pantoprazole. * Vitamin D deficiency. Continue vitamin D supplementation. * Anemia, post-surgical, improving. Plan: 12/03/16 10:53 12/04/16 09:54 12/05/16 12:10 12/05/16 12:18 Subjective: She c/o left shoulder pain after PT yesterday. Objective: Vital Signs Temp Pulse Resp BP Pulse Ox 36.6 C 63 18 156/61 H 90 L 12/05/16 05:51 12/05/16 05:51 12/05/16 05:51 12/05/16 08:18 12/05/16 05:51 Laboratory Results 11/28/16 12:30 11/28/16 12:30 12/04/16 12/05/16 12/06/16 05:59 05:59 05:59 Intake Total 2250 700 354 Output Total 1550 1175 200 Balance 700 -475 154 Physical Exam - Physical Exam General Appearance: WD/WN, alert, no apparent distress Neck: non-tender, full range of motion Respiratory: lungs clear, normal breath sounds Cardiac/Chest: edema, No JVD Abdomen: normal bowel sounds, non-tender, soft Skin: normal color, warm/dry Extremities: normal range of motion (right glenohumeral ROM is ), other (Right glenohumeral ROM IS WNL. SUBACROMIAL REGION TENDER TO PALPATION), No swelling, No Alejandro's sign Neuro/Psych: normal mood/affect, oriented x 3, motor weakness (She can actively recruit right and left hip flexors 2+/5 , quads 2+3-/5. TA SLIGHTLY WEAKER ON RIGHT) ICD10 Worksheet Patient Problems: Problems Problem Status Onset Back pain Acute Bilateral leg weakness Acute CHF (congestive heart failure) Acute Chest pain Acute Chronic Disease Mgmt/Transitional Care Acute Lumbar radiculitis Acute Lumbar stenosis Acute NSTEMI (non-ST elevated myocardial infarction) Acute Sensory abnormality of thoracic dermatome distribution Acute
[2016-12-05] MEDS: TORSEMIDE 20 MG TAB PO SCH (12:39)
[2016-12-06] MEDS: ACETAMINOPHEN 500 MG TAB PO SCH ×3 (06:07→17:24)
[2016-12-06] MEDS: NITROGLYCERIN 0.4 MG BTL SL PRN (07:44)
[2016-12-06] MEDS: ONDANSETRON DISINTEGRATING 4 MG TAB PO PRN (08:18)
[2016-12-06] MEDS: ISOSORBIDE MONONITRATE 30 MG TAB.SR PO SCH ×2 (09:29→21:12)
[2016-12-06] MEDS: metFORMIN HCL 500 MG TAB PO SCH ×2 (09:30→17:24)
[2016-12-06] MEDS: GABAPENTIN 100 MG CAP PO SCH ×3 (09:30→21:12)
[2016-12-06] MEDS: ALLOPURINOL 100 MG TAB PO SCH ×2 (09:30→21:12)
[2016-12-06] MEDS: MAGNESIUM HYDROXIDE 30 ML UDCUP PO SCH (09:30)
[2016-12-06] MEDS: DOCUSATE SODIUM 100 MG CAP PO SCH (09:30)
[2016-12-06] MEDS: CHOLECALCIFEROL VIT D3 2,000 UNITS TAB/CAP PO SCH (09:30)
[2016-12-06] MEDS: TORSEMIDE 20 MG TAB PO SCH (09:31)
[2016-12-06] MEDS: ENOXAPARIN 40 MG/0.4 ML SYR SC SCH (09:31)
[2016-12-06] MEDS: INSULIN LISPRO 100 UNIT/ML SC SCH ×3 (09:31→17:24)
[2016-12-06] MEDS: INSULIN GLARGINE 100 UNITS/ML SYRINGE SC SCH ×2 (09:32→21:12)
[2016-12-06] MEDS: PANTOPRAZOLE SODIUM 40 MG TAB PO SCH ×2 (09:32→21:11)
[2016-12-06] MEDS: Empagliflozin [Jardiance] 10 MG PO SCH (09:33)
[2016-12-06] MEDS: LOSARTAN POTASSIUM 25 MG TAB PO SCH ×2 (09:36→21:11)
[2016-12-06 09:46] LABS: % IMMATURE GRANULYOCYTES 0.4 % (0.0-1.1); ABSOLUTE IMMATURE GRANULOCYTES 0.03 10^3/uL (0.00-0.10); ADD DIFF? NO; ADD MORPH? NO; ADD SCAN? NO; ATYPICAL LYMPHOCYTE FLAG 30 (0-99); FRAGMENT RBC FLAG 0 (0-99); HEMATOCRIT 36.4 % (38.0-47.0); HEMOGLOBIN 12.2 g/dL (12.6-16.3); LEFT SHIFT FLG 10 (0-99); LIPEMIA HEMOLYSIS FLAG 80 (0-99); MEAN CELL HEMOGLOBIN 30.7 pg (27.9-34.1); MEAN CELL HEMOGLOBIN CONCENTR. 33.5 g/dL (32.4-36.7); MEAN CELL VOLUME 91.7 fL (81.5-99.8); MEAN PLATELET VOLUME 11.1 fL (8.7-11.7); PLATELET CLUMPS FLAG 0 (0-99); PLATELET COUNT 266 10^3/uL (150-400); RED BLOOD CELL COUNT 3.97 10^6/uL (4.18-5.33); RED CELL DISTRIBUTION WIDTH 14.2 % (11.5-15.2)
[2016-12-06 09:57] LABS: ANION GAP 10 mEq/L (8-16); CALCIUM 11.7 mg/dL (8.5-10.4); CARBON DIOXIDE 25 mEq/l (22-31); CHLORIDE 104 mEq/L (97-110); GLOMERULAR FILTRATION RATE 55; GLUCOSE 155 mg/dL (70-100); POTASSIUM 4.4 mEq/L (3.5-5.2); SODIUM 139 mEq/L (134-144)
[2016-12-06 10:09] LABS: TROPONIN I 0.019 ng/mL (0-0.034)
--- NOTE | 2016-12-06 11:45 | SOAPPROG ---
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 Concern for CA, normal 1st troponin , ECG essentially unchanged from 11/23/2016. Symptoms resolved with NTG, pt very reluctant to do additional tests and is requesting no additional interventions regarding cardiac conditions. Agreeable to diagnostics for now. It does not appear that she has an acute CA, and will continue to monitor clinically, constraining therapies to bed today. CXR pending, second set of troponins to be drawn at noon. 40 minutes was spent on the floor caring for the patient, the majority was in the counseling and coordination of care regarding chest pain, potential CA, and patient wishes including verification of goals of care including DNR status. 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 INCOMPLETE PARAPLEGIA. Initial FIM 63 on 11/18/16; improved to 68 on 11/25/16; to 75 as of 12/02/16. Has improved L leg strength but not able to bear weight. Decreased LE proprioception. decreased sensation in feet. mod A of 1 for bed mobility for control of legs; transfer SB mod A 1 - 2 . Dresses in bed, UB set- up/S, LB min A to set-up. Shower T[place]avia 2 person SB. [place] min A. Good upper extremity strength; does well with wheelchair mobility. Continue physical therapy and occupational therapy to optimize her mobility and functional status. Initial goal is to optimize function at wheelchair level with 1 person assist for transfers. * Left shoulder pain: c/w rotator cuff strain. Continue ice PRN, PT. * Left SI joint pain- PT, mobility * Hypertension. BP was elevated on hydralazine, isosorbide. torsemide and PRN clonidine. Was on losartan at bedtime previously; restarted 11/17/16; increased to 50 mg QHS on 11/21/16. BP still mostly high; increase losartan to 75 mg QHS . Decreased torsemide from 20 mg QD to 10 mg QD. Continue to monitor. Valium PRN Rx by Dr. Donohue. * Renal insufficiency: improved 11/28/16 but still stage 3 CRI * Anxiety and discouragement, improved. Declined offer of SSRI or other antianxiety agent besides diazepam, which she's not using. Episode of shaking 11/25/16 likely related to anxiety. Concern re discouragement and ability to participate in therapies. Continue counseling per STEM SHAPER. * Diabetes mellitus type 2. Continue Glargine and lispro SSI. Restarted metformin 11/30/16, at 500 mg BID; plan to titrate as tolerated. * Prophylaxis: on enoxaparin post SCI * Coronary artery disease status post coronary artery bypass graft with angina. She will be monitored for any further symptoms and nitroglycerin will be available on a p.r.n. basis. Isosorbide for angina. D/W sack cleaner Dr. Gauthier. Incomplete revascularization; LV fn recovered; mitral regurgitation. OK for afterload reduction with ARB. B-gera contraindicated due to depression. ASA d/w Neurosurgery 10/2116: OK to start. Note 12/06/2016 episode of anginal chest pain. Had Irregular heart rhythm and EKG 11/24/16 with PVCs and lateral ischemia. Troponin not elevated. BMP with slight increase creatinine ( due to losartan?) and Ca (due to immobility?). She refused transfer to ED . Continue antianginal meds (isosorbide, NTG). Monitor. Chronic stable conditions: * Constipation. Having normal bowel movements but inconsistent with bowel protocol. Initiate MOM QD starting 12/02/16. Changed senna to PRN on 11/18/16. Per her request, changed bowel protocol with bisacodyl suppository to Monday, , Monday. Having regular BM. * Yeast vaginitis, treated with fluconazole single dose 11/29/16. * Voiding normally s/p Hernandez d/c 11/21/16. Reduce torsemide to reduce urinary frequency. * CHF with MR, TR, diastolic dysfn and mod pulm HTN on echo 12/2014. BNP 11/24/16 not significantly elevated. * Leukocytosis and anemia 11/24/16: Leukocytosis resolved, anemia improving . * History of gout. Uric acid 6.8 (added on to hosptal labs from 11/16/16), just below target for prevention of recurrence. Continue allopurinol. * History of sciatica. She reports this responded dramatically to gabapentin at a very low dose and this will be continued. * Gastroesophageal reflux disorder. Continue pantoprazole. * Vitamin D deficiency. Continue vitamin D supplementation. * Anemia, post-surgical, improving. * UTI: U Cx with E. coli and K. pneumoniae, sens to nitrofurantoin. Completed 7 days on 11/29/16. LOS one more week and hope for [id number] extension as she progresses towards goals. Follow-up: Seen by Hussain Hartley, Neurosurgery PA, 11/13/16 and steristrips removed. Follow-up Dr. Sánchez 01/26/17. 12/06/16 11:45 12/06/16 11:46 12/06/16 12:01 12/06/16 12:02 Subjective: CC: chest pain and nausea This morning she had an episode of angina, worse than usual, with some nausea that followed. Has had angina in the past sometimes as often as every few days, but has not had much on rehab. She also gets periodic nausea, usually not related to one another as they were today. Substernal, no radiation, no other symptoms. Initial antacid did not help, but nitroglycerin x 1 did. Nausea improved with ondansetron. Dr. Luis ordered labs including troponin, first one came back negative. She was not experiencing any symptoms when I saw her at around 10 AM. She felt tired, but otherwise fine. She had a good day with therapies yesterday, transferring well. She endorses a history of 4 vessel CABG in 1998, with 3 of them occluded and extensive collateral flow. Reports that there is not much to be done from a cardiology standpoint and does not want extensive workup or treatment. She verified her DNR status, but is OK with diagnostics within reason. She was refusing the idea of transfer to [facility] (if it was indicated). Objective: Vital Signs Temp Pulse Resp BP Pulse Ox 36.9 C 70 20 145/67 H 95 12/06/16 08:00 12/06/16 08:00 12/06/16 08:00 12/06/16 09:29 12/06/16 08:00 Laboratory Results 12/06/16 08:20 12/06/16 08:20 12/05/16 12/06/16 12/07/16 05:59 05:59 05:59 Intake Total 700 944 420 Output Total 2230 4583 [facility] [phone] Physical Exam - Physical Exam General Appearance: alert, no apparent distress, obese EENT: No scleral icterus (R), No scleral icterus (L) Respiratory: lungs clear, normal breath sounds, No respiratory distress, No accessory muscle use Cardiac/Chest: normal peripheral pulses, regular rate, rhythm, No extra beats, No irregularly irregular Abdomen: normal bowel sounds, non-tender, soft Skin: normal color, warm/dry, No cyanosis, No diaphoresis Extremities: No pedal edema, No swelling Neuro/Psych: alert, normal mood/affect, motor weakness (bilat legs, R worse than L) ICD10 Worksheet Patient Problems: Problems Problem Status Onset Back pain Acute Bilateral leg weakness Acute CHF (congestive heart failure) Acute Chest pain Acute Chronic Disease Mgmt/Transitional Care Acute Lumbar radiculitis Acute Lumbar stenosis Acute NSTEMI (non-ST elevated myocardial infarction) Acute Sensory abnormality of thoracic dermatome distribution Acute
--- NOTE | 2016-12-06 15:47 | CPEKG ---
Heart Rate: 81 RR Interval: 741 P-R Interval: 164 QRSD Interval: 94 QT Interval: 372 QTC Interval: 432 P [place]: 65 QRS [place]: -7 T Wave [place]: 136 EKG Severity - ABNORMAL ECG - EKG Impression: SINUS RHYTHM EKG Impression: MULTIPLE VENTRICULAR PREMATURE COMPLEXES ONE IS INTERPOLATED EKG Impression: NONSPECIFIC T ABNORMALITIES, LATERAL LEADS Electronically Signed By: Ralph Cornell 07-Dec-2016 12:12:31
[2016-12-06] MEDS: BISACODYL 10 MG SUPP PR SCH (16:15)
[2016-12-06] MEDS: SIMETHICONE 80 MG TAB CHEW PO PRN ×2 (17:28→21:18)
[2016-12-06] MEDS: PATCH REMOVAL 1 EA PATCH TD SCH (21:14)
[2016-12-07] MEDS: ACETAMINOPHEN 500 MG TAB PO SCH ×2 (05:41)
[2016-12-07] MEDS: CHOLECALCIFEROL VIT D3 2,000 UNITS TAB/CAP PO SCH (08:07)
[2016-12-07] MEDS: ENOXAPARIN 40 MG/0.4 ML SYR SC SCH (08:07)
[2016-12-07] MEDS: GABAPENTIN 100 MG CAP PO SCH ×3 (08:08→20:53)
[2016-12-07] MEDS: ALLOPURINOL 100 MG TAB PO SCH ×2 (08:08→20:53)
[2016-12-07] MEDS: INSULIN GLARGINE 100 UNITS/ML SYRINGE SC SCH ×2 (08:08→20:52)
[2016-12-07] MEDS: DOCUSATE SODIUM 100 MG CAP PO SCH (08:08)
[2016-12-07] MEDS: PANTOPRAZOLE SODIUM 40 MG TAB PO SCH ×2 (08:08→20:53)
[2016-12-07] MEDS: Empagliflozin [Jardiance] 10 MG PO SCH (08:09)
[2016-12-07] MEDS: metFORMIN HCL 500 MG TAB PO SCH (08:13)
[2016-12-07] MEDS: INSULIN LISPRO 100 UNIT/ML SC SCH ×3 (08:13→17:40)
[2016-12-07] MEDS: ISOSORBIDE MONONITRATE 30 MG TAB.SR PO SCH ×2 (08:24→20:52)
[2016-12-07] MEDS: LOSARTAN POTASSIUM 25 MG TAB PO SCH (08:24)
[2016-12-07] MEDS ORDERED: ACETAMINOPHEN 500 MG TAB PO PRN (08:36)
[2016-12-07] MEDS: MAGNESIUM HYDROXIDE 30 ML UDCUP PO SCH (08:45)
[2016-12-07] MEDS ORDERED: MAGNESIUM HYDROXIDE 30 ML UDCUP PO PRN (08:51)
--- NOTE | 2016-12-07 09:19 | SOAPPROG ---
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 Initial FIM 63 on 11/18/16; improved to 68 on 11/25/16; to 75 as of 12/02/16; to 77 as of 12/07/16. Progressing toward 1-person transfer but often needs 2 person assist if fatigued or with urgency for commode. Has improved L leg strength but not able to bear weight. Decreased LE proprioception. decreased sensation in feet. Min A of 1 for bed mobility for control of legs . Dresses in bed, UB set-up/S, LB min A to set-up. Shower T[place]avia 2 person SB. [place] min A. Good upper extremity strength; does well with wheelchair mobility. Continue physical therapy and occupational therapy to optimize her mobility and functional status. Initial goal is to optimize function at wheelchair level with 1 person assist for transfers. * Pain management. Pain in L gluteus; improved. NSAIDs contraindicated for 6 mo after spinal fusion. Change acetaminophen to PRN 12/07/16 at her request; not using methocarbamol. Not tolerating oxycodone due to nausea; refusing hydromorphone due to prior experience. Ice and heat are available. Stretching and other modalities per PT. Massage and acupuncture per her request ordered ; pain seems to respond to acupuncture. Using lidocaine patch for L buttock with some improvement. * No neurogenic bowel. Having normal bowel movements but inconsistent with bowel protocol. Initiate MOM QD starting 12/02/16; change to PRN at her request . Changed senna to PRN on 11/18/16. Per her request, changed bowel protocol with bisacodyl suppository to Monday, , Monday. * Coronary artery disease status post coronary artery bypass graft with angina. Episode of angina 12/06/16 at 0600,resolved after NTG and normal troponin, EKG unchanged. Continue PRN NTG. She will be monitored for any further symptoms and nitroglycerin will be available on a p.r.n. basis. Isosorbide for angina. D/W water treatment plant mechanic Dr. Gauthier. Incomplete revascularization; LV fn recovered; mitral regurgitation. OK for afterload reduction with ARB. B-gera contraindicated due to depression. ASA d/w Neurosurgery 11/18/16: OK to start. * Hypertension. BP was elevated on hydralazine, isosorbide. torsemide and PRN clonidine. Was on losartan at bedtime previously; restarted 11/17/16; increased to 50 mg QHS on 11/21/16. BP still mostly high; increase losartan to 75 mg QHS ; to 25 QAM and 75 QQPM on 12/04/16; consolidate to 100 mg QHS starting . Decreased torsemide from 20 mg QD to 10 mg QD. Continue to monitor. * Renal insufficiency: improved 11/28/16 but still stage 3 CRI with GFR 55; stable 12/06/16.. * Hypercalcemia. Add-on PTH, minerals and Vit D level to labs from 12/06/16. * Anxiety and discouragement, improved. Declined offer of SSRI or other antianxiety agent besides diazepam, which she's not using. Episode of shaking 11/25/16 likely related to anxiety. Concern re discouragement and ability to participate in therapies. Continue counseling per ANIMAL NURSERY WORKER. * UTI: U Cx with E. coli and K. pneumoniae, sens to nitrofurantoin. Completed 7 days on 11/29/16. * Diabetes mellitus type 2. Lantus has been titrated to 23 U QAM, 30 U QPM. Increase metformin from 500 mg BID to 850 mg BIS on 12/07/16. Continue insulin lispro before meals; increase to high-dose regimen starting 12/02/16 per her request; continue empagliflozin orally. Restarted metformin 11/30/16, at 500 mg BID; plan to titrate as tolerated. * Prophylaxis: on enoxaparin. Chronic stable conditions: * Yeast vaginitis, treated with fluconazole single dose 11/29/16. * Voiding normally s/p Hernandez d/c 11/21/16. Reduce torsemide to reduce urinary frequency. * CHF with MR, TR, diastolic dysfn and mod pulm HTN on echo 12/2014. BNP 11/24/16 not significantly elevated. * Irregular heart rhythm: EKG 11/24/16 with PVCs and lateral ischemia. Troponin not elevated. BMP with slight increase creatinine (due to losartan?) and Ca (due to immobility?). She refused transfer to ED 11/28/16. Continue antianginal meds (isosorbide, NTG). * Leukocytosis and anemia 11/24/16: Leukocytosis resolved, anemia improving . * History of gout. Uric acid 6.8 (added on to hosptal labs from 11/16/16), just below target for prevention of recurrence. Continue allopurinol. * History of sciatica. She reports this responded dramatically to gabapentin at a very low dose and this will be continued. * Gastroesophageal reflux disorder. Continue pantoprazole. * Vitamin D deficiency. Continue vitamin D supplementation. * Anemia, post-surgical, improving. Chart review with further past medical history: ventral hernia repair, cholecystectomy, esophageal spasm. Attended staffing, 15 min. D/W case mtmg, nursing, PT, OT. Attended family meeting, 30 min. Making progress towards 1-person transfer to reduce burden of care. Length of stay pending continued insurance approval. Will need equipment and family training for discharge home. Follow-up: Seen by Hussain Hartley, Neurosurgery PA, 11/13/16 and steristrips removed. Follow-up Dr. Sánchez 01/26/17. 12/07/16 12:44 Subjective: Feels much better today than yesterday. No CP, no cough/dyspnea, no f/c. Objective: Vital Signs Temp Pulse Resp BP Pulse Ox 36.7 C 66 16 155/73 H 1 L 12/07/16 07:44 12/07/16 07:44 12/07/16 07:44 12/07/16 08:24 12/07/16 07:44 Laboratory Results 12/06/16 08:20 12/06/16 08:20 12/06/16 12/07/16 12/08/16 05:59 05:59 05:59 Intake Total 944 1450 Output Total 1801 1250 Balance -857 200 - Time Spent With Patient Time Spent With Patient: Greater than 35 minutes floor time today, including more than 50% of time in coordination of care during staffing meeting and counseling patient and during family meeting. Physical Exam - Physical Exam General Appearance: WD/WN, alert, no apparent distress, obese Respiratory: normal breath sounds, No crackles, No rhonchi, No wheezing Cardiac/Chest: regular rate, rhythm, systolic murmur, No edema Skin: normal color, warm/dry Neuro/Psych: alert, normal mood/affect, oriented x 3, motor weakness (B LE) ICD10 Worksheet Patient Problems: Problems Problem Status Onset Back pain Acute Bilateral leg weakness Acute CHF (congestive heart failure) Acute Chest pain Acute Chronic Disease Mgmt/Transitional Care Acute Lumbar radiculitis Acute Lumbar stenosis Acute NSTEMI (non-ST elevated myocardial infarction) Acute Sensory abnormality of thoracic dermatome distribution Acute
[2016-12-07] MEDS ORDERED: metFORMIN HCL 500 MG TAB PO SCH (09:20)
[2016-12-07 10:30] LABS: PTH INTACT NO MINERALS 54.6 pg/ml (10.8-79.4)
[2016-12-07 10:35] LABS: VITAMIN D 25-HYDROXY TOTAL 25.3 ng/mL (30-100)
[2016-12-07] MEDS: TORSEMIDE 20 MG TAB PO SCH (11:40)
[2016-12-07] MEDS: ASPIRIN EC 81 MG TAB PO SCH (11:41)
[2016-12-07] MEDS: metFORMIN HCL 850 MG TAB PO SCH (17:43)
[2016-12-07] MEDS: PATCH REMOVAL 1 EA PATCH TD SCH (20:54)
[2016-12-07] MEDS ORDERED: LOSARTAN POTASSIUM 25 MG TAB PO SCH (21:00)
[2016-12-08] MEDS: CHOLECALCIFEROL VIT D3 2,000 UNITS TAB/CAP PO SCH (08:31)
[2016-12-08] MEDS: DOCUSATE SODIUM 100 MG CAP PO SCH (08:31)
[2016-12-08] MEDS: PANTOPRAZOLE SODIUM 40 MG TAB PO SCH ×2 (08:31→20:09)
[2016-12-08] MEDS: ISOSORBIDE MONONITRATE 30 MG TAB.SR PO SCH ×2 (08:31→20:07)
[2016-12-08] MEDS: ASPIRIN EC 81 MG TAB PO SCH (08:32)
[2016-12-08] MEDS: INSULIN LISPRO 100 UNIT/ML SC SCH ×3 (08:32→17:36)
[2016-12-08] MEDS: metFORMIN HCL 850 MG TAB PO SCH ×2 (08:32→17:34)
[2016-12-08] MEDS: ENOXAPARIN 40 MG/0.4 ML SYR SC SCH (08:32)
[2016-12-08] MEDS: INSULIN GLARGINE 100 UNITS/ML SYRINGE SC SCH ×2 (08:32→21:12)
[2016-12-08] MEDS: ALLOPURINOL 100 MG TAB PO SCH ×2 (08:32→20:08)
[2016-12-08] MEDS: GABAPENTIN 100 MG CAP PO SCH ×3 (08:32→20:08)
[2016-12-08] MEDS: Empagliflozin [Jardiance] 10 MG PO SCH (08:33)
[2016-12-08] MEDS: TORSEMIDE 20 MG TAB PO SCH (09:59)
--- NOTE | 2016-12-08 10:02 | SOAPPROG ---
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 Initial FIM 63 on 11/18/16; improved to 68 on 11/25/16; to 75 as of 12/02/16; to 77 as of 12/07/16. Progressing toward 1-person transfer but often needs 2 person assist if fatigued or with urgency for commode. Has improved L leg strength but not able to bear weight. Decreased LE proprioception. decreased sensation in feet. Min A of 1 for bed mobility for control of legs . Dresses in bed, UB set-up/S, LB min A to set-up. Shower T[place]avia 2 person SB. Bathes min A. Good upper extremity strength; does well with wheelchair mobility. Continue physical therapy and occupational therapy to optimize her mobility and functional status. Initial goal is to optimize function at wheelchair level with 1 person assist for transfers. * Pain management. Pain in L gluteus; improved. NSAIDs contraindicated for 6 mo after spinal fusion. Change acetaminophen to PRN 12/07/16 at her request; not using methocarbamol. Not tolerating oxycodone due to nausea; refusing hydromorphone due to prior experience. Ice and heat are available. Stretching and other modalities per PT. Massage and acupuncture per her request ordered ; pain seems to respond to acupuncture. Using lidocaine patch for L buttock with some improvement. * No neurogenic bowel. Having normal bowel movements but inconsistent with bowel protocol. Initiate MOM QD starting 12/02/16; change to PRN at her request . Changed senna to PRN on 11/18/16. Per her request, changed bowel protocol with bisacodyl suppository to Monday, , Monday. * Coronary artery disease status post coronary artery bypass graft with angina. Episode of angina 12/06/16 at 0600,resolved after NTG and normal troponin, EKG unchanged. NO C/O CHEST PAIN OR ANGINA LIKE SXS THIS AM. REVIEWED WITH PATIENT TO REPORT NECK OR JAW OR TONGUE PAIN WELL INTERSCAPULAR PAIN THESE SXS MAY BE CARDIOGENIC. Continue PRN NTG. She will be monitored for any further symptoms and nitroglycerin will be available on a p.r.n. basis. Isosorbide for angina. D/W corporate counsel Dr. Gauthier. Incomplete revascularization; LV fn recovered; mitral regurgitation. OK for afterload reduction with ARB. B-gera contraindicated due to depression. ASA d/w Neurosurgery 11/18/16: OK to start. * Hypertension. BP was elevated on hydralazine, isosorbide. torsemide and PRN clonidine. Was on losartan at bedtime previously; restarted 11/17/16; increased to 50 mg QHS on 11/21/16. BP still mostly high; increase losartan to 75 mg QHS ; to 25 QAM and 75 QQPM on 12/04/16; consolidate to 100 mg QHS starting . Decreased torsemide from 20 mg QD to 10 mg QD. Continue to monitor. NURSING RELAYED THAT PATIENT STATES SHE DOES NOT WANT TO CONTINUE TORSEMIDE. WITH BP OF 148/72, DO NOT THINK THAT D/Cing TORSEMIDE WOULD BE BENEFICIAL AND WILL DEFER TO DR HUIZAR. * Renal insufficiency: improved 11/28/16 but still stage 3 CRI with GFR 55; stable 12/06/16.. * Hypercalcemia. Add-on PTH, minerals and Vit D level to labs from 12/06/16. * Anxiety and discouragement, improved. Declined offer of SSRI or other antianxiety agent besides diazepam, which she's not using. Episode of shaking 11/25/16 likely related to anxiety. Concern re discouragement and ability to participate in therapies. Continue counseling per SERVICE AGENT. * UTI: U Cx with E. coli and K. pneumoniae, sens to nitrofurantoin. Completed 7 days on 11/29/16. * Diabetes mellitus type 2. AM BLOOD SUGAR 179. MAY WANT TO CONSIDER INCREASING PM DOSE OF LANTUS BY 1-2 UNITS. Lantus has been titrated to 23 U QAM , 30 U QPM. Increase metformin from 500 mg BID to 850 mg BIS on 12/07/16. Continue insulin lispro before meals; increase to high-dose regimen starting 12/02 per her request; continue empagliflozin orally. Restarted metformin 11/30/16 , at 500 mg BID; plan to titrate as tolerated. * Prophylaxis: on enoxaparin. Chronic stable conditions: * Yeast vaginitis, treated with fluconazole single dose 11/29/16. * Voiding normally s/p Hernandez d/c 11/21/16. Reduce torsemide to reduce urinary frequency. * CHF with MR, TR, diastolic dysfn and mod pulm HTN on echo 12/2014. BNP 11/24/16 not significantly elevated. * Irregular heart rhythm: EKG 11/24/16 with PVCs and lateral ischemia. Troponin not elevated. BMP with slight increase creatinine (due to losartan?) and Ca (due to immobility?). She refused transfer to ED 11/28/16. Continue antianginal meds (isosorbide, NTG). * Leukocytosis and anemia 11/24/16: Leukocytosis resolved, anemia improving . * History of gout. Uric acid 6.8 (added on to hosptal labs from 11/16/16), just below target for prevention of recurrence. Continue allopurinol. * History of sciatica. She reports this responded dramatically to gabapentin at a very low dose and this will be continued. * Gastroesophageal reflux disorder. Continue pantoprazole. * Vitamin D deficiency. Continue vitamin D supplementation. * Anemia, post-surgical, improving. Plan: 12/03/16 10:53 12/04/16 09:54 12/05/16 12:10 12/05/16 12:18 12/08/16 10:03 Subjective: No c/o chest pain or angina like sxs this am Objective: Vital Signs Temp Pulse Resp BP Pulse Ox 37.1 C 76 17 148/72 H 93 12/07/16 19:49 12/07/16 19:49 12/07/16 19:49 12/08/16 08:31 12/07/16 19:49 Laboratory Results 12/06/16 08:20 12/06/16 08:20 12/07/16 12/08/16 12/09/16 05:59 05:59 05:59 Intake Total 1450 976 Output Total 1250 900 Balance 200 76 Physical Exam - Physical Exam General Appearance: WD/WN, alert, no apparent distress Neck: supple, normal inspection Respiratory: lungs clear, normal breath sounds Cardiac/Chest: No edema, No JVD Abdomen: normal bowel sounds, non-tender, soft Skin: normal color, warm/dry, No diaphoresis Extremities: No swelling, No Alejandro's sign Neuro/Psych: normal mood/affect, oriented x 3, motor weakness ICD10 Worksheet Patient Problems: Problems Problem Status Onset Back pain Acute Bilateral leg weakness Acute CHF (congestive heart failure) Acute Chest pain Acute Chronic Disease Mgmt/Transitional Care Acute Lumbar radiculitis Acute Lumbar stenosis Acute NSTEMI (non-ST elevated myocardial infarction) Acute Sensory abnormality of thoracic dermatome distribution Acute
[2016-12-08] MEDS ORDERED: DIAZEPAM 2 MG TAB PO PRN (14:10)
[2016-12-08] MEDS: BISACODYL 10 MG SUPP PR SCH (17:35)
[2016-12-08] MEDS: LIDOCAINE 5% 1 EA PATCH TD PRN (19:59)
[2016-12-08] MEDS: LOSARTAN POTASSIUM 50 MG TAB PO SCH (20:07)
[2016-12-08] MEDS: PATCH REMOVAL 1 EA PATCH TD SCH (20:10)
[2016-12-08] MEDS: ONDANSETRON DISINTEGRATING 4 MG TAB PO PRN (21:12)
[2016-12-09 08:02] LABS: ANION GAP 7 mEq/L (8-16); CALCIUM 11.6 mg/dL (8.5-10.4); CARBON DIOXIDE 25 mEq/l (22-31); CHLORIDE 103 mEq/L (97-110); CREATININE 1.2 mg/dL (0.6-1.0); GLOMERULAR FILTRATION RATE 44; GLUCOSE 167 mg/dL (70-100); POTASSIUM 4.5 mEq/L (3.5-5.2); SODIUM 135 mEq/L (134-144)
[2016-12-09 08:11] LABS: PTH INTACT NO MINERALS 37.1 pg/ml (10.8-79.4)
[2016-12-09] MEDS: CHOLECALCIFEROL VIT D3 2,000 UNITS TAB/CAP PO SCH (08:54)
[2016-12-09] MEDS: ENOXAPARIN 40 MG/0.4 ML SYR SC SCH (08:54)
[2016-12-09] MEDS: GABAPENTIN 100 MG CAP PO SCH ×3 (08:54→21:27)
[2016-12-09] MEDS: ISOSORBIDE MONONITRATE 30 MG TAB.SR PO SCH ×2 (08:54→20:54)
[2016-12-09] MEDS: PANTOPRAZOLE SODIUM 40 MG TAB PO SCH ×2 (08:55→20:55)
[2016-12-09] MEDS: ASPIRIN EC 81 MG TAB PO SCH (08:55)
[2016-12-09] MEDS: INSULIN LISPRO 100 UNIT/ML SC SCH ×3 (08:55→18:13)
[2016-12-09] MEDS: ALLOPURINOL 100 MG TAB PO SCH ×2 (08:55→20:55)
[2016-12-09] MEDS: INSULIN GLARGINE 100 UNITS/ML SYRINGE SC SCH ×2 (08:55→20:55)
[2016-12-09] MEDS: TORSEMIDE 20 MG TAB PO SCH (08:56)
[2016-12-09] MEDS: Empagliflozin [Jardiance] 10 MG PO SCH (09:02)
--- NOTE | 2016-12-09 12:32 | SOAPPROG ---
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 Initial FIM 63 on 11/18/16; improved to 68 on 11/25/16; to 75 as of 12/02/16; to 77 as of 12/07/16. Progressing toward 1-person transfer but often needs 2 person assist if fatigued or with urgency for commode. Has improved L leg strength but not able to bear weight. Decreased LE proprioception. decreased sensation in feet. Min A of 1 for bed mobility for control of legs . Dresses in bed, UB set-up/S, LB min A to set-up. Shower T' tavia 2 person SB. Bathes min A. Good upper extremity strength; does well with wheelchair mobility. Continue physical therapy and occupational therapy to optimize her mobility and functional status. Initial goal is to optimize function at wheelchair level with 1 person assist for transfers. * Pain management. Pain in L gluteus; improved. NSAIDs contraindicated for 6 mo after spinal fusion. Change acetaminophen to PRN 12/07/16 at her request; not using methocarbamol. Not tolerating oxycodone due to nausea; refusing hydromorphone due to prior experience. Ice and heat are available. Stretching and other modalities per PT. Massage and acupuncture per her request ordered ; pain seems to respond to acupuncture. Using lidocaine patch for L buttock with some improvement. * Hypercalcemia. persisting stable 12/09/16. PTH normal, PO4 slightly increased , TSH wnl. Possibly due to immobilization. D/W Nephrology, Dr. Garcia. Ordered SPEP, 1, 25 (OH) Vit D level, PTHrp. Dr. Garcia to see patient . * No neurogenic bowel. Having normal bowel movements but inconsistent with bowel protocol. Initiate MOM QD starting 12/02/16; change to PRN at her request . Changed senna to PRN on 11/18/16. Per her request, changed bowel protocol with bisacodyl suppository to Monday, , Monday. * Coronary artery disease status post coronary artery bypass graft with angina. Episode of angina 12/06/16 at 0600,resolved after NTG and normal troponin, EKG unchanged. Continue PRN NTG. She will be monitored for any further symptoms and nitroglycerin will be available on a p.r.n. basis. Isosorbide for angina. D/W therapy assistant Dr. Gauthier. Incomplete revascularization; LV fn recovered; mitral regurgitation. OK for afterload reduction with ARB. B-gera contraindicated due to depression. ASA d/w Neurosurgery 11/18/16: OK to start. * Hypertension. BP was elevated on hydralazine, isosorbide. torsemide and PRN clonidine. Was on losartan at bedtime previously; restarted 11/17/16; increased to 50 mg QHS on 11/21/16. BP still mostly high; increase losartan to 75 mg QHS ; to 25 QAM and 75 QQPM on 12/04/16; consolidate to 100 mg QHS starting . Decreased torsemide from 20 mg QD to 10 mg QD. Continue to monitor. * Renal insufficiency: improved 11/28/16 but still stage 3 CRI with GFR 55; stable 12/06/16. * Anxiety and discouragement, improved. Declined offer of SSRI or other antianxiety agent besides diazepam, which she's not using. Episode of shaking 11/25/16 likely related to anxiety. Concern re discouragement and ability to participate in therapies. Continue counseling per HEALTH EVALUATOR. * UTI: U Cx with E. coli and K. pneumoniae, sens to nitrofurantoin. Completed 7 days on 11/29/16. * Diabetes mellitus type 2. Lantus has been titrated to 23 U QAM, 30 U QPM. Increase metformin from 500 mg BID to 850 mg BIS on 12/07/16. Continue insulin lispro before meals; increase to high-dose regimen starting 12/02/16 per her request; continue empagliflozin orally. Restarted metformin 11/30/16, at 500 mg BID; plan to titrate as tolerated. * Prophylaxis: on enoxaparin. Chronic stable conditions: * Yeast vaginitis, treated with fluconazole single dose 11/29/16. * Voiding normally s/p Hernandez d/c 11/21/16. Reduce torsemide to reduce urinary frequency. * CHF with MR, TR, diastolic dysfn and mod pulm HTN on echo 12/2014. BNP 11/24/16 not significantly elevated. * Irregular heart rhythm: EKG 11/24/16 with PVCs and lateral ischemia. Troponin not elevated. BMP with slight increase creatinine (due to losartan?) and Ca (due to immobility?). She refused transfer to ED 11/28/16. Continue antianginal meds (isosorbide, NTG). * Leukocytosis and anemia 11/24/16: Leukocytosis resolved, anemia improving . * History of gout. Uric acid 6.8 (added on to hosptal labs from 11/16/16), just below target for prevention of recurrence. Continue allopurinol. * History of sciatica. She reports this responded dramatically to gabapentin at a very low dose and this will be continued. * Gastroesophageal reflux disorder. Continue pantoprazole. * Vitamin D deficiency. Continue vitamin D supplementation. * Anemia, post-surgical, improving. Chart review with further past medical history: ventral hernia repair, cholecystectomy, esophageal spasm. [place] of care exceeds family's capability at present. Likely SNF discharge in several days. Follow-up: Seen by Hussain Hartley, Neurosurgery PA, 11/13/16 and steristrips removed. Follow-up Dr. Sánchez 01/26/17. 12/09/16 14:09 Subjective: Still has nausea and is not taking metformin today to see if it gets better. Reports she's been standing with PT, and transfers improved to 1-person assist. Sleeping well, chronic LBP tolerable. Objective: Vital Signs Temp Pulse Resp BP Pulse Ox 36.6 C 79 18 151/67 H 91 L 12/09/16 07:15 12/09/16 07:15 12/09/16 07:15 12/08/16 20:08 12/09/16 07:15 Laboratory Results 12/06/16 08:20 12/09/16 06:20 12/08/16 12/09/16 12/10/16 05:59 05:59 05:59 Intake Total 976 590 400 Output Total 900 300 Balance 76 290 400 Physical Exam - Physical Exam General Appearance: WD/WN, alert, no apparent distress, obese Respiratory: normal breath sounds, No crackles, No rhonchi, No wheezing Cardiac/Chest: regular rate, rhythm, No edema, No diastolic murmur, No systolic murmur Neuro/Psych: alert, normal mood/affect, oriented x 3, motor weakness (B LE) ICD10 Worksheet Patient Problems: Problems Problem Status Onset Back pain Acute Bilateral leg weakness Acute CHF (congestive heart failure) Acute Chest pain Acute Chronic Disease Mgmt/Transitional Care Acute Lumbar radiculitis Acute Lumbar stenosis Acute NSTEMI (non-ST elevated myocardial infarction) Acute Sensory abnormality of thoracic dermatome distribution Acute
[2016-12-09] MEDS ORDERED: NS 1,000 ML IV SCH (13:00)
[2016-12-09] MEDS: metFORMIN HCL 850 MG TAB PO SCH (14:15)
--- NOTE | 2016-12-09 14:50 | SOAPPROG ---
SOERIC Progress Note Assessment/Plan: Assessment: please see dictation # [id number] Plan: stop vit D and Tums IV NS gentle hydration now- ok to give loop diuretic if edema/overload follow Ca daily for next few days labs sent to determine etiology may give dose of bisphosphonate but await lab results first we will arrange clinic f/u with us in [place] (I will lab check over weekend but please call me any concerns [phone] or [phone] cell) I discussed my recs with Dr. Janelle Pack MD [facility] [phone] 12/09/16 15:03 Objective: Vital Signs Temp Pulse Resp BP Pulse Ox 36.6 C 79 18 151/67 H 91 L 12/09/16 07:15 12/09/16 07:15 12/09/16 07:15 12/08/16 20:08 12/09/16 07:15 Laboratory Results 12/06/16 08:20 12/09/16 06:20 12/08/16 12/09/16 12/10/16 05:59 05:59 05:59 Intake Total 976 590 400 Output Total 900 300 Balance 76 290 400 ICD10 Worksheet Patient Problems: Problems Problem Status Onset Back pain Acute Bilateral leg weakness Acute CHF (congestive heart failure) Acute Chest pain Acute Chronic Disease Mgmt/Transitional Care Acute Lumbar radiculitis Acute Lumbar stenosis Acute NSTEMI (non-ST elevated myocardial infarction) Acute Sensory abnormality of thoracic dermatome distribution Acute
[2016-12-09] MEDS: ONDANSETRON DISINTEGRATING 4 MG TAB PO PRN (15:16)
--- NOTE | 2016-12-09 16:20 | GCON ---
[f rep st] CONSULTATION INPATIENT NEPHROLOGY CONSULTATION. DATE OF CONSULTATION: 12/09/2016 REFERRING PHYSICIAN: Dr. Luis REASON FOR CONSULTATION: Hypercalcemia. HISTORY OF PRESENT ILLNESS: The patient is very pleasant 71-year-old woman with a history of diabet es; hypertension; coronary artery disease, status post CABG; pulmonary hypertension, who was admitte d to rehab after her prior lumbar fusion surgery that was complicated by a T6-[address] Luis has asked me to consult on patient given her hypercalcemia. Reviewing labs in compu ter system here, it appears that her calcium has ranged from 10.9 to 11.7 since November 24. Her pre vious calciums last year were in the normal range, but were on the higher end in the high 9's to low 10s. The patient reports that she takes Tums at least on a once a day basis for chronic stomach up set. She also has been started on vitamin D 5000 units daily since being admitted here for vitamin D insufficiency. Her level was noted to be 25 on December 06. The patient reports good oral intake, al though she states that her appetite has not been as good as normal since prior to admission. She desai s not had any nausea, vomiting, or diarrhea. She denies any abdominal pain or muscle or bone pain. Of note, also her creatinine typically runs between 1 and 1.1, but most recent value today was 1.2. It appears that her baseline is closer to 0.8, 0.9 based on labs from earlier this year in the s tem. She has been requiring a lot of assistance with transfers, and is still quite immobile at this point. Plans are to discharge to a fpc facility next week for continued rehab. Patien t denies any history of hypercalcemia. She denies any history of any granulomatous disease, includi ng TB, sarcoidosis, or lymphoma. She has not had any unexplained weight loss, fevers, or night swea ts. REVIEW OF SYSTEMS: GENERAL: Her oral intake has been adequate. No fevers. HEENT: Denies any sor e throat. PULMONARY: Denies any shortness of breath. CARDIAC: No chest pain, although she has desai d some earlier this admission. No lower extremity edema. BACK: No flank pain. : No hematuria. No dysuria. No difficulty voiding. GI: She states some chronic stomach upset, but no nausea, vo miting, or diarrhea. SKIN: No rash. HEME: No unexplained weight loss. No night sweats or fevers . ENDOCRINE: She does have diabetes, and her blood sugars have been fairly well controlled. She s topped her metformin in case this may be contributing to the stomach upset. PAST MEDICAL HISTORY: 1. Type 2 diabetes. She is just on insulin. 2. Hypertension. 3. Coronary artery disease, status post CABG several years ago. Her echocardiogram showed evidence of pulmonary hypertension and diastolic dysfunction with normal LVEF, moderate mitral regurgitation . This is based on an echo from December of 2014. 4. Anxiety. 5. Gout. 6. GERD. 7. Mild vitamin D deficiency. 8. Status post L2-3 lumbar fusion and L3-S1 fusion revision on November 09. This was complicated by T6-T7 spinal cord infarction. FAMILY HISTORY: She reports a sister and her brother who both had nephrolithiasis. No other kidney diseases as far as she is aware. SOCIAL HISTORY: She is and lives with her . Her daughter is also present whom is in volved in her care. Denies any tobacco or alcohol. CURRENT MEDICATIONS: Include: Tylenol p.r.n.; allopurinol 100 mg p.o. b.i.d.; aspirin 81 m g p.o. daily; Dulcolax suppository Tuesdays, , and Saturdays; vitamin D 5000 units p.o. daily; gamaliel nidine 0.1 mg p.o. daily p.r.n. high blood pressure; diazepam p.r.n. anxiety; Colace 100 mg p.o. q.h .s.; Lovenox 40 mg subcutaneously daily; gabapentin 100 mg p.o. t.i.d.; Biotene mouthwash p.r.n.; hy dralazine 100 mg p.o. b.i.d.; insulin glargine 23 units in the morning and 30 units in the evening; lispro insulin sliding scale; lidocaine 5% patch p.r.n.; isosorbide mononitrate 120 mg p.o. b.i.d.; losartan 100 mg p.o. daily; milk of magnesia 30 mL p.o. daily p.r.n. constipation; metformin 850 mg p.o. b.i.d.; Robaxin 750 mg p.o. q.i.d. p.r.n. muscle spasms; Zofran p.r.n.; senna p.r.n.; torsemide 10 mg p.o. daily. PHYSICAL EXAMINATION: VITAL SIGNS: Her temperature is 36.6. Blood pressure is 151/67. Satting 91 % on room air. Pulse 79. GENERAL: She is pleasant. No acute distress, sitting upright in a wheel chair. HEENT: Mucous membranes are moist. NECK: Supple. LUNGS: Clear to auscultation bilateral ly. There is no CVA tenderness. CARDIOVASCULAR: Regular rate and rhythm. No rub. ABDOMEN: Soft , nontender. EXTREMITIES: No edema. She has compression stockings on. NEUROLOGIC: Alert and qasim ented x3. SKIN: No obvious rash. LABORATORY DATA: Her sodium is 135, potassium 4.5, chloride 103, bicarbonate 25, BUN 24, creatinine 1.2, glucose 167, calcium 11.6, phosphorous 4.7. TSH 0.58. White blood cell count on December 06, 6.9, hemoglobin 12, hematocrit 36.4, platelets 266. ASSESSMENT AND PLAN: The patient is a 71-year-old woman with a history of diabetes, hypertension, c ongestive heart failure with pulmonary hypertension and diastolic dysfunction, recent lumbar fusion, complicated by T6-T7 spinal cord ischemia, who has been admitted for rehab, and who now has hyperca lcemia. 1. Hypercalcemia. Her calciums prior to this admission were in the normal, but on upper end of nor mal range. As of November 24 her calcium has been in the 11 range with most recent value of 11.6. W e are sending labs to further evaluate this, including the PTH, PTH-related peptide, SPEP, and vitam in D studies. I think this may be a combination of her vitamin D supplementation, her nkox-cts-fllk ter Tums use, as well as possible immobilization. However, we do need to exclude other causes, incl ude a parathyroid adenoma, occult malignancy such as myeloma, and a granulomatous disease in case he r vitamin D-125 levels are elevated. At this point, I would hold the Tums and vitamin D supplement. I would give her some gentle intravenous normal saline. We can increase the dose of loop diuretic if needed, especially if she develops any edema. I would follow her calcium levels daily for the n ext few days to ensure that it is correcting appropriately. I would avoid a thiazide diuretic in he r for hypertension. I will continue to follow the labs closely with you. 2. Elevated serum creatinine. Her baseline serum creatinine appears to 0.8 to 0.9. She does have a slight bump in her creatinine up to 1.2. Some of this may be due to the vasoconstrictive effect o f the hypercalcemia, but may also reflect the increasing doses of losartan. We are giving some gent le normal saline and stopping the vitamin D and Tums to try to bring her calcium down. I would cont inue the losartan as you are at this point as patient did not overly aggressively manage her blood p ressure. Thank you very much for the consultation. I have discussed my recommendations with Dr. Luis. We will continue to follow with you. Please do not hesitate to call with any questions. /[id number]/MODL
[2016-12-09] MEDS: LIDOCAINE 5% 1 EA PATCH TD PRN (20:53)
[2016-12-09] MEDS: LOSARTAN POTASSIUM 50 MG TAB PO SCH (20:54)
[2016-12-09] MEDS: DOCUSATE SODIUM 100 MG CAP PO SCH (20:55)
[2016-12-09] MEDS: PATCH REMOVAL 1 EA PATCH TD SCH (21:27)
[2016-12-10] MEDS: ONDANSETRON DISINTEGRATING 4 MG TAB PO PRN ×2 (08:19→18:04)
[2016-12-10] MEDS: PANTOPRAZOLE SODIUM 40 MG TAB PO SCH ×2 (08:19→21:13)
[2016-12-10] MEDS: INSULIN LISPRO 100 UNIT/ML SC SCH ×3 (08:20→17:29)
[2016-12-10] MEDS: ENOXAPARIN 40 MG/0.4 ML SYR SC SCH (08:21)
[2016-12-10] MEDS: ISOSORBIDE MONONITRATE 30 MG TAB.SR PO SCH ×2 (09:59→21:11)
[2016-12-10] MEDS: ALLOPURINOL 100 MG TAB PO SCH ×2 (09:59→21:12)
[2016-12-10] MEDS: GABAPENTIN 100 MG CAP PO SCH ×3 (09:59→21:13)
[2016-12-10] MEDS: ASPIRIN EC 81 MG TAB PO SCH (09:59)
[2016-12-10] MEDS: INSULIN GLARGINE 100 UNITS/ML SYRINGE SC SCH ×2 (10:00→21:13)
[2016-12-10] MEDS: TORSEMIDE 20 MG TAB PO SCH (10:00)
[2016-12-10] MEDS: Empagliflozin [Jardiance] 10 MG PO SCH (10:01)
[2016-12-10 10:29] LABS: ANION GAP 9 mEq/L (8-16); CALCIUM 11.7 mg/dL (8.5-10.4); CARBON DIOXIDE 24 mEq/l (22-31); CHLORIDE 102 mEq/L (97-110); CREATININE 1.3 mg/dL (0.6-1.0); GLOMERULAR FILTRATION RATE 40; GLUCOSE 190 mg/dL (70-100); POTASSIUM 4.6 mEq/L (3.5-5.2); SODIUM 135 mEq/L (134-144)
[2016-12-10] MEDS: BISACODYL 10 MG SUPP PR SCH (14:27)
--- NOTE | 2016-12-10 15:55 | SOAPPROG ---
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 Initial FIM 63 on 11/18/16; improved to 68 on 11/25/16; to 75 as of 12/02/16; to 77 as of 12/07/16. Progressing toward 1-person transfer but often needs 2 person assist if fatigued or with urgency for commode. Has improved L leg strength but not able to bear weight. Decreased LE proprioception. decreased sensation in feet. Min A of 1 for bed mobility for control of legs . Dresses in bed, UB set-up/S, LB min A to set-up. Shower T' tavia 2 person SB. [place] min A. Good upper extremity strength; does well with wheelchair mobility. Continue physical therapy and occupational therapy to optimize her mobility and functional status. Initial goal is to optimize function at wheelchair level with 1 person assist for transfers. * Pain management. Pain in L gluteus; improved. NSAIDs contraindicated for 6 mo after spinal fusion. Change acetaminophen to PRN 12/07/16 at her request; not using methocarbamol. Not tolerating oxycodone due to nausea; refusing hydromorphone due to prior experience. Ice and heat are available. Stretching and other modalities per PT. Massage and acupuncture per her request ordered ; pain seems to respond to acupuncture. Using lidocaine patch for L buttock with some improvement. * Hypercalcemia. persisting stable 12/09/16. PTH normal, PO4 slightly increased , TSH wnl. Possibly due to immobilization. Nephrology, Dr. Garcia on consult appreciate recs: D/c TUMS and Vit D Ordered SPEP, 1, 25 (OH) Vit D level, PTHrp , daily Ca and gentle IVF * No neurogenic bowel. Having normal bowel movements but inconsistent with bowel protocol. Initiate MOM QD starting 12/02/16; change to PRN at her request . Changed senna to PRN on 11/18/16. Per her request, changed bowel protocol with bisacodyl suppository to Monday, , Monday. * Coronary artery disease status post coronary artery bypass graft with angina. Episode of angina 12/06/16 at 0600,resolved after NTG and normal troponin, EKG unchanged. Continue PRN NTG. She will be monitored for any further symptoms and nitroglycerin will be available on a p.r.n. basis. Isosorbide for angina. D/W justice of the peace Dr. Gauthier. Incomplete revascularization; LV fn recovered; mitral regurgitation. OK for afterload reduction with ARB. B-gera contraindicated due to depression. ASA d/w Neurosurgery 11/18/16: OK to start. * Hypertension. BP was elevated on hydralazine, isosorbide. torsemide and PRN clonidine. Was on losartan at bedtime previously; restarted 11/17/16; increased to 50 mg QHS on 11/21/16. BP still mostly high; increase losartan to 75 mg QHS ; to 25 QAM and 75 QQPM on 12/04/16; consolidate to 100 mg QHS starting . Decreased torsemide from 20 mg QD to 10 mg QD. BPs now more normotensive to low (asymptomatic) will decrease Hydral to 50BID (12/10). Continue to monitor. * Renal insufficiency: improved 11/28/16 but still stage 3 CRI with GFR 55; stable 12/06/16. * Anxiety and discouragement, improved. Declined offer of SSRI or other antianxiety agent besides diazepam, which she's not using. Episode of shaking 11/25/16 likely related to anxiety. Concern re discouragement and ability to participate in therapies. Continue counseling per RECORD CHANGER ASSEMBLER. * UTI: U Cx with E. coli and K. pneumoniae, sens to nitrofurantoin. Completed 7 days on 11/29/16. * Diabetes mellitus type 2. Lantus has been titrated to 23 U QAM, 30 U QPM. Increase metformin from 500 mg BID to 850 mg BIS on 12/07/16. Continue insulin lispro before meals; increase to high-dose regimen starting 12/02/16 per her request; continue empagliflozin orally. Restarted metformin 11/30/16, at 500 mg BID; plan to titrate as tolerated. * Prophylaxis: on enoxaparin. Chronic stable conditions: * Yeast vaginitis, treated with fluconazole single dose 11/29/16. * Voiding normally s/p Hernandez d/c 11/21/16. Reduce torsemide to reduce urinary frequency. * CHF with MR, TR, diastolic dysfn and mod pulm HTN on echo 12/2014. BNP 11/24/16 not significantly elevated. * Irregular heart rhythm: EKG 11/24/16 with PVCs and lateral ischemia. Troponin not elevated. BMP with slight increase creatinine (due to losartan?) and Ca (due to immobility?). She refused transfer to ED 11/28/16. Continue antianginal meds (isosorbide, NTG). * Leukocytosis and anemia 11/24/16: Leukocytosis resolved, anemia improving . * History of gout. Uric acid 6.8 (added on to hosptal labs from 11/16/16), just below target for prevention of recurrence. Continue allopurinol. * History of sciatica. She reports this responded dramatically to gabapentin at a very low dose and this will be continued. * Gastroesophageal reflux disorder. Continue pantoprazole. * Vitamin D deficiency. Continue vitamin D supplementation. * Anemia, post-surgical, improving. Chart review with further past medical history: ventral hernia repair, cholecystectomy, esophageal spasm. [place] of care exceeds family's capability at present. Likely SNF discharge in several days. Follow-up: Seen by Hussain Hartley, Neurosurgery PA, 11/13/16 and steristrips removed. Follow-up Dr. Sánchze 01/26/17. Subjective: No events. No complaints this am. Denies nausea, dysuria, SOB. Objective: Vital Signs Temp Pulse Resp BP Pulse Ox 36.7 C 72 15 124/56 H 94 12/10/16 08:15 12/10/16 09:47 12/10/16 08:15 12/10/16 09:59 12/10/16 08:15 Laboratory Results 12/06/16 08:20 12/10/16 06:25 12/09/16 12/10/16 12/11/16 05:59 05:59 05:59 Intake Total 590 700 472 Output Total 300 400 Balance 290 700 72 - Pending Discharge Pending Discharge Within 24 Hours: No Pending Discharge Within 48 Hours: No Physical Exam - Physical Exam General Appearance: alert, no apparent distress EENT: No scleral icterus (R), No scleral icterus (L) Neck: supple Respiratory: lungs clear, normal breath sounds Cardiac/Chest: regular rate, rhythm, edema Abdomen: normal bowel sounds, non-tender, soft Skin: normal color, warm/dry Extremities: pedal edema Neuro/Psych: alert, normal mood/affect, oriented x 3, No speech abnormalities ICD10 Worksheet Patient Problems: Problems Problem Status Onset Back pain Acute Bilateral leg weakness Acute CHF (congestive heart failure) Acute Chest pain Acute Chronic Disease Mgmt/Transitional Care Acute Lumbar radiculitis Acute Lumbar stenosis Acute NSTEMI (non-ST elevated myocardial infarction) Acute Sensory abnormality of thoracic dermatome distribution Acute
[2016-12-10] MEDS: LIDOCAINE 5% 1 EA PATCH TD PRN (21:10)
[2016-12-10] MEDS: LOSARTAN POTASSIUM 50 MG TAB PO SCH (21:12)
[2016-12-10] MEDS: DOCUSATE SODIUM 100 MG CAP PO SCH (21:13)
[2016-12-10] MEDS: PATCH REMOVAL 1 EA PATCH TD SCH (21:25)
[2016-12-11] MEDS: INSULIN LISPRO 100 UNIT/ML SC SCH ×5 (08:43→22:38)
[2016-12-11] MEDS: ALLOPURINOL 100 MG TAB PO SCH ×2 (08:44→21:57)
[2016-12-11] MEDS: ASPIRIN EC 81 MG TAB PO SCH (08:44)
[2016-12-11] MEDS: ENOXAPARIN 40 MG/0.4 ML SYR SC SCH (08:44)
[2016-12-11] MEDS: PANTOPRAZOLE SODIUM 40 MG TAB PO SCH ×2 (08:44→21:57)
[2016-12-11] MEDS: ISOSORBIDE MONONITRATE 30 MG TAB.SR PO SCH ×2 (08:50→21:58)
[2016-12-11 08:51] LABS: CALCIUM 11.6 mg/dL (8.5-10.4)
[2016-12-11] MEDS: GABAPENTIN 100 MG CAP PO SCH ×3 (08:51→21:57)
[2016-12-11] MEDS: metFORMIN HCL 850 MG TAB PO SCH ×2 (08:52→17:00)
[2016-12-11] MEDS: INSULIN GLARGINE 100 UNITS/ML SYRINGE SC SCH ×2 (09:02→22:00)
[2016-12-11] MEDS: Empagliflozin [Jardiance] 10 MG PO SCH (09:02)
--- NOTE | 2016-12-11 09:18 | SOAPPROG ---
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 Initial FIM 63 on 11/18/16; improved to 68 on 11/25/16; to 75 as of 12/02/16; to 77 as of 12/07/16. Progressing toward 1-person transfer but often needs 2 person assist if fatigued or with urgency for commode. Has improved L leg strength but not able to bear weight. Decreased LE proprioception. decreased sensation in feet. Min A of 1 for bed mobility for control of legs . Dresses in bed, UB set-up/S, LB min A to set-up. Shower T' tavia 2 person SB. [place] min A. Good upper extremity strength; does well with wheelchair mobility. Continue physical therapy and occupational therapy to optimize her mobility and functional status. Initial goal is to optimize function at wheelchair level with 1 person assist for transfers. * Pain management. Pain in L gluteus; improved. NSAIDs contraindicated for 6 mo after spinal fusion. Change acetaminophen to PRN 12/07/16 at her request; not using methocarbamol. Not tolerating oxycodone due to nausea; refusing hydromorphone due to prior experience. Ice and heat are available. Stretching and other modalities per PT. Massage and acupuncture per her request ordered ; pain seems to respond to acupuncture. Using lidocaine patch for L buttock with some improvement. * Hypercalcemia. persisting stable 12/09/16. PTH normal, PO4 slightly increased , TSH wnl. Possibly due to immobilization. Nephrology, Dr. Garcia on consult appreciate recs: D/c TUMS and Vit D Ordered SPEP, 1, 25 (OH) Vit D level, PTHrp , daily Ca (stable) and gentle IVF given (may need to repeat) * No neurogenic bowel. Having normal bowel movements but inconsistent with bowel protocol. Initiate MOM QD starting 12/02/16; change to PRN at her request . Changed senna to PRN on 11/18/16. Per her request, changed bowel protocol with bisacodyl suppository to Monday, , Monday. * Coronary artery disease status post coronary artery bypass graft with angina. Episode of angina 12/06/16 at 0600,resolved after NTG and normal troponin, EKG unchanged. Continue PRN NTG. She will be monitored for any further symptoms and nitroglycerin will be available on a p.r.n. basis. Isosorbide for angina. D/W relief map modeler Dr. Gauthier. Incomplete revascularization; LV fn recovered; mitral regurgitation. OK for afterload reduction with ARB. B-gera contraindicated due to depression. ASA d/w Neurosurgery 11/18/16: OK to start. * Hypertension. BP was elevated on hydralazine, isosorbide. torsemide and PRN clonidine. Was on losartan at bedtime previously; restarted 11/17/16; increased to 50 mg QHS on 11/21/16. BP still mostly high; increase losartan to 75 mg QHS ; to 25 QAM and 75 QQPM on 12/04/16; consolidate to 100 mg QHS starting . Decreased torsemide from 20 mg QD to 10 mg QD. BPs now more normotensive to low (asymptomatic) decreased Hydral to 50BID (12/10). Continue to monitor. * Renal insufficiency: improved 11/28/16 but still stage 3 CRI with GFR 55; stable 12/06/16. * Anxiety and discouragement, improved. Declined offer of SSRI or other antianxiety agent besides diazepam, which she's not using. Episode of shaking 11/25/16 likely related to anxiety. Concern re discouragement and ability to participate in therapies. Continue counseling per JAVA SUPPORT ENGINEER. * UTI: U Cx with E. coli and K. pneumoniae, sens to nitrofurantoin. Completed 7 days on 11/29/16. * Diabetes mellitus type 2. Lantus has been titrated to 23 U QAM, 30 U QPM. Increase metformin from 500 mg BID to 850 mg BIS on 12/07/16. Continue insulin lispro before meals; increase to high-dose regimen starting 12/02/16 per her request; continue empagliflozin orally. Restarted metformin 11/30/16, at 500 mg BID; plan to titrate as tolerated. Has been held due to nausea with increasing BS's * Nausea, likely Diabetic Gastroparesis: reports not responsive to serotonergic agents in past, has electively held metformin and now gabapentin, advised small frequent meals. * Prophylaxis: on enoxaparin. Chronic stable conditions: * Yeast vaginitis, treated with fluconazole single dose 11/29/16. * Voiding normally s/p Hernandez d/c 11/21/16. Reduce torsemide to reduce urinary frequency. * CHF with MR, TR, diastolic dysfn and mod pulm HTN on echo 12/2014. BNP 11/24/16 not significantly elevated. * Irregular heart rhythm: EKG 11/24/16 with PVCs and lateral ischemia. Troponin not elevated. BMP with slight increase creatinine (due to losartan?) and Ca (due to immobility?). She refused transfer to ED 11/28/16. Continue antianginal meds (isosorbide, NTG). * Leukocytosis and anemia 11/24/16: Leukocytosis resolved, anemia improving . * History of gout. Uric acid 6.8 (added on to hosptal labs from 11/16/16), just below target for prevention of recurrence. Continue allopurinol. * History of sciatica. She reports this responded dramatically to gabapentin at a very low dose and this will be continued. * Gastroesophageal reflux disorder. Continue pantoprazole. * Vitamin D deficiency. Continue vitamin D supplementation. * Anemia, post-surgical, improving. Chart review with further past medical history: ventral hernia repair, cholecystectomy, esophageal spasm. [place] of care exceeds family's capability at present. Likely SNF discharge in several days. Follow-up: Seen by Hussain Hartley, Neurosurgery PA, 11/13/16 and steristrips removed. Follow-up Dr. Sánchez 01/26/17. 12/11/16 09:19 Subjective: No events. Complains of ongoing low grade nausea, no emesis. Refusing metformin and gabapentin. Denies chills, pain well controlled. Objective: Vital Signs Temp Pulse Resp BP Pulse Ox 36.5 C 76 16 147/63 H 94 12/11/16 06:09 12/11/16 08:48 12/11/16 06:09 12/11/16 08:50 12/11/16 06:09 Laboratory Results 12/06/16 08:20 12/10/16 06:25 12/10/16 12/11/16 12/12/16 05:59 05:59 05:59 Intake Total 700 1012 Output Total 800 Balance 700 212 - Pending Discharge Pending Discharge Within 24 Hours: No Pending Discharge Within 48 Hours: No Physical Exam - Physical Exam General Appearance: alert, no apparent distress Neck: supple Respiratory: lungs clear, normal breath sounds Cardiac/Chest: regular rate, rhythm Abdomen: non-tender, soft Skin: normal color, warm/dry Extremities: pedal edema Neuro/Psych: alert, normal mood/affect, oriented x 3, No cognition abnormalities , No speech abnormalities ICD10 Worksheet Patient Problems: Problems Problem Status Onset Back pain Acute Bilateral leg weakness Acute CHF (congestive heart failure) Acute Chest pain Acute Chronic Disease Mgmt/Transitional Care Acute Lumbar radiculitis Acute Lumbar stenosis Acute NSTEMI (non-ST elevated myocardial infarction) Acute Sensory abnormality of thoracic dermatome distribution Acute
[2016-12-11] MEDS: TORSEMIDE 20 MG TAB PO SCH (11:44)
[2016-12-11] MEDS ORDERED: INSULIN GLARGINE 100 UNITS/ML SYRINGE SC SCH (21:37)
[2016-12-11] MEDS ORDERED: INSULIN REGULAR HUMAN 100 UNIT/ML ONE (21:38)
[2016-12-11] MEDS: DOCUSATE SODIUM 100 MG CAP PO SCH (21:57)
[2016-12-11] MEDS: LOSARTAN POTASSIUM 50 MG TAB PO SCH (21:57)
[2016-12-11] MEDS: PATCH REMOVAL 1 EA PATCH TD SCH (22:22)
[2016-12-12] MEDS: ONDANSETRON DISINTEGRATING 4 MG TAB PO PRN (08:03)
[2016-12-12 08:07] LABS: ANION GAP 8 mEq/L (8-16); CALCIUM 11.9 mg/dL (8.5-10.4); CARBON DIOXIDE 25 mEq/l (22-31); CHLORIDE 102 mEq/L (97-110); CREATININE 1.1 mg/dL (0.6-1.0); GLOMERULAR FILTRATION RATE 49; GLUCOSE 218 mg/dL (70-100); POTASSIUM 4.5 mEq/L (3.5-5.2); SODIUM 135 mEq/L (134-144)
[2016-12-12] MEDS: GABAPENTIN 100 MG CAP PO SCH ×3 (08:56→20:58)
[2016-12-12] MEDS: ALLOPURINOL 100 MG TAB PO SCH ×2 (08:56→20:59)
[2016-12-12] MEDS: Empagliflozin [Jardiance] 10 MG PO SCH (08:57)
[2016-12-12] MEDS: ASPIRIN EC 81 MG TAB PO SCH (08:57)
[2016-12-12] MEDS: ENOXAPARIN 40 MG/0.4 ML SYR SC SCH (08:58)
[2016-12-12] MEDS: ISOSORBIDE MONONITRATE 30 MG TAB.SR PO SCH ×2 (09:01→20:58)
[2016-12-12] MEDS: PANTOPRAZOLE SODIUM 40 MG TAB PO SCH ×2 (09:06→20:59)
[2016-12-12] MEDS: metFORMIN HCL 850 MG TAB PO SCH ×2 (09:07→17:55)
[2016-12-12] MEDS: INSULIN GLARGINE 100 UNITS/ML SYRINGE SC SCH (09:07)
[2016-12-12] MEDS: INSULIN LISPRO 100 UNIT/ML SC SCH ×4 (09:08→20:55)
[2016-12-12] MEDS: TORSEMIDE 20 MG TAB PO SCH (10:00)
[2016-12-12] MEDS: LIDOCAINE 5% 1 EA PATCH TD PRN (10:01)
--- NOTE | 2016-12-12 10:07 | PDOREHIP ---
Admission [facility] - Admission - 3 Day Assessment Period Admission Date/Day 1: 11/16/16 Day 2: 11/17/16 Day 3: 11/18/16 - Active Diagnoses Comorbidities and Co-existing Conditions at Admission: 43866. DM (e.g. diabetic retinopathy, nephropathy, and neuropathy) Discharge [facility]F-[facility] - Discharge - 3 Day Assessment Period 2 Days Prior to Anticipated Discharge Date: 12/10/16 1 Day Prior to Anticipated Discharge Date: 12/11/16 Anticipated Discharge Date: 12/12/16 - Discharge Skin Conditions Unhealed Pressure Ulcer (1 or more/Stage 1 or >)-Discharge: 0. No
--- NOTE | 2016-12-12 10:51 | SOAPPROG ---
SOAP Progress Note Assessment/Plan: Assessment: 1. Hypercalcemia This is likely the hypercalcemia of immobilization, which is treatable with a bisphosphonate. By definition, and clinically, she is quite dry. I would like to stop her loop diuretic, and give at least 24 hours of NS at 100ml/hr. Then I would give IV pamidronate. She is to leave this facility today. I reviewed her needs to Dr. Luis. He will see if her therapy can be given at [facility]. If not, she will need brief admission to [facility] and then DC to [facility]. I reviewed treatment plan with the patient and her . They are in agreement. Plan: 12/12/16 10:50 Subjective: Doing fair. Some GI issues that are likely explainable by her hypercalcemia. Objective: Vital Signs Temp Pulse Resp BP Pulse Ox 36.7 C 80 16 141/62 H 91 L 12/11/16 20:00 12/12/16 07:33 12/12/16 07:33 12/12/16 09:06 12/11/16 20:00 Laboratory Results 12/06/16 08:20 12/12/16 06:25 12/11/16 12/12/16 12/13/16 05:59 05:59 05:59 Intake Total 1012 1036 Output Total 800 1750 Balance 212 -714 Physical Exam - Physical Exam General Appearance: no apparent distress Respiratory: lungs clear Cardiac/Chest: regular rate, rhythm Extremities: normal inspection Neuro/Psych: oriented x 3 ICD10 Worksheet Patient Problems: Problems Problem Status Onset Back pain Acute Bilateral leg weakness Acute CHF (congestive heart failure) Acute Chest pain Acute Chronic Disease Mgmt/Transitional Care Acute Lumbar radiculitis Acute Lumbar stenosis Acute NSTEMI (non-ST elevated myocardial infarction) Acute Sensory abnormality of thoracic dermatome distribution Acute
[2016-12-12] MEDS ORDERED: NS 1,000 ML IV SCH ×2 (11:00→14:30)
--- NOTE | 2016-12-12 13:00 | SOAPPROG ---
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 Initial FIM 63 on 11/18/16; improved to 68 on 11/25/16; to 75 as of 12/02/16; to 77 as of 12/07/16. Progressing toward 1-person transfer but often needs 2 person assist if fatigued or with urgency for commode. Has improved L leg strength but not able to bear weight. Decreased LE proprioception. decreased sensation in feet. Min A of 1 for bed mobility for control of legs . Dresses in bed, UB set-up/S, LB min A to set-up. Shower T' tavia 2 person SB. [place] min A. Good upper extremity strength; does well with wheelchair mobility. Continue physical therapy and occupational therapy to optimize her mobility and functional status. Initial goal is to optimize function at wheelchair level with 1 person assist for transfers. * Pain management. Pain in L gluteus; improved. NSAIDs contraindicated for 6 mo after spinal fusion. Change acetaminophen to PRN 12/07/16 at her request; not using methocarbamol. Not tolerating oxycodone due to nausea; refusing hydromorphone due to prior experience. Ice and heat are available. Stretching and other modalities per PT. Massage and acupuncture per her request ordered ; pain seems to respond to acupuncture. Using lidocaine patch for L buttock with some improvement. * Hypercalcemia. worse on 12/12/16. Appreciate assistance of nephrology; recommendation for IV hydration followed by IV pamidronate. Most likely due to immobilization. PTH normal, PO4 slightly increased, TSH wnl. Await SPEP, 1, 25 (OH) Vit D level, PTHrp. D/W Dr. Garcia 12/09/[address] Hardy 12/12/16. * No neurogenic bowel. Having normal bowel movements but inconsistent with bowel protocol. Initiate MOM QD starting 12/02/16; change to PRN at her request . Changed senna to PRN on 11/18/16. Per her request, changed bowel protocol with bisacodyl suppository to Monday, , Monday. * Coronary artery disease status post coronary artery bypass graft with angina. Episode of angina 12/06/16 at 0600,resolved after NTG and normal troponin, EKG unchanged. Continue PRN NTG. She will be monitored for any further symptoms and nitroglycerin will be available on a p.r.n. basis. Isosorbide for angina. D/W service desk team lead Dr. Gauthier. Incomplete revascularization; LV fn recovered; mitral regurgitation. OK for afterload reduction with ARB. B-gera contraindicated due to depression. ASA d/w Neurosurgery 11/18/16: OK to start. * Hypertension. BP was elevated on hydralazine, isosorbide. torsemide and PRN clonidine. Was on losartan at bedtime previously; restarted 11/17/16; increased to 50 mg QHS on 11/21/16. BP still mostly high; increase losartan to 75 mg QHS ; to 25 QAM and 75 QQPM on 12/04/16; consolidate to 100 mg QHS starting . Decreased torsemide from 20 mg QD to 10 mg QD. Continue to monitor. * Renal insufficiency: improved 11/28/16 but still stage 3 CRI with GFR 55; stable 12/06/16; improved 12/12/16 Cr 1.1 GFR 49. * Anxiety and discouragement, improved. Declined offer of SSRI or other antianxiety agent besides diazepam, which she's not using. Episode of shaking 11/25/16 likely related to anxiety. Concern re discouragement and ability to participate in therapies. Continue counseling per LOCAL HAZMAT DRIVER. * UTI: U Cx with E. coli and K. pneumoniae, sens to nitrofurantoin. Completed 7 days on 11/29/16. * Diabetes mellitus type 2. Lantus has been titrated to 23 U QAM, 30 U QPM. Increase metformin from 500 mg BID to 850 mg BIS on 12/07/16. Continue insulin lispro before meals; increase to high-dose regimen starting 12/02/16 per her request; continue empagliflozin orally. Restarted metformin 11/30/16, at 500 mg BID; plan to titrate as tolerated. * Prophylaxis: on enoxaparin. Chronic stable conditions: * Yeast vaginitis, treated with fluconazole single dose 11/29/16. * Voiding normally s/p Hernandez d/c 11/21/16. Reduce torsemide to reduce urinary frequency. * CHF with MR, TR, diastolic dysfn and mod pulm HTN on echo 12/2014. BNP 11/24/16 not significantly elevated. * Irregular heart rhythm: EKG 11/24/16 with PVCs and lateral ischemia. Troponin not elevated. BMP with slight increase creatinine (due to losartan?) and Ca (due to immobility?). She refused transfer to ED 11/28/16. Continue antianginal meds (isosorbide, NTG). * Leukocytosis and anemia 11/24/16: Leukocytosis resolved, anemia improving . * History of gout. Uric acid 6.8 (added on to hosptal labs from 11/16/16), just below target for prevention of recurrence. Continue allopurinol. * History of sciatica. She reports this responded dramatically to gabapentin at a very low dose and this will be continued. * Gastroesophageal reflux disorder. Continue pantoprazole. * Vitamin D deficiency. Continue vitamin D supplementation. * Anemia, post-surgical, improving. Chart review with further past medical history: ventral hernia repair, cholecystectomy, esophageal spasm. [place] of care exceeds family's capability at present. SNF discharge was planned for today 12/12/16; delayed until 12/13/16 due to need for hydration and IV pamidronate. Follow-up: Seen by Hussain Hartley, Neurosurgery PA, 11/13/16 and steristrips removed. Follow-up Dr. Sánchez 01/26/17. 12/12/16 12:56 Subjective: C/O nausea and reduced appetite this morning, improved this afternoon. Awoke with nausea. No constipation or emesis. No f/c. Objective: Vital Signs Temp Pulse Resp BP Pulse Ox 36.7 C 80 16 141/62 H 91 L 12/11/16 20:00 12/12/16 07:33 12/12/16 07:33 12/12/16 09:06 12/11/16 20:00 Laboratory Results 12/06/16 08:20 12/12/16 06:25 12/11/16 12/12/16 12/13/16 05:59 05:59 05:59 Intake Total 1012 1036 Output Total 800 1750 600 Balance 858 -618 -582 Physical Exam - Physical Exam General Appearance: WD/WN, alert, no apparent distress Respiratory: normal breath sounds, No crackles, No rhonchi, No wheezing Cardiac/Chest: regular rate, rhythm, systolic murmur, No edema Skin: normal color, warm/dry, other (Lumbar incision healed.) Neuro/Psych: alert, normal mood/affect, oriented x 3, motor weakness (B LE) ICD10 Worksheet Patient Problems: Problems Problem Status Onset Back pain Acute Bilateral leg weakness Acute CHF (congestive heart failure) Acute Chest pain Acute Chronic Disease Mgmt/Transitional Care Acute Lumbar radiculitis Acute Lumbar stenosis Acute NSTEMI (non-ST elevated myocardial infarction) Acute Sensory abnormality of thoracic dermatome distribution Acute
[2016-12-12] MEDS: BISACODYL 10 MG SUPP PR SCH (15:36)
--- NOTE | 2016-12-12 16:34 | PDOREHIP ---
Admission IRF-[facility] - Admission - 3 Day Assessment Period Admission Date/Day 1: 11/16/16 Day 2: 11/17/16 Day 3: 11/18/16 Discharge IRF-[facility] - Discharge - 3 Day Assessment Period 2 Days Prior to Anticipated Discharge Date: 12/11/16 1 Day Prior to Anticipated Discharge Date: 12/12/16 Anticipated Discharge Date: 12/13/16 - Discharge Skin Conditions Unhealed Pressure Ulcer (1 or more/Stage 1 or >)-Discharge: 0. No
[2016-12-12] MEDS: LOSARTAN POTASSIUM 50 MG TAB PO SCH (20:58)
[2016-12-12] MEDS: DOCUSATE SODIUM 100 MG CAP PO SCH (20:59)
[2016-12-12] MEDS: PATCH REMOVAL 1 EA PATCH TD SCH (21:00)
[2016-12-12] MEDS ORDERED: INSULIN GLARGINE 100 UNITS/ML SYRINGE SC SCH (21:00)
[2016-12-13] MEDS ORDERED: PAMIDRONATE DISODIUM 90 MG in NS 250 ML IV SCH (07:00)
[2016-12-13 08:19] LABS: ALBUMIN 2.9 g/dL (3.5-5.0); ANION GAP 7 mEq/L (8-16); CALCIUM 10.9 mg/dL (8.5-10.4); CARBON DIOXIDE 25 mEq/l (22-31); CHLORIDE 105 mEq/L (97-110); CREATININE 1.2 mg/dL (0.6-1.0); GLOMERULAR FILTRATION RATE 44; GLUCOSE 176 mg/dL (70-100); POTASSIUM 4.3 mEq/L (3.5-5.2); SODIUM 137 mEq/L (134-144)
[2016-12-13] MEDS: INSULIN LISPRO 100 UNIT/ML SC SCH ×2 (08:49→12:12)
[2016-12-13] MEDS: INSULIN GLARGINE 100 UNITS/ML SYRINGE SC SCH (08:51)
[2016-12-13] MEDS: ISOSORBIDE MONONITRATE 30 MG TAB.SR PO SCH (08:52)
[2016-12-13] MEDS: ALLOPURINOL 100 MG TAB PO SCH (08:58)
[2016-12-13] MEDS: GABAPENTIN 100 MG CAP PO SCH (08:58)
[2016-12-13] MEDS: metFORMIN HCL 850 MG TAB PO SCH (08:58)
[2016-12-13] MEDS: ASPIRIN EC 81 MG TAB PO SCH (08:58)
[2016-12-13] MEDS: PANTOPRAZOLE SODIUM 40 MG TAB PO SCH (08:58)
[2016-12-13 09:00] VITALS: PULSE 74; RESP 16; TEMP 98; O2SAT 94
[2016-12-13] MEDS: ENOXAPARIN 40 MG/0.4 ML SYR SC SCH (09:06)
[2016-12-13 09:40] VITALS: BP 153/63
[2016-12-13] MEDS: Empagliflozin [Jardiance] 10 MG PO SCH (11:06)
[2016-12-13] MEDS ORDERED: PAMIDRONATE DISODIUM 90 MG in NS 250 ML IV ONE (12:53)
--- NOTE | 2016-12-13 20:33 | GDS ---
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 Etiology was spinal cord infarction status post surgery. PROCEDURES: She underwent inpatient rehabilitation and had ECG x2 that showed similarities with the two with PVCs with nonspecific T-wave abnormalities and negative troponins x2 with chest pain incidence. She also had a chest x-ray on 12/06/2016 that showed cardiomegaly and a stent. CONSULTATIONS: The patient was consulted on by Dr. Ibarra from Nephrology, as well as Dr. Hardy of Nephrology as well. 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 Sánchez. The patient was noted to acutely have bilateral lower extremity weakness and loss of sensations postoperatively below the level of about T6 or so. Dr. Sánchez noted on sagittal imaging a cord lesion at the level of T6 without surgical hematoma. The patient had at least an L1 Starr class C spinal cord injury on rehabilitation consult. Please see the discharge summary from [facility] for full details. Briefly, she was treated for acute spinal cord injury by keeping her maps elevated for 7 days to maintain spinal cord perfusion, and was transferred to inpatient rehabilitation for impairments in mobility and self-care, as well as [facility] needs and physician management on 11/16/2016. HOSPITAL COURSE: The patient made slow, but steady progress throughout her hospital course and was initially noted to have a FIM of 63 that improved throughout her hospitalization. Her complications also included significant obesity and comorbid arthritis that did limit her function somewhat more than expected. On discharge she was doing transfers with a sliding board with cues and supervision as well as wheelchair set-up. She needed increased time for toileting and adaptive devices as well as 2-person assist for transferring to a toilet. Her mobility with a manual wheelchair. She was independent in her upper extremity ADLs and she needed some help with bathing and especially lower body dressing. She is discharging to a [facility] facility because her care needs exceeded those capabilities of her family at home at this point, and needed additional lower intensity therapy. Her hospital course was also complicated by difficulties with pain management. She did not tolerate opioids because of nausea. Ice and heat were helpful as well as stretching and other modalities per PT. She used a lidocaine patch on her left buttock with some improvement and acupuncture helped somewhat as well. Her course was also complicated by hypercalcemia due to spinal cord injury and immobility, and Nephrology was consulted and they recommended IV hydration, IV pamidronate which was given on the day of discharge. She had a normal parathyroid hormone and TSH was within normal limits. She still had an SPEP pending on discharge. She had a normal 25 hydroxy vitamin D level. She will be following up with Nephrology after discharge, and Dr. Ibarra. She also had other complications of spinal cord injury including neurogenic bowel and she was typically at twice per day bowel movements prior to injury, and was having bowel movements every day to every other day, and should be on a daily bowel program with oral Colace to keep stool loose as well as a daily suppository if needed. She had some symptoms of neurogenic bladder that seemed to clear, and she was voiding without residual. MEDICAL PROBLEMS: Other medical problems include hypertension with consistent elevation throughout her visit despite her intensive regimen. She would receive p.r.n. hide hydralazine if her systolic blood pressure exceeded 180 systolic. She also had an ongoing renal insufficiency with a GFR of 49, creatinine of 1.1 on 12/14/2016. She had some anxiety and discouragement that improved. She declined SSRI or other antianxiety medications, and was working with Counseling. She had a urinary tract infection that was culture consistent with E coli and Klebsiella pneumonia and was sensitive to nitrofurantoin. She completed 7 days on 11/29/2016. Diabetes mellitus was difficult to control, but her Lantus has been titrated and she is on metformin, continuing lispro before meals. She also was treated for a yeast vaginitis. Had stable CHF. She had PVCs noted on ECGs as noted above. She had some episodes of chest pain , but no troponins were ever elevated. She generally refused transfer to emergency department for further workup, but these symptoms resolved with antianginal medications. She had improvement in her leukocytosis and anemia, and her gout was stable as well as her history of sciatica. We also treated her GERD which improved. CONDITION: As noted above, she is still requiring some assistance. Please see the hospital course above for full details. Otherwise, she is medically stable. DISPOSITION: She is transferring to a [facility] facility with ongoing PT and OT, and [facility] needs. DISCHARGE MEDICATIONS: Aspirin 81 mg p.o. daily, dextrose syringes available for hypoglycemia, diazepam 1-4 mg p.o. q.4 hours p.r.n. for anxiety, she has not been using these, hydralazine 50 mg p.o. twice daily, insulin glargine 30 units subcutaneous at bedtime as well as 23 units subcutaneous daily, lidocaine 5% patch transdermal daily for breakthrough pain, losartan 100 mg p.o. at bedtime, metformin 850 mg p.o. twice daily with meals, torsemide 10 mg p.o. daily, nitroglycerin 0.4 mg sublingual as needed for chest pain, docusate 100 mg p.o. at bedtime, pantoprazole 40 mg p.o. twice daily, ondansetron 4 mg p.o. daily p.r.n. for nausea, isosorbide mononitrate 120 mg p.o. twice daily, allopurinol 100 mg p.o. twice daily, empagliflozin or Jardiance 10 mg p.o. daily , gabapentin 100 mg p.o. three times daily, acetaminophen 1000 mg p.o. q.6 hours , Biotene mouthwash 30 mL p.o. q.4 hours p.r.n. for dry mouth, insulin lispro subcutaneous three times daily with meals, enoxaparin 40 mg subcutaneous daily for DVT prevention and acute spinal cord injury. DISCHARGE INSTRUCTIONS: As noted above, the patient will need a daily bowel program and medications to stay regular. Also attention should be paid to skin care for pressure ulcer prevention because of neurogenic skin. She also has the functional needs as listed above in the hospital course. It should be noted that she does periodically get chest pain and is responsive to nitrates; however, would have a low threshold for further cardiac evaluation and transfer to emergency department if necessary, though discuss with the patient prior to doing so. She has stated her desire is to not be resuscitated in the event of a code. Lumbar brace when out of bed. PENDING STUDIES: She does have a couple of studies pending from her hypercalcemia workup, to be followed up with Dr. Ibarra. RECOMMENDATIONS: Additional consults and studies are not recommended at this time, but she will need follow-up with her providers as noted below. FOLLOWUP: She will be following up with Dr. Ibarra in 1 week, Dr. Seth, who is her primary care provider, 3 days after [facility] facility discharge, as well as [facility] for followup in 1 week from discharge, and Dr. Sánchez on 01/26/2017 at 8:40 a.m. for neurosurgical follow-up. PHYSICAL EXAMINATION: Brief physical exam on day of discharge: VITAL SIGNS: Temperature is 36.6, blood pressure 194/86, repeated was 153/63, pulse of 74, respirations 16, saturating 94% on room air. GENERAL: She is in no apparent distress, lying in bed. HEENT: Eyes anicteric. Ears, nose, mouth and throat: Moist mucous membranes. Normal dentition. CARDIOVASCULAR: Regular rate and rhythm. She had a normal S1, S2. No murmurs were appreciated. RESPIRATORY: She is breathing comfortably on room air. LUNGS: Clear to auscultation bilaterally. No wheezes, rhonchi or rales. No increased work of breathing. GI: Abdomen is nondistended, but obese. Positive bowel sounds. : No Hernandez in place. SKIN: Showed no rashes or skin breakdown. PSYCH: She is appropriate, pleasant, cooperative. She endorsed a normal mood, had a normal affect and normal thought content. HEME/LYMPHS: No supraclavicular lymphadenopathy. No rashes were apparent. NEUROLOGIC: Briefly , she did have some impaired sensation to light touch in the bilateral legs, not performed thoroughly. She did have 3/5 hip flexion on the left and 3/5 knee extension, as well as 2/5 ankle dorsiflexion, and plantar flexion and EHL. On the right she had less than 3/5 hip flexion, 3/5 knee extension, and then trace ankle dorsiflexion and plantar flexion, EHL. Upper limbs were normal. The discharge plan was discussed with the patient today and questions were answered, and the patient concurred with the plan. 35 minutes was spent on discharge activities today. /[id number]/MODL MTDD
[2016-12-14 16:44] LABS: IG KAPPA FREE LIGHT CHAIN 4.41 mg/dL; IG LAMBDA FREE LIGHT CHAIN 3.23 mg/dL; KAPPA/LAMBDA RATIO 1.37
== END 2016-12-13 12:58 | DRG 92 ==
LOC: BREH 11-16 14:18
PROVIDERS: ADMIT Internal Medicine; ATTEND Internal Medicine
DX: G95.11 Acute infarction of spinal cord (embolic) (nonembolic) (principal); Z98.1 Arthrodesis status; K59.00 Constipation, unspecified; K59.2 Neurogenic bowel, not elsewhere classified; N31.9 Neuromuscular dysfunction of bladder, unspecified; Z96.651 Presence of right artificial knee joint; M50.321 Other cervical disc degeneration at C4-C5 level; M50.322 Other cervical disc degeneration at C5-C6 level; E11.9 Type 2 diabetes mellitus without complications; K21.9 Gastro-esophageal reflux disease without esophagitis; E66.01 Morbid (severe) obesity due to excess calories; Z68.42 Body mass index [BMI] 45.0-49.9, adult; I25.10 Atherosclerotic heart disease of native coronary artery without angina pectoris; I34.0 Nonrheumatic mitral (valve) insufficiency; I10 Essential (primary) hypertension; H40.9 Unspecified glaucoma; Z95.1 Presence of aortocoronary bypass graft; Z66 Do not resuscitate; N39.0 Urinary tract infection, site not specified; B37.3 Candidiasis of vulva and vagina; I51.7 Cardiomegaly
CPT/HCPCS: 82397-90; 82652-90; 86334-90; 97110-GO; 97110-GP; 97112-GP; 97140-GO; 97140-GP; 97162-GP; 97167-GO; 97530-GO; 97530-GP; 97535-GO; 97542-GP; 99366-GO; J1650; J1815; J2430; J2997

== ENCOUNTER → 2017-01-10 | Outpatient (CLI) | payer OTHER | LOC: FIMAGING 10:36 | PROVIDERS: ATTEND Nurse Practitioner | DX: Z09 Encounter for follow-up examination after completed treatment for conditions other than malignant neoplasm (principal); Z98.1 Arthrodesis status; M25.552 Pain in left hip ==

== ENCOUNTER → 2017-01-19 | Outpatient (CLI) | payer OTHER | LOC: FIMAGING 14:17 | PROVIDERS: ATTEND Orthopaedic Surgery | DX: M25.552 Pain in left hip (principal); M54.5 Low back pain; Z98.1 Arthrodesis status ==

== ENCOUNTER 2017-01-24 13:57 | Day surgery (SDC) | payer OTHER ==
[2017-01-24] MEDS ORDERED: TRIAMCINOLONE ACETONIDE 200 MG/5 ML MDV IM ONE (15:50)
[2017-01-24] MEDS ORDERED: IOPAMIDOL (ISOVUE-M 300) 15 ML VIAL ONE (15:50)
[2017-01-24] MEDS ORDERED: LIDOCAINE 1% 300 MG/30 ML SDV ONE (15:50)
== END 2017-01-24 16:28 | disposition home or self-care (01) ==
LOC: FIMAGING 13:57
PROVIDERS: ATTEND Radiology Diagnostic Radiology
PROC: 3E0S33Z Introduction of Anti-inflammatory into Epidural Space, Percutaneous Approach (ICD-10-PCS; principal; 2017-01-24)
PROC: 3E0S3BZ Introduction of Anesthetic Agent into Epidural Space, Percutaneous Approach (ICD-10-PCS; principal; 2017-01-24)
DX: M54.16 Radiculopathy, lumbar region (principal); Z98.1 Arthrodesis status
CPT/HCPCS: J3301; Q9967

== ENCOUNTER → 2017-01-26 | Day surgery (SDC) | payer OTHER ==
[~2017-01-26] MED LIST changes: -BACITRACIN 50,000 UNITS/10 ML SYR IRR ONE; -BUPIVACAINE/EPI 0.25% 30 ML SDV ONE; -CHLORHEXIDINE GLUC HIBICLENS 118 ML BTL TP ONE; +IOPAMIDOL (ISOVUE-M 300) 15 ML VIAL ONE; +LIDOCAINE 1% 300 MG/30 ML SDV ONE; -THROMBIN (BOVINE) 5,000 UNIT VIAL TP ONE; +TRIAMCINOLONE ACETONIDE 200 MG/5 ML MDV IM ONE; -ceFAZolin 2 GM/DEXTROSE 100 ML IV ONE
== END | disposition home or self-care (01) ==
LOC: FIMAGING 13:45
PROVIDERS: ATTEND Radiology Diagnostic Radiology
PROC: 3E0R33Z Introduction of Anti-inflammatory into Spinal Canal, Percutaneous Approach (ICD-10-PCS; principal; 2017-01-26)
DX: M54.5 Low back pain (principal); Z66 Do not resuscitate
CPT/HCPCS: J3301; Q9967

== ENCOUNTER → 2017-04-16 | Outpatient (CLI) | payer OTHER | LOC: FIMAGING 17:03 | PROVIDERS: ATTEND Neurological Surgery | DX: M54.5 Low back pain (principal); M51.36 Other intervertebral disc degeneration, lumbar region; M51.34 Other intervertebral disc degeneration, thoracic region; M43.16 Spondylolisthesis, lumbar region; Z98.1 Arthrodesis status ==

== ENCOUNTER → 2017-06-05 | Outpatient (CLI) | payer OTHER | LOC: FIMAGING 13:22 | PROVIDERS: ATTEND Neurological Surgery | DX: M54.5 Low back pain (principal); M16.0 Bilateral primary osteoarthritis of hip ==

== ENCOUNTER → 2017-09-01 | Outpatient (CLI) | payer OTHER | LOC: FIMAGING 11:09 | PROVIDERS: ATTEND Neurological Surgery | DX: M25.551 Pain in right hip (principal); M25.552 Pain in left hip ==

== ENCOUNTER 2017-11-01 09:20 | Inpatient (IN) | payer OTHER ==
--- NOTE | 2017-11-01 09:35 | CPEKG ---
Heart Rate: 89 RR Interval: 674 P-R Interval: 156 QRSD Interval: 86 QT Interval: 388 QTC Interval: 473 P [place]: 45 QRS [place]: -7 T Wave [place]: 140 EKG Severity - ABNORMAL ECG - EKG Impression: SINUS RHYTHM EKG Impression: ABNRM R PROG, CONSIDER ASMI OR LEAD PLACEMENT EKG Impression: REPOL ABNRM SUGGESTS ISCHEMIA, LATERAL LEADS Electronically Signed By: Amish Johnston 02-Nov-2017 08:05:12
[2017-11-01 09:48] LABS: PLATELET COUNT 242 10^3/uL (150-400)
--- NOTE | 2017-11-01 09:56 | EDPHY ---
HPI/HX/ROS/PE/MDM Narrative: CHIEF COMPLAINT: Chest discomfort HPI: This patient is a 72 y/o female with history of congestive heart failure, CAD, and angina complaining of chest discomfort. Recently, she has had angina more frequently. Her current discomfort began two days ago. Last night, her prescribed nitro did not relieve her pain at all. Her last dose of nitro was this morning. The discomfort is primarily epigastric and radiates to her back. It is constant with associated nausea. She ate a small amount last night and this did not change her pain. The discomfort does not feel similar to her prior angina. In the past it has been more sharp and usually does not radiate. It is not increased with exertion. The patient cannot identify any changes in the last two days that might have caused her symptoms. She is followed by Dr. Gauthier science tutor. She endorses history of abdominal surgery including cholecystectomy and two hernia repairs. No history of pancreatis. She denies fever, shortness of breath, vomiting, weakness, or other associated symptoms. REVIEW OF SYSTEMS: Aside from elements discussed in the HPI, a comprehensive 10-point review of systems was reviewed and is negative. PMH: 1. Congestive heart failure. 2. CAD s/p CABG and stent placements. TX in 2010. 3. Sleep apnea (Home oxygen at night). 4. Obesity, morbid 5. Hypertension 6. Diabetes type 2 7. Hyperlipidemia Surgical history includes multiple back surgeries, hernia repairs, cholecystectomy, right total knee arthroscopy. SOCIAL HISTORY: . Retired. Lives in [place]. PHYSICAL EXAM: General:Patient is alert, in no acute distress. ENT:Eyes are normal to inspection. ENT inspection normal. Neck: Normal inspection. Full range of motion. Respiratory: Mildly tachypneic, no respiratory distress. Breath sounds normal bilaterally. Cardiovascular: Regular rate and rhythm. Strong peripheral pulses. Normal cap refill. Abdomen:The abdomen is obese, nontender to palpation. Back: Normal to inspection. No tenderness to palpation. Skin: Normal color. No rash. Warm and dry. Extremities: Normal appearance. Full range of motion. Neuro: Oriented x3. Normal motor function. Normal sensory function. ED Course: 72 y/o female with history of CHF and angina presents with two day history of worsening chest discomfort. Plan for EKG, chest x-ray, labs including CBC, chemistries, troponin, liver, lipase. Patient declines pain medication at this time. EKG was ordered and interpreted by myself. Please see Pegg'd system for official reading. 10:10 EKG compared to prior in 11/[address] in lateral leads. 10:12 BP at triage 250/100. Plan to recheck immediately and administer 1" nitro paste. Chest x-ray consistent with CHF. 11:15 Notified by security alarm technician that patient's troponin is elevated at 0.036. 11:20 Spoke with PERRI Farmer for cardiology. Cardiology will consult. 12:05 Spoke with hospitalist service. Dr. Hedrick accepts admission for unstable angina. - Data Points Imaging Results: Imaging Impressions Chest X-Ray 11/01/17 09:43 Impression: Mild congestive heart failure and/or virally-mediated perihilar bronchitis, without a focal infiltrate. Imaging: I viewed and interpreted images myself Laboratory Results: Laboratory Results 11/01/17 09:35 11/01/17 09:35 11/01/17 11/01/17 09:35 09:35 WBC 8.83 10^3/uL 10^3/uL (3.80-9.50) RBC 4.10 10^6/uL L 10^6/uL (4.18-5.33) Hgb 12.2 g/dL L g/dL (12.6-16.3) Hct 35.7 % L % (38.0-47.0) MCV 87.1 fL fL (81.5-99.8) MCH 29.8 pg pg (27.9-34.1) MCHC 34.2 g/dL g/dL (32.4-36.7) RDW 13.1 % % (11.5-15.2) Plt Count 242 10^3/uL 10^3/uL (150-400) MPV 10.3 fL fL (8.7-11.7) Neut % (Auto) 63.2 % % (39.3-74.2) Lymph % (Auto) 25.5 % % (15.0-45.0) [place] % (Auto) 8.8 % % (4.5-13.0) Eos % (Auto) 1.9 % % (0.6-7.6) Baso % (Auto) 0.3 % % (0.3-1.7) Nucleat RBC Rel Count 0.0 % % (0.0-0.2) Absolute Neuts (auto) 5.57 10^3/uL 10^3/uL (1.70-6.50) Absolute Lymphs (auto) 2.25 10^3/uL 10^3/uL (1.00-3.00) Absolute Monos (auto) 0.78 10^3/uL 10^3/uL (0.30-0.80) Absolute Eos (auto) 0.17 10^3/uL 10^3/uL (0.03-0.40) Absolute Basos (auto) 0.03 10^3/uL 10^3/uL (0.02-0.10) Absolute Nucleated RBC 0.00 10^3/uL 10^3/uL (0-0.01) Immature Gran % 0.3 % % (0.0-1.1) Immature Gran # 0.03 10^3/uL 10^3/uL (0.00-0.10) Sodium 142 mEq/L mEq/L (135-145) Potassium 4.3 mEq/L mEq/L (3.5-5.2) Chloride 105 mEq/L mEq/L (97-110) Carbon Dioxide 26 mEq/l mEq/l (22-31) Anion Gap 11 mEq/L mEq/L (8-16) BUN 21 mg/dL mg/dL (7-23) Creatinine 1.0 mg/dL mg/dL (0.6-1.0) Estimated GFR 54 Glucose 183 mg/dL H mg/dL (70-100) Calcium 10.6 mg/dL H mg/dL (8.5-10.4) Total Bilirubin 1.0 mg/dL mg/dL (0.1-1.4) Conjugated Bilirubin 0.3 mg/dL mg/dL (0.0-0.5) Unconjugated Bilirubin 0.7 mg/dL mg/dL (0.0-1.1) AST 17 IU/L IU/L (14-46) ALT 25 IU/L IU/L (9-52) Alkaline Phosphatase 142 IU/L H IU/L (38-126) Troponin I 0.036 ng/mL H ng/mL (0.000-0.034) NT-Pro-B Natriuret Pep 3090 pg/mL H pg/mL (0-125) Total Protein 7.0 g/dL g/dL (6.3-8.2) Albumin 3.6 g/dL g/dL (3.5-5.0) Lipase 63 IU/L IU/L (23-300) Medications Given: Discontinued Medications Nitroglycerin (Nitro-Bid 2%) 1 inch TP EDNOW ONE Stop: 11/01/17 10:14 Last Admin: 11/01/17 10:27 Dose: 1 inch General Time Seen by Provider: 11/01/17 09:25 Initial Vital Signs: Initial Vital Signs Temperature (C) 36.7 C 11/01/17 09:21 Heart Rate 96 11/01/17 09:21 Respiratory Rate 22 H 11/01/17 09:21 Blood Pressure 250/100 H 11/01/17 09:21 O2 Sat (%) 92 11/01/17 09:21 O2 Delivery Mode Room Air Allergies/Adverse Reactions: lorazepam [Lorazepam] Allergy (Intermediate, Verified 11/01/17 09:20) Other-Enter Comments metoprolol Allergy (Intermediate, Verified 11/01/17 09:20) Other-Enter Comments Opioids - Morphine Analogues [Opioids-Morphine & Related] Allergy (Intermediate , Verified 11/01/17 09:20) Other-Enter Comments Sulfa (Sulfonamide Antibiotics) Allergy (Intermediate, Verified 11/01/17 09:20) Hives Home Medications: Medication Instructions Recorded Nitroglycerin [Nitrostat 0.4 mg 0.4 mg SL AD PRN 01/06/15 (*)] Isosorbide Mononitrate [Isosorbide 120 mg PO BID 04/26/16 Mononitrate ER] Ondansetron Odt [Zofran Odt 4 mg 4 mg PO DAILY PRN 04/26/16 (*)] Pantoprazole Sodium [Protonix 40mg 40 mg PO BID 04/26/16 (*)] Aspirin EC [Aspirin EC 81 mg (*)] 81 mg PO DAILY #0 tab 12/12/16 Insulin Glargine [Lantus 100 50 units SC BID 01/23/17 UNITS/ML (*)] hydrALAZINE [Apresoline 50 mg (*)] 100 mg PO BID 01/23/17 Acetaminophen [Tylenol ES 500 mg 1,000 mg PO Q6 PRN 11/01/17 (*)] Albuterol [Proventil Inhaler HFA 1 - 2 puffs IH Q4H PRN 11/01/17 (*)] Diazepam [Valium 2 MG (*)] 2 mg PO DAILY PRN 11/01/17 Insulin Aspart [novoLOG] 0 unit SC HS 11/01/17 Insulin Aspart [novoLOG] 30 unit SC BIDMEAL 11/01/17 Losartan Potassium [Cozaar 50 mg 50 mg PO HS 11/01/17 (*)] clonIDINE [Catapres (*)] 0.1 mg PO BID 11/01/17 Departure - Departure Disposition: [facility] Inpatient Acute Clinical Impression: Unstable angina Condition: Fair Report Scribed for: Rod Enrique Report Scribed by: Samreen Berg Date of Report: 11/01/17 Time of Report: 10:38 Physician Review and Approval Statement: Portions of this note were transcribed by an ED scribe. I personally performed the history, physical exam, and medical decision making; and confirm the accuracy of the information in the transcribed note.
[2017-11-01] MEDS ORDERED: NITROGLYCERIN 2% 1 GM PACKET TP ONE (10:13)
[2017-11-01] MEDS ORDERED: ONDANSETRON 4 MG/2 ML VIAL IVP PRN (12:32)
[2017-11-01] MEDS ORDERED: ONDANSETRON DISINTEGRATING 4 MG TAB PO PRN (12:32)
[2017-11-01] MEDS ORDERED: ACETAMINOPHEN 325 MG TAB PO PRN (12:32)
[2017-11-01] MEDS ORDERED: CYCLOBENZAPRINE 10 MG TAB PO PRN (14:20)
[2017-11-01] MEDS ORDERED: DIAZEPAM 2 MG TAB PO PRN (14:56)
[2017-11-01] MEDS ORDERED: ALBUTEROL 60 PUFFS/8 GM MDI IH PRN (14:56)
--- NOTE | 2017-11-01 15:43 | GHP ---
[f rep st] HISTORY AND PHYSICAL DATE OF ADMISSION: 11/01/2017 CHIEF COMPLAINT: Chest pain. PRIMARY EYEGLASS LENS CUTTER: Dr. Gauthire. PRIMARY NEUROSURGEON: Dr. Sánchez. HISTORY OF PRESENT ILLNESS: A 72-year-old female with multiple comorbidities, including CAD status post 4 vessel CABG, type 2 diabetes, chronic back pain, anxiety, presenting with progressive chest pain. Last cardiac cath was December 2014, showed 3 vessel coronary artery disease with a patent LOUIS to LAD graft. The saphenous vein graft to the diagonal was occluded. The saphenous vein graft to the RCA, OM were known to be occluded. The diagonal artery was found to be occluded in the proximal segment. Difficult to get a good history from patient, but she expressed having progressive angina symptoms for the past 2 weeks. Says it is substernal, that can occur at rest or with walking. The episodes can last a few minutes. A week ago, these symptoms were relieved by nitro, but this is no longer the case. Two days ago, she took 2 nitroglycerin without relief. Along with this chest pressure, which she describes as a dagger, she feels nauseated and shortness of breath. Dr. Seth saw her on October 27, with similar symptoms. She reports high blood pressures at home with systolics ranging 170s to 200s. She has been compliant with her home medications. Reports increased back pain in her lumbar region. Feels like a nerve pain that radiates to both hips, and then a dull constant pain. She does not tolerate opioids. Thus has been using a heating pad or Tylenol. She has had some improvement with acupuncture and dry needling in the past. Currently, she denies headache or vision changes. No slurred speech. No focal weakness. No cough, fevers, chills, or sweats. She had a Lexiscan August 2016, with an EF of 48%. Showed reversible ischemia of LV apex. REVIEW OF SYSTEMS: I completed a 10-point review of systems, negative except as noted in HPI. PAST MEDICAL HISTORY: 1. Type 2 diabetes. 2. Hypertension. 3. Coronary artery disease with prior CABG. Cardiac catheterization 2014: Three vessel CAD. Patent LOUIS to LAD graft. Vein graft to diagonals occluded. Known occlusion of graft to RCA and OM. 4. Pulmonary hypertension. 5. Diastolic heart failure. 6. Moderate MR. 7. Anxiety. 8. Gout. 9. Spinal stenosis. 10. COPD. 11. ERON. PAST SURGICAL HISTORY: 1. Several spine surgeries, last complicated by cord ischemia and paraplegia. 2. Cholecystectomy. 3. Ventral herniorrhaphy. SOCIAL HISTORY: Lives in [place]. No alcohol, smoking. Has started to use a walker recently due to increased back pain. FAMILY HISTORY: Mother with a heart attack and diabetes. Father with several heart attacks. ALLERGIES: 1. Opioids. 2. Ativan. 3. Metoprolol. 4. Sulfa. HOME MEDICATIONS: Hydralazine 100 mg b.i.d., clonidine 0.5 mg b.i.d., Protonix 40 mg b.i.d., Zofran as needed, nitroglycerin 0.4 mg as needed, losartan 50 mg q.h.s., isosorbide mononitrate 120 mg b.i.d., glargine 50 units b.i.d., aspart 30 units subcu b.i.d. meal, valium 2 mg daily p.r.n., aspirin 81, albuterol as needed, Tylenol. PHYSICAL EXAM: VITAL SIGNS: Temperature afebrile. Systolic blood pressure was 250/100, repeat was 170/65, and another repeat 190/100. GENERAL: She is sitting up in bed, no acute distress. Obese. HEENT: PERRLA. EOMI. Moist mucous membranes. CV: Prominent P2. Regular. Trace ankle edema. LUNGS: No crackles or wheezing. ABDOMEN: Obese, soft, mild epigastric tenderness with palpation. No rebound or guarding. : No Hernandez. MUSCULOSKELETAL: 5/5 upper and lower extremity strength. Lumbar paraspinal tenderness bilaterally. NEURO: 2 through 12 intact. PSYCH: Alert and oriented x3. LABS: WBC is 8, hemoglobin 12, hematocrit 35, platelets 242. Sodium 142, potassium 4.3, chloride 105, carbon dioxide 26, BUN 21, creatinine is 1, baseline 0.6, glucose 183, calcium is 10.6. LFTs within normal. Troponin 0.036. Albumin 3.6. BNP is 3090. Alk phos 142, lipase is 63. Chest x-ray is personally reviewed by me. Mild blunting of the costophrenic angles. Mild pulmonary edema. EKG, personally reviewed, ST depression, more prominent in V5 and V6. She has ST flattening, mild depression in lead 1 and aVL. This is seen on prior. ASSESSMENT AND PLAN: 1. Hypertensive urgency: mild bump in troponin, edema on CXR. Reports compliance with her home medications. Cardiology evaluated and will continue Imdur, Losartan, hydral. Change Clonidine to TD and have room to increase. Possibly add Norvasc. Goal is to reduce MAP by 25% overnight. 2. Angina: know CAD with occluded grafts to RCA, OM, diagonal. Elevated BP contributing. Monitor on telemetry in PCU, repeat troponin. Nuclear stress in the morning. PRN nitro, consider Ranexa. 3. Mild flash pulmonary edema: due to significant hypertension. Stable on RA. Treat BP as stated above. 4. Type 2 diabetes: Resume glargine and home sliding scale. 5. Spinal stenosis L2-L3 with radiculopathy: last lumbar surgery was complicate by cord ischemia and subsequent paraplegia. Underwent inpatient rehabilitation. Pain has progressed over past few weeks. No longer a surgical candidate. Goal is to control pain. Does not tolerate opioids. Trial Flexeril here. Heating pad helps at home. Acupuncture has been helpful in the past, we will provide her with contact information. 6. Anxiety: Resume valium. 7. Chronic obstructive pulmonary disease: Followed by Dr. Smith. Continue albuterol. 8. Diet: Cardiac. 9. Deep vein thrombosis prophylaxis: Lovenox. 10. Disposition: Patient warrants observation admission given progressive chest pain, warranting serial cardiac enzymes, nuclear study and further evaluation. Goals: she has multiple comorbidities and quality of life has declined. Family is most important to her and goal is to have better pain control. I recommended Palliative Care outpatient and she is agreeable. Will have case management schedule an evaluation. Critical care time spent: 60 min. 20 reviewing labs, imaging and prior notes and remaining time bedside with patient discussing treatment options, goals /[id number]/MODL MTDD
--- NOTE | 2017-11-01 15:58 | GCON ---
[f rep st] CONSULTATION CARDIOLOGY CONSULTATION PRIMARY MOLTEN IRON POURER: Dr. Gonzalo Gauthier. REASON FOR CONSULTATION: We were asked by Dr. Mariaa Hedrick of [facility] to evaluate the patient for her chest pain. HISTORY OF PRESENT ILLNESS: The patient is a 72-year-old female, well known to us. This is my first encounter with her on this admission. She has a history of CAD with CABG remotely, and subsequent stenting. She also has morbid obesity , with a BMI of 41, ERON on CPAP, malignant hypertension, type 2 diabetes mellitus, dyslipidemia, congestive heart failure, chronic pain, who presents today to the emergency department for evaluation of chest pain. She reports more frequent episodes of chest pain over the past 2 weeks. She notes it is a midsternal epigastric discomfort that radiates to her back with associated nausea. She reported this to Dr. Seth as well in September. Typically, she will take nitroglycerin, which does help after several minutes. Today, her discomfort was not relieved despite taking nitroglycerin. She reports it is similar to her previous angina. She does feel more short of breath, but notes no palpitations, peripheral edema, PND, or orthopnea. PAST MEDICAL HISTORY: 1. Diastolic congestive heart failure. 2. CAD with CABG and subsequent stents. She has a known patent LOUIS to LAD with occluded vein grafts to all other vessels. She has a patent capitan grande band circumflex. Her last cardiac catheterization was in December of 2014. 3. Degenerative disk disease. 4. Type 2 diabetes mellitus. 5. GERD. 6. Glaucoma. 7. Hypertension. 8. Dyslipidemia. 9. Spinal stenosis. 10. Morbid obesity. 11. ERON. 12. Hypothyroidism. 13. Gout. PAST SURGICAL HISTORY: 1. Coronary artery bypass grafting in 1998. 2. Cholecystectomy. 3. Hernia repair. 4. Multiple spinal surgeries. 5. TKA. 6. Two lumbar fusions. SOCIAL HISTORY: Patient is and her is present in the room. She is a nonsmoker. She has 2 children. No significant alcohol intake is reported. OUTPATIENT MEDICATIONS: Please see med reconciliation. Her medications are listed as clonidine, diazepam, hydralazine, isosorbide 120 mg p.o. daily, Lantus , losartan 50 mg p.o. daily, NovoLog, nitroglycerin, ProAir, Protonix, Zofran p.r.n., Colace, aspirin, MiraLAX. ALLERGIES: To benzodiazepines, diltiazem, felodipine, statin, metoclopramide, opioids, and sulfonamides. REVIEW OF SYSTEMS: Review of systems is also positive for severe low back pain. PHYSICAL EXAMINATION: VITAL SIGNS: BP of 190/100, heart rate 72, respirations 18, O2 saturation 93% on room air. GENERAL: She is a pleasant female, looking uncomfortable. HEART: Regular rate and rhythm with a 2/6 systolic ejection murmur. LUNGS: Clear with minimal crackles in the right base. ABDOMEN: Obese , nontender. SKIN: Warm and dry. NEURO: No focal deficits detected. LABORATORY DATA: CBC with WBC 8.83, hemoglobin 12.2, hematocrit 35.7, platelet count of 42. BMP with sodium 142, potassium 4.3, chloride 105, CO2 26, BUN 21, creatinine 1, glucose 183, AST 17, ALT 25, spencer phos 142. Troponin 0.036. NT- proBNP of 3090. A 12-lead ECG, personally interpreted, demonstrates sinus rhythm with diffuse ST -T wave abnormalities. There is [address] depression. Chest x-ray, images reviewed. This shows mild congestive heart failure and/or virally mediated perihilar bronchitis without a focal infiltrate. IMPRESSION AND PLAN: The patient is a 72-year-old female, who is being admitted for possible angina. 1. Coronary artery disease with new angina unresponsive to nitroglycerin. She has a patent left internal mammary artery to left anterior descending with a normal ejection fraction on last cardiac catheterization from 2014. We will plan to repeat echo now to rule out new wall motion abnormality. Her troponin is mildly elevated, and we will plan to cycle her cardiac enzymes. If these remain low, then she can likely proceed to Lexiscan stress testing prior to discharge. In the meanwhile, her medical management will be optimized. We will plan to start Ranexa therapy. It looks like she has been on this before and it was stopped for unclear reasons. 2. Hypertension. She likely has subendocardial ischemia from the very elevated blood pressures up to 250 upon arrival to the emergency department. In the past, she has been on Bystolic which apparently led to some bradycardia. She would likely benefit from beta blockers, such as labetalol, that has less heart rate reduction. However, we will plan to first try her on long-acting clonidine via transdermal patch. Additionally, her losartan may be increased. 3. Diastolic congestive heart failure. She currently has a mild exacerbation related to hypertension. Shewill be started on IV Lasix. Apparently, she has been on torsemide in the past, but this had exacerbated her gout, and she is currently off it. However, it appears from previous hospital stays that she responds to IV Lasix without any significant issues. 4. Morbid obesity. /[id number]/MODL MTDD
[2017-11-01] MEDS ORDERED: LABETALOL HCL 100 MG TAB PO ONE (16:07)
[2017-11-01] MEDS: NITROGLYCERIN 0.4 MG BTL SL PRN (16:14)
--- NOTE | 2017-11-01 17:14 | ECHO ---
[email or web address] [address] [address] Main: [phone] Fax: Transthoracic Echocardiogram Name: FRANKIE CHAVEZ MR#: [id number] Study Date: 11/01/2017 Study Time: 03:47 PM Date of : 1945 Age: 72 year(s) Height: 162.6 cm (64 in.) Weight: 108.86 kg (240 lb.) BSA: 2.11 m2 Gender: Female Examination: Limited Echo Indication: Chest Pain, r/o WMA Image Quality: Adequate Contrast: Requested by: Shama Paniagua BP: 197 mmHg/74 mmHg Heart Rate: Rhythm: Indication: Chest Pain, r/o WMA Procedure Staff Behavioral Interventionist: Mariaa Cronin [facility] Reading Physician: Jaime Coates MD Requesting Provider: Conclusions: The ejection fraction is visually estimated to be 55 %. Mild hypokinesis of the basal inferoseptal wall. Mild mitral valve leaflet calcification is present. Severe mitral valve regurgitation is present. Right ventricular systolic pressure measures 70mmHg. Mild tricuspid regurgitation is present. Compared to 08/17/2017, the degree of MR has worsened and PA systolic pressure has increased. Measurements: Chambers Valvular Assessment AV/MV Valvular Assessment TV/PV Normal Normal Normal Name Value Range Name Value Range Name Value Range Visual EF: 55 % TR Vmax: 4.17 mm/s ( - ) TR PGmax: 70 mmHg ( - ) Continued Measurements: Valvular Assessment AV/MV Name Value MR ERO: 0.460 cm2 MR PISA radius: 11 mm MR Reg. Volume: 108 ml Findings: Left Ventricle: The ejection fraction is visually estimated to be 55 %. Mild hypokinesis of the basal inferoseptal wall. Mitral Valve: Mild mitral valve leaflet calcification is present. Severe mitral valve regurgitation is present.No mitral Patient: FRANKIE CHAVEZ Study Date: 11/01/2017 Page 1 of 2 03:47 PM stenosis is present. The pulmonary vein flow demonstrates systolic flow inversion. Tricuspid Valve: Right ventricular systolic pressure measures 70mmHg. Mild tricuspid regurgitation is present. (No Signature Object) Patient: FRANKIE CHAVEZ Study Date: 11/01/2017 Page 2 of 2 03:47 PM [id number]
[2017-11-01] MEDS ORDERED: NON-FORMULARY NEW DRUG (Insulin Aspart [Novolog] 30 UNIT) SC SCH (18:00)
[2017-11-01] MEDS: INSULIN LISPRO 100 UNIT/ML SC SCH (18:35)
[2017-11-01] MEDS: LABETALOL HCL 100 MG TAB PO SCH (20:37)
[2017-11-01] MEDS: LOSARTAN POTASSIUM 50 MG TAB PO SCH (20:37)
[2017-11-01] MEDS: PANTOPRAZOLE SODIUM 40 MG TAB PO SCH (20:37)
[2017-11-01] MEDS: RANOLAZINE 500 MG TAB.ER PO SCH (20:37)
[2017-11-01] MEDS ORDERED: INSULIN GLARGINE 50 UNIT SC SCH (21:00)
[2017-11-01] MEDS ORDERED: ISOSORBIDE MONONITRATE 120 MG PO SCH ×2 (21:00)
[2017-11-01] MEDS ORDERED: LABETALOL HCL 100 MG TAB PO SCH (21:00)
[2017-11-01] MEDS: INSULIN GLARGINE 100 UNITS/ML UNIT SC SCH (21:39)
[2017-11-02] MEDS: NITROGLYCERIN 0.4 MG BTL SL PRN ×2 (00:43→10:38)
[2017-11-02] MEDS: ISOSORBIDE MONONITRATE 30 MG TAB.SR PO SCH ×2 (08:49→20:19)
[2017-11-02] MEDS: INSULIN GLARGINE 100 UNITS/ML UNIT SC SCH ×2 (08:49→21:10)
[2017-11-02] MEDS: RANOLAZINE 500 MG TAB.ER PO SCH ×2 (08:49→20:20)
[2017-11-02] MEDS: CYCLOBENZAPRINE 10 MG TAB PO PRN ×2 (08:50→16:40)
[2017-11-02] MEDS: ASPIRIN EC 81 MG TAB PO SCH (08:50)
[2017-11-02] MEDS: PANTOPRAZOLE SODIUM 40 MG TAB PO SCH ×2 (08:50→20:20)
[2017-11-02] MEDS ORDERED: FUROSEMIDE 40 MG/4 ML VIAL IVP SCH (09:00)
[2017-11-02] MEDS ORDERED: ENOXAPARIN 40 MG/0.4 ML SYR SC SCH (09:00)
[2017-11-02] MEDS ORDERED: REGADENOSON 0.4 MG/5 ML SYR IVP ONE (09:15)
[2017-11-02] MEDS: LABETALOL HCL 100 MG TAB PO SCH (11:03)
--- NOTE | 2017-11-02 11:03 | PDCARST ---
CAR Stress Test Results Type of Stress Test: Lexiscan stress test Indication: cp/CAD Description of Procedure: After informed consent was obtained, pt was established to ECG, blood pressure, HR and oximetry monitoring. STRESS EKG AND HEMODYNAMIC DATA. Resting heart rate: 74 BPM. Resting ECG: SR ant-sept VA with slow WRP. Resting blood pressure: 191/78 mmHg. O2 saturation at rest: 92 %. Peak heart rate: 81 BPM. Peak blood pressure: 132/111 mmHg. Arrhythmias: none. Symptoms: The patient experienced no typical symptoms of angina during stress or recovery. Stress/Infusion ECG: No change in rhythm with no significant ST/T wave changes. Stress/infusion O2 saturation: 96% Impression: Uneventful Lexiscan infusion. Pt experienced nausea. Conclusion: Await nuclear images.
--- NOTE | 2017-11-02 13:33 | HOSPPROG ---
Hospitalist Progress Note Assessment/Plan: #Angina: suspect related to elevated BP -cards added clonidine patch; will overlap for 3 days. Cont other home medications. Bradycardic with labetalol #CAD: stress results pending. Added Ranexa #Severe pulm HTN: RSVP 70mmHg #Severe MR: hypertensive contributing. Cardiology to review echo; may benefit from surgical intervention #Flash pulm edema: due to HTN. Change to PO lasix #DM 2: glargine #Lumbar stenosis: several prior surgeries. Followed by Dr. Sánchez. Trial Flexeril. Does not tolerate opioids #Anxiety #Gout: no flare now #Diet: DM #Goals: Sandy is has good insight into her chronic illnesses including CAD, HTN, DM and stenosis. We another long talk about goals and whether she would proceed with interventions if warranted. Will talk further once stress resulted. Will proceed with Palliative Care to be scheduled outpatient #Disp: cont inpatient admission for BP control. diuresis Time spent on visit: 45 min talking with patient about goals, BP control and Cardiology team Subjective: No angina today and SOB resolved. [place] weak when taking shower. Objective: Vital Signs Temp Pulse Resp BP Pulse Ox 36.8 C 74 18 155/57 H 96 11/02/17 11:58 11/02/17 11:58 11/02/17 11:58 11/02/17 11:58 11/02/17 11:58 11/01/17 11/02/17 11/03/17 05:59 05:59 05:59 Intake Total 500 Output Total 400 350 Balance 100 -350 - Physical Exam Constitutional: obese, No uncomfortable Eyes: PERRL Ears, Nose, Mouth, Throat: moist mucous membranes, hearing normal Cardiovascular: regular rate and rhythym, No edema Respiratory: no respiratory distress, No expiratory wheeze, No inspiratory crackles Gastrointestinal: normoactive bowel sounds, soft, non-tender abdomen, no palpable masses Genitourinary: no bladder fullness Skin: warm Musculoskeletal: full muscle strength Neurologic: AAOx3, CN II-XII Intact Psychiatric: interacting appropriately ICD10 Worksheet Patient Problems: Problems Problem Status Onset Unstable angina Acute Back pain Acute Bilateral leg weakness Acute CHF (congestive heart failure) Acute Chest pain Acute Chronic Disease Mgmt/Transitional Care Acute Lumbar radiculitis Acute Lumbar stenosis Acute NSTEMI (non-ST elevated myocardial infarction) Acute Sensory abnormality of thoracic dermatome distribution Acute
[2017-11-02] MEDS: INSULIN LISPRO 100 UNIT/ML SC SCH ×2 (13:48→17:53)
--- NOTE | 2017-11-02 13:49 | ASMTCMCOM ---
CM Note CM Note Notes: Met with patient to see if she'd selected a Palliative Care Agency for consult - she picked [facility]. I sent a referral and requested a consult. They will contact us with availability. Case Management will continue to follow. Date Signed: 11/02/2017 01:48 PM Electronically Signed By:Janice Rapp RN
[2017-11-02] MEDS: FUROSEMIDE 20 MG TAB PO SCH (14:21)
--- NOTE | 2017-11-02 14:30 | PDMN ---
Medical Necessity Medical necessity: M40 angina- A-1 day: unstable with ongoing symptoms, in pt with sig. hx including CAD, HTN, DM, stenosis. PT with hx of CABG X4, - severe pulm HTN, severe MR, flash pulm. edema due to HTN. , pt cont. to feel weak. ongoing monitoring of BP and diuresis , Stress test results pending, cardiac consult pending
--- NOTE | 2017-11-02 16:35 | PDCARPN ---
Cardiology Progress Note Chief Complaint: angina, acute on chronic DCHF, malignant htn Assessment/Plan: Assessment: 72F with PMH CAD/CABG 1998, previous PCI, dyslipidemia, DM, malignant htn, p/w angina, dyspnea, pulmonary edema and severe htn. #. angina: worsening reversible defects on nuclear study d/w Dr. Coates who recommends optimizing medical therapy before attempting repeat catheterization Ranexa added yesterday will add Amlodipine now #. malignant htn BP improved from SBP 250 on arrival on both Clonidine patch and PO (overlap until tomorrow until patch is at steady state in system) continue Losartan and Hydralazine add Amlodipine Labetalol at low dose resulted in hypotension and so will not attempt any other BB #. MR/PHTN: severe for both may be a result of uncontrolled htn will d/w Dr. Gauthier tomorrow if pt has any percutaneous options #. DCHF: as evidenced by pulmonary edema lung sounds clear today likely can transition to PO lasix tomorrow Plan: - Add Amlodipine 11/02/17 16:26 Subjective: Had angina at 1 AM. Likely has been having severe angina for weeks now. Reviewed/Discussed With: hospitalist (Dr. Hedrick) Objective: Vital Signs (8 Hrs) Temp Pulse Resp BP Pulse Ox 11/02/17 11:58 98.3 F 74 18 155/57 H 96 Intake/Output (24 Hrs) 11/01/17 11/02/17 11/03/17 05:59 05:59 05:59 Intake Total 500 Output Total 400 350 Balance 100 -350 Intake: Oral (ml) 500 Output: Urine (ml) 400 350 Toilet 400 350 Other: Weight 110.1 kg Intake Quantity Yes Sufficient Result Diagrams: 11/01/17 09:35 11/01/17 09:35 Cardiac Labs: Cardiac Lab Results (72 Hrs) 11/01/17 19:00 Troponin I 0.044 H Telemetry: reviewed- SR - Physical Exam Constitutional: no apparent distress Eyes: anicteric sclera Cardiovascular: regular rate and rhythm, systolic murmur Respiratory: clear to auscultate bilat, no crackles Skin: no rashes, warm Neurologic: AAOx3 Psychiatric: cooperative, interactive ICD10 Worksheet Patient Problems: Problems Problem Status Onset Unstable angina Acute Back pain Acute Bilateral leg weakness Acute CHF (congestive heart failure) Acute Chest pain Acute Chronic Disease Mgmt/Transitional Care Acute Lumbar radiculitis Acute Lumbar stenosis Acute NSTEMI (non-ST elevated myocardial infarction) Acute Sensory abnormality of thoracic dermatome distribution Acute
[2017-11-02] MEDS ORDERED: D50W 25 GM/50 ML SYR IVP PRN (17:48)
[2017-11-02] MEDS: ENOXAPARIN 40 MG/0.4 ML SYR SC SCH (20:20)
[2017-11-02] MEDS: LOSARTAN POTASSIUM 50 MG TAB PO SCH (20:20)
[2017-11-03] MEDS: INSULIN LISPRO 100 UNIT/ML SC SCH ×3 (09:11→17:52)
[2017-11-03] MEDS: ISOSORBIDE MONONITRATE 30 MG TAB.SR PO SCH ×2 (09:33→21:14)
[2017-11-03] MEDS: ASPIRIN EC 81 MG TAB PO SCH (09:34)
[2017-11-03] MEDS: RANOLAZINE 500 MG TAB.ER PO SCH ×2 (09:34→21:14)
[2017-11-03] MEDS: FUROSEMIDE 20 MG TAB PO SCH (09:34)
[2017-11-03] MEDS: PANTOPRAZOLE SODIUM 40 MG TAB PO SCH ×2 (09:34→21:13)
[2017-11-03] MEDS: ENOXAPARIN 40 MG/0.4 ML SYR SC SCH ×2 (09:37→21:13)
[2017-11-03] MEDS: CYCLOBENZAPRINE 10 MG TAB PO PRN (09:50)
[2017-11-03] MEDS: INSULIN GLARGINE 100 UNITS/ML UNIT SC SCH ×2 (11:00→21:14)
--- NOTE | 2017-11-03 11:12 | HOSPPROG ---
Hospitalist Progress Note Assessment/Plan: #Angina: resolved with BP control -added transdermal clonidine; stop oral dose. Hold Losartan with BRIDGETT. Cont other home meds -Norvasc increased today. #BRIDGETT: due to overdiuresis. Lasix and Sartan held #CAD: stress showed progressive disease. Not a good candidate for repeat CABG. Expect angina, but improved with BP control. Added Ranexa #Severe pulm HTN: RSVP 70mmHg #Severe MR: hypertensive contributing. Cardiology to review echo; may benefit from surgical intervention #Flash pulm edema: due to HTN. Stopped lasix #DM 2: glucose 95 this morning. Hold morn lantus and decrease to 25unit this [place]. #Lumbar stenosis: several prior surgeries. Followed by Dr. Sánchez. Stop Flexeril due to dizziness. Try Robaxin #Anxiety #Gout: no flare now #Diet: DM #Goals: Pat is has good insight into her chronic illnesses including CAD, HTN, DM and stenosis. Palliative Care to be scheduled outpatient #Disp: cont inpatient admission for BP control. Can likely DC tomorrow if BP better controlled Time spent on visit: Subjective: dizzy after flexeril Objective: Vital Signs Temp Pulse Resp BP Pulse Ox 37.0 C 52 L 12 144/50 H 96 11/03/17 07:33 11/03/17 10:46 11/03/17 10:46 11/03/17 10:46 11/03/17 10:46 Laboratory Results 11/03/17 03:41 11/02/17 11/03/17 11/04/17 05:59 05:59 05:59 Intake Total 500 1680 Output Total 400 2375 400 Balance 100 -695 -400 - Physical Exam Constitutional: no apparent distress, obese Eyes: PERRL Ears, Nose, Mouth, Throat: moist mucous membranes, hearing normal Cardiovascular: regular rate and rhythym, No edema Respiratory: no respiratory distress, no rales or rhonchi, No inspiratory crackles Gastrointestinal: normoactive bowel sounds Genitourinary: no bladder fullness Skin: warm Neurologic: AAOx3, CN II-XII Intact Psychiatric: interacting appropriately ICD10 Worksheet Patient Problems: Problems Problem Status Onset Unstable angina Acute Back pain Acute Bilateral leg weakness Acute CHF (congestive heart failure) Acute Chest pain Acute Chronic Disease Mgmt/Transitional Care Acute Lumbar radiculitis Acute Lumbar stenosis Acute NSTEMI (non-ST elevated myocardial infarction) Acute Sensory abnormality of thoracic dermatome distribution Acute
--- NOTE | 2017-11-03 14:42 | PDCARPN ---
Cardiology Progress Note Chief Complaint: angina/hypertensive urgency Assessment/Plan: Assessment: 72F with PMH CAD/CABG 1998, previous PCI, dyslipidemia, DM, malignant htn, p/w angina, dyspnea, pulmonary edema and severe htn. #. angina: worsening reversible defects on nuclear study d/w Dr. Coates who recommends optimizing medical therapy before attempting repeat catheterization Ranexa and Amlodipine added Spoke with Dr. Gauthier who recommends ongoing med management #. malignant htn BP improved from SBP 250 on arrival on both Clonidine patch and PO (overlap discontinued today) continue Hydralazine and Amlodipine Labetalol at low dose resulted in hypotension and so will not attempt any other BB Holding Losartan due to BRIDGETT #. MR/PHTN: severe for both may be a result of uncontrolled htn with increased afterload plan for repeat echo in next couple of months #. DCHF: as evidenced by pulmonary edema lung sounds clear today holding Lasix in setting of BRIDGETT Plan: - Amlodipine - Holding Lasix and Losartan due to BRIDGETT 11/03/17 14:31 Subjective: Walked 4 steps today. No cp or dyspnea. Reviewed/Discussed With: hospitalist (Dr. Hedrick) Objective: Vital Signs (8 Hrs) Temp Pulse Resp BP Pulse Ox 11/03/17 11:43 98.1 F 44 L 16 138/52 H 97 11/03/17 10:46 52 L 12 144/50 H 96 11/03/17 07:33 98.6 F 49 L 16 180/56 H 98 Intake/Output (24 Hrs) 11/02/17 11/03/17 11/04/17 05:59 05:59 05:59 Intake Total 500 1680 Output Total 400 2375 400 Balance 100 -695 -400 Intake: Oral (ml) 500 1680 Output: Urine (ml) 400 2375 400 Toilet 400 2375 400 Other: Weight 110.1 kg Intake Quantity Yes Yes Sufficient Number of Voids Toilet 3 Result Diagrams: 11/01/17 09:35 11/03/17 03:41 Cardiac Labs: Cardiac Lab Results (72 Hrs) 11/01/17 19:00 Troponin I 0.044 H EKG: reviewed- SR - Physical Exam Constitutional: no apparent distress Eyes: anicteric sclera Cardiovascular: regular rate and rhythm, no murmurs Respiratory: clear to auscultate bilat, no crackles Skin: no rashes, warm Neurologic: AAOx3 Psychiatric: cooperative, interactive ICD10 Worksheet Patient Problems: Problems Problem Status Onset Chest pain Acute Chronic Disease Mgmt/Transitional Care Acute Lumbar radiculitis Acute Lumbar stenosis Acute NSTEMI (non-ST elevated myocardial infarction) Acute CHF (congestive heart failure) Acute Back pain Acute Bilateral leg weakness Acute Sensory abnormality of thoracic dermatome distribution Acute Unstable angina Acute
[2017-11-03] MEDS: METHOCARBAMOL 500 MG TAB PO SCH ×2 (15:39→22:50)
--- NOTE | 2017-11-03 16:55 | ASMTCMCOM ---
CM Note CM Note Notes: CM met w/ pt for dispo planning. Notified pt that [facility] has accepted pt. Pt would like to have a palliative consult with [facility] in the hospital. Dr. Dennis came to consult w/ pt. [facility] will enroll pt into their palliative program. PT is recommending HC. Pt would like referral sent to [facility]. [facility] is able to accept. CM to follow. Plan: HC, PT w/ [facility] Date Signed: 11/03/2017 04:55 PM Electronically Signed By:NINI Sosa
--- NOTE | 2017-11-03 20:29 | GCON ---
[f rep st] CONSULTATION PALLIATIVE MEDICINE CONSULT CHIEF COMPLAINT: Dr. Hedrick requests ongoing support, goals of care clarification and symptom management assessment. HISTORY OF PRESENT ILLNESS: This is a 72-year-old female, who has multiple medical problems including severe heart disease, pulmonary hypertension, obstructive sleep apnea, morbid obesity and severe degenerative disk disease. She has had severe degenerative disk disease for many years and had her 1st fusion in 2011. She required a revision after this surgery in just 3 or 4 days. She had repeat surgery in the spring, which unfortunately resulted in injury to one of her thoracic vertebrae because of poor oxygen flow. She was initially paralyzed after surgery and went to rehabilitation for 6 weeks. She has eventually regained her ability to walk and her sensation is improved, however, she has not returned to 100% of her prior function. She has chronic low back pain that radiates to her hips bilaterally that has been worsening in the past 2 months. The side affected greatest can vary between the left or the right. The pain is sharp and nearly constant and waxes and wanes in intensity. She has used ice and heat to help with the pain. Movement at times helps the pain; and movement at times worsens the pain. She is intolerant of opioids because of vomiting and altered mental status. She also had Neurontin tried and seems to have been titrated up to more than 800 mg twice daily without any improvement in her pain. She also tried Cymbalta without relief. She also tried a lidocaine patch, a fentanyl patch and a TENS unit without relief. She previously had relief from epidurals but no longer does receive relief from these. She even tried a caudal epidural from a pain specialist without relief. She has tried Cleve-Escobar and Icy Hot with minimal benefit. It does not seem that she has ever tried something such as a ketoprofen prescription gel. Her pain rapidly worsened in the past 2 months and per the patient, her most recent MRI showed an acceleration in the degeneration of her disk disease. Dr. Sánchez informed her that her pain would eventually become so severe she would likely require a pain pump and that at some point, her spine would collapse and lead to a return of her paralysis. The patient admits that she has noticed a recent decline in her function as she can no longer stand to cook or bend over. She does report benefit in the past with dry needling and is considering trying acupuncture but unfortunately it does not seem that her insurance would pay for that. In addition, she has done neuromuscular physical therapy in the past and is interested in trying that again. When I mention that clonidine can sometimes be used for pain control, she seems to allow for the possibility that the increase in her clonidine dose may be improving her pain management. In addition, she was just started on Robaxin today and she finds that it is helping her pain as well. With regards to her cardiovascular disease, she had been so focused on the concern regarding her back, and its affect on her mobility and quality of life, that she thought her recent 2 months of angina was heartburn. She has always had difficult to manage blood pressure and has been intolerant to many blood pressure medications with multiple side effects and therefore had been more accepting of elevated blood pressure as she had thought her heart was strong. She recently learned that her heart was not as strong as she felt it was and plans to be much more diligent in managing her blood pressure and accepting of side effects of anti-hypertensive medications. She does have a blood pressure cuff at home as well as a scale. She has been on the [facility] cardiovascular program in the past and is interested in going back on that. She is uncertain why she was not continued on that program. The patient's understanding of palliative care is that it would help her stay out of the hospital and that is her goal. She wishes to avoid medical crises and manage her symptoms as much as possible at home. She also reports that she recently had a repeat sleep study test and is waiting for recommendations on whether or not her CPAP settings need to be adjusted and the state of her obstructive sleep apnea from Dr. Smtih. REVIEW OF SYSTEMS: GENERAL: Positive for what she describes as a labile thermostat. She can be hot and cold, alternating quite quickly. HEENT: Positive for recent blurry vision, which she attributes to a new medicine that was started in the hospital, but she is uncertain which one. Otherwise she denies problems with swallowing or hearing. CARDIOVASCULAR: Positive for recent angina. RESPIRATORY: Positive for constricted breathing and episodes of shortness of breath when her blood pressure is markedly elevated. She also has obstructive sleep apnea and is waiting for the results of her repeat sleep study. GASTROINTESTINAL: Positive for heartburn. Otherwise complete review of systems was conducted and is negative. Of note, she denies any numbness or tingling. SOCIAL HISTORY: She does not smoke. She does not drink. She would want her as her decision maker should she be unable to make decisions for herself. She does not wish for any "heroics." She does not wish for any attempt at resuscitation. FAMILY HISTORY: Her mother at the age of 89 from complications of diabetes and her father at the age of 90 from heart disease and he also had labile blood pressure. ALLERGIES: As indicated in the MAR to include Ativan, metoprolol, sulfa and opioids. However, of note, the majority of these reactions are intolerances and not allergies as I discussed with the patient. CURRENT MEDICATIONS: Acetaminophen 650 mg every 4 hours as needed, Zofran 4 mg IV every 4 hours as needed. Albuterol 1-2 puffs every 4 hours as needed, amlodipine 5 mg by mouth daily, aspirin 81 mg daily, clonidine 0.1 mg transdermal to be changed every 7 days, Valium 2 mg p.o. daily, Lovenox 40 mg subcutaneously twice daily, Lasix 20 mg p.o. twice daily, hydralazine 100 mg p.o. twice daily, glargine 25 units subcutaneously twice daily, lispro with meals sliding scale, isosorbide mononitrate 120 mg p.o. twice daily, losartan 50 mg at bedtime by mouth, Robaxin 500 mg by mouth 3 times daily, nitroglycerin 0.4 mg sublingual every 5 minutes as needed for chest pain, Protonix 40 mg twice daily, Ranexa 500 mg by mouth twice daily. PHYSICAL EXAM: VITAL SIGNS: Blood pressure of 138/52, heart rate of 80, respiratory rate of 16. Of note, her heart rate has been bradycardic at times as low as 44. She is currently saturating 97% on 2 L nasal cannula. She is afebrile with a temperature of 36.7 degrees . GENERAL: Alert and oriented x3. Articulate, no apparent distress. HEENT: No icterus. Hearing is intact. Mucous membranes are moist. CARDIOVASCULAR: Regular rate and rhythm. She has intact radial and pedal pulses bilaterally. There is trace lower extremity edema bilaterally. Extremities are warm. RESPIRATORY: Clear to auscultation bilaterally. Anterior auscultation only. Good effort and expansion. ABDOMEN: Positive bowel sounds. Soft, nontender, nondistended without palpable organomegaly. Obesity does limit exam. MUSCULOSKELETAL: She has weak hip flexors but intact quadriceps and hamstrings bilaterally. NEUROLOGIC: Cranial nerves 2-12 are grossly intact as well as sensation to light touch in her feet. She is able to follow all commands. ASSESSMENT AND PLAN: This is a 72-year-old woman with multiple medical problems. Her primary concerns are maintaining her current level of function and not having this further decline, as well as long-term management of her pain and heart disease. Her primary goal is to avoid hospitalization if possible. 1. Back pain. She is very interested in continuing physical therapy including dry needling. She is also interested in re-pursuing new neuromuscular physical therapy. She understands the benefits of weight loss and will continue to pursue this. She is interested in getting further guidance from Dr. Sánchez on any activity restrictions she may need to consider. In addition she is wondering if he would recommend a shiatsu chair, or if that would be contraindicated given the metal that is in her back. She is also willing to try ketoprofen gel to see if that applied directly to the area could be of any benefit. Given she may be having some pain improvement from the use of clonidine, I let her know I would inform her doctors that this may be the antihypertensive of choice to increase should she need further adjustment in her blood pressure medications. 2. Cardiovascular disease. She is very interested in having more management of this problem at home if at all possible. I will work with Dr. Seth and Dr. Gauthier to see if we can get her reconnected to the [facility] cardiovascular program as she felt this was of benefit in the past. In addition , as stated above, should her antihypertensive need further adjustment, it may be worthwhile to try increasing the clonidine as it has been reported to have some analgesic properties. 3. Goals of care. As stated above, she wishes to remain at home as much as possible. With that in mind, she also recognizes the need to lose weight in order to achieve this goal. Given her limited mobility, this is more difficult than average. We did discuss the use of Wellbutrin as a medication to help suppress appetite and perhaps help with any depression or anxiety she is feeling. She does at this point, minimize any depression or anxiety and feels her Quaker lidia strongly helps her with this, but is willing to consider a medication down the road if it might help her lose weight. Furthermore, I discussed that should her pain become severe and excruciating that initiation of opioids at a very low dose with management of her side effects including severe nausea would be warranted. We would be able to work with her on that to ensure she could tolerate the medications as they were started. I let her know I would offer a home visit in 3-4 weeks to follow up. Please note that approximately 90 minutes, from to 3:30 to 5:00 p.m., were spent on this consult including speaking with the case management, the referring physician, the cardiology physician per diem physical therapist assistant, reviewing medical records, assessing the patient [id number] and coordinating plan of care with the patient. Copy requested to: [facility] Dr. Gonzalo Seth /[id number]/MODL MTDD
[2017-11-04] MEDS: METHOCARBAMOL 500 MG TAB PO SCH ×3 (07:13→23:41)
[2017-11-04] MEDS: ENOXAPARIN 40 MG/0.4 ML SYR SC SCH ×2 (08:36→20:33)
[2017-11-04] MEDS: INSULIN LISPRO 100 UNIT/ML SC SCH ×3 (08:36→19:00)
[2017-11-04] MEDS: PANTOPRAZOLE SODIUM 40 MG TAB PO SCH ×2 (08:37→20:29)
[2017-11-04] MEDS: INSULIN GLARGINE 100 UNITS/ML UNIT SC SCH ×2 (08:37→21:39)
[2017-11-04] MEDS: RANOLAZINE 500 MG TAB.ER PO SCH ×2 (08:37→20:29)
[2017-11-04] MEDS: ASPIRIN EC 81 MG TAB PO SCH (08:38)
[2017-11-04] MEDS: ISOSORBIDE MONONITRATE 30 MG TAB.SR PO SCH ×2 (08:44→20:29)
[2017-11-04] MEDS ORDERED: amLODIPine BESYLATE 5 MG TAB PO SCH ×2 (09:00→09:45)
--- NOTE | 2017-11-04 09:36 | SOAPPROG ---
SOAP Progress Note Assessment/Plan: Assessment: Cardiology Progress Note Chief Complaint: angina/hypertensive urgency Assessment/Plan: Assessment: 72F with PMH CAD/CABG 1998, previous PCI, dyslipidemia, DM, malignant htn, p/w angina, dyspnea, pulmonary edema and severe htn. #. angina: worsening reversible defects on nuclear study d/w Dr. Coates who recommends optimizing medical therapy before attempting repeat catheterization Ranexa and Amlodipine added Spoke with Dr. Gauthier who recommends ongoing med management #. malignant htn BP improved from SBP 250 on arrival on both Clonidine patch and PO (overlap discontinued today) continue Hydralazine and Amlodipine...will increase from 5 mg to 10 mg today Labetalol at low dose resulted in hypotension and so will not attempt any other BB Holding Losartan due to BRIDGETT #. MR/PHTN: severe for both may be a result of uncontrolled htn with increased afterload plan for repeat echo in next couple of months #. DCHF: as evidenced by pulmonary edema lung sounds clear today holding Lasix in setting of BRIDGETT Plan: - Amlodipine - Holding Lasix and Losartan due to BRIDGETT Plan:1. increase norvasc to 10 mg today 11/04/17 09:35 Subjective: pt feeling well today without angina..tolerated norvasc ..b/p still a liitle high will increase norvasc to 10 mg .. Objective: Vital Signs Temp Pulse Resp BP Pulse Ox 36.9 C 50 L 9 L 182/70 H 94 11/04/17 08:00 11/04/17 08:00 11/04/17 08:00 11/04/17 08:00 11/04/17 08:00 Laboratory Results 11/04/17 03:38 11/03/17 11/04/17 11/05/17 05:59 05:59 05:59 Intake Total 1680 500 Output Total 2375 1300 Balance -695 -800 Physical Exam - Physical Exam Respiratory: lungs clear Cardiac/Chest: regular rate, rhythm, No edema ICD10 Worksheet Patient Problems: Problems Problem Status Onset Chest pain Acute Chronic Disease Mgmt/Transitional Care Acute Lumbar radiculitis Acute Lumbar stenosis Acute NSTEMI (non-ST elevated myocardial infarction) Acute CHF (congestive heart failure) Acute Back pain Acute Bilateral leg weakness Acute Sensory abnormality of thoracic dermatome distribution Acute Unstable angina Acute
[2017-11-04] MEDS ORDERED: amLODIPine BESYLATE 5 MG TAB PO ONE (10:00)
--- NOTE | 2017-11-04 17:13 | HOSPPROG ---
Hospitalist Progress Note Assessment/Plan: #Hypertensive crisis: improving -added transdermal clonidine; stop oral dose. Bradycardic with Labetalol. Cont other home meds. Losartan held with BRIDGETT -Norvasc to 10mg today #BRIDGETT: due to overdiuresis. Lasix and Sartan held #CAD: angina improved with BP control. Stress showed progressive ischemia.Not a good candidate for repeat CABG. Cont aggressive medical management. Ranexa added #Severe pulm HTN: RSVP 70mmHg #Severe MR: hypertensive contributing. Cardiology to review echo; may benefit from surgical intervention #Flash pulm edema: due to HTN. Stopped lasix #DM 2: glucose 95 this morning. Hold morn lantus and decrease to 25unit this [place]. #Lumbar stenosis: several prior surgeries. Followed by Dr. Sánchez. Stop Flexeril due to dizziness. Try Robaxin #Anxiety #Gout: no flare now #Diet: DM #Goals: Sandy is has good insight into her chronic illnesses including CAD, HTN, DM and stenosis. Met with [facility] and will help with multidisciplinary team outpatient #Disp: cont inpatient admission for BP control. Can likely DC tomorrow if BP better controlled Time spent on visit: Subjective: no CP. Walked the unit Objective: Vital Signs Temp Pulse Resp BP Pulse Ox 36.7 C 53 L 18 176/66 H 93 11/04/17 16:00 11/04/17 16:00 11/04/17 16:00 11/04/17 16:00 11/04/17 16:00 Laboratory Results 11/04/17 03:38 11/03/17 11/04/17 11/05/17 05:59 05:59 05:59 Intake Total 1680 500 Output Total 2375 1300 Balance -695 -800 - Time Spent With Patient Time Spent with Patient: greater than 35 minutes Time Spent with Patient: Greater than 35 minutes spent on this patients care, greater than 50% of time spent counseling, educating, and coordinating care regarding the above mentioned plan. - Physical Exam Constitutional: other (appears brighter today) Eyes: PERRL Ears, Nose, Mouth, Throat: moist mucous membranes Cardiovascular: regular rate and rhythym, No edema Respiratory: no respiratory distress Gastrointestinal: normoactive bowel sounds Genitourinary: no bladder fullness Skin: warm Musculoskeletal: full muscle strength Neurologic: AAOx3, CN II-XII Intact Psychiatric: interacting appropriately ICD10 Worksheet Patient Problems: Problems Problem Status Onset Unstable angina Acute Back pain Acute Bilateral leg weakness Acute CHF (congestive heart failure) Acute Chest pain Acute Chronic Disease Mgmt/Transitional Care Acute Lumbar radiculitis Acute Lumbar stenosis Acute NSTEMI (non-ST elevated myocardial infarction) Acute Sensory abnormality of thoracic dermatome distribution Acute
--- NOTE | 2017-11-05 08:11 | SOAPPROG ---
SOAP Progress Note Assessment/Plan: Assessment: Cardiology Progress Note Chief Complaint: angina/hypertensive urgency Assessment/Plan: Assessment: 72F with PMH CAD/CABG 1998, previous PCI, dyslipidemia, DM, malignant htn, p/w angina, dyspnea, pulmonary edema and severe htn. #. angina: worsening reversible defects on nuclear study d/w Dr. Coates who recommends optimizing medical therapy before attempting repeat catheterization Ranexa and Amlodipine added Spoke with Dr. Gauthier who recommends ongoing med management #. malignant htn BP improved from SBP 250 on arrival on both Clonidine patch and PO (overlap discontinued today) continue Hydralazine and Amlodipine...tolerating meds without issues increase amlodipine to 15 mg and ok to d/c home with dr kemp and maurilio Labetalol at low dose resulted in hypotension and so will not attempt any other BB Holding Losartan due to BRIDGETT #. MR/PHTN: severe for both may be a result of uncontrolled htn with increased afterload plan for repeat echo in next couple of months #. DCHF: as evidenced by pulmonary edema lung sounds clear today holding Lasix in setting of BRIDGETT Plan: - Amlodipine - Holding Lasix and Losartan due to BRIDGETT Plan:1. increase norvasc to 15 mg today..ok to d/c home later today if stable 11/04/17 09:35 11/05/17 08:09 Subjective: no cv c/o.."wants to go home" Objective: Vital Signs Temp Pulse Resp BP Pulse Ox 36.3 C 58 L 17 170/60 H 98 11/05/17 04:00 11/05/17 04:00 11/05/17 04:00 11/05/17 04:00 11/05/17 04:00 Laboratory Results 11/05/17 03:51 11/04/17 11/05/17 11/06/17 05:59 05:59 05:59 Intake Total 500 920 Output Total 1300 1800 Balance -800 -880 Physical Exam - Physical Exam Respiratory: lungs clear Cardiac/Chest: No edema, No JVD ICD10 Worksheet Patient Problems: Problems Problem Status Onset Unstable angina Acute Back pain Acute Bilateral leg weakness Acute CHF (congestive heart failure) Acute Chest pain Acute Chronic Disease Mgmt/Transitional Care Acute Lumbar radiculitis Acute Lumbar stenosis Acute NSTEMI (non-ST elevated myocardial infarction) Acute Sensory abnormality of thoracic dermatome distribution Acute
[2017-11-05 08:16] VITALS: BP 186/74
[2017-11-05] MEDS: ISOSORBIDE MONONITRATE 30 MG TAB.SR PO SCH (08:17)
[2017-11-05] MEDS: PANTOPRAZOLE SODIUM 40 MG TAB PO SCH (08:18)
[2017-11-05] MEDS: ASPIRIN EC 81 MG TAB PO SCH (08:18)
[2017-11-05] MEDS: RANOLAZINE 500 MG TAB.ER PO SCH (08:18)
[2017-11-05] MEDS: ENOXAPARIN 40 MG/0.4 ML SYR SC SCH (08:19)
[2017-11-05] MEDS: INSULIN GLARGINE 100 UNITS/ML UNIT SC SCH (08:19)
[2017-11-05] MEDS: INSULIN LISPRO 100 UNIT/ML SC SCH (08:24)
[2017-11-05] MEDS ORDERED: amLODIPine BESYLATE 5 MG TAB PO SCH (09:00)
[2017-11-05] MEDS: METHOCARBAMOL 500 MG TAB PO SCH (09:56)
--- NOTE | 2017-11-05 13:05 | GDS ---
[f rep st] DISCHARGE SUMMARY DISCHARGE DIAGNOSES: 1. Hypertensive urgency. 2. Acute kidney injury. 3. Coronary artery disease. 4. Angina. 5. Mitral regurgitation. 6. Pulmonary hypertension. 7. Diastolic heart failure. 8. Type 2 diabetes. 9. Severe lumbar stenosis, chronic back pain, anxiety, history of gout. HISTORY OF PRESENT ILLNESS: A 72-year-old female with multiple comorbidities, including severe coronary disease with prior CABG, diabetes, hypertension, presenting with progressive chest pain. She has had progressive anginal symptoms for the past 2 weeks, substernal and occurs with rest or walking. The episodes last a few minutes. A week ago these symptoms were relieved by nitro, but this is no longer the case. Describes the pain as a chicken vaccinator, and feels nauseated, and short of breath with it. She reports elevated systolic blood pressures at home, range of 170s to 200s, and has been compliant with her home medications. At time of admission, her systolic blood pressure was 240. HOSPITAL COURSE BY PROBLEM: 1. Hypertensive crisis: This is improved. Transitioned her from oral clonidine to a patch. Continue hydralazine and her nitrates. Losartan was held here with BRIDGETT. She may resume this in a couple days. Also added Norvasc 15 mg daily. She will follow up with her supervisor felting, Dr. Gauthier. 2. Angina: Secondary to severe coronary artery disease, and uncontrolled blood pressure. The pain has since resolved with better blood pressure control. She had a Lexiscan test that showed worse progressive areas of ischemia, involving the distal anterior wall septum and lateral wall. She has known occlusions to the grafts to her diagonal, RCA, and OM. She will be medically managed at this point. Continue aspirin. Did not tolerate a statin in the past. Added Ranexa. 3. Type 2 diabetes. Resume glargine, sliding scale. 4. Diastolic heart failure, had mild flash pulmonary edema here with elevated blood pressure. She was diuresed, but developed BRIDGETT, thus this was discontinued. 5. BRIDGETT secondary to diuresis. Discontinued Lasix, and held losartan, she may resume this in 2 days. 6. Anxiety. Resume Valium. 7. History of gout. No evidence of flare. 8. Severe lumbar stenosis: She is followed by Dr. Sánchez. Her last surgery was complicated by cord ischemia and paraplegia. She is not a good surgical candidate at this point. 9. Goals: She has insight into her multiple comorbidities, mostly lumbar stenosis and her coronary artery disease. I had [facility] evaluate patient and they will help arrange an interdisciplinary team as an outpatient. PHYSICAL EXAMINATION: VITAL SIGNS: Today, temperature 36.9, blood pressure 170 /60, heart rate is in 60s, respirations 18, 94% on room air. GENERAL: Obese, sitting up in bed, smiling, in no acute distress. HEENT: PERRLA. EOMI. Oropharynx clear. CV: Regular rate and rhythm. LUNGS: Clear. No crackles. ABDOMEN: Soft, nontender, and nondistended. Positive bowel sounds. : No Hernandez. MUSCULOSKELETAL: Moving all 4 extremities. PSYCH: Alert and oriented x3. NEW MEDICATIONS: Clonidine patch, Ranxexa, Norvasc 15mg. Resume: Losartan in 2 days Time spent on DC: 40min discussing new medications, coordinating discharge. /[id number]/MODL MTDD
--- NOTE | 2017-11-05 14:55 | PDIAF ---
- Diagnosis Diagnosis: angina, CAD Code Status: Full Code - Medication Management Discharge Medications: Medications to Continue on Transfer Nitroglycerin [Nitrostat 0.4 mg (*)] 0.4 mg SL AD PRN 01/06/15 [Last Taken 11/01] Isosorbide Mononitrate [Isosorbide Mononitrate ER] 120 mg PO BID 04/26/16 [Last Taken 11/01/17] Ondansetron Odt [Zofran Odt 4 mg (*)] 4 mg PO DAILY PRN 04/26/16 [Last Taken 15:18] Pantoprazole Sodium [Protonix 40mg (*)] 40 mg PO BID 04/26/16 [Last Taken ] Aspirin EC [Aspirin EC 81 mg (*)] 81 mg PO DAILY #0 tab 12/12/16 [Last Taken 10/15 325mg] Insulin Glargine [Lantus 100 UNITS/ML (*)] 50 units SC BID 01/23/17 [Last Taken 10/31/17] hydrALAZINE [Apresoline 50 mg (*)] 100 mg PO BID 01/23/17 [Last Taken 11/01/17] Acetaminophen [Tylenol ES 500 mg (*)] 1,000 mg PO Q6 PRN 11/01/17 [Last Taken ] Albuterol [Proventil Inhaler HFA (*)] 1 - 2 puffs IH Q4H PRN 11/01/17 [Last Taken 11/01/17] Diazepam [Valium 2 MG (*)] 2 mg PO DAILY PRN 11/01/17 [Last Taken 3 Days Ago ~] Insulin Aspart [novoLOG] 0 unit SC HS 11/01/17 [Last Taken 10/31/17 50 units] Insulin Aspart [novoLOG] 30 unit SC BIDMEAL 11/01/17 [Last Taken 10/31/17 18:00] Losartan Potassium [Cozaar 50 mg (*)] 50 mg PO HS 11/01/17 [Last Taken 10/31/17] Ranolazine [Ranexa] 500 mg PO BID #60 tab.er 11/05/17 [Last Taken Unknown] amLODIPine BESYLATE [Norvasc 10 mg (*)] 10 mg PO DAILY #30 tab 04/08/18 [Last Taken Unknown] amLODIPine BESYLATE [Norvasc 5 mg (*)] 5 mg PO DAILY #30 tab 11/05/17 [Last Taken Unknown] clonIDINE [Catapres-Tts] 0.1 mg TD Q7D #4 patch 11/05/17 [Last Taken Unknown] Discharge Medications: Refer to the Discharge Home Medication list for PRN reason. - Orders Services needed: Home Care, Physical Therapy Home Care Face to Face: I certify that this patient was under my care and that I had the required [id number] encounter meeting the encounter requirements on the discharge day. My findings support the fact that the patient is homebound as defined in Home Care Face to Face Continued: CMS Chapter 7 Medicare Benefits Manual 30.1.1 , The condition of the patient is such that there exists a normal inability to leave home and consequently, leaving home would require a considerable and taxing effort. Isolation Type: None Diet Recommendation: no restrictions on diet, cardiac -low fat low salt, ADA 2200 consistent carb Diet Texture: Regular Texture Diet - Follow Up Care Current Providers and Referrals: Raheem Seth MD [Primary Care Provider] - As per Instructions
--- NOTE | 2017-11-05 15:24 | ASDISCHSUM ---
Discharge Information Plan Status:Home with Home Health Medically Cleared to Leave:11/05/2017 Discharge Date:11/05/2017 11:17 AM D/C Disposition:Home Health Service [facility] D/C Disposition:Home, Routine, Self-Care Projected Discharge Date:11/05/2017 11:00 AM Transportation at D/C:Family Discharge Delay Reason: Follow-Up Date:11/05/2017 11:00 AM Discharge Slot: Final Diagnosis:Unstable agina Placement Information Referral Type:Palliative Care Referral ID:[id number] Provider Name:[facility] ([facility] Address 1:[address] [place] Address 2: City:[place] Selection Factors: State:[place] Referral Type:*Home Health Care Services Referral ID:[id number] Provider Name:[facility] Address 1:[address] Address 2: City:[place] Selection Factors: State:[place] Patient Contact Information Contact Name:CAITY Relationship: Address:[address] City:[place] Alternate Phone: [facility]/Zip Code:[place] [address] Email: Financial Information Financial Class:Medicare Advantage Plans Primary Plan Desc:[employer] Primary Plan Number:[id number] Secondary Plan Desc: Secondary Plan Number: Assessment Information LACE LACE Length of stay for Answers: 4-6 days current admission Comorbidities - select Answers: Congestive heart failure all that apply Coronary Artery Disease Diabetes (uncontrolled or controlled) Previous myocardial infarction Other Notes: morbid obesity # of Emergency department Answers: 1-2 visits in the last 6 months Score: 12 Date Signed: 11/05/2017 02:53 PM Electronically Signed By:Kimberley Arteaga LCSW [facility] Progress Note CM Note CM Note Notes: Met with patient to see if she'd selected a Palliative Care Agency for consult - she picked [facility]. I sent a referral and requested a consult. They will contact us with availability. Case Management will continue to follow. Date Signed: 11/02/2017 01:48 PM Electronically Signed By:Janice Rapp RN [facility] CM Progress Note CM Note CM Note Notes: CM met w/ pt for dispo planning. Notified pt that [facility] has accepted pt. Pt would like to have a palliative consult with [facility] in the hospital. Dr. Dennis came to consult w/ pt. [facility] will enroll pt into their palliative program. PT is recommending HC. Pt would like referral sent to [facility]. [facility] is able to accept. CM to follow. Plan: HC, PT w/ [facility] Date Signed: 11/03/2017 04:55 PM Electronically Signed By:NINI Sosa Case Management Discharge Plan Note Case Management Discharge Discharge Order Complete? Answers: Yes Patient to Obtain Answers: via Family Medications Transportation Arranged Answers: Family/Friends Transport will Pick (Date 11/05/2017 11:00 AM & Time) Faxed Final Orders Answers: Yes Notes: [facility] Pall[facility] Family Notified Answers: Yes Notes: Family transported patient Discharge Comments Notes: Patient discharged home with [facility] PT and [facility]iative care. Date Signed: 11/05/2017 02:40 PM Electronically Signed By:Kimberley Arteaga LCSW Intervention Information
== END 2017-11-05 11:17 | disposition home or self-care (01) | DRG 303 ==
LOC: OBSVTOIN 12:05 → UNDOADMOB 12:05 → INTOOBSV 12:05 → F2W 14:45 → OBSVTOIN 11-02 14:05 → UNDODISIN 11-05 11:17
PROVIDERS: ADMIT Internal Medicine; ATTEND Internal Medicine
DX: I25.110 Atherosclerotic heart disease of native coronary artery with unstable angina pectoris (principal); I50.30 Unspecified diastolic (congestive) heart failure; N17.9 Acute kidney failure, unspecified; Z68.41 Body mass index [BMI] 40.0-44.9, adult; I27.20 Pulmonary hypertension, unspecified; E66.01 Morbid (severe) obesity due to excess calories; I34.0 Nonrheumatic mitral (valve) insufficiency; I16.0 Hypertensive urgency; E11.9 Type 2 diabetes mellitus without complications; G89.29 Other chronic pain; M48.061 Spinal stenosis, lumbar region without neurogenic claudication; F41.9 Anxiety disorder, unspecified; G47.33 Obstructive sleep apnea (adult) (pediatric); J44.9 Chronic obstructive pulmonary disease, unspecified; E78.5 Hyperlipidemia, unspecified; Z95.1 Presence of aortocoronary bypass graft
CPT/HCPCS: 97116-GP; 97161-GP; G0378; G8978-GP-CJ; G8979-GP-CI; J1650; J1815; J1940; J2785

== ENCOUNTER → 2017-12-26 | Outpatient (CLI) | payer OTHER | LOC: FIMAGING 11:14 | PROVIDERS: ATTEND Internal Medicine | DX: M43.16 Spondylolisthesis, lumbar region (principal); Z98.1 Arthrodesis status ==

== ENCOUNTER 2018-04-25 10:19 | Emergency (ER) | payer OTHER ==
--- NOTE | 2018-04-25 10:47 | EDPHY ---
H & P Stated Complaint: delia/urethral pain Time Seen by Provider: 04/25/18 10:47 - Personal History Current Tetanus/Diphtheria Vaccine: Yes Current Tetanus Diphtheria and Acellular Pertussis (TDAP): Yes Tetanus Vaccine Date: unknown - Medical/Surgical History Hx Asthma: Yes Hx Chronic Respiratory Disease: No Hx Diabetes: Yes Hx Cardiac Disease: Yes Hx Renal Disease: No Hx Cirrhosis: No Hx Alcoholism: No Hx HIV/AIDS: No Hx Splenectomy or Spleen Trauma: No Other PMH: 1. Sleep apnea, O2 at night. 2. CAD. 3. s/p CABG 1998. 4. Obesity, morbid. 5. HTN 6.Diabetes type 2. 6. back surgery 2012rupt disc.2015 and 10/2016. 6. CABG. 7.Stents. 8.OR, 2010. 9.Hyperlipidemia. 10. Hernia repair and 2012 11.laminectomy 2004, renetta 2004, lumbar fusion 2011, R TKA 2009. 11. CHF - Social History Smoking Status: Never smoked Constitutional: Initial Vital Signs Temperature (C) 36.7 C 04/25/18 10:27 Heart Rate 53 L 04/25/18 10:27 Respiratory Rate 16 04/25/18 10:27 Blood Pressure 165/68 H 04/25/18 10:27 O2 Sat (%) 96 04/25/18 10:27 O2 Delivery Mode Room Air Allergies/Adverse Reactions: lorazepam [Lorazepam] Allergy (Intermediate, Verified 04/25/18 11:15) Other-Enter Comments metoprolol Allergy (Intermediate, Verified 04/25/18 11:15) Other-Enter Comments Sulfa (Sulfonamide Antibiotics) Allergy (Intermediate, Verified 04/25/18 11:15) Hives Opioids - Morphine Analogues Allergy (Unknown, Unverified 04/25/18 11:15) Other-Enter Comments Home Medications: Medication Instructions Recorded Nitroglycerin [Nitrostat 0.4 mg 0.4 mg SL AD PRN 01/06/15 (*)] Isosorbide Mononitrate [Isosorbide 120 mg PO BID 04/26/16 Mononitrate ER] Ondansetron Odt [Zofran Odt 4 mg 4 mg PO DAILY PRN 04/26/16 (*)] Pantoprazole Sodium [Protonix 40mg 40 mg PO BID 04/26/16 (*)] Aspirin EC [Aspirin EC 81 mg (*)] 81 mg PO DAILY #0 tab 12/12/16 Insulin Glargine [Lantus 100 50 units SC BID 01/23/17 UNITS/ML (*)] hydrALAZINE [Apresoline 50 mg (*)] 100 mg PO BID 01/23/17 Acetaminophen [Tylenol ES 500 mg 1,000 mg PO Q6 PRN 11/01/17 (*)] Albuterol [Proventil Inhaler HFA 1 - 2 puffs IH Q4H PRN 11/01/17 (*)] Insulin Aspart [novoLOG] 0 unit SC HS 11/01/17 Insulin Aspart [novoLOG] 30 unit SC BIDMEAL 11/01/17 Losartan Potassium [Cozaar 50 mg 50 mg PO HS 11/01/17 (*)] clonIDINE [Catapres-Tts] 0.1 mg TD Q7D #4 patch 11/05/17 Phenazopyridine HCl [Pyridium] 200 mg PO TID #6 tab 04/25/18 Medical Decision Making ED Course/Re-evaluation: CHIEF COMPLAINT: Back pain, urethral pain HISTORY OF PRESENT ILLNESS: This patient is a 73 year old female complaining of low back pain as well as urethral pain. She has undergone multiple spinal surgeries and her back pain is chronic. She believes her current exacerbation is related to her L2-S1 spinal fusion. The patient presents primarily due to urethral pain which began suddenly around 1am this morning. She states this feels like a "hot iron poker" is stabbing her. She endorses associated bladder pain. Associated nausea. She has had urinary tract infections in the past, but denies hematuria, urgency, frequency, dysuria. Her pain today is more severe than dysuria associated with UTIs in the past. She denies fever, chest pain, shortness of breath, diarrhea, weakness, or other associated symptoms. She denies any recent trauma or falls. REVIEW OF SYSTEMS: A comprehensive 10 system review of systems is otherwise negative aside from elements mentioned in the history of present illness and medical decision making. PHYSICAL EXAM: HR, BP, O2 Sat, RR. Temp noted General Appearance: Alert, well hydrated, appropriate, and non-toxic appearing. Head: Atraumatic without scalp tenderness or obvious injury Eyes: Pupils equal, round, reactive to light and accommodation, EOMI, no trauma , no injection. Throat: Mucus membranes moist. Neck: Supple, nontender, no lymphadenopathy. Respiratory: No retractions, no distress, no wheezes, and no accessory muscle use. Lungs are clear to auscultation bilaterally. Cardiovascular: Regular rate and rhythm, no murmurs, rubs, or gallops. Good capillary refill all extremities. Gastrointestinal: Abdomen is soft, nontender, non-distended, no masses, no rebound, no guarding, no peritoneal signs. Musculoskeletal: Normal active ROM of all extremities, atraumatic. Neurological: Alert, appropriate, and interactive. Nonfocal neuro exam. Skin: No rashes, good turgor, no nodules on palpation. Past medical history: 1. Sleep apnea, O2 at night 2. CAD s/p CABG 1998 4. Obesity, morbid 5. HTN 6. Diabetes type 2 7. Hyperlipidemia 8. Congestive heart failure 9. History of OR 2009 Past surgical history: 1. Lumbar fusion 2011, ruptured disc 2015 and 10/2016 2. CABG, stent placements 3. Hernia repair 2004 and 2012 4. Laminectomy 2004, 5. Cholecystectomy 2004, 6. Right TKA 2009 Family history: Noncontributory. Social history: . at bedside. Retired. Does not abuse tobacco, drugs, or alcohol. DIFFERENTIAL DIAGNOSIS: The differential diagnosis for the patient's abdominal pain included but was not limited to ovarian cyst, pelvic inflammatory disease, ovarian torsion, urinary tract infection, cholecystitis, and appendicitis. The differential diagnosis for the patient's back pain included but was not limited to musculo-skeletal pain, epidural abscess, herniated disk, spinal fracture, and intra-abdominal causes including urinary system. MEDICAL DECISION MAKIN73 y/o female presents with back pain and urethral pain, which is recurrent for her. No flank pain on exam. Plan for labs including CBC, chemistries, UA. Plan to administer 200mg PO Pyridium, 30mg IV Ketorolac, 1L IV NS for symptom relief. UA negative. Labs unremarkable. Patient continues to have pain. Plan for CT abdomen/pelvis to r/o acute intraabdominal processes. 12:28 Reassessed patient. Discussed laboratory results. She is feeling slightly better after Pyridium. She will go for CT now. 12:[address] Arzate, radiologist. CT abdomen/pelvis negative for acute processes. Of note, there are two loose screws in the patient's spinal surgical hardware at the L2 level. We will refer her to neurosurgery for further evaluation of this. Reassessed. Discussed imaging results. Plan to discharge home in good condition with referral to neuro as above and prescription for Pyridium. She will follow up with her primary care provider as well. Return precautions discussed. The patient is comfortable with this plan. - Data Points Laboratory Results: Laboratory Results 04/25/18 11:10 04/25/18 11:10 04/25/18 04/25/18 04/25/18 11:10 11:10 11:10 WBC 6.45 10^3/uL 10^3/uL (3.80-9.50) RBC 3.96 10^6/uL L 10^6/uL (4.18-5.33) Hgb 11.7 g/dL L g/dL (12.6-16.3) Hct 35.2 % L % (38.0-47.0) MCV 88.9 fL fL (81.5-99.8) MCH 29.5 pg pg (27.9-34.1) MCHC 33.2 g/dL g/dL (32.4-36.7) RDW 13.2 % % (11.5-15.2) Plt Count 241 10^3/uL 10^3/uL (150-400) MPV 10.3 fL fL (8.7-11.7) Neut % (Auto) 59.6 % % (39.3-74.2) Lymph % (Auto) 26.4 % % (15.0-45.0) Coffee % (Auto) 10.7 % % (4.5-13.0) Eos % (Auto) 2.3 % % (0.6-7.6) Baso % (Auto) 0.5 % % (0.3-1.7) Nucleat RBC Rel Count 0.0 % % (0.0-0.2) Absolute Neuts (auto) 3.85 10^3/uL 10^3/uL (1.70-6.50) Absolute Lymphs (auto) 1.70 10^3/uL 10^3/uL (1.00-3.00) Absolute Monos (auto) 0.69 10^3/uL 10^3/uL (0.30-0.80) Absolute Eos (auto) 0.15 10^3/uL 10^3/uL (0.03-0.40) Absolute Basos (auto) 0.03 10^3/uL 10^3/uL (0.02-0.10) Absolute Nucleated RBC 0.00 10^3/uL 10^3/uL (0-0.01) Immature Gran % 0.5 % % (0.0-1.1) Immature Gran # 0.03 10^3/uL 10^3/uL (0.00-0.10) Sodium 137 mEq/L mEq/L (135-145) Potassium 4.9 mEq/L mEq/L (3.3-5.0) Chloride 102 mEq/L mEq/L (97-110) Carbon Dioxide 26 mEq/l mEq/l (22-31) Anion Gap 9 mEq/L mEq/L (8-16) BUN 24 mg/dL H mg/dL (7-23) Creatinine 1.3 mg/dL H mg/dL (0.6-1.0) Estimated GFR 40 Glucose 170 mg/dL H mg/dL (70-100) Calcium 10.1 mg/dL mg/dL (8.5-10.4) Urine Color YELLOW Urine Appearance CLEAR Urine pH 5.0 (5.0-7.5) Ur Specific [place] 1.015 (1.002-1.030) Urine Protein 3+ H (NEGATIVE) Urine Ketones NEGATIVE (NEGATIVE) Urine Blood NEGATIVE (NEGATIVE) Urine Nitrate NEGATIVE (NEGATIVE) Urine Bilirubin NEGATIVE (NEGATIVE) Urine Urobilinogen NEGATIVE EU EU (0.2-1.0) Ur Leukocyte Esterase NEGATIVE (NEGATIVE) Urine RBC 1-3 /hpf /hpf (0-3) Urine WBC 1-3 /hpf /hpf (0-3) Ur Epithelial Cells TRACE /lpf /lpf (NONE-1+) Hyaline Casts 1-5 /lpf /lpf (0-1) Urine Glucose 1+ H (NEGATIVE) Medications Given: Discontinued Medications Sodium Chloride (Ns) 1,000 mls @ 0 mls/hr IV EDNOW ONE; Wide Open PRN Reason: Protocol Stop: 04/25/18 10:55 Last Admin: 04/25/18 11:16 Dose: 1,000 mls Ketorolac Tromethamine (Toradol) 30 mg IVP EDNOW ONE Stop: 04/25/18 10:55 Last Admin: 04/25/18 11:16 Dose: 30 mg Phenazopyridine HCl (Pyridium) 200 mg PO EDNOW ONE Stop: 04/25/18 10:56 Last Admin: 04/25/18 11:17 Dose: 200 mg Departure - Departure Disposition: Home, Routine, Self-Care Clinical Impression: Urethral pain Condition: Good Instructions: Phenazopyridine (By mouth), Back Pain (ED) Additional Instructions: 1. Take Pyridium as prescribed. 2. Follow up with your primary care provider in 2-3 days. 3. Follow up with Dr. Sánchez, neurosurgeon, regarding your back pain. 4. Return to the emergency department for severe pain, fever, numbness, difficulty walking, change in location or nature of pain or other concerns. Referrals: Raheem Seth MD [Primary Care Provider] - As per Instructions Lucia Sánchez MD [Medical Doctor] - As per Instructions Prescriptions: Phenazopyridine HCl [Pyridium] 200 mg PO TID #6 tab Report Scribed for: Matteo French Report Scribed by: Samreen Berg Date of Report: 04/25/18 Time of Report: 13:09
[2018-04-25] MEDS ORDERED: NS 1,000 ML IV ONE (10:54)
[2018-04-25] MEDS ORDERED: KETOROLAC 30 MG/1 ML SDV IVP ONE (10:54)
[2018-04-25] MEDS ORDERED: PHENAZOPYRIDINE HCL 200 MG TAB PO ONE (10:55)
[2018-04-25 11:32] LABS: PLATELET COUNT 241 10^3/uL (150-400)
[2018-04-25] MEDS ORDERED: IOPAMIDOL (ISOVUE-300) 100 ML BTL ONE (12:22)
[2018-04-25 13:13] VITALS: BP 169/70
== END 2018-04-25 13:34 | disposition home or self-care (01) ==
DX: R39.89 Other symptoms and signs involving the genitourinary system (principal); E86.9 Volume depletion, unspecified; K57.30 Diverticulosis of large intestine without perforation or abscess without bleeding; T84.038A Mechanical loosening of other internal prosthetic joint, initial encounter
CPT/HCPCS: 74177; 96374; 99285; J1885; Q9967

== ENCOUNTER 2018-06-17 13:55 | Emergency (ER) | payer OTHER ==
--- NOTE | 2018-06-17 14:11 | EDPHY ---
H & P Time Seen by Provider: 06/17/18 14:03 HPI/ROS: Chief complaint. Abdominal pain, high blood pressure HPI. Patient is 73-year-old female with multiple medical problems presents emergency department with nausea vomiting for 2 days. She notes urinary frequency without dysuria for 2 days. She has left side abdominal pain for 2 days. No radiation. She describes as"painful". No diarrhea. No fever. She then had her typical angina pain with walking into the Emergency Department however it is better now. She did not take any medication for it. She has been taking her antihypertensive medication but her blood pressure has been high for 2 days. No shortness of breath. No upper respiratory symptoms. ROS 10 systems were reviewed and negative with the exception of the elements mentioned in the history of present illness Past Medical/Surgical History: Past medical history significant for obesity, sleep apnea with oxygen at night, coronary artery disease with coronary artery bypass graft in 1998. She has hypertension, insulin-dependent diabetes, back surgery in 2011, 2016, 2017. [place] with stents, dyslipidemia, congestive heart failure, cholecystectomy Social History: , nonsmoker, no alcohol Smoking Status: Never smoked Physical Exam: General Appearance: Alert well-developed female moderate distress vital signs significant for blood pressure 198/122 at triage. On re-evaluation the blood pressure is 230/112 Eyes: Pupils equal and round no pallor or injection. ENT, Mouth: Mucous membranes are moist. Respiratory: There are no retractions, lungs are clear to auscultation. Cardiovascular: Regular rate and rhythm. Gastrointestinal: Abdomen soft with left-sided and epigastric tenderness. No masses. Normal bowel sounds Neurological: Awake and alert, sensory and motor exams grossly normal. Skin: Warm and dry, no rashes. Musculoskeletal: Neck is supple nontender. Extremities symmetrical, full range of motion. Psychiatric: Patient is oriented X 3, there is no agitation. Constitutional: Initial Vital Signs Temperature (C) 36.6 C 06/17/18 13:58 Heart Rate 64 06/17/18 13:58 Respiratory Rate 16 06/17/18 13:58 Blood Pressure 198/122 H 06/17/18 13:58 O2 Sat (%) 90 L 06/17/18 13:58 O2 Delivery Mode Nasal Cannula O2 (L/minute) 2 Allergies/Adverse Reactions: lorazepam [Lorazepam] Allergy (Intermediate, Verified 04/25/18 11:15) Other-Enter Comments metoprolol Allergy (Intermediate, Verified 04/25/18 11:15) Other-Enter Comments Sulfa (Sulfonamide Antibiotics) Allergy (Intermediate, Verified 04/25/18 11:15) Hives Opioids - Morphine Analogues Allergy (Unknown, Unverified 04/25/18 11:15) Other-Enter Comments Home Medications: Medication Instructions Recorded Nitroglycerin [Nitrostat 0.4 mg 0.4 mg SL AD PRN 01/06/15 (*)] Isosorbide Mononitrate [Isosorbide 120 mg PO BID 04/26/16 Mononitrate ER] Ondansetron Odt [Zofran Odt 4 mg 4 mg PO DAILY PRN 04/26/16 (*)] Pantoprazole Sodium [Protonix 40mg 40 mg PO BID 04/26/16 (*)] Aspirin EC [Aspirin EC 81 mg (*)] 81 mg PO DAILY #0 tab 12/12/16 Insulin Glargine [Lantus 100 50 units SC BID 01/23/17 UNITS/ML] hydrALAZINE [Apresoline 50 mg (*)] 100 mg PO BID 01/23/17 Acetaminophen [Tylenol ES 500 mg 1,000 mg PO Q6 PRN 11/01/17 (*)] Albuterol [Proventil Inhaler HFA 1 - 2 puffs IH Q4H PRN 11/01/17 (*)] Insulin Aspart [novoLOG] 0 unit SC HS 11/01/17 Insulin Aspart [novoLOG] 30 unit SC BIDMEAL 11/01/17 Losartan Potassium [Cozaar 50 mg 50 mg PO HS 11/01/17 (*)] clonIDINE [Catapres-Tts] 0.1 mg TD Q7D #4 patch 11/05/17 Phenazopyridine HCl [Pyridium] 200 mg PO TID #6 tab 04/25/18 Medical Decision Making - Diagnostics EKG Interpretation: EKG interpreted by me shows normal sinus rhythm normal interval. Left axis deviation. QRS is otherwise normal. Some lateral ST depression in V4 through the 6. PVCs noted. Rate is 75 No significant change including the lateral ST depression from previous EKG in October 2017 Imaging Results: Imaging Impressions Abdomen CT 06/17/18 14:27 Impression: 1. No acute abdominal or pelvic abnormality. There has been no significant change from the prior study. 2. See above report for findings. Results called and discussed with CORNELIA JJ M.D. on 06/17/2018 16:30. Chest X-Ray 06/17/18 14:34 Impression: Suspect congestive heart failure. Chest x-ray shows mild congestive heart failure. No pneumonia CT abdomen and pelvis with IV contrast shows no acute findings. No change from previous CT in March 2018. No evidence for diverticulitis, small-bowel obstruction, aortic aneurysm. Procedures: IV normal saline, monitor. Patient is given losartan for her blood pressure. She normally takes this at bedtime. ED Course/Re-evaluation: 3:25 p.m. Current blood pressure is 219/90 Re-evaluation 430 p.m.. Patient's blood pressure 219/94. She continues to have some anginal symptoms. I have recommended admission but currently the patient is refusing. She and I discussed laboratory evaluation. She does have Lasix which she takes intermittently. I have encouraged her to continue to take her Lasix. Repeat troponin is normal. Again patient is offered admission however she refuses. She told me that the last time she was in the hospital for a week and they were trying to control her blood pressure. She would rather follow up as an outpatient. Risks and benefits of this are discussed. She is encouraged to return at any point. She is encouraged to follow up with her PCP or bilingual teacher for further blood pressure management. She expresses understanding Differential Diagnosis: I considered abdominal pathology include small-bowel obstruction diverticulitis , abdominal aortic aneurysm. Patient tells me she has had a couple episodes of her typical angina it goes away. Her troponins are normal. Her blood pressure remains high however she declines admission - Data Points Laboratory Results: Laboratory Results 06/17/18 14:37 06/17/18 14:37 06/17/18 06/17/18 06/17/18 16:21 14:42 14:37 WBC RBC Hgb Hct MCV MCH MCHC RDW Plt Count MPV Neut % (Auto) Lymph % (Auto) Citrus % (Auto) Eos % (Auto) Baso % (Auto) Nucleat RBC Rel Count Absolute Neuts (auto) Absolute Lymphs (auto) Absolute Monos (auto) Absolute Eos (auto) Absolute Basos (auto) Absolute Nucleated RBC Immature Gran % Immature Gran # Sodium 138 mEq/L mEq/L (135-145) Potassium 4.4 mEq/L mEq/L (3.3-5.0) Chloride 106 mEq/L mEq/L (97-110) Carbon Dioxide 23 mEq/l mEq/l (22-31) Anion Gap 9 mEq/L mEq/L (6-14) BUN 22 mg/dL mg/dL (7-23) Creatinine 1.3 mg/dL H mg/dL (0.6-1.0) Estimated GFR 40 Glucose 212 mg/dL H mg/dL (70-100) Calcium 10.0 mg/dL mg/dL (8.5-10.4) Total Bilirubin 1.3 mg/dL mg/dL (0.1-1.4) Conjugated Bilirubin 0.3 mg/dL mg/dL (0.0-0.5) Unconjugated Bilirubin 1.0 mg/dL mg/dL (0.0-1.1) AST 19 IU/L IU/L (14-46) ALT 26 IU/L IU/L (9-52) Alkaline Phosphatase 123 IU/L IU/L (38-126) POC Troponin I 0.03 ng/mL ng/mL 0.02 ng/mL ng/mL (0.00-0.08) (0.00-0.08) NT-Pro-B Natriuret Pep 2040 pg/mL H pg/mL (0-125) Total Protein 6.5 g/dL g/dL (6.3-8.2) Albumin 3.4 g/dL L g/dL (3.5-5.0) Lipase 73 IU/L IU/L (23-300) Urine Color Urine Appearance Urine pH Ur Specific [place] Urine Protein Urine Ketones Urine Blood Urine Nitrate Urine Bilirubin Urine Urobilinogen Ur Leukocyte Esterase Urine RBC Urine WBC Ur Epithelial Cells Urine Mucus Urine Glucose 06/17/18 06/17/18 14:37 11:43 WBC 5.80 10^3/uL 10^3/uL (3.80-9.50) RBC 3.82 10^6/uL L 10^6/uL (4.18-5.33) Hgb 11.5 g/dL L g/dL (12.6-16.3) Hct 34.0 % L % (38.0-47.0) MCV 89.0 fL fL (81.5-99.8) MCH 30.1 pg pg (27.9-34.1) MCHC 33.8 g/dL g/dL (32.4-36.7) RDW 13.3 % % (11.5-15.2) Plt Count 259 10^3/uL 10^3/uL (150-400) MPV 10.1 fL fL (8.7-11.7) Neut % (Auto) 55.0 % % (39.3-74.2) Lymph % (Auto) 30.0 % % (15.0-45.0) Citrus % (Auto) 12.6 % % (4.5-13.0) Eos % (Auto) 1.6 % % (0.6-7.6) Baso % (Auto) 0.3 % % (0.3-1.7) Nucleat RBC Rel Count 0.0 % % (0.0-0.2) Absolute Neuts (auto) 3.19 10^3/uL 10^3/uL (1.70-6.50) Absolute Lymphs (auto) 1.74 10^3/uL 10^3/uL (1.00-3.00) Absolute Monos (auto) 0.73 10^3/uL 10^3/uL (0.30-0.80) Absolute Eos (auto) 0.09 10^3/uL 10^3/uL (0.03-0.40) Absolute Basos (auto) 0.02 10^3/uL 10^3/uL (0.02-0.10) Absolute Nucleated RBC 0.00 10^3/uL 10^3/uL (0-0.01) Immature Gran % 0.5 % % (0.0-1.1) Immature Gran # 0.03 10^3/uL 10^3/uL (0.00-0.10) Sodium Potassium Chloride Carbon Dioxide Anion Gap BUN Creatinine Estimated GFR Glucose Calcium Total Bilirubin Conjugated Bilirubin Unconjugated Bilirubin AST ALT Alkaline Phosphatase POC Troponin I NT-Pro-B Natriuret Pep Total Protein Albumin Lipase Urine Color YELLOW Urine Appearance CLEAR Urine pH 7.0 (5.0-7.5) Ur Specific [place] 1.008 (1.002-1.030) Urine Protein 2+ H (NEGATIVE) Urine Ketones NEGATIVE (NEGATIVE) Urine Blood NEGATIVE (NEGATIVE) Urine Nitrate NEGATIVE (NEGATIVE) Urine Bilirubin NEGATIVE (NEGATIVE) Urine Urobilinogen NEGATIVE EU EU (0.2-1.0) Ur Leukocyte Esterase NEGATIVE (NEGATIVE) Urine RBC 1-3 /hpf /hpf (0-3) Urine WBC 1-3 /hpf /hpf (0-3) Ur Epithelial Cells TRACE /lpf /lpf (NONE-1+) Urine Mucus TRACE /lpf /lpf (NONE-1+) Urine Glucose 1+ H (NEGATIVE) Medications Given: Losartan Potassium (Cozaar) 50 mg PO DAILY SHAY Stop: 12/14/18 14:29 Last Admin: 06/17/18 15:11 Dose: 50 mg Discontinued Medications Sodium Chloride (Ns) 1,000 mls @ 0 mls/hr IV EDNOW ONE; Wide Open PRN Reason: Protocol Stop: 06/17/18 14:27 Last Admin: 06/17/18 14:55 Dose: 1,000 mls Point of Care Test Results: Chemistry 06/17/18 06/17/18 16:21 14:42 POC Troponin I 0.03 ng/mL ng/mL 0.02 ng/mL ng/mL (0.00-0.08) (0.00-0.08) Departure - Departure Disposition: Home, Routine, Self-Care Clinical Impression: Abdominal pain Qualifiers: Abdominal location: left upper quadrant Qualified Code(s): R10.12 - Left upper quadrant pain Hypertension Qualifiers: Hypertension type: essential hypertension Qualified Code(s): I10 - Essential ( primary) hypertension Condition: Good Instructions: Acute Abdominal Pain (ED), Hypertension (ED) Additional Instructions: Continue regular medications. Take Lasix daily. Return for worsening chest discomfort or abdominal pain. Follow-up with Dr. Seth in the next 1-2 days for blood pressure control Referrals: Raheem Seth MD [Primary Care Provider] - 1-2 days without fail Gonzalo Gauthier MD [Medical Doctor] - As per Instructions
[2018-06-17] MEDS ORDERED: NS 1,000 ML IV ONE (14:26)
[2018-06-17] MEDS ORDERED: LOSARTAN POTASSIUM 50 MG TAB PO SCH (14:30)
--- NOTE | 2018-06-17 14:36 | CPEKG ---
Test Reason : OPEN Blood Pressure : / mmHG Vent. Rate : 075 BPM Atrial Rate : 078 BPM P-R Int : 169 ms QRS Dur : 094 ms QT Int : 377 ms P-R-T Axes : 062 -29 134 degrees QTc Int : 421 ms Sinus rhythm Multiform ventricular premature complexes Borderline left axis deviation Probable anterior infarct, age indeterminate Confirmed by Walter Amaya ([id number]) on 06/17/2018 2:36:17 PM Referred By: Confirmed By:Walter Amaya
[2018-06-17 14:45] LABS: PLATELET COUNT 259 10^3/uL (150-400)
[2018-06-17] MEDS ORDERED: IOPAMIDOL (ISOVUE-300) 100 ML BTL ONE (14:59)
[2018-06-17 16:27] VITALS: BP 219/94
== END 2018-06-17 17:05 | disposition home or self-care (01) ==
DX: I10 Essential (primary) hypertension (principal); R10.12 Left upper quadrant pain; E11.9 Type 2 diabetes mellitus without complications; I25.10 Atherosclerotic heart disease of native coronary artery without angina pectoris; E66.9 Obesity, unspecified; G47.30 Sleep apnea, unspecified; Z95.1 Presence of aortocoronary bypass graft; Z95.828 Presence of other vascular implants and grafts
CPT/HCPCS: 71045; 74177; 93005; 96360; 99285; Q9967; 84484-PO

== ENCOUNTER 2018-07-21 09:44 | Inpatient (IN) | payer OTHER ==
--- NOTE | 2018-07-21 10:09 | CPEKG ---
Test Reason : OPEN Blood Pressure : / mmHG Vent. Rate : 056 BPM Atrial Rate : 058 BPM P-R Int : 169 ms QRS Dur : 099 ms QT Int : 465 ms P-R-T Axes : 042 -07 023 degrees QTc Int : 449 ms Sinus rhythm Anterior infarct, old unchanged Confirmed by Salvatore Escobar ([id number]) on 07/21/2018 10:08:55 AM Referred By: Confirmed By:Salvatore Escobar
[2018-07-21] MEDS ORDERED: ONDANSETRON 4 MG/2 ML VIAL IVP ONE (10:10)
[2018-07-21] MEDS ORDERED: fentaNYL 100 MCG/2 ML INJ IVP ONE (10:10)
--- NOTE | 2018-07-21 10:11 | EDPHY ---
H & P Stated Complaint: back pain and SOB Time Seen by Provider: 07/21/18 09:58 HPI/ROS: CHIEF COMPLAINT: Shortness of breath, chest tightness HISTORY OF PRESENT ILLNESS: Patient is a 73-year-old female who comes to the emergency department complaining of chest tightness and shortness of breath. She discontinued her cardiac medication 1 week ago because she was bradycardic. She spoke with the nurse from the cardiac office over the phone. She stopped spironolactone, Lasix, losartan and clonidine. Since that time she has had increased and labile blood pressure. She also is having chronic low back pain and had a cortisone injection 1 week ago which she states did not work. She is also complaining of nausea. Symptoms are worse when lying flat. Severity: Severe Modifying factors: Moderate REVIEW OF SYSTEMS: Constitutional: denies: chills, fever, recent illness, recent injury EENTM: denies: blurred vision, double vision, nose congestion Respiratory see HPI Cardiac: See HPI Gastrointestinal/Abdominal: denies: abdominal pain, diarrhea, nausea, vomiting, blood streaked stools Genitourinary: denies: dysuria, frequency, hematuria, pain Musculoskeletal: denies: joint pain, muscle pain Skin: denies: lesions, rash, jaundice, bruising Neurological: denies: headache, numbness, paresthesia, tingling, dizziness, weakness Hematologic/Lymphatic: denies: blood clots, easy bleeding, easy bruising Immunologic/allergic: denies: HIV/AIDS, transplant 10 systems reviewed and negative except as noted EXAM: GENERAL: Lying flat in bed, complaining of low back pain, moderate distress HEAD: Atraumatic, normocephalic. EYES: Pupils equal round and reactive to light, extraocular movements intact, sclera anicteric, conjunctiva are normal. ENT: TMs normal, nares patent, oropharynx clear without exudates. Moist mucous membranes. NECK: Normal range of motion, supple without lymphadenopathy or JVD. LUNGS: Breath sounds clear to auscultation bilaterally and equal. No wheezes rales or rhonchi. HEART: Regular rate and rhythm without murmurs, rubs or gallops. ABDOMEN: Soft, nontender, normoactive bowel sounds. No guarding, no rebound. No masses appreciated. BACK: No CVA tenderness, no spinal tenderness, step-offs or deformities EXTREMITIES: Normal range of motion, no pitting or edema. No clubbing or cyanosis. NEUROLOGICAL: Cranial nerves II through XII grossly intact. Normal speech, normal gait. 5/5 strength, normal movement in all extremities, normal sensation , normal reflexes PSYCH: Normal mood, normal affect. SKIN: Warm, dry, normal turgor, no visible rashes or lesions. Source: Patient Exam Limitations: No limitations - Personal History Tetanus Vaccine Date: unknown - Medical/Surgical History Hx Asthma: Yes Hx Chronic Respiratory Disease: No Hx Diabetes: Yes Hx Cardiac Disease: Yes Hx Renal Disease: No Hx Cirrhosis: No Hx Alcoholism: No Hx HIV/AIDS: No Hx Splenectomy or Spleen Trauma: No Other PMH: 1. Sleep apnea, O2 at night. 2. CAD. 3. CABG 1998. 4. Obesity. 5. HTN. 6. IDDM. 6. back surgery 2011rupt disc.2015 and 10/2016. 6. CABG. 7.Stents. 8.MN, 2010. 9.Hyperlipidemia. 10. Hernia repair and 2012 11.laminectomy 2004, renetta 2004, lumbar fusion 2011, R TKA 2009, RENETTA. 11. CHF - Family History Significant Family History: No pertinent family hx - Social History Smoking Status: Never smoked Alcohol Use: Sober Constitutional: Initial Vital Signs Temperature (C) 36.2 C 07/21/18 09:46 Heart Rate 55 L 07/21/18 09:46 Respiratory Rate 22 H 07/21/18 09:46 Blood Pressure 189/95 H 07/21/18 09:46 O2 Sat (%) 85 L 07/21/18 09:46 O2 Delivery Mode Room Air O2 (L/minute) 3 Allergies/Adverse Reactions: lorazepam [Lorazepam] Allergy (Intermediate, Verified 07/21/18 10:12) Other-Enter Comments metoprolol Allergy (Intermediate, Verified 07/21/18 10:12) Other-Enter Comments Sulfa (Sulfonamide Antibiotics) Allergy (Intermediate, Verified 07/21/18 10:12) Hives Opioids - Morphine Analogues Allergy (Unknown, Verified 07/21/18 10:12) Other-Enter Comments Home Medications: Medication Instructions Recorded Nitroglycerin [Nitrostat 0.4 mg 0.4 mg SL AD PRN 01/06/15 (*)] Isosorbide Mononitrate [Isosorbide 120 mg PO BID 04/26/16 Mononitrate ER] Pantoprazole Sodium [Protonix 40mg 40 mg PO BID 04/26/16 (*)] Aspirin EC [Aspirin EC 81 mg (*)] 81 mg PO DAILY #0 tab 12/12/16 Insulin Glargine [Lantus 100 50 units SC BID 01/23/17 UNITS/ML] hydrALAZINE [Apresoline 50 mg (*)] 100 mg PO BID 01/23/17 Albuterol [Proventil Inhaler HFA 1 - 2 puffs IH Q4H PRN 11/01/17 (*)] Insulin Aspart [novoLOG] 0 unit SC HS 11/01/17 Erythromycin Base [Erythromycin] 500 mg PO TID 07/21/18 Furosemide [Lasix 40 MG (*)] 40 mg PO PRN PRN 07/21/18 Isosorbide Mononitrate [Imdur 30 30 mg PO BID 07/21/18 mg (*)] Losartan Potassium 100 mg PO HS 07/21/18 Ondansetron HCl [Zofran] 4 mg PO Q6H PRN 07/21/18 Ranitidine HCl 150 mg PO BID 07/21/18 Spironolactone [Spironolactone] 25 mg PO DAILY 07/21/18 clonIDINE [Catapres-Tts (*)] 0.2 mg TD TH 07/21/18 Medical Decision Making - Diagnostics EKG Interpretation: An EKG obtained and was read and documented in trace view. Please see trace view for full reading and report. Sinus rhythm, no acute ischemic changes Imaging Results: Imaging Impressions Chest X-Ray 07/21/18 10:09 Impression: Borderline compensated CHF, similar to 2 months ago. Imaging: Discussed imaging studies w/ supervisor stave finishing Radiologist ED Course/Re-evaluation: The patient is hypertensive in short of breath. She has pulmonary edema on x- ray and an elevated BNP. She is off all of her medications. I will give her dose of Lasix in addition to the pain medicine she is requesting. Will admit to the hospitalist service. Differential Diagnosis: Partial list of the Differential diagnosis considered include but were not limited to; CHF exacerbation, chronic back pain, medication compliance and although unlikely based on the history and physical exam, I also considered pneumonia, acute coronary disease, pneumothorax, PE. - Data Points Laboratory Results: Laboratory Results 07/21/18 10:05 07/21/18 10:05 07/21/18 07/21/18 07/21/18 10:09 10:05 10:05 WBC 6.37 10^3/uL 10^3/uL (3.80-9.50) RBC 3.63 10^6/uL L 10^6/uL (4.18-5.33) Hgb 10.8 g/dL L g/dL (12.6-16.3) Hct 32.8 % L % (38.0-47.0) MCV 90.4 fL fL (81.5-99.8) MCH 29.8 pg pg (27.9-34.1) MCHC 32.9 g/dL g/dL (32.4-36.7) RDW 13.6 % % (11.5-15.2) Plt Count 233 10^3/uL 10^3/uL (150-400) MPV 10.5 fL fL (8.7-11.7) Neut % (Auto) 67.8 % % (39.3-74.2) Lymph % (Auto) 18.2 % % (15.0-45.0) [place] % (Auto) 11.8 % % (4.5-13.0) Eos % (Auto) 1.4 % % (0.6-7.6) Baso % (Auto) 0.5 % % (0.3-1.7) Nucleat RBC Rel Count 0.0 % % (0.0-0.2) Absolute Neuts (auto) 4.32 10^3/uL 10^3/uL (1.70-6.50) Absolute Lymphs (auto) 1.16 10^3/uL 10^3/uL (1.00-3.00) Absolute Monos (auto) 0.75 10^3/uL 10^3/uL (0.30-0.80) Absolute Eos (auto) 0.09 10^3/uL 10^3/uL (0.03-0.40) Absolute Basos (auto) 0.03 10^3/uL 10^3/uL (0.02-0.10) Absolute Nucleated RBC 0.00 10^3/uL 10^3/uL (0-0.01) Immature Gran % 0.3 % % (0.0-1.1) Immature Gran # 0.02 10^3/uL 10^3/uL (0.00-0.10) Sodium 134 mEq/L L mEq/L (135-145) Potassium 5.2 mEq/L mEq/L (3.5-5.2) Chloride 104 mEq/L mEq/L (97-110) Carbon Dioxide 23 mEq/l mEq/l (22-31) Anion Gap 7 mEq/L mEq/L (6-14) BUN 32 mg/dL H mg/dL (7-23) Creatinine 1.7 mg/dL H mg/dL (0.6-1.0) Estimated GFR 29 Glucose 239 mg/dL H mg/dL (70-100) Calcium 9.9 mg/dL mg/dL (8.5-10.4) POC Troponin I 0.03 ng/mL ng/mL (0.00-0.08) NT-Pro-B Natriuret Pep 4810 pg/mL H pg/mL (0-125) Medications Given: Discontinued Medications Fentanyl (Sublimaze) 100 mcg IVP EDNOW ONE Stop: 07/21/18 10:11 Last Admin: 07/21/18 10:17 Dose: 100 mcg Furosemide (Lasix Injection) 40 mg IVP EDNOW ONE Stop: 07/21/18 10:50 Last Admin: 07/21/18 11:05 Dose: 40 mg Ondansetron HCl (Zofran) 4 mg IVP EDNOW ONE Stop: 07/21/18 10:11 Last Admin: 07/21/18 10:18 Dose: 4 mg Point of Care Test Results: Chemistry 07/21/18 10:09 POC Troponin I 0.03 ng/mL ng/mL (0.00-0.08) Departure - Departure Disposition: [facility] Acute Clinical Impression: Lumbar radiculitis Congestive heart failure (CHF) Qualifiers: Heart failure type: unspecified Heart failure chronicity: acute on chronic Qualified Code(s): I50.9 - Heart failure, unspecified Condition: Fair
[2018-07-21 10:22] LABS: PLATELET COUNT 233 10^3/uL (150-400)
[2018-07-21] MEDS ORDERED: FUROSEMIDE 40 MG/4 ML VIAL IVP ONE (10:49)
[2018-07-21] MEDS ORDERED: D50W 25 GM/50 ML SYR IVP PRN (12:31)
[2018-07-21] MEDS ORDERED: NITROGLYCERIN 0.4 MG BTL SL PRN (12:31)
[2018-07-21] MEDS ORDERED: ALBUTEROL 60 PUFFS/8 GM MDI IH PRN (12:31)
[2018-07-21] MEDS ORDERED: hydrALAZINE 20 MG/ML VIAL IVP ONE ×2 (12:31→14:15)
[2018-07-21] MEDS ORDERED: NON-FORMULARY NEW DRUG (Ondansetron Hcl [Zofran] 4 MG) PO PRN (12:31)
[2018-07-21] MEDS ORDERED: ACETAMINOPHEN 325 MG TAB PO PRN (12:35)
[2018-07-21] MEDS ORDERED: HYDROCODONE/APAP 5/325 TAB PO PRN (12:37)
[2018-07-21] MEDS ORDERED: HYDROmorphONE/DILAUDID 1 MG/ML INJ IVP PRN (12:37)
[2018-07-21] MEDS ORDERED: fentaNYL 100 MCG/2 ML INJ IVP PRN ×2 (12:44→16:05)
[2018-07-21] MEDS ORDERED: ISOSORBIDE MONONITRATE 30 MG TAB.SR PO SCH (12:45)
--- NOTE | 2018-07-21 13:16 | GHP ---
DATE OF ADMISSION: 07/21/2018 CHIEF COMPLAINT: Multiple complaints, including weakness, shortness of breath, back pain, nausea, vo miting. HISTORY OF PRESENT ILLNESS: This is a 73-year-old female with CHF, coronary artery disease, gastropa resis, chronic low back pain, who presents with multiple complaints. Apparently, her heart rate was noted to be low at her PCP's clinic about 4 days ago. This prompted a call to [facility]. She te lls me that they recommended that she stop all of her cardiac medications, which she did. These incl uded losartan, spironolactone, clonidine, isosorbide mononitrate, and hydralazine. She has felt very poorly since then, including feeling very short of breath with minimal ambulation. She thinks she h as gained some weight, though she has not weighed herself over the past few days. She also complains of some severe nausea, which is apparently from gastroparesis. She tried lissette recently, and she i s unsure if this helped. She additionally has some low back pain. She received cortisone injections in her back about a week ago. She tells me these were unsuccessful. She is complaining of some sandra st pain as well. She does not have any significant lower extremity edema, though she believes that h er abdomen is more distended than normal. PAST MEDICAL/SURGICAL HISTORY: 1. Coronary artery disease, status post CABG in 1998, as well as PCIs. 2. Low back pain. Recently received a cortisone injection. She tells me this was due to a surgery that went wrong. 3. Diastolic CHF. 4. Hypertension. 5. Mitral regurgitation. 6. Insulin-dependent diabetes. 7. Pulmonary hypertension. 8. Obesity. 9. ERON. 10. Gastroparesis. MEDICATIONS: Please see medication reconciliation. ALLERGIES: Lorazepam, metoprolol, sulfa, opioids. SOCIAL HISTORY: She is accompanied by her daughter, as well as her . FAMILY HISTORY: Reviewed and noncontributory. REVIEW OF SYSTEMS: Ten-point review of systems is conducted and is negative, except per HPI. PHYSICAL EXAM: VITAL SIGNS: Blood pressure has been as high as 211/71, currently 190/61. Pulse has been 40-50, respiration rate 18, saturating at 85% on room air. Temperature is 36.2. GENERAL: The patient is an obese female who is lying on her side, appears visibly uncomfortable due to low back p ain. HEENT: Normocephalic, atraumatic. CARDIOVASCULAR: Exam shows her to be bradycardic. HEART: Sounds are markedly diminished. I do not appreciate a murmur. PULMONARY: Exam shows her to be in n o significant respiratory distress. She has mild crackles in her bases. ABDOMEN: Obese. She is no ntender. I do not appreciate any ascites. SKIN: Exam shows no rash. : Exam shows no Hernandez. NE UROLOGIC: Exam shows her to be alert and oriented x3. She is moving all extremities. PSYCHIATRIC: Exam shows a normal mood and affect. LABS: Creatinine is 1.7. BNP is 4800. Sodium is 134. BUN is 32. Hemoglobin is 10.8. DATA: 1. Discussed with Dr. Escobar. Will admit to PCU. 2. I personally viewed and interpreted her chest x-ray. This shows mild pulmonary edema. 3. I personally viewed and interpreted her EKG and compared this to her previous. This shows Q-wave s in leads V1, V2. I do not appreciate any acute ischemia, not really appreciably changed from her p revious EKG. IMPRESSION/PLAN: A 73-year-old female presents with multiple complaints after stopping all of her ca rdiac medications. 1. Cardiac: She appears to be mildly volume overloaded. She is extremely hypertensive. She is bra dycardic off her medications. She has received IV Lasix, as well as IV hydralazine in the emergency department with some mild improvement in her blood pressure. I am concerned about her extreme hypert ension in the setting of severe mitral regurgitation as well. Will restart her cardiac medications, except for the losartan for now given her mild acute kidney injury. I am giving her doses of isosorb godfrey mononitrate, hydralazine IV, spironolactone. Will avoid any galilea blockers at this point. I diane l trend her troponins. I have discussed with Dr. Woods, who will consult. We will monitor her on te lemetry, in our cardiac unit. 2. Low back pain: Chronic problem. She has received some IV fentanyl in the emergency department. She received a cortisone injection 1 week ago that seems to have been unsuccessful. 3. Gastroparesis: This is also one of her chief complaints. I will start her erythromycin. I do n ot believe that she has started this. She is due for an outpatient endoscopy. I am not sure that we will be able to get this done while she is here, and I did not promise this. Will follow her sympto matically for now. 4. Diabetes mellitus: She is insulin dependent. I will restart her home insulin, as well as check a glucose and start a sliding scale. 5. Acute kidney injury: Likely due to stopping her cardiac medications. We will restart these and follow her creatinine tomorrow. 6. Severe mitral regurgitation: As above. 7. Diastolic congestive heart failure: I have ordered a followup echocardiogram to be done today or tomorrow. 8. Code status: She is do not resuscitate. Did discuss this with her, her , and her zach r. 9. Venous thromboembolism risk is high; I have ordered her subcutaneous heparin. /[id number]/MODL
[2018-07-21] MEDS ORDERED: ONDANSETRON DISINTEGRATING 4 MG TAB PO PRN (13:30)
[2018-07-21] MEDS: SPIRONOLACTONE 25 MG TAB PO SCH (13:47)
[2018-07-21] MEDS: ISOSORBIDE MONONITRATE 120 MG PO SCH ×2 (13:47→20:14)
[2018-07-21] MEDS: HEPARIN 5,000 UNIT/0.5 ML INJ SC SCH ×2 (14:59→22:46)
[2018-07-21] MEDS: ONDANSETRON DISINTEGRATING 4 MG TAB PO PRN ×2 (15:04→21:11)
[2018-07-21] MEDS: oxyCODONE IR 5 MG TAB PO PRN ×2 (15:11→23:00)
--- NOTE | 2018-07-21 15:22 | PDCARCONS ---
Cardiology Consult Reason for Consult: Known coronary artery disease with previous bypass surgery, valvular heart disease characterized by severe mitral regurgitation, essential hypertension, chest pain and dyspnea. Chief Complaint: Severe back pain, dyspnea, nausea, mild chest pain. Requesting Physician: Dr. Maico Spann. History of Present Illness: This is a pleasant 73-year-old female typically followed in the outpatient setting by Dr. Gonzalo Gauthier and Ame Chapa. Her cardiovascular history is extensive and is characterized by: 1. Coronary artery disease. She underwent multivessel bypass surgery back in 1998. She underwent cardiac catheterization in December of [address] Maico Martins. At that time, her [place] vasculature demonstrated an occluded LAD, an occluded 2nd obtuse marginal branch, a 75% lesion in the 3rd obtuse marginal branch and an occluded right coronary artery. From previous angiograms it was known that saphenous vein graft to the right coronary artery and to the obtuse marginal branch were occluded. On this angiogram the saphenous vein graft to the diagonal was occluded with the appearance of thrombus. Fortunately, the left internal mammary artery graft to the LAD was patent. There was collateral circulation to the diagonal branch. Because of this and a normal ejection fraction it was elected to treat her medically. 2. Severe mitral regurgitation. This is noted from an echocardiogram in October of 2017. At that time her ejection fraction was 55% with basal inferoseptal hypokinesis. She had severe mitral regurgitation with mild tricuspid regurgitation. The estimated RVSP was 70 mmHg. 3. Severe pulmonary hypertension as noted above. 4. Severe hypertension. 5. Chronic congestive heart failure. 6. Obesity/obstructive sleep apnea. 7. Insulin-dependent diabetes mellitus. This is associated with gastroparesis and symptoms of nausea. She is seen in consultation on the progressive care unit. She states that she called our office late last week requesting an appointment. She was experiencing symptoms of severe back pain, chest pain and dyspnea. Apparently, she was advised to go to the emergency department. Finally today she decided to come to the emergency department. When I asked her the main reason that she came to the emergency department she states that she has been experiencing escalating symptoms of severe back pain. Apparently, she has a failed lumbar spinal surgery and is thought not to be a candidate for another operation. She has seen Dr. Valentine from Orthopedics who has suggested a spinal stimulator. She states that she was seen by her primary care doctor on . At that time, she was noted to have a slow heart rate. Per the advice of our office she was advised to stop her antihypertensive medications which she did on . This includes hydralazine, long-acting isosorbide, losartan and clonidine patch. On arrival to the emergency department today she was noted to be severely hypertensive with systolics above 240 mmHg. She also states that she has had worsening symptoms of dyspnea. She notes shortness of breath predominantly at rest. She really is not that active. This is not associated with orthopnea or edema. She has also had mild chest discomfort which has been described as intermittent sharp pains in her chest that radiate into her back. She has had increasing nausea which she attributes to gastro paresis. Her initial electrocardiogram did not demonstrate any acute changes. Her initial troponin was normal. History Information - Allergies/Home Medication List Allergies/Adverse Reactions: lorazepam [Lorazepam] Allergy (Intermediate, Verified 07/21/18 10:12) Other-Enter Comments metoprolol Allergy (Intermediate, Verified 07/21/18 10:12) Other-Enter Comments Sulfa (Sulfonamide Antibiotics) Allergy (Intermediate, Verified 07/21/18 10:12) Hives Opioids - Morphine Analogues Allergy (Unknown, Verified 07/21/18 10:12) Other-Enter Comments Home Medications: Nitroglycerin [Nitrostat 0.4 mg (*)] 0.4 mg SL AD PRN 01/06/15 [Last Taken 07/21] Isosorbide Mononitrate [Isosorbide Mononitrate ER] 120 mg PO BID 04/26/16 [Last Taken 07/19/18] Pantoprazole Sodium [Protonix 40mg (*)] 40 mg PO BID 04/26/16 [Last Taken ] Insulin Glargine [Lantus 100 UNITS/ML] 50 units SC BID 01/23/17 [Last Taken ] hydrALAZINE [Apresoline 50 mg (*)] 100 mg PO BID 01/23/17 [Last Taken 07/19/18] Albuterol [Proventil Inhaler HFA (*)] 1 - 2 puffs IH Q4H PRN 11/01/17 [Last Taken 11/01/17] Insulin Aspart [novoLOG] 0 unit SC HS 11/01/17 [Last Taken 07/19/18] Erythromycin Base [Erythromycin] 500 mg PO TID 07/21/18 [Last Taken Unknown] Furosemide [Lasix 40 MG (*)] 40 mg PO PRN PRN 07/21/18 [Last Taken Unknown] Isosorbide Mononitrate [Imdur 30 mg (*)] 30 mg PO BID 07/21/18 [Last Taken 07/19] Losartan Potassium 100 mg PO HS 07/21/18 [Last Taken 07/17/18] Ondansetron HCl [Zofran] 4 mg PO Q6H PRN 07/21/18 [Last Taken 07/21/18] Ranitidine HCl 150 mg PO BID 07/21/18 [Last Taken Unknown] Spironolactone [Spironolactone] 25 mg PO DAILY 07/21/18 [Last Taken 07/17/18] clonIDINE [Catapres-Tts (*)] 0.2 mg TD TH 07/21/18 [Last Taken 07/12/18] I have personally reviewed and updated: family history, medical history, social history, surgical history Past Medical History: Coronary artery disease as described above, chronic low back pain related to a failed lumbar spine surgery, Valvular heart disease characterized by severe mitral regurgitation, chronic diastolic congestive heart failure, severe hypertension, type 2 diabetes mellitus now insulin-dependent, pulmonary hypertension, obesity, obstructive sleep apnea, history of gastro paresis, gout , history of bradycardia, prior urinary tract infections. - Surgical History Reports: no pertinent surgical hx - Family History Positive for: non-pertinent - Social History Smoking Status: Never smoked Alcohol Use: Sober Additional social history: She is and accompanied by her and her daughter. She is not active due to problems with back pain, she does not use alcohol or drugs. Physical Exam Physical Exam: Temp Pulse Resp BP Pulse Ox 36.2 C 43 L 18 189/65 H 94 07/21/18 09:46 07/21/18 12:43 07/21/18 12:43 07/21/18 14:59 07/21/18 12:43 O2 (L/minute) 3 Constitutional: no apparent distress, appears nourished, not in pain, obese, other (She is obviously uncomfortable due to back pain) Eyes: PERRL, anicteric sclera, EOMI Ears, Nose, Mouth, Throat: moist mucous membranes, hearing normal, ears appear normal, no oral mucosal ulcers Cardiovascular: regular rate and rhythym, systolic murmur (1/6 at the left sternal border), No edema Peripheral Pulses: 2+: carotid (R), carotid (L) Respiratory: no respiratory distress, no rales or rhonchi, clear to auscultation Gastrointestinal: normoactive bowel sounds, soft, non-tender abdomen, no palpable masses Genitourinary: no bladder fullness, no bladder tenderness Skin: warm, normal color, no rashes or abrasions, no fluctuance, no induration, No mottled Musculoskeletal: full muscle strength, no muscle tenderness, normal joint ROM, no joint effusions Psychiatric: interacting appropriately, not anxious, not encephalopathic, thought process linear Lymph, Heme, Immunologic: no cervical LAD, no supraclavicular LAD Lab and Imaging 07/21/18 10:05 07/21/18 10:05 WBC 6.37 10^3/uL (3.80-9.50) 07/21/18 10:05 RBC 3.63 10^6/uL (4.18-5.33) L 07/21/18 10:05 Hgb 10.8 g/dL (12.6-16.3) L 07/21/18 10:05 Hct 32.8 % (38.0-47.0) L 07/21/18 10:05 MCV 90.4 fL (81.5-99.8) 07/21/18 10:05 MCH 29.8 pg (27.9-34.1) 07/21/18 10:05 MCHC 32.9 g/dL (32.4-36.7) 07/21/18 10:05 RDW 13.6 % (11.5-15.2) 07/21/18 10:05 Plt Count 233 10^3/uL (150-400) 07/21/18 10:05 MPV 10.5 fL (8.7-11.7) 07/21/18 10:05 Neut % (Auto) 67.8 % (39.3-74.2) 07/21/18 10:05 Lymph % (Auto) 18.2 % (15.0-45.0) 07/21/18 10:05 Moody % (Auto) 11.8 % (4.5-13.0) 07/21/18 10:05 Eos % (Auto) 1.4 % (0.6-7.6) 07/21/18 10:05 Baso % (Auto) 0.5 % (0.3-1.7) 07/21/18 10:05 Nucleat RBC Rel Count 0.0 % (0.0-0.2) 07/21/18 10:05 Absolute Neuts (auto) 4.32 10^3/uL (1.70-6.50) 07/21/18 10:05 Absolute Lymphs (auto) 1.16 10^3/uL (1.00-3.00) 07/21/18 10:05 Absolute Monos (auto) 0.75 10^3/uL (0.30-0.80) 07/21/18 10:05 Absolute Eos (auto) 0.09 10^3/uL (0.03-0.40) 07/21/18 10:05 Absolute Basos (auto) 0.03 10^3/uL (0.02-0.10) 07/21/18 10:05 Absolute Nucleated RBC 0.00 10^3/uL (0-0.01) 07/21/18 10:05 Immature Gran % 0.3 % (0.0-1.1) 07/21/18 10:05 Immature Gran # 0.02 10^3/uL (0.00-0.10) 07/21/18 10:05 Sodium 134 mEq/L (135-145) L 07/21/18 10:05 Potassium 5.2 mEq/L (3.5-5.2) 07/21/18 10:05 Chloride 104 mEq/L (97-110) 07/21/18 10:05 Carbon Dioxide 23 mEq/l (22-31) 07/21/18 10:05 Anion Gap 7 mEq/L (6-14) 07/21/18 10:05 BUN 32 mg/dL (7-23) H 07/21/18 10:05 Creatinine 1.7 mg/dL (0.6-1.0) H 07/21/18 10:05 Estimated GFR 29 07/21/18 10:05 Glucose 239 mg/dL (70-100) H 07/21/18 10:05 Calcium 9.9 mg/dL (8.5-10.4) 07/21/18 10:05 POC Troponin I 0.03 ng/mL (0.00-0.08) 07/21/18 10:09 NT-Pro-B Natriuret Pep 4810 pg/mL (0-125) H 07/21/18 10:05 A/P Assessment: 1. Chest pain. Her symptoms are atypical for ischemia. Additionally, her ECG and initial troponins are negative. Certainly based on her known coronary disease and occluded vein grafts as well as her market hypertension her chest pain could be ischemia related. Is also possible that this is related to her underlying gastroparesis. There is, however, no indication at the present time of acute myocardial infarction. 2. Hypertension. She presents with severe hypertension. In light of her complaints of chest pain and breathlessness this could constitute a hypertensive emergency. This is likely related to the recent discontinuation of her antihypertensive medications. These medications include clonidine which is known to have severe rebound hypertension. Her hypertension is also likely related to her uncontrolled pain. 3. Congestive heart failure. She appears to be in mild congestive heart failure. She is not hypoxic. This is likely on the basis of the above-noted hypertension as well as her underlying valvular heart disease, ischemic heart disease, obesity and sleep apnea. 4. Bradycardia. She does have sinus rates in the 40s and 50s. In reviewing her chart she carries a diagnosis of sick sinus syndrome. There have been, however, no indications that she has had this degree of bradycardia in the past. Some of her bradycardia may be contributed to by her use of clonidine. She may also be experiencing a vagal response to her gastroparesis and pain. 5. Valvular heart disease. This is characterized by severe mitral regurgitation. As noted above she is in very mild congestive heart failure currently. 6. Severe pulmonary hypertension. This appears to be secondary obstructive sleep apnea and probably contributed to by her cardiovascular disease. 7. Hyperlipidemia. 8. Pain control issues. Plan: Recommend is: 1. She has been admitted to the hospital and will be monitored on telemetry. 2. I would recommend that we reinstitute her losartan, hydralazine, Aldactone and a low-dose of the clonidine. 3. An echocardiogram has been ordered. 4. Her cardiac enzymes will be trended. 5. I would like to give her low-dose of IV Lasix. 6. 1 of her major issues currently is pain control. Dr. Moreira directly addressing this. 7. In might be worthwhile to involve her orthopedic surgeon. 8. Depending on her response to the above therapy she will be reassessed. We will carefully follow her heart rates. She may very well require permanent pacing. 9. At the present time there is no indication for an urgent coronary angiogram. Review of Systems Review of Systems: - Review of Systems Constitutional: see HPI EENTM: no symptoms reported Respiratory: see HPI Cardiac: see HPI Gastrointestinal/Abdominal: no symptoms reported Genitourinary: no symptoms Musculoskelatal: see HPI Skin: no symptoms Neurological: see HPI Hematologic/Lymphatic: no symptoms reported Immunologic/allergic: no symptoms reported All Other Systems: Reviewed and Negative
--- NOTE | 2018-07-21 16:11 | ECHO ---
[email or web address] [address] [address] Main: [phone] Fax: [email or web address] Echocardiogram Name: FRANKIE CHAVEZ MR#: [id number] Study Date: 07/21/2018 Study Time: 02:22 PM Date of : 1945 Age: 73 year(s) Height: 167.6 cm (66 in.) Weight: 95.26 kg (210 lb.) BSA: 2.04 m2 Gender: Female Examination: Echo Indication: CHF Image Quality: Adequate Contrast: Requested by: Bashir Spann BP: 179 mmHg/46 mmHg Heart Rate: Rhythm: Indication: CHF Procedure Staff [employer] Tier Off: Mariaa Cronin RDCS Reading Physician: Mt Woods MD Requesting Provider: Conclusions: Sinus bradycardia at the time of the study. Normal size left ventricle. Mild concentric LV hypertrophy. Normal global systolic LV function. EF is 58 %. Grade 3 diastolic dysfunction (reversible restrictive LV filling pattern). Known mild hypokinesis of the basal inferoseptal wall. The left atrium is moderately dilated. The right atrium is mildly dilated. Mild mitral annular calcification. Severe mitral valve regurgitation is present. Aortic sclerosis is present. Mild aortic valve regurgitation is present. Mild tricuspid regurgitation is present. Right ventricular systolic pressure measures 62mmHg. The pulmonary artery pressure is moderately to severely increased. Measurements: Chambers Valvular Assessment AV/MV Valvular Assessment TV/PV Normal Normal Normal Name Value Range Name Value Range Name Value Range Ao Birdie (2D): 2.5 cm (1.4 cm-2.6 AV Vmax: 2.31 m/s (1 m/s-1.7 TR Vmax: 3.60 mm/s ( - ) cm) m/s) TR PGmax: 52 mmHg ( - ) IVSd (2D): 1.2 cm (0.6 cm-1.1 AV maxP mmHg ( - ) syst. PAP: 62 mmHg ( - ) cm) AV meanP mmHg ( - ) PV Vmax: 1.38 m/s (0.6 m/s-0.9 LVDd (2D): 5.9 cm (3.9 cm-5.3 SILVERIO (VTI): 1.8 cm ( - ) m/s) cm) MV E Vmax: 1.75 m/s ( - ) PV PGmax: 8 mmHg ( - ) LVDs (2D): 3.7 cm (2.1 cm-4 MV A Vmax: 0.87 m/s ( - ) cm) MV E/A: 2.01 ( - ) LVPWd (2D): 1.3 cm ( - ) MV PHT: 0.089 s ( - ) Patient: FRANKIE CHAVEZ Study Date: 07/21/2018 Page 1 of 2 02:22 PM LVOTd 1.9 cm 1.9 cm mm MVA (PHT): 2.5 s ( - ) LVEF (BP): 58 % (>=55 %) RVDd(2D): 3.6 cm (1.9 cm-3.8 cmmm) Continued Measurements: Chambers Valvular Assessment AV/MV Valvular Assessment TV/PV Name Value Name Value Name Value LADs: 4.4 cm MV DecTime: 289 m/s CVP (est.): 10 mmHg LADs Lon.5 cm MV E' Septal: 0.04 m/s LA Area: 26.5 cm2 MV E/E' Septal: 43.80 LA Volume: 76 ml MV E/E' Lateral: 34.50 LA Volume Index: 37.3 ml/m2 MR ERO: 0.360 cm2 RA Area: 20.9 cm2 MR PISA radius: 10 mm MR Reg. Volume: 88 ml Additional Vessels Name Value Ao Ascendin.7 cm Inferior Vena Cava: 2.0 cm Findings: Left Ventricle: Sinus bradycardia at the time of the study. Normal size left ventricle. Mild concentric LV hypertrophy. Normal global systolic LV function. EF is 58 %. Grade 3 diastolic dysfunction (reversible restrictive LV filling pattern). Known mild hypokinesis of the basal inferoseptal wall. Right Ventricle: Normal size right ventricle. Normal RV function. Left Atrium: The left atrium is moderately dilated. Right Atrium: The right atrium is mildly dilated. Mitral Valve: The mitral valve is normal in appearance and function. Mild mitral annular calcification. Severe mitral valve regurgitation is present. No mitral stenosis is present. Aortic Valve: The aortic valve is tri-leaflet. Aortic sclerosis is present. Mild aortic valve regurgitation is present. Tricuspid Valve: The tricuspid valve is normal in appearance and function. Mild tricuspid regurgitation is present. Right ventricular systolic pressure measures 62mmHg. The pulmonary artery pressure is moderately to severely increased. Pulmonic Valve: The pulmonic valve is normal in appearance and function. Mild pulmonic valve regurgitation is noted. Aorta: The aorta is normal. Normal size aortic root measuring 2.5 cm. Normal size ascending aorta measuring 2.7 cm. IVC: The IVC is normal sized. Pericardium: No pericardial effusion. No pleural effusion. (No Signature Object) Patient: FRANKIE CHAVEZ Study Date: 07/21/2018 Page 2 of 2 02:22 PM [id number]
--- NOTE | 2018-07-21 16:24 | PDMN ---
Medical Necessity Medical necessity: Pt meets inpt criteria per MD order and MCG M-190, Heart Failure. 73 y/o w/hx CAD w/bypass surg, valvular heart disease, essential HTN, and IDDM presents w/dyspnea, mild cp, severe back pain, and nausea, admitted w/ CHF (BNP 4810), extreme HTN w/BP as high as 240/91, cp, low back pain, gastroparesis, and BRIDGETT (BUN and creat 32,1.7). Pt requiring 4 L suppl O2. Cardiology consult, ECHO pending, anticipate>2MN for eval/management of above.
[2018-07-21] MEDS ORDERED: ATROPINE SULFATE 1 MG/ML VIAL IVP PRN (17:10)
[2018-07-21] MEDS: INSULIN LISPRO 100 UNIT/ML SC SCH (18:39)
[2018-07-21] MEDS: FAMOTIDINE 20 MG TAB PO SCH (20:14)
[2018-07-21] MEDS: PANTOPRAZOLE SODIUM 40 MG TAB PO SCH (20:14)
[2018-07-21] MEDS ORDERED: LOSARTAN POTASSIUM 50 MG TAB PO SCH ×2 (21:00)
[2018-07-21] MEDS: INSULIN GLARGINE 100 UNITS/ML UNIT SC SCH (22:46)
[2018-07-22] MEDS: ONDANSETRON DISINTEGRATING 4 MG TAB PO PRN ×2 (03:12→08:54)
[2018-07-22 04:30] LABS: PLATELET COUNT 234 10^3/uL (150-400)
[2018-07-22] MEDS: HEPARIN 5,000 UNIT/0.5 ML INJ SC SCH ×3 (06:46→22:39)
--- NOTE | 2018-07-22 09:27 | HOSPPROG ---
Hospitalist Progress Note Assessment/Plan: # uncontrolled htn - much better controlled on imdur, hydralazine # dCHF - appears compensated; received one dose of lasix in ED - cont aldactone # MR - severe # p-htn - not changed # CAD s/p CABG - asa, not on statin # ERON/CPAP # bradycardia - hold clonidine; suspect will need ppm - check CTH given possible [place] reflex # acute on chronic renal failure - baseline SCr about 1.4 - SCr worse today, up to 2.0; likely hemodynamic - check ULytes - optimize hemodynamics, avoid nephrotoxins; low threshold to involve renal # low back pain - better today; no neuro sx - cont oxy PO - following with Dr Valentine; may need to defer to outpatient # gastroparesis - GI rec's trial of erythromycin - also trial reglan # DM2 - cont glargine 50 bid and SSI lispro # dvt ppx - heparin Subjective: back pain better; no LE numbness or weakness; no change in bowel or bladder fxn Objective: Vital Signs Temp Pulse Resp BP Pulse Ox 36.6 C 45 L 20 145/59 H 93 07/22/18 04:11 07/22/18 04:11 07/22/18 04:11 07/22/18 04:11 07/22/18 04:11 Laboratory Results 07/22/18 04:02 07/22/18 04:02 07/21/18 07/22/18 07/23/18 05:59 05:59 05:59 Intake Total 550 Output Total 1100 Balance -[address] Woods tele personally reviewed - Physical Exam Constitutional: obese, uncomfortable Cardiovascular: regular rate and rhythym, systolic murmur, bradycardia, No diastolic murmur, No tachycardia Respiratory: no respiratory distress, no rales or rhonchi, clear to auscultation Gastrointestinal: soft, non-tender abdomen, no palpable masses, tenderness, No guarding, No rebound ICD10 Worksheet Patient Problems: Problems Problem Status Onset Chest pain Acute Chronic Disease Mgmt/Transitional Care Acute Lumbar radiculitis Acute Lumbar stenosis Acute NSTEMI (non-ST elevated myocardial infarction) Acute CHF (congestive heart failure) Acute Back pain Acute Bilateral leg weakness Acute Sensory abnormality of thoracic dermatome distribution Acute Unstable angina Acute
[2018-07-22] MEDS: ASPIRIN EC 81 MG TAB PO SCH (09:57)
[2018-07-22] MEDS: SPIRONOLACTONE 25 MG TAB PO SCH (09:57)
[2018-07-22] MEDS: PANTOPRAZOLE SODIUM 40 MG TAB PO SCH ×2 (09:57→22:48)
[2018-07-22] MEDS: FAMOTIDINE 20 MG TAB PO SCH ×2 (09:57→22:48)
[2018-07-22] MEDS: ISOSORBIDE MONONITRATE 120 MG PO SCH ×2 (09:58→22:49)
[2018-07-22] MEDS: INSULIN LISPRO 100 UNIT/ML SC SCH ×3 (10:00→18:28)
[2018-07-22] MEDS: INSULIN GLARGINE 100 UNITS/ML UNIT SC SCH (10:04)
--- NOTE | 2018-07-22 10:29 | SOAPPROG ---
SOAP Progress Note Assessment/Plan: Assessment: 1. Coronary artery disease. She has severe [place] coronary artery disease with occlusion of her [place] LAD and right coronary arteries and severe obtuse marginal disease. She has had previous bypass surgery back in 1998. Cardiac catheterization from 2014 demonstrated a patent LOUIS to the LAD with known occlusion of the vein grafts to the obtuse marginal, right coronary artery and a new occlusion of the vein graft to the diagonal branch. As an outpatient she has had frequent episodes of chest discomfort managed medically. At the time of this hospitalization she was complaining of very mild chest pain and dyspnea with no objective findings to suggest ischemia/infarction. Those complaints were noted in the setting of severely elevated blood pressures following discontinuation of her antihypertensive medications. Her pain has now resolved as have symptoms of dyspnea. She has a preserved ejection fraction based on echocardiography. 2. Hypertension. She presented with essentially a hypertensive emergency following cessation of all of her antihypertensive medications. Some of these have been reinstituted (long-acting nitrates and hydralazine) with a significant improvement in her blood pressure. 3. Valvular heart disease she has known severe mitral regurgitation which was demonstrated again on her echocardiogram from yesterday. 4. Chronic congestive heart failure in the setting of a preserved ejection fraction. Likely multifactorial related to diastolic dysfunction and valvular heart disease. She appears to be well compensated at the present time. 5. Severe pulmonary hypertension. Likely related to the above-noted valvular heart disease and chronic congestive heart failure as well as obesity hypoventilation and sleep apnea. This is stable based on echocardiography. 6. Acute on chronic renal insufficiency. Her creatinine today is up to 2.0. This may very well be a result of her hypertensive emergency. Nephrotoxic agents have been held. 7. Obstructive sleep apnea/obesity. 8. Insulin-dependent diabetes mellitus. 9. Bradycardia. She has had fairly profound sinus bradycardia with heart rates into the 30s during sleep. She has not had any hemodynamic decompensation or neurologic changes. When she is awake and alert her heart rates are up in the 50s. The bradycardia may be physiologic in nature related to her recent development of severe nausea thought to be a result of gastro paresis. Additionally her bradycardia may be contributed to by the concomitant use of clonidine. Furthermore narcotic use may also be contributing to bradycardia. With the clinical presentation of hypertension in the setting of significant bradycardia this raises the question of a Earnestine's reflex. 10. Chronic back pain. 11. Hyperlipidemia. She is not on statin therapy. Plan: 1. I did discuss this with Dr. Bashir Spann from the hospital medicine service. I think it is worthwhile proceeding with a noncontrast head CT in light of her Earnestine's reflex to rule out an intracranial mass or other findings to suggest elevated intracranial pressure. 2. All nephrotoxic antihypertensive medications have been discontinued. Likewise her clonidine has been discontinued in the setting of her significant bradycardia. Her renal function will be carefully followed. 3. She will be monitored on telemetry. I would like to see how her heart rate response over the next day or so as she continues to wash out the residual clonidine. I would also like to see how her heart rate response once her nausea is it treated and improves. It may very well be that she requires placement of a permanent pacemaker however I do not think that her workup is thus far complete. 4. We can investigate why she is currently not taking a statin medication. At the present time, given her nausea, I do not want to institute this class of drugs. We can consider this more as an outpatient. 07/22/18 10:47 Subjective: She is doing much better today. Her back pain has improved substantially. She denies any chest discomfort and notes that her previously noted symptoms of dyspnea have now resolved. She has yet to get out of bed. Objective: Vital Signs Temp Pulse Resp BP Pulse Ox 36.7 C 42 L 13 172/78 H 96 07/22/18 08:00 07/22/18 08:00 07/22/18 08:00 07/22/18 09:54 07/22/18 08:00 Laboratory Results 07/22/18 04:02 07/22/18 04:02 07/21/18 07/22/18 07/23/18 05:59 05:59 05:59 Intake Total 550 Output Total 1100 Balance -550 Laboratory Tests 07/21/18 07/22/18 17:42 00:40 Troponin I 0.022 0.026 TSH 0.757 Physical Exam - Physical Exam General Appearance: alert, no apparent distress, obese EENT: PERRL/EOMI, normal ENT inspection, pharynx normal, TMs normal Neck: non-tender, full range of motion, supple, normal inspection Respiratory: chest non-tender, lungs clear, normal breath sounds Cardiac/Chest: normal peripheral pulses, regular rate, rhythm, systolic murmur ( 2/6 at the left sternal border) Peripheral Pulses: 2+: carotid (R), carotid (L), femoral (R), femoral (L), dorsalis-pedis (R), dorsalis-pedis (L) Abdomen: normal bowel sounds, non-tender, soft Pelvic Exam: deferred Rectal: deferred Back: Normal inspection Skin: normal color, warm/dry Lymphatic: no adenopathy Extremities: normal range of motion, non-tender, normal inspection, normal capillary refill Neuro/Psych: no motor/sensory deficits, alert, normal mood/affect, oriented x 3 ICD10 Worksheet Patient Problems: Problems Problem Status Onset CHF (congestive heart failure) Acute Lumbar radiculitis Acute Back pain Acute Bilateral leg weakness Acute Chest pain Acute Chronic Disease Mgmt/Transitional Care Acute Lumbar stenosis Acute NSTEMI (non-ST elevated myocardial infarction) Acute Sensory abnormality of thoracic dermatome distribution Acute Unstable angina Acute
[2018-07-22] MEDS: METOCLOPRAMIDE 10 MG TAB PO SCH ×2 (14:08→20:52)
[2018-07-22] MEDS: oxyCODONE IR 5 MG TAB PO PRN (14:08)
[2018-07-22] MEDS: ONDANSETRON 4 MG/2 ML VIAL IVP PRN ×2 (14:10→22:39)
--- NOTE | 2018-07-22 15:36 | ASMTCMCOM ---
CM Note CM Note Notes: 07/22/2018 Case Management Note Pt admitted for congestive heart failure, back pain and abdominal pain. Met w/pt and . Luis [phone] Daughter Lissy is visiting from [place] for approx 2 weeks. [phone]. Pt is current with [facility]. Faxed updates. Pt has used [facility] in the past for home care. Pt has previous stay at [facility] inpatient rehab on [address]. Pt does not want to return to [facility]. Therapy evals are pending. PCP is Dr. Raheem Seth. Case Management d/c poc: to be determined. Case Management to follow. Date Signed: 07/22/2018 03:35 PM Electronically Signed By:Aaliyah Rojas RN
[2018-07-22] MEDS ORDERED: LORazepam 2 MG/ML INJ IVP PRN (17:10)
[2018-07-22] MEDS ORDERED: NS 1,000 ML IV SCH (17:15)
[2018-07-22] MEDS ORDERED: INSULIN GLARGINE 100 UNITS/ML UNIT SC ONE (22:30)
[2018-07-23] MEDS: HEPARIN 5,000 UNIT/0.5 ML INJ SC SCH ×3 (06:11→21:28)
[2018-07-23] MEDS: ISOSORBIDE MONONITRATE 120 MG PO SCH ×2 (08:35→21:30)
[2018-07-23] MEDS: SPIRONOLACTONE 25 MG TAB PO SCH (08:36)
[2018-07-23] MEDS: ASPIRIN EC 81 MG TAB PO SCH (08:36)
[2018-07-23] MEDS: FAMOTIDINE 20 MG TAB PO SCH (08:36)
[2018-07-23] MEDS: METOCLOPRAMIDE 10 MG TAB PO SCH ×3 (08:36→21:31)
[2018-07-23] MEDS: PANTOPRAZOLE SODIUM 40 MG TAB PO SCH ×2 (08:37→21:31)
[2018-07-23] MEDS: INSULIN LISPRO 100 UNIT/ML SC SCH ×3 (08:46→17:55)
[2018-07-23] MEDS: INSULIN GLARGINE 100 UNITS/ML UNIT SC SCH ×2 (08:47→21:30)
--- NOTE | 2018-07-23 10:20 | PDCONSULT ---
Facility Service Manager Note: Assessment/Plan: BRIDGETT on CKD3: Pt with recent baseline Cr of 1.3, now up to 2.3 in setting of hypertensive urgency and bradycardia, also has CHF and pulmonary HTN. Pt is nonoliguric, lytes ok. - No need for HD at this time. - Agree with holding losartan, will also d/c spironolactone. - Working on BP management and bradycardia management as below. - Will check renal US, UA and CK. - Will continue to monitor. - Avoid hypotension and nephrotoxins. Bradycardia: starting to improve. - Agree with holding clonidine. - Cardiology following. Hypertension: improved since admission. - Continue hydralazine and ISMN. - Would recommend starting nifedipine, which can be titrated up as needed. - Avoid RAAS blockade and diuretics for now in setting of BRIDGETT. - Checking renal US with dopplers, although likely had HTN urgency on presentation due to stopping all meds. Thank you for the interesting consult. Nephrology will continue to follow, please call if you have any additional questions or concerns. H & P Stated Complaint: back pain and SOB Time Seen by Provider: 07/21/18 09:58 HPI/ROS: HPI: Ms. Cooper is a 73 yo F with h/o diastolic CHF and HTN who presented to ER two days ago with complaints of bradycardia and back pain. A few days prior to presentation, pt was noted to have bradycardia. She called cardiology office and stopped all her medications, including losartan, spironolactone, hydralazine , clonidine, and ISMN. She presented with SBP in 200s, HR in 40s-50s that has just come up to 60 this am. Her baseline Cr this year has been close to 1.3, in 2017 Cr baseline was 0.8. Her Cr on presentation was 1.7 and today is up to 2.3, prompting consultation. Pt denies any swelling, breathing is comfortable on O2 supplementation. ROS: positive per HPI, rest of 10-point ROS negative - Personal History Tetanus Vaccine Date: unknown - Medical/Surgical History Hx Asthma: Yes Hx Chronic Respiratory Disease: No Hx Diabetes: Yes Hx Cardiac Disease: Yes Hx Renal Disease: No Hx Cirrhosis: No Hx Alcoholism: No Hx HIV/AIDS: No Hx Splenectomy or Spleen Trauma: No Other PMH: 1. Sleep apnea, O2 at night. 2. CAD. 3. CABG 1998. 4. Obesity. 5. HTN. 6. IDDM. 6. back surgery 2012rupt disc.2015 and 10/2016. 6. CABG. 7.Stents. 8.HI, 2010. 9.Hyperlipidemia. 10. Hernia repair and 2012 11.laminectomy 2004, renetta 2004, lumbar fusion 2011, R TKA 2009, RENETTA. 11. CHF - Family History Significant Family History: No pertinent family hx - Social History Smoking Status: Never smoked - Physical Exam Exam: General: alert and oriented, no acute distress Eyes: EOMI, PERRL OP: Clear, MMM CV: RRR, no edema BLE, +systolic murmur Resp: nonlabored on NC, CTAB Abd: soft, NT/ND Neuro: CN II-XII grossly intact, no asterixis Psych: cooperative, appropriate mood and affect Skin: C/D/I, no rash Constitutional: Initial Vital Signs Temperature (C) 36.2 C 07/21/18 09:46 Heart Rate 55 L 07/21/18 09:46 Respiratory Rate 22 H 07/21/18 09:46 Blood Pressure 189/95 H 07/21/18 09:46 O2 Sat (%) 85 L 07/21/18 09:46 O2 Delivery Mode Nasal Cannula O2 (L/minute) 3 Allergies/Adverse Reactions: lorazepam [Lorazepam] Allergy (Intermediate, Verified 07/21/18 10:12) Other-Enter Comments metoprolol Allergy (Intermediate, Verified 07/21/18 10:12) Other-Enter Comments Sulfa (Sulfonamide Antibiotics) Allergy (Intermediate, Verified 07/21/18 10:12) Hives Opioids - Morphine Analogues Allergy (Unknown, Verified 07/21/18 10:12) Other-Enter Comments Home Medications: Medication Instructions Recorded Nitroglycerin [Nitrostat 0.4 mg 0.4 mg SL AD PRN 01/06/15 (*)] Isosorbide Mononitrate [Isosorbide 120 mg PO BID 04/26/16 Mononitrate ER] Pantoprazole Sodium [Protonix 40mg 40 mg PO BID 04/26/16 (*)] Aspirin EC [Aspirin EC 81 mg (*)] 81 mg PO DAILY #0 tab 12/12/16 Insulin Glargine [Lantus 100 50 units SC BID 01/23/17 UNITS/ML] hydrALAZINE [Apresoline 50 mg (*)] 100 mg PO BID 01/23/17 Albuterol [Proventil Inhaler HFA 1 - 2 puffs IH Q4H PRN 11/01/17 (*)] Insulin Aspart [novoLOG] 0 unit SC HS 11/01/17 Erythromycin Base [Erythromycin] 500 mg PO TID 07/21/18 Furosemide [Lasix 40 MG (*)] 40 mg PO PRN PRN 07/21/18 Isosorbide Mononitrate [Imdur 30 30 mg PO BID 07/21/18 mg (*)] Losartan Potassium 100 mg PO HS 07/21/18 Ondansetron HCl [Zofran] 4 mg PO Q6H PRN 07/21/18 Ranitidine HCl 150 mg PO BID 07/21/18 Spironolactone [Spironolactone] 25 mg PO DAILY 07/21/18 clonIDINE [Catapres-Tts (*)] 0.2 mg TD TH 07/21/18 Lab and Imaging 07/22/18 04:02 07/23/18 04:00 WBC 5.76 10^3/uL (3.80-9.50) 07/22/18 04:02 RBC 3.19 10^6/uL (4.18-5.33) L 07/22/18 04:02 Hgb 9.7 g/dL (12.6-16.3) L 07/22/18 04:02 Hct 29.7 % (38.0-47.0) L 07/22/18 04:02 MCV 93.1 fL (81.5-99.8) 07/22/18 04:02 MCH 30.4 pg (27.9-34.1) 07/22/18 04:02 MCHC 32.7 g/dL (32.4-36.7) 07/22/18 04:02 RDW 13.6 % (11.5-15.2) 07/22/18 04:02 Plt Count 234 10^3/uL (150-400) 07/22/18 04:02 MPV 10.5 fL (8.7-11.7) 07/22/18 04:02 Neut % (Auto) 60.4 % (39.3-74.2) 07/22/18 04:02 Lymph % (Auto) 24.7 % (15.0-45.0) 07/22/18 04:02 [place] % (Auto) 13.2 % (4.5-13.0) H 07/22/18 04:02 Eos % (Auto) 1.2 % (0.6-7.6) 07/22/18 04:02 Baso % (Auto) 0.2 % (0.3-1.7) L 07/22/18 04:02 Nucleat RBC Rel Count 0.0 % (0.0-0.2) 07/22/18 04:02 Absolute Neuts (auto) 3.48 10^3/uL (1.70-6.50) 07/22/18 04:02 Absolute Lymphs (auto) 1.42 10^3/uL (1.00-3.00) 07/22/18 04:02 Absolute Monos (auto) 0.76 10^3/uL (0.30-0.80) 07/22/18 04:02 Absolute Eos (auto) 0.07 10^3/uL (0.03-0.40) 07/22/18 04:02 Absolute Basos (auto) 0.01 10^3/uL (0.02-0.10) L 07/22/18 04:02 Absolute Nucleated RBC 0.00 10^3/uL (0-0.01) 07/22/18 04:02 Immature Gran % 0.3 % (0.0-1.1) 07/22/18 04:02 Immature Gran # 0.02 10^3/uL (0.00-0.10) 07/22/18 04:02 Sodium 133 mEq/L (135-145) L 07/23/18 04:00 Potassium 5.0 mEq/L (3.5-5.2) 07/23/18 04:00 Chloride 103 mEq/L (97-110) 07/23/18 04:00 Carbon Dioxide 26 mEq/l (22-31) 07/23/18 04:00 Anion Gap 4 mEq/L (6-14) L 07/23/18 04:00 BUN 35 mg/dL (7-23) H 07/23/18 04:00 Creatinine 2.3 mg/dL (0.6-1.0) H 07/23/18 04:00 Estimated GFR 21 07/23/18 04:00 Glucose 188 mg/dL (70-100) H 07/23/18 04:00 POC Glucose 160 mg/dL (70-100) H 07/23/18 08:06 Calcium 9.1 mg/dL (8.5-10.4) 07/23/18 04:00 POC Troponin I 0.03 ng/mL (0.00-0.08) 07/21/18 10:09 Troponin I 0.026 ng/mL (0.000-0.034) 07/22/18 00:40 NT-Pro-B Natriuret Pep 4810 pg/mL (0-125) H 07/21/18 10:05 TSH 0.757 uIU/mL (0.465-4.680) 07/21/18 17:42 Ur Random Creatinine 117.3 mg/dL 07/22/18 12:15 Ur Random Sodium 31 mEq/L (30-90) 07/22/18 12:15
[2018-07-23] MEDS: NIFEdipine ER 30 MG TAB PO SCH (11:10)
--- NOTE | 2018-07-23 12:09 | PDCARPN ---
Cardiology Progress Note Chief Complaint: Patient reports ongoing fatigue symptoms and with back pain. Assessment/Plan: Assessment: 73-year-old female with significant cardiac history that includes: 1. Coronary artery disease. She underwent multivessel bypass surgery back in 1998. She underwent cardiac catheterization in December of [address] Maico Martins. At that time, her sax[place] vasculature demonstrated an occluded LAD, an occluded 2nd obtuse marginal branch, a 75% lesion in the 3rd obtuse marginal branch and an occluded right coronary artery. From previous angiograms it was known that saphenous vein graft to the right coronary artery and to the obtuse marginal branch were occluded. On this angiogram the saphenous vein graft to the diagonal was occluded with the appearance of thrombus. Fortunately, the left internal mammary artery graft to the LAD was patent. There was collateral circulation to the diagonal branch. Because of this and a normal ejection fraction it was elected to treat her medically. 2. Severe mitral regurgitation. This is noted from an echocardiogram in October of 2017. At that time her ejection fraction was 55% with basal inferoseptal hypokinesis. She had severe mitral regurgitation with mild tricuspid regurgitation. The estimated RVSP was 70 mmHg. 3. Severe pulmonary hypertension as noted above. 4. Severe hypertension. 5. Chronic congestive heart failure. 6. Obesity/obstructive sleep apnea. 7. Insulin-dependent diabetes mellitus. This is associated with gastroparesis and symptoms of nausea. She was admitted on 07/21/2018 for complain of symptoms back pain, chest pain, dyspnea. She had been noted to be bradycardic in the last week at her PCP office. She had stopped all blood pressure medications last , including hydralazine, long-acting isosorbide, losartan, and clonidine patches. On arrival to emergency department, severely hypertensive with systolics above 240. Echocardiogram done on 07/21/2018 showing normal LV size, mild concentric LVH, EF 58% with grade 3 diastolic dysfunction, known mild hypokinesis of the basal inferior septal wall, LA moderately dilated, RA early mildly dilated, severe MR, mild AI, mild TR, RVSP of 62 mm Hg. Since admission , she has had no acute ST changes on EKG suggesting of ischemia. Negative troponins x2. Elevated proBNP at 4810. She was noted to have initial creatinine of 1.7, and noted to be mildly volume overloaded on day of admission , gave a single dose of IV Lasix. Renal insufficiency has worsen, since admission. Has been some question of potential questions syndrome. Patient did undergo head CT yesterday for evaluation for potential causes of increased intracranial pressure. Noting no hemorrhage, mass effect, or definitive acute peripheral infarct. Stable moderate peripheral atrophy. 07/23/2018: Patient reporting feeling slightly better. Reporting no chest pain , pressure, or shortness of breath. Continues to deal with chronic back pain. Patient is in sinus rhythm, but continues to note lower heart rates,, in 50s, but improvement since discontinuing clonidine. Laboratories today do show continuation of creatinine at 2.3. Blood pressure improved since hospitalization, but still suboptimally controlled. Losartan has been held due to BRIDGETT. Plan: 1. CAD: Reports no further episodes of chest pressure pain since hospitalization. Negative troponins x2. Echo showing normal EF, known mild hypokinesis of the basal inferior septal wall. Continue on aspirin therapy. Continue on isosorbide. Uncertain why patient is not on statin therapy, with ongoing nausea, will re-evaluate as an outpatient. 2. Hypertension: Improvement since hospitalization. Unfortunately with BRIDGETT, home dose of losartan has been discontinued. Today, also Aldactone discontinued. Continue on current dose of hydralazine, isosorbide. Instituted nifedipine. 3. Bradycardia: Initially found with profound sinus bradycardia, rates in the 30s while sleeping. No hemodynamics decompensation or neurological changes. When awake, rates up into the 50. Clozapine discontinued. Improvement in heart rate up to the 60s, with no pauses noted. Continue to monitor on continuous EKG. Questionable occlusion disease, CT of head negative for mass effect or causes of intracranial pressure. A.m. Cortisol level ordered. 4. Chronic diastolic heart failure: Probable multifactorial due to diastolic dysfunction and valvular heart disease. Appears to be euvolemic. Diuretics on hold due to [place] I 5. Severe MR: Noted 1st off of echo October of 2017, unchanged off of recent echocardiogram. 6. Acute on chronic renal insufficiency: Creatinine up to 2.3 today, continues to rise since hospitalization. Potentially may be cause from hypertensive emergency. Nephrotoxic agents have been held. Appreciate nephrology consultation. Renal artery Doppler study ordered. 7. Pulmonary hypertension: Likely related to valvular heart disease, congestive heart failure, as well as obesity. Stable by echocardiogram. 8. Hyperlipidemia: Currently not on statin therapy, will address as an outpatient. 07/23/18 12:07 Subjective: She reports no chest pressure or pain. Denies of any significant shortness of breath, denies of any palpitations, lightheadedness, near-syncope or syncopal events. Reviewed/Discussed With: hospitalist (Dr Schneider), other (Dr Chavez (nephrology), Dr Glaser) Objective: Vital Signs (8 Hrs) Temp Pulse Resp BP Pulse Ox 07/23/18 10:53 36.8 C 58 L 10 L 163/71 H 97 07/23/18 07:31 36.9 C 60 11 L 152/69 H 95 Intake/Output (24 Hrs) 07/22/18 07/23/18 07/24/18 05:59 05:59 05:59 Intake Total 550 1588 Output Total 1100 750 Balance -550 838 Intake: Oral (ml) 550 1190 IV Infused (ml) 398 Ns 1,000 ml @ 75 mls/hr 398 IV CONT SHAY Rx#: [id number] Output: Urine (ml) 1100 750 Bedside Commode 1100 Toilet 750 Other: Weight 107.5 kg 107.3 kg Intake Quantity Yes Sufficient Number of Voids Toilet 1 Result Diagrams: 07/22/18 04:02 07/23/18 04:00 Cardiac Labs: Cardiac Lab Results (72 Hrs) 07/22/18 07/21/18 00:40 17:42 Troponin I 0.026 0.022 - Physical Exam Constitutional: no apparent distress, obese (Morbidly) Ears, Nose, Mouth, Throat: moist mucous membranes Cardiovascular: regular rate and rhythm (Sinus bradycardia/sinus rhythm, 50s to 60s.), systolic murmur (4/6 left sternal border), pulses symmetric bilat, No jugular vein distention, No carotid bruit Peripheral Pulses: 1+: dorsalis-pedis (R), dorsalis-pedis (L), 2+: carotid (R), carotid (L) Respiratory: clear to auscultate bilat, no crackles, no wheezes Skin: no rashes, warm, no edema Neurologic: AAOx3 Psychiatric: cooperative, interactive, following commands ICD10 Worksheet Patient Problems: Problems Problem Status Onset Chest pain Acute Chronic Disease Mgmt/Transitional Care Acute Lumbar radiculitis Acute Lumbar stenosis Acute NSTEMI (non-ST elevated myocardial infarction) Acute CHF (congestive heart failure) Acute Back pain Acute Bilateral leg weakness Acute Sensory abnormality of thoracic dermatome distribution Acute Unstable angina Acute
--- NOTE | 2018-07-23 14:20 | ASMTCMCOM ---
CM Note CM Note Notes: Pt is declining SNF; she is accepting [facility] for PT. [facility] has been contacted; they have accepted pt. Pt states that she has not worked with [facility] in awhile and is unsure of restrting care with them. She would like to check-in with CM re this, prior to d/c. CM to follow. D/C Plan: [facility] for PT, possibly [facility] Date Signed: 07/23/2018 02:19 PM Electronically Signed By:Wilma Dorsey
[2018-07-23] MEDS: hydrALAZINE 20 MG/ML VIAL IVP PRN (16:00)
--- NOTE | 2018-07-23 17:38 | HOSPPROG ---
Hospitalist Progress Note Assessment/Plan: 73 year old female with pmh of HTN, HFpEF, MR, CAD S/P single vessel cabg, CKD, gastroparesis and IDDM here with Hypertensive crisis. Hypertensive urgency- BP remains labile and mostly elevated. Renal function worsening and so aldactone stopped. Started on nifedipine, and nephrology consulted. need to determine her imdur dose as it appears 30mg was held on admission but not sure why. Also on lopresor, hydralazine, and was on clonidine. -Continue home medications -stopped aldactone due to borderline hyperkalemia and worsening renal function -started nicardipine and can uptitrate -PRN hydralazine -losartan also stopped due to BRIDGETT dCHF - appears compensated; received one dose of lasix in ED. Cardiology consulted who recommends current management MR - severe Pulmonary Hypertension- Not on therapy. monitor CAD with hx of single vessel CABG on asa but never put on statin. Address as outpatient. ERON- continue on CPAP Bradycardia - presumed to be due to clonidine, but CTH also obtained to rule out other process. CT head reviewed by myself and is negative. seems to be resolving as clonidine washes out. Monitor BRIDGETT on CKD - baseline SCr about 1.4, creatinine has uptrended over her stay. neprhology consulted who recommends stopping aldactone, starting CCB, and getting renal ultrasound with flow doppler in am. Low back pain cont oxy PO following with Dr Valentine; may need to defer to outpatient gastroparesis - continue emycin and reglan DM2- patient refusing her lantus at full dose as she is not eating, but remains hyperglycemic to about 220s. Will reduce dose to 25 bid which she is comfortable with and increase SSI dvt ppx - heparin fluids- po Lytes- Monitor Nutrition- diabetic Cor- DNR Dispo- inpatient for bridgett, hyperension, bradycardia Subjective: still having problems eating, problems with nausea. no acute pain. Objective: Vital Signs Temp Pulse Resp BP Pulse Ox 36.7 C 60 17 207/78 H 98 07/23/18 15:18 07/23/18 15:18 07/23/18 15:18 07/23/18 15:18 07/23/18 15:18 Laboratory Results 07/22/18 04:02 07/23/18 04:00 07/22/18 07/23/18 07/24/18 05:59 05:59 05:59 Intake Total 550 1588 Output Total 1100 750 700 Balance -550 788 700 - Physical Exam Constitutional: no apparent distress, appears nourished, not in pain Eyes: PERRL, anicteric sclera, EOMI Ears, Nose, Mouth, Throat: moist mucous membranes, hearing normal, ears appear normal, no oral mucosal ulcers Cardiovascular: regular rate and rhythym, no murmur, rub, or gallop Respiratory: no respiratory distress, no rales or rhonchi, clear to auscultation Gastrointestinal: normoactive bowel sounds, soft, non-tender abdomen, no palpable masses Genitourinary: no bladder fullness, no bladder tenderness, no renal bruits Skin: no rashes or abrasions, no fluctuance, no induration Musculoskeletal: full muscle strength, no muscle tenderness, normal joint ROM Neurologic: AAOx3, sensation intact bilaterally Psychiatric: interacting appropriately, not anxious, not encephalopathic, thought process linear Lymph, Heme, Immunologic: no cervical LAD, no supraclavicular LAD ICD10 Worksheet Patient Problems: Problems Problem Status Onset CHF (congestive heart failure) Acute Lumbar radiculitis Acute Back pain Acute Bilateral leg weakness Acute Chest pain Acute Chronic Disease Mgmt/Transitional Care Acute Lumbar stenosis Acute NSTEMI (non-ST elevated myocardial infarction) Acute Sensory abnormality of thoracic dermatome distribution Acute Unstable angina Acute
[2018-07-23] MEDS ORDERED: NIFEdipine 10 MG CAP PO ONE (17:40)
[2018-07-23] MEDS ORDERED: MAGNESIUM HYDROXIDE 30 ML UDCUP PO PRN (17:47)
[2018-07-23] MEDS ORDERED: POLYETHYLENE GLYCOL 3350 17 GM PKT PO PRN (17:47)
[2018-07-23] MEDS ORDERED: BISACODYL 10 MG SUPP PR PRN (17:47)
[2018-07-23] MEDS ORDERED: LACTULOSE 20 GM/30 ML UDCUP PO PRN (17:47)
[2018-07-23] MEDS: SENNOSIDES/DOCUSATE SODIUM TAB PO SCH (21:31)
[2018-07-24 05:01] LABS: CREATINE KINASE 96 IU/L (0-156)
[2018-07-24] MEDS: oxyCODONE IR 5 MG TAB PO PRN ×2 (06:05→19:42)
[2018-07-24] MEDS: HEPARIN 5,000 UNIT/0.5 ML INJ SC SCH ×3 (06:05→23:08)
[2018-07-24] MEDS: NIFEdipine ER 30 MG TAB PO SCH (08:33)
[2018-07-24] MEDS: SENNOSIDES/DOCUSATE SODIUM TAB PO SCH ×2 (08:33→19:41)
[2018-07-24] MEDS: ASPIRIN EC 81 MG TAB PO SCH (08:33)
[2018-07-24] MEDS: METOCLOPRAMIDE 10 MG TAB PO SCH ×3 (08:33→23:08)
[2018-07-24] MEDS: FAMOTIDINE 20 MG TAB PO SCH (08:33)
[2018-07-24] MEDS: PANTOPRAZOLE SODIUM 40 MG TAB PO SCH ×2 (08:33→19:42)
[2018-07-24] MEDS: ISOSORBIDE MONONITRATE 120 MG PO SCH ×2 (08:34→23:10)
--- NOTE | 2018-07-24 09:53 | SOAPPROG ---
SOAP Progress Note Assessment/Plan: Assessment: 1. BRIDGETT on CKD3: Pt with recent baseline Cr of 1.3, now up to 2.3 in setting of hypertensive urgency and bradycardia, also has CHF and pulmonary HTN. Pt is nonoliguric, lytes ok. - Cont holding losartan, spironolactone. - Working on BP management and bradycardia management as below. - Renal US sub-optimal but no hydro seen, UA neg for blood, showed 2+ proteinuria - CK normal - Will need to recheck for proteinuria when BRIDGETT recovered, likely will need to eventually resume Losartan - Pt asking to go home; ok per renal with improvement in Cr as long as otherwise medically stable... should get PCP labs within a week and f/u in our clinic within a few weeks post-d/c. Please add to discharge paperwork 2. Bradycardia: starting to improve. - Agree with holding clonidine, using Hydralazine - Cardiology following. 3. Hypertension: improved - Continue hydralazine, nifedipine, and ISMN. - Avoid RAAS blockade and diuretics for now in setting of BRIDGETT. - Renal US with dopplers neg though poor study, although likely had HTN urgency on presentation due to stopping all meds. - F/u proteinuria, likely will need to eventually resume Losartan Plan: 07/24/18 09:57 07/24/18 09:59 07/24/18 10:01 Subjective: Feels well, c/o chronic back pain, no acute issues. Using O2, normally uses at night at home. Denies SOB. Objective: Vital Signs Temp Pulse Resp BP Pulse Ox 36.8 C 55 L 21 H 141/58 H 97 07/24/18 07:18 07/24/18 07:18 07/24/18 07:18 07/24/18 07:18 07/24/18 07:18 Laboratory Results 07/22/18 04:02 07/24/18 08:27 07/23/18 07/24/18 07/25/18 05:59 05:59 05:59 Intake Total 1588 450 Output Total 750 1900 Balance 838 -1450 ICD10 Worksheet Patient Problems: Problems Problem Status Onset Chest pain Acute Chronic Disease Mgmt/Transitional Care Acute Lumbar radiculitis Acute Lumbar stenosis Acute NSTEMI (non-ST elevated myocardial infarction) Acute CHF (congestive heart failure) Acute Back pain Acute Bilateral leg weakness Acute Sensory abnormality of thoracic dermatome distribution Acute Unstable angina Acute
[2018-07-24] MEDS: INSULIN LISPRO 100 UNIT/ML SC SCH ×3 (09:58→17:41)
[2018-07-24] MEDS: INSULIN GLARGINE 100 UNITS/ML UNIT SC SCH ×2 (09:58→19:48)
--- NOTE | 2018-07-24 15:26 | HOSPPROG ---
Hospitalist Progress Note Assessment/Plan: 73 year old female with pmh of HTN, HFpEF, MR, CAD S/P single vessel cabg, CKD, gastroparesis and IDDM here with Hypertensive crisis. Hypertensive urgency- BP still elevated but improved today. She was 190 systolic last night on new regimen. She wants to go home but I feel one more night to determine if BP medications titrated appropriate. Started on nifedipine , and nephrology consulted. Also on lopresor, hydralazine, and was on clonidine. -Continue home medications -stopped aldactone due to borderline hyperkalemia and worsening renal function -started nifedipine and can uptitrate -PRN hydralazine -losartan also stopped due to BRIDGETT, may ultimately need to restart -BP mildly better today. will increase nifedipine if remains hypertensive. dCHF - appears compensated; received one dose of lasix in ED. Cardiology consulted who recommends current management MR - severe Pulmonary Hypertension- Not on therapy. monitor CAD with hx of single vessel CABG on asa but never put on statin. Address as outpatient. ERON- continue on CPAP Bradycardia - presumed to be due to clonidine, but CTH also obtained to rule out other process. CT head reviewed by myself and is negative. seems to be resolving as clonidine washes out. Monitor BRIDGETT on CKD - baseline SCr about 1.4, creatinine has uptrended over her stay. neprhology consulted who recommends stopping aldactone, starting CCB -renal doppler provided no meaningful info -discussed case with nephrology who is fine with current plan. Low back pain cont oxy PO following with Dr Valentine; may need to defer to outpatient gastroparesis - continue emycin and reglan DM2- patient refusing her lantus at full dose as she is not eating, but remains hyperglycemic to about 220s. Will reduce dose to 25 bid which she is comfortable with and increase SSI dvt ppx - heparin fluids- po Lytes- Monitor Nutrition- diabetic Cor- DNR Dispo- inpatient for bridgett, hyperension, bradycardia Subjective: patient wants to go home. no complaints Objective: Vital Signs Temp Pulse Resp BP Pulse Ox 36.6 C 71 19 171/60 H 99 07/24/18 15:12 07/24/18 15:12 07/24/18 15:12 07/24/18 15:12 07/24/18 15:12 Laboratory Results 07/22/18 04:02 07/24/18 08:27 07/23/18 07/24/18 07/25/18 05:59 05:59 05:59 Intake Total 1588 450 Output Total 750 1900 Balance 838 -1450 - Physical Exam Constitutional: no apparent distress, appears nourished, not in pain Eyes: PERRL, anicteric sclera, EOMI Ears, Nose, Mouth, Throat: moist mucous membranes, hearing normal, ears appear normal, no oral mucosal ulcers Cardiovascular: regular rate and rhythym, no murmur, rub, or gallop Respiratory: no respiratory distress, no rales or rhonchi, clear to auscultation Gastrointestinal: normoactive bowel sounds, soft, non-tender abdomen, no palpable masses Genitourinary: no bladder fullness, no bladder tenderness, no renal bruits Skin: no rashes or abrasions, no fluctuance, no induration Musculoskeletal: full muscle strength, no muscle tenderness, normal joint ROM Neurologic: AAOx3, sensation intact bilaterally Psychiatric: interacting appropriately, not anxious, not encephalopathic, thought process linear Lymph, Heme, Immunologic: no cervical LAD, no supraclavicular LAD ICD10 Worksheet Patient Problems: Problems Problem Status Onset CHF (congestive heart failure) Acute Lumbar radiculitis Acute Back pain Acute Bilateral leg weakness Acute Chest pain Acute Chronic Disease Mgmt/Transitional Care Acute Lumbar stenosis Acute NSTEMI (non-ST elevated myocardial infarction) Acute Sensory abnormality of thoracic dermatome distribution Acute Unstable angina Acute
[2018-07-24] MEDS: ISOSORBIDE MONONITRATE 30 MG TAB.SR PO SCH (15:47)
[2018-07-25] MEDS: HEPARIN 5,000 UNIT/0.5 ML INJ SC SCH ×2 (05:01→14:28)
[2018-07-25] MEDS ORDERED: DIAZEPAM 2 MG TAB PO ONE ×2 (05:35→12:00)
[2018-07-25] MEDS: PANTOPRAZOLE SODIUM 40 MG TAB PO SCH (08:00)
[2018-07-25] MEDS: ASPIRIN EC 81 MG TAB PO SCH (08:00)
[2018-07-25] MEDS: NIFEdipine ER 30 MG TAB PO SCH (08:00)
[2018-07-25] MEDS: FAMOTIDINE 20 MG TAB PO SCH (08:00)
[2018-07-25] MEDS: SENNOSIDES/DOCUSATE SODIUM TAB PO SCH (08:00)
[2018-07-25] MEDS: METOCLOPRAMIDE 10 MG TAB PO SCH ×2 (08:01→15:46)
[2018-07-25] MEDS: ISOSORBIDE MONONITRATE 30 MG TAB.SR PO SCH (08:01)
[2018-07-25] MEDS: ISOSORBIDE MONONITRATE 120 MG PO SCH (08:02)
[2018-07-25] MEDS: INSULIN LISPRO 100 UNIT/ML SC SCH ×3 (08:28→16:52)
[2018-07-25] MEDS: INSULIN GLARGINE 100 UNITS/ML UNIT SC SCH (08:30)
[2018-07-25] MEDS ORDERED: NIFEdipine ER 30 MG TAB PO ONE (09:00)
[2018-07-25] MEDS ORDERED: NIFEdipine ER 60 MG TAB PO SCH (09:00)
--- NOTE | 2018-07-25 09:43 | PDCARPN ---
Cardiology Progress Note Chief Complaint: Patient reports she would like to go home. Assessment/Plan: Assessment: 73-year-old female with significant cardiac history that includes: 1. Coronary artery disease. She underwent multivessel bypass surgery back in 1998. She underwent cardiac catheterization in December of [address] Maico Martins. At that time, her [facility] [place] vasculature demonstrated an occluded LAD, an occluded 2nd obtuse marginal branch, a 75% lesion in the 3rd obtuse marginal branch and an occluded right coronary artery. From previous angiograms it was known that saphenous vein graft to the right coronary artery and to the obtuse marginal branch were occluded. On this angiogram the saphenous vein graft to the diagonal was occluded with the appearance of thrombus. Fortunately, the left internal mammary artery graft to the LAD was patent. There was collateral circulation to the diagonal branch. Because of this and a normal ejection fraction it was elected to treat her medically. 2. Severe mitral regurgitation. This is noted from an echocardiogram in October of 2017. At that time her ejection fraction was 55% with basal inferoseptal hypokinesis. She had severe mitral regurgitation with mild tricuspid regurgitation. The estimated RVSP was 70 mmHg. 3. Severe pulmonary hypertension as noted above. 4. Severe hypertension. 5. Chronic congestive heart failure. 6. Obesity/obstructive sleep apnea. 7. Insulin-dependent diabetes mellitus. This is associated with gastroparesis and symptoms of nausea. She was admitted on 07/21/2018 for complain of symptoms back pain, chest pain, dyspnea. She had been noted to be bradycardic in the last week at her PCP office. She had stopped all blood pressure medications last , including hydralazine, long-acting isosorbide, losartan, and clonidine patches. On arrival to emergency department, severely hypertensive with systolics above 240. Echocardiogram done on 07/21/2018 showing normal LV size, mild concentric LVH, EF 58% with grade 3 diastolic dysfunction, known mild hypokinesis of the basal inferior septal wall, LA moderately dilated, RA early mildly dilated, severe MR, mild AI, mild TR, RVSP of 62 mm Hg. Since admission , she has had no acute ST changes on EKG suggesting of ischemia. Negative troponins x2. Elevated proBNP at 4810. Renal insufficiency has worsen, with creatinine at up to 2.3. Renal artery ultrasound showing no significant flow limiting disease. 07/25/2018: She reports no chest pain, pressure, or symptoms suggesting of ischemia. Continues cardiac monitoring noting sinus rhythm, occasional PVC, no malignant arrhythmias or pauses. Patient remains hypertensive, with systolics running up to 183. This morning, BP 177/59. A.m. Laboratories showing improvement in renal function, creatinine down to 1.8. She appears to be fairly you on physical examination. Her weight is stable. Plan: 1. CAD: Reports no further episodes of chest pressure pain since hospitalization. Negative troponins x2. Echo showing normal EF, known mild hypokinesis of the basal inferior septal wall. Continue on aspirin therapy. Continue on isosorbide. Uncertain why patient is not on statin therapy, with ongoing nausea, will re-evaluate as an outpatient. 2. Hypertension: Remains elevated, Aldactone and losartan discontinued due to BRIDGETT. Continue on current dose of hydralazine and home dose of isosorbide. Increase nifedipine ER to 60 mg today, continue monitoring blood pressures if improvement potentially discharge this afternoon, with plans of follow-up with her primary branch service leader, Dr. Gauthier within the next week (scheduled appointment 07/30/2018 at 8:45 a.m.) 3. Bradycardia: Initially found with profound sinus bradycardia, rates in the 30s while sleeping. No hemodynamics decompensation or neurological changes. When awake, rates up into the 50. Clozapine discontinued. Improvement in heart rate up to the 60s, with no pauses noted. 4. Chronic diastolic heart failure: Probable multifactorial due to diastolic dysfunction and valvular heart disease. Appears to be euvolemic. Diuretics on hold due to BRIDGETT, patient's weight is stable. 5. Severe MR: Noted 1st off of echo October of 2017, unchanged off of recent echocardiogram. 6. Acute on chronic renal insufficiency: Creatinine down to 1.8 today. Improvement. Renal ultrasound showing no flow limiting disease. Potential causes hypertensive crisis. Being followed by Nephrology. Per the recommendation, when renal function improves, patient may need to be restarted losartan for renal protection. 7. Pulmonary hypertension: Likely related to valvular heart disease, congestive heart failure, as well as obesity. Stable by echocardiogram. 8. Hyperlipidemia: Currently not on statin therapy, will address as an outpatient. 07/25/18 09:36 Subjective: Patient denies of any chest pressure or pain. Reports no shortness of breath. Denies of any orthopnea palpitations, lightheadedness, near-syncope or syncopal events. Reviewed/Discussed With: hospitalist (Dr Schneider), other (Dr Coates) Objective: Vital Signs (8 Hrs) Temp Pulse Resp BP Pulse Ox 07/25/18 09:27 77 L 07/25/18 07:02 36.7 C 66 14 177/59 H 99 07/25/18 04:00 36.8 C 74 16 179/70 H 96 Intake/Output (24 Hrs) 07/24/18 07/25/18 07/26/18 05:59 05:59 05:59 Intake Total 450 650 Output Total 1900 Balance -1450 650 Intake: Oral (ml) 450 650 Output: Urine (ml) 1900 Bedside Commode 700 Toilet 1200 Other: Weight 106.8 kg 105.9 kg Intake Quantity Yes Sufficient Number of Voids Toilet 3 1 Number of Stools Toilet 1 Result Diagrams: 07/22/18 04:02 07/25/18 04:05 - Physical Exam Constitutional: no apparent distress, obese (Morbidly) Ears, Nose, Mouth, Throat: moist mucous membranes Cardiovascular: regular rate and rhythm, no rubs, no gallops, systolic murmur (3 /6 along left sternal border), pulses symmetric bilat, No carotid bruit Peripheral Pulses: 1+: dorsalis-pedis (R), dorsalis-pedis (L), 2+: carotid (R), carotid (L) Respiratory: clear to auscultate bilat, no crackles, no wheezes Gastrointestinal: normoactive bowel sounds Skin: warm, No no edema (Trace pedal edema bilateral lower extremities) Neurologic: AAOx3 Psychiatric: cooperative, interactive, following commands ICD10 Worksheet Patient Problems: Problems Problem Status Onset Chest pain Acute Chronic Disease Mgmt/Transitional Care Acute Lumbar radiculitis Acute Lumbar stenosis Acute NSTEMI (non-ST elevated myocardial infarction) Acute CHF (congestive heart failure) Acute Back pain Acute Bilateral leg weakness Acute Sensory abnormality of thoracic dermatome distribution Acute Unstable angina Acute
--- NOTE | 2018-07-25 10:52 | SOAPPROG ---
SOAP Progress Note Assessment/Plan: Assessment: Azra is doing better. 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 She has had high calcium levels in the past also. With the exception of this recent episode, her Cr and Hg have been stable. I saw the patient once as an outpatient on 01.06.18 for follow up from her hospitalization. At that time, I felt her issues were stable, and she was advised to follow up with Endo (her elevated Ca had occurred with an incompletely suppressed PTH), and to make an appt with Dr. Sparks of hematology for evaluation of her M protein. She did not schedule this follow up with either of these MD's. 1. BRIDGETT Improving. Her BL Cr is 1.3. This is thought to be due to DM, but we need to fully rule out an MGRS 2. History of Hypercalcemia This has occurred in the past in the setting of an incompletely suppressed PTH. She was to have followed up with Endo, but did not. We need to review, and ensure this is not related to a paraprotein. 3. Hx IgG kappa M Protein I have reviewed with patient and son. This needs further characterization. I would like her to remain in house until she is plugged into the [facility] system. I called Dr. Merino. He will see the patient today. 4. Hypertension Improving on CCB. Subjective: Doing better Objective: Vital Signs Temp Pulse Resp BP Pulse Ox 36.7 C 66 14 156/48 H 77 L 07/25/18 07:02 07/25/18 07:02 07/25/18 07:02 07/25/18 10:16 07/25/18 09:27 Laboratory Results 07/22/18 04:02 07/25/18 04:05 07/24/18 07/25/18 07/26/18 05:59 05:59 05:59 Intake Total 450 650 Output Total 1900 Balance -1450 650 Physical Exam - Physical Exam General Appearance: no apparent distress Respiratory: lungs clear Cardiac/Chest: regular rate, rhythm, systolic murmur Extremities: pedal edema Neuro/Psych: oriented x 3 ICD10 Worksheet Patient Problems: Problems Problem Status Onset CHF (congestive heart failure) Acute Lumbar radiculitis Acute Back pain Acute Bilateral leg weakness Acute Chest pain Acute Chronic Disease Mgmt/Transitional Care Acute Lumbar stenosis Acute NSTEMI (non-ST elevated myocardial infarction) Acute Sensory abnormality of thoracic dermatome distribution Acute Unstable angina Acute
--- NOTE | 2018-07-25 14:36 | GCON ---
MEDICAL ONCOLOGY CONSULTATION DATE OF CONSULTATION: 07/25/2018 REFERRING PHYSICIAN: Bogdan Hardy MD REASON FOR CONSULTATION: Hypercalcemia in the setting of possible monoclonal gammopathy. RECOMMENDATIONS: 1. Check quantitative serum immunoglobins. 2. Check serum light chains. 3. Check serum protein electrophoresis. 4. Collect a 24-hour urine for immunoelectrophoresis. 5. Check a beta-2 microglobulin. 6. Check C-reactive protein. 7. Do an osseous survey for lytic lesions which would be consistent with myeloma. 8. The patient should follow up with me as an outpatient next week to discuss the results of her wor kup thus far and decide whether next steps are appropriate with a bone marrow biopsy. ASSESSMENT: This 73-year-old woman with multiple medical problems has been found to be intermittentl y hypercalcemic in the past and also have possible monoclonal gammopathy on previously evaluated seru m protein electrophoresis. She is currently admitted for weakness and shortness of breath as well as an exacerbation of her back pain. The patient had back surgery approximately 2 years ago and unfort unately currently has a screw loose. She is being evaluated for a stimulator placement. She also desai s history of coronary artery disease dating back almost 20 years and is status post coronary artery b ypass grafting in 1998. She has a history of diastolic congestive heart failure, hypertension, marycruz l regurgitation, insulin-dependent diabetes, pulmonary hypertension, obesity, and obstructive sleep a pnea, as well as gastroparesis. The patient does not have a history of B symptoms. She has no history of lymphadenopathy and she has had no recurring pneumonias. She does have a history of intermittent elevated calcium in the past i ncluding a value up to almost 12. She has had recommendations to have this worked up as an outpatien t but for 1 reason or another, this was not accomplished. Currently, she has anemia with a hemoglobi n of 9.7 and elevated creatinine at 1.8. Because of the patient's hypercalcemia and her history of possible abnormal protein, we need to evalu ate her for the possibility of multiple myeloma. This could also represent a monoclonal gammopathy o f unclear significance or potentially could represent a Waldenstrom macroglobulinemia. By doing the above-mentioned workup and evaluating her for a possible bone marrow biopsy we should be able to sort amongst these possibilities. We will draw the lab work today in the hospital. If she stays another 24-hours we are going to collect a 24- hour urine and if possible, we can get the x-rays done either as inpatient or outpatient. The patient will need to then follow up with me next week to determine whether there is a sufficient evidence to recommend a bone marrow biopsy for further evaluation and t o assess the number of her plasma cells. I discussed this with the patient and her . HISTORY OF PRESENT ILLNESS: Please see assessment. PAST MEDICAL HISTORY: Remarkable for coronary artery disease status post coronary artery bypass jayne vnaessa in 1998. She has also had back surgery approximately [address] Bebeto Sánchez. She has had a history of diastolic congestive heart failure, hypertension, mitral valve regurgitation, insuli n-dependent diabetes, pulmonary hypertension, obesity, and obstructive sleep apnea, as well as gastro paresis. SOCIAL HISTORY: The patient is currently accompanied by her , Luis. She is a retired teache r. FAMILY HISTORY: Noncontributory to this consultation. REVIEW OF SYSTEMS: Her review of systems is remarkable for back pain and some nausea. She also is f eeling weak in general. Ten-system review is otherwise unremarkable. PHYSICAL EXAMINATION: GENERAL: Reveals an obese woman in mild distress. She is able to sit up on t he edge of the bed without assistance. HEENT: Unremarkable. LUNGS: Clear to auscultation. CARDIA C: Regular rhythm. ABDOMEN: An obese abdomen. Active bowel sounds. She has no significant tender ness noted. MUSCULOSKELETAL: Palpation of her spine shows no tenderness. LYMPH NODE EXAM: She has no palpable adenopathy in the neck or axilla bilaterally. LABORATORY DATA: Her CBC today from July 22, 2018, showed a white count of 5.76 with a hemoglobi n 9.7 and a platelet count of 234,000. Her creatinine is 1.8 today. Her total protein was slightly low at 6.2 with an albumin of 3.2. Thank you very much for allowing me to participate in this woman's hematologic workup and care. I wo uld be happy to see her as an outpatient in 1-2 weeks to review her labs and x-rays and decide on nex t steps. /[id number]/MODL
[2018-07-25] MEDS: hydrALAZINE 20 MG/ML VIAL IVP PRN (14:37)
[2018-07-25 15:37] VITALS: BP 151/62
--- NOTE | 2018-07-25 16:41 | PDIAF ---
- Diagnosis Code Status: Do Not Resuscitate - Medication Management Discharge Medications: electronically signed and located in the Home Medication List. - Orders Services needed: Home Care, Registered Nurse, Physical Therapy Home Care Face to Face: I certify that this patient was under my care and that I had the required [id number] encounter meeting the encounter requirements on the discharge day. My findings support the fact that the patient is homebound as defined in Home Care Face to Face Continued: CMS Chapter 7 Medicare Benefits Manual 30.1.1 , The condition of the patient is such that there exists a normal inability to leave home and consequently, leaving home would require a considerable and taxing effort. Isolation Type: None Diet Recommendation: ADA 2000 consistent carb Diet Texture: Regular Texture Diet Additional Instructions: BP log twice daily, bring with you on follow-up visit with Dr. Mejia on July 30. Call your PCP in the morning and perform your 24 hour urine collection. Follow up with Hayley Juan, and Ly. Activity as tolerated. - Follow Up Care Current Providers and Referrals: Raheem Seth MD [Primary Care Provider] - As per Instructions Molina Hollis MD [Medical Doctor] - ([facility] Get labwork with PCP within a week and follow up with Nephrology Clinic in a few weeks post discharge. [phone]) Walter Modi MD [Medical Doctor] - Gonzalo Gauthier MD [Medical Doctor] - 07/30/18 8:45 am
--- NOTE | 2018-07-25 16:58 | ASMTLACE ---
LACE Length of stay for Answers: 4-6 days current admission Acuity / Level of Answers: Yes Care: Did the patient have an inpatient admission? Comorbidities - select Answers: Chronic pulmonary disease all that apply Congestive heart failure Coronary Artery Disease Diabetes (uncontrolled or controlled) Opioid dependence / Chronic pain Other Notes: gastroparesis, obesity, HT N # of Emergency department Answers: 3-4 visits in the last 6 months Score: 22 Date Signed: 07/25/2018 04:58 PM Electronically Signed By:Aaliyah Rojas RN
--- NOTE | 2018-07-25 17:24 | ASDISCHSUM ---
Discharge Information Plan Status:Home with Home Health Medically Cleared to Leave:07/24/2018 Discharge Date:07/24/2018 CM D/C Disposition:Home Health Service ADT D/C Disposition:Home Health Service Projected Discharge Date:07/26/2018 11:00 AM Transportation at D/C:Family Discharge Delay Reason: Follow-Up Date:07/26/2018 11:00 AM Discharge Slot: Final Diagnosis: Placement Information Referral Type:Palliative Care Referral ID:[id number] Provider Name:[facility] Address 1:[address] [place] Address 2: City:[place] Selection Factors: State:[place] Referral Type:*Home Health Care Services Referral ID:[id number] Provider Name:[facility] Address 1:[address] Address 2: City:[place] Selection Factors: State:[place] Patient Contact Information Contact Name:CAITY Relationship: Address:[address] [place] City:[place] Alternate Phone: State/Zip Code:[place] [address] Email: Financial Information Financial Class:Medicare Advantage Plans Primary Plan Desc:Age of Learning Primary Plan Number:[id number] Secondary Plan Desc: Secondary Plan Number: Assessment Information LACE LACE Length of stay for Answers: 4-6 days current admission Acuity / Level of Answers: Yes Care: Did the patient have an inpatient admission? Comorbidities - select Answers: Chronic pulmonary disease all that apply Congestive heart failure Coronary Artery Disease Diabetes (uncontrolled or controlled) Opioid dependence / Chronic pain Other Notes: gastroparesis, obesity, HT N # of Emergency department Answers: 3-4 visits in the last 6 months Score: 22 Date Signed: 07/25/2018 04:58 PM Electronically Signed By:Aaliyah Rojas RN [facility] CM Progress Note CM Note CM Note Notes: 07/22/2018 Case Management Note Pt admitted for congestive heart failure, back pain and abdominal pain. Met w/pt and . Luis [phone] Daughter Lissy is visiting from [place] for approx 2 weeks. [phone]. Pt is current with [facility] palliative. Faxed updates. Pt has used [facility] in the past for home care. Pt has previous stay at [facility] inpatient rehab [facility] [address] [facility]. Pt does not want to return to [facility]. Therapy evals are pending. PCP is Dr. Raheem Seth. Case Management d/c poc: to be determined. Case Management to follow. Date Signed: 07/22/2018 03:35 PM Electronically Signed By:Aaliyah Rojas RN [facility] CM Progress Note CM Note CM Note Notes: Pt is declining SNF; she is accepting [facility] for PT. [facility] has been contacted; they have accepted pt. Pt states that she has not worked with [facility] in awhile and is unsure of restrting care with them. She would like to check-in with CM re this, prior to d/c. CM to follow. D/C Plan: [facility] for PT, possibly [facility] Date Signed: 07/23/2018 02:19 PM Electronically Signed By:Wilma Dorsey Case Management Discharge Plan Note Case Management Discharge Discharge Order Complete? Answers: Yes Patient to Obtain Answers: via Family Medications Transportation Arranged Answers: Family/Friends Faxed Final Orders Answers: Yes Notes: [facility] and [facility] Agency/Facility Transfer Answers: Yes Notes: [facility] and [facility] Report Printed & Faxed to Receiving Agency Family Notified Answers: Yes Notes: and daughter in room Discharge Comments Notes: 07/25/2018 Case Management Note Discharge orders faxed to [facility] and [facility]. IM signed. Pt to discharge home with family to transport. Date Signed: 07/25/2018 05:22 PM Electronically Signed By:Aaliyah Rojas RN Intervention Information Intervention Type:*Incorrect Registration Date of Service:07/22/2018 07:31 AM Patient Type:Inpatient Staff Member:ROSALINA Sprague Patricia Hours: Discipline: Severity: Comment: Intervention Type:*IM-Signed Date of Service:07/25/2018 05:22 PM Patient Type:Inpatient Staff Member:ROSALINA Rojas Hillary Hours: Discipline: Severity: Comment:
--- NOTE | 2018-07-25 20:28 | PDDCSUM ---
Discharge Summary Discharge Summary: Azra Cooper is a 73 year old female with pmh of HTN CAD s/p CABG, COPD, chronic back pain, IDDM, gastroparesis, diastolic HF, who was admitted with acute back pain, bradycardia and hypertensive urgency. she says that she had been told to stop all of her bp medications and so when she did this she became acutely hypertensive. she was admitted for CHF, hypertensive crisis, Mild bridgett. She was given lasix with improvement of her fluid status. Her renal function declined though. Nephrology was consulted as her renal function worsened and it was decided to stop her aldactone and losartan due to her BRIDGETT and borderline hyperkalemia. Her blood pressure continued to be an issue and she was started on nifedipine and uptitrated to 60qday. a renal us with doppler was obtained but was a poor study due to body habitus. she was also very bradycardic on admission and this was thought to be due to her clonidine which was also stopped. Her bradycardia did resolve with stopping her clonidine. It was noted that she was seen by nephrology previously and there was concern that she may have had an underlying MGUS due to a previous lab showing hypercalcemia and a monocloan spike. For this reason hematology was consulted who recommended serum free light chains, urine protein electrophoresis and a follow up in his office. she was discharged to follow up with her PCP, cardiology, nephrology and hematology for further evaluation.
--- NOTE | 2018-07-25 20:29 | HOSPPROG ---
Hospitalist Progress Note Assessment/Plan: 73 year old female with pmh of HTN, HFpEF, MR, CAD S/P single vessel cabg, CKD, gastroparesis and IDDM here with Hypertensive crisis. Hypertensive urgency- BP still elevated but improved today. She was 190 systolic last night on new regimen. She wants to go home but I feel one more night to determine if BP medications titrated appropriate. Started on nifedipine , and nephrology consulted. Also on lopresor, hydralazine, and was on clonidine. -Continue home medications -stopped aldactone due to borderline hyperkalemia and worsening renal function -started nifedipine and can uptitrate -PRN hydralazine -losartan also stopped due to BRIDGETT, may ultimately need to restart -BP mildly better today. will increase nifedipine if remains hypertensive. dCHF - appears compensated; received one dose of lasix in ED. Cardiology consulted who recommends current management MR - severe Pulmonary Hypertension- Not on therapy. monitor CAD with hx of single vessel CABG on asa but never put on statin. Address as outpatient. ERON- continue on CPAP Bradycardia - presumed to be due to clonidine, but CTH also obtained to rule out other process. CT head reviewed by myself and is negative. seems to be resolving as clonidine washes out. Monitor BRIDGETT on CKD - baseline SCr about 1.4, creatinine has uptrended over her stay. neprhology consulted who recommends stopping aldactone, starting CCB -renal doppler provided no meaningful info -discussed case with nephrology who is fine with current plan. Low back pain cont oxy PO following with Dr Valentine; may need to defer to outpatient gastroparesis - continue emycin and reglan DM2- patient refusing her lantus at full dose as she is not eating, but remains hyperglycemic to about 220s. Will reduce dose to 25 bid which she is comfortable with and increase SSI dvt ppx - heparin fluids- po Lytes- Monitor Nutrition- diabetic Cor- DNR Dispo- inpatient for bridgett, hyperension, bradycardia Subjective: patient wants to go home. back mildly painful but no more than usual. Objective: Vital Signs Temp Pulse Resp BP Pulse Ox 36.8 C 75 17 151/62 H 97 07/25/18 15:35 07/25/18 15:35 07/25/18 15:35 07/25/18 15:35 07/25/18 15:35 Laboratory Results 07/22/18 04:02 07/25/18 04:05 07/24/18 07/25/18 07/26/18 05:59 05:59 05:59 Intake Total 450 650 Output Total 1900 Balance -1450 650 - Physical Exam Constitutional: no apparent distress, appears nourished, not in pain Eyes: PERRL, anicteric sclera, EOMI Ears, Nose, Mouth, Throat: moist mucous membranes, hearing normal, ears appear normal, no oral mucosal ulcers Cardiovascular: regular rate and rhythym, no murmur, rub, or gallop Respiratory: no respiratory distress, no rales or rhonchi, clear to auscultation Gastrointestinal: normoactive bowel sounds, soft, non-tender abdomen, no palpable masses Genitourinary: no bladder fullness, no bladder tenderness, no renal bruits Skin: no rashes or abrasions, no fluctuance, no induration Musculoskeletal: full muscle strength, no muscle tenderness, normal joint ROM Neurologic: AAOx3, sensation intact bilaterally Psychiatric: interacting appropriately, not anxious, not encephalopathic, thought process linear Lymph, Heme, Immunologic: no cervical LAD, no supraclavicular LAD ICD10 Worksheet Patient Problems: Problems Problem Status Onset Back pain Acute Bilateral leg weakness Acute CHF (congestive heart failure) Acute Chest pain Acute Chronic Disease Mgmt/Transitional Care Acute Lumbar radiculitis Acute Lumbar stenosis Acute NSTEMI (non-ST elevated myocardial infarction) Acute Sensory abnormality of thoracic dermatome distribution Acute Unstable angina Acute
--- NOTE | 2018-07-27 14:35 | PDIAF ---
- Diagnosis Code Status: Do Not Resuscitate - Medication Management Discharge Medications: electronically signed and located in the Home Medication List. - Orders Services needed: Home Care, Registered Nurse, Physical Therapy Home Care Face to Face: I certify that this patient was under my care and that I had the required [id number] encounter meeting the encounter requirements on the discharge day. My findings support the fact that the patient is homebound as defined in Home Care Face to Face Continued: CMS Chapter 7 Medicare Benefits Manual 30.1.1 , The condition of the patient is such that there exists a normal inability to leave home and consequently, leaving home would require a considerable and taxing effort. Isolation Type: None Diet Recommendation: ADA 2000 consistent carb Diet Texture: Regular Texture Diet Additional Instructions: BP log twice daily, bring with you on follow-up visit with Dr. Mejia on July 30. Call your PCP in the morning and perform your 24 hour urine collection. Follow up with Hayley Juan, and Ly. Activity as tolerated. - Labs/Radiology Other Lab Name, Date and Time: urine protein electrophoresis, 07/27/2018, 14:30 - Follow Up Care Current Providers and Referrals: Raheem Seth MD [Primary Care Provider] - As per Instructions Molina Hollis MD [Medical Doctor] - ([facility] Get labwork with PCP within a week and follow up with Nephrology Clinic in a few weeks post discharge. [phone]) Walter Modi MD [Medical Doctor] - Gonzalo Gauthier MD [Medical Doctor] - 07/30/18 8:45 am
== END 2018-07-25 17:37 | disposition home health service (06) | DRG 305 ==
LOC: OBSVTOIN 12:37 → F2W 13:05
PROVIDERS: ADMIT Student in an Organized Health Care Education/Training Program; ATTEND Student in an Organized Health Care Education/Training Program
DX: I16.0 Hypertensive urgency (principal); N17.9 Acute kidney failure, unspecified; E83.52 Hypercalcemia; R00.1 Bradycardia, unspecified; T46.5X5A Adverse effect of other antihypertensive drugs, initial encounter; I13.0 Hypertensive heart and chronic kidney disease with heart failure and stage 1 through stage 4 chronic kidney disease, or unspecified chronic kidney disease; N18.9 Chronic kidney disease, unspecified; I50.30 Unspecified diastolic (congestive) heart failure; E11.22 Type 2 diabetes mellitus with diabetic chronic kidney disease; M54.9 Dorsalgia, unspecified; I25.10 Atherosclerotic heart disease of native coronary artery without angina pectoris; G47.33 Obstructive sleep apnea (adult) (pediatric); E78.5 Hyperlipidemia, unspecified; E66.9 Obesity, unspecified; Z95.5 Presence of coronary angioplasty implant and graft; Z95.1 Presence of aortocoronary bypass graft; Z98.1 Arthrodesis status; Z66 Do not resuscitate; Z96.651 Presence of right artificial knee joint; Z79.4 Long term (current) use of insulin; I25.2 Old myocardial infarction; Z68.41 Body mass index [BMI] 40.0-44.9, adult
CPT/HCPCS: 82232-90; 82784-90; 84484-ER; 96374; 97116-GP; 97162-GP; 97167-GO; 97530-GP; 97535-GO; G8978-GP-CK; G8979-GP-CI; G8987-GO-CK; G8988-GO-CI; J0360; J1644; J1815; J1940; J2405; J3010

== ENCOUNTER → 2018-08-28 | Outpatient (CLI) | payer OTHER | LOC: FIMAGING 11:52 | PROVIDERS: ATTEND Internal Medicine | DX: E05.90 Thyrotoxicosis, unspecified without thyrotoxic crisis or storm (principal) | CPT/HCPCS: 78070; A9500; A9516 ==

== ENCOUNTER 2018-11-09 10:48 | Day surgery (SDC) | payer OTHER ==
[2018-11-09] MEDS ORDERED: LR 1,000 ML IV ONE (11:12)
[2018-11-09] MEDS ORDERED: NS 500 ML IV ONE (11:48)
--- NOTE | 2018-11-09 12:03 | PDANEPAE ---
ANE History of Present Illness nausea, here for egd ANE Past Medical History - Cardiovascular History Hx Hypertension: Yes Hx Arrhythmias: Yes Hx Chest Pain: No Hx Coronary Artery / Peripheral Vascular Disease: Yes Hx CHF / Valvular Disease: Yes Hx Palpitations: No Cardiovascular History Comment: htn. cad s/p cabg x4. chf. severe mitral regurgitation and mild tricupsid regurgitation. severe pulm htn. hyperlipidemia. cardiac cath 12/2017 with [facility]. seen by [facility] 06/2018 - Pulmonary History Hx COPD: Yes Hx Asthma/Reactive Airway Disease: No Hx Recent Upper Respiratory Infection: No Hx Oxygen in Use at Home: Yes O2 in Use at Home (L/minute): 2.5L with cpap Hx Sleep Apnea: Yes Sleep Apnea Screening Result - Last Documented: Positive Pulmonary History Comment: juan positive uses cpap - Neurologic History Hx Cerebrovascular Accident: No Hx Seizures: No Hx Dementia: No Neurologic History Comment: DDD - Endocrine History Hx Diabetes: Yes Endocrine History Comment: type 2. goiters x3. currently testing for abnormalities in parathyroid - Renal History Hx Renal Disorders: Yes Renal History Comment: hx of UTI's. renal insufficiency - Liver History Hx Hepatic Disorders: No Hepatic History Comment: FATTY LIVER - Neurological & Psychiatric Hx Hx Neurological and Psychiatric Disorders: No Neurological / Psychiatric History Comment: "pinched nerve" "disc collapsed" low back pain-radiates to hips. restricted movement due to collapse of disc. - Cancer History Hx Cancer: No - Congenital Disorder History Hx Congenital Disorders: No - GI History Hx Gastrointestinal Disorders: Yes Gastrointestinal History Comment: reflux. gastroparesis - Other Health History Other Health History: wears glasses. chronic pain - Chronic Pain History Chronic Pain: Yes (back, bilateral knees and right ankle) - Surgical History Prior Surgeries: 11/09/16 l2-3 TLIF and hardware removal with Gonzalo. 08/10/15 l3-4 TLIF and hardware removal with Gonzalo. 04/02/13 ventral hernia repair with Guerrero. 07/25/11 l4-5 lami and TLIF with Gonzalo. 07/20/11 l4-5, l5-s1 TLIF with Gonzalo. 10/11/10 right TKA with Renato. CABG X 4 '99. previous hernia repairs x2. ERASTO NEGIN Review of Systems Review of Systems: - Exercise capacity METS (RN): 3 METS ANE Patient History - Allergies Allergies/Adverse Reactions: lorazepam [Lorazepam] Allergy (Verified 10/26/18 15:44) ANXIETY AND MAKES ME GOOFY metoprolol Allergy (Verified 10/26/18 15:44) hallucinations Opioids - Morphine Analogues Allergy (Verified 10/26/18 15:44) nausea, headache Aghnzwx-Xzp-Drf Reductase Inhibitor Allergy (Verified 10/26/18 15:44) Short Term Memory Loss Sulfa (Sulfonamide Antibiotics) Allergy (Verified 10/26/18 15:44) Hives - Home Medications Home Medications: Pantoprazole Sodium [Protonix 40mg (*)] BID 04/26/16 [Last Taken 11/08/18 21:00] Insulin Glargine [Lantus 100 UNITS/ML] BID 01/23/17 [Last Taken 11/08/18 21:00] Insulin Aspart [novoLOG] 11/01/17 [Last Taken 11/08/18 21:00] Isosorbide Mononitrate [Imdur 30 mg (*)] BID 07/21/18 [Last Taken 11/09/18 07:30 ] Aspirin EC [Aspirin EC 81 mg (*)] 10/26/18 [Last Taken 11/05/18] Herbals/Supplements -Info Only 10/26/18 [Last Taken 11/08/18 21:00] Lasix 10/26/18 [Last Taken 11/08/18 07:30] NIFEdipine ER [Adalat CC 60 mg (*)] DAILY 10/26/18 [Last Taken 11/09/18 07:30] hydrALAZINE [Apresoline 50 mg (*)] BID 10/26/18 [Last Taken 11/09/18 07:30] - NPO status NPO Since - Liquids (Date): 11/09/18 NPO Since - Liquids (Time): 07:30 NPO Since - Solids (Date): 11/08/18 NPO Since - Solids (Time): 08:30 - Smoking Hx Smoking Status: Never smoked - Family Anes Hx Family Hx Anesthesia Complications: none ANE Labs/Vital Signs - Vital Signs Blood Pressure: 223/96 Heart Rate: 66 Respiratory Rate: 16 O2 Sat (%): 95 Height: 162.56 cm Weight: 107.501 kg ANE Physical Exam - Airway Neck exam: FROM, increased neck circumference, short neck Mallampati Score: Class 4 Mouth exam: normal dental/mouth exam - Pulmonary Pulmonary: no respiratory distress, no rales or rhonchi - Cardiovascular Cardiovascular: regular rate and rhythym, no murmur, rub, or gallop - ASA Status ASA Status: III ANE Anesthesia Plan Anesthesia Plan: GA with mask Total IV Anesthesia: Yes
[2018-11-09] MEDS ORDERED: LIDOCAINE 2% 100 MG/5 ML SYR ONE (12:04)
[2018-11-09] MEDS ORDERED: fentaNYL 100 MCG/2 ML INJ ONE (12:05)
[2018-11-09] MEDS ORDERED: PROPOFOL/EMULSION 500 MG/50 ML BOTTLE IV ONE (12:05)
--- NOTE | 2018-11-09 12:26 | PDGENHP ---
History & Physical Chief Complaint: heartburn reflux History of Present Illness: long standing acid sx's Pertinent Past, Social, Family History: long standing acid sx's. no. tobacco. no alcohol. fhx - colon cancer brotehr and sister Relevant Physical Exam: a+ox3. CTA. S1S2. +BS ,soft nt Cardiorespiratory Assessment: class 3
--- NOTE | 2018-11-09 12:54 | GIREPORT ---
[facility] Surgical Services - Endoscopy Department Patient Name: Azra Cooper Procedure Date: 11/09/2018 11:59 AM Patient Type: Outpatient Attending MD/ ER Physician: Jayson Marquez MD Procedure: Upper GI endoscopy Indications: Epigastric abdominal pain Providers: Jayson Marquez MD Referring MD: Bogdan Hardy MD, Raheem Seth MD Medicines: Propofol per Anesthesia Complications: No immediate complications. Estimated blood loss: Minimal. Description of Procedure: After obtaining informed consent, the endoscope was passed under direct vision. Throughout the procedure, the patient's blood pressure, pulse, and oxygen saturations were monitored continuously. The Endoscope was intro duced through the mouth, and advanced to the second part of duodenum. The [facility] er GI endoscopy was accomplished without difficulty. The patient tolerated th e procedure well. Findings: The examined esophagus was normal. Diffuse mildly erythematous mucosa without bleeding was found in the ga stric body and in the gastric antrum. Biopsies were taken with a cold forceps for histology. Estimated blood loss was minimal. The examined duodenum was normal. The exam was otherwise without abnormality. Estimated Blood Loss: Estimated blood loss was minimal. Post Op Diagnosis: - Normal esophagus. - Erythematous mucosa in the gastric body and antrum. Biopsied. - Normal examined duodenum. - The examination was otherwise normal. Recommendation: - Await pathology results. - My office will call with the pathology result with 5-7 days. If you h ave not heard from my office by 14, do not assume the pathology is mac l, please call [phone] to get the pathology results. - Follow an antireflux regimen. - Continue present medications. - Will see if any reactions with her meds and ranitidine or famotidine - if not would start qhs dose of H2RA - Gastroparesis diet indefinitely. - Discharge patient to home (ambulatory). - Return to GI clinic at appointment to be scheduled. - Return to primary care physician as previously scheduled. - Thank you for allowing me to help in your patient's care. Do not hesi soares to call with any questions. Attending Participation: I personally performed the entire procedure. Jimmy Velasco M.D Jayson Marquez MD 11/09/2018 12:53:51 PM This report has been signed electronicallyMattlow Marquez MD Number of Addenda: 0 Note Initiated On: 11/09/2018 11:59 AM Total Procedure Duration Time 0 hours 3 minutes 10 seconds [email or web address]
[2018-11-09] MEDS ORDERED: ONDANSETRON 4 MG/2 ML VIAL IVP PRN (13:09)
[2018-11-09] MEDS ORDERED: DEXAMETHASONE 4 MG/ML VIAL IVP PRN (13:09)
[2018-11-09] MEDS ORDERED: LR 500 ML IV PRN (13:09)
[2018-11-09] MEDS ORDERED: ACETAMINOPHEN 500 MG TAB PO PRN (13:09)
[2018-11-09] MEDS ORDERED: NALOXONE HCL 0.4 MG/ML INJ IVP PRN (13:09)
--- NOTE | 2018-11-09 13:10 | POSTANESTH ---
Post Anesthetic Evaluation Cardiovascular Status: Normal, Stable Respiratory Status: Normal, Stable Level of Consciousness/Mental Status: Can Participate in Eval, Alert and Oriented Pain Control: Adequate, Prn Tx Ordered Nausea/Vomiting Control: Adequate, Prn Tx Ordered Complications Possibly Related to Anesthesia: None Noted
[2018-11-09 14:07] VITALS: BP 181/75
== END 2018-11-09 14:15 | disposition home or self-care (01) ==
LOC: FSGY 10:48
PROVIDERS: ATTEND Internal Medicine Gastroenterology
PROC: 0DB68ZX Excision of Stomach, Via Natural or Artificial Opening Endoscopic, Diagnostic (ICD-10-PCS; principal; 2018-11-09 12:00)
PROC: 0DJ08ZZ Inspection of Upper Intestinal Tract, Via Natural or Artificial Opening Endoscopic (ICD-10-PCS; principal; 2018-11-09 12:00)
DX: R10.13 Epigastric pain (principal); K29.30 Chronic superficial gastritis without bleeding; I25.10 Atherosclerotic heart disease of native coronary artery without angina pectoris; Z95.1 Presence of aortocoronary bypass graft; I50.9 Heart failure, unspecified; I34.1 Nonrheumatic mitral (valve) prolapse; I27.22 Pulmonary hypertension due to left heart disease; E78.5 Hyperlipidemia, unspecified; Z98.1 Arthrodesis status; Z96.651 Presence of right artificial knee joint
CPT/HCPCS: J2001; J2704; J3010

== ENCOUNTER 2018-12-22 07:19 | Inpatient (IN) | payer OTHER | END 2018-12-25 19:38 | disposition E | LOC: F2N 11:04 ==